=== PATIENT | male | born 1940 | race Caucasian/White ===

== ENCOUNTER → 2017-05-06 12:46 | Outpatient (CLI) | payer MEDICARE, SELFPAY ==
--- NOTE | 2017-05-06 12:48 | CT_ITS ---
CT sinus wo con CLINICAL INDICATION: Sinus pressure and extends into the neck, chronic maxillary sinusitis ORDERING PHYSICIAN: Gustavo Vazquez MD PATIENT AGE: 76 years COMPARISON: None TECHNIQUE:Axial, sagittal, and coronal images are generated and reviewed without contrast FINDINGS: There is mild mucosal thickening of the lower aspect of the frontal sinuses and moderate mucosal thickening of the anterior ethmoid air cells and mild mucosal thickening of the mid ethmoid air cells. There is mild to moderate bilateral maxillary sinus mucosal thickening measuring up to 5 mm bilaterally. There is an air-fluid level in the right maxillary sinus. Only minimal mucosal thickening of the sphenoid sinus along the medial wall on the left. There is occlusion of the left ostiomeatal complex and narrowing of the right ostiomeatal complex. There is a small left jarod bullosa. No significant nasal septal deviation. The mastoid sinuses are unremarkable. Unremarkable appearing globes and TMJs. IMPRESSION: Paranasal sinus inflammatory changes as described above. There is an air-fluid level in the right maxillary sinus.
== END ==
PROVIDERS: Family Provider Physician Assistant; PCP Family Medicine; Visit Provider Otolaryngology
DX: J32.0 Chronic maxillary sinusitis (principal); R51 Headache
CPT/HCPCS: 70486

== ENCOUNTER → 2017-07-26 15:23 | Outpatient (CLI) | payer MEDICARE, SELFPAY ==
[2017-07-26 17:55] LABS: Prostate Specific Ag Screen 5.9 ng/mL (0.0-4.0)
== END ==
PROVIDERS: Visit Provider Urology
DX: Z12.5 Encounter for screening for malignant neoplasm of prostate (principal); R97.20 Elevated prostate specific antigen [PSA]
CPT/HCPCS: 36415; G0103

== ENCOUNTER → 2017-10-03 07:35 | Outpatient (CLI) | payer MEDICARE, SELFPAY ==
[2017-10-03 09:11] LABS: Alanine Aminotransferase 23 U/L (12-78); Albumin Level 3.5 gm/dL (3.4-5.0); Alkaline Phosphatase 112 U/L (46-116); Anion Gap 8.8 mEq/L (5-15); Aspartate Amino Transferase 19 U/L (15-37); Bilirubin,Total 0.4 mg/dL (0.2-1.0); Blood Urea Nitrogen 16 mg/dL (7-18); Calcium 9.3 mg/dL (8.5-10.1); Carbon Dioxide 31 mmol/L (21.0-32.0); Chloride 109 mmol/L (98-107); Cholesterol 235 mg/dL (140-200); Creatinine,Serum 1.26 mg/dL (0.70-1.30); Estimated Glomerular Filt Rate 55 ml/min (>60); Free T4 (Free Thyroxine) 1.55 ng/dl (0.76-1.46); GFR (African American) 67 ML/MIN (>60); Globulin 3.5 gm/dl (1.3-3.2); HDL Cholesterol 39 mg/dL (27-67); LDL Cholesterol 174 mg/dL (0-130); Potassium 4.8 mmoL/L (3.5-5.1); Sodium 144 mmol/L (136-145); Thyroid Stimulating Hormone 0.76 uIU/ml (0.358-3.740); Triglycerides 109 mg/dL (30-200); VLDL Cholesterol 22 mg/dL (0-40)
[2017-10-03 09:19] LABS: Glucose 88 mg/dL (74-106)
== END ==
PROVIDERS: Visit Provider Family Medicine
DX: E03.9 Hypothyroidism, unspecified (principal); E78.5 Hyperlipidemia, unspecified
CPT/HCPCS: 36415; 80053; 80061; 84439; 84443

== ENCOUNTER → 2018-02-02 10:12 | Outpatient (CLI) | payer MEDICARE, SELFPAY ==
[2018-02-02 12:53] LABS: Chol/HDL Ratio 5.2 (1-3.5); Cholesterol 208 mg/dL (140-200); HDL Cholesterol 40 mg/dL (27-67); LDL Cholesterol 142 mg/dL (0-130); Thyroid Stimulating Hormone 2.18 uIU/ml (0.358-3.740); Triglycerides 128 mg/dL (30-200); VLDL Cholesterol 26 mg/dL (0-40)
== END ==
PROVIDERS: PCP Family Medicine; Visit Provider Nurse Practitioner Family
DX: E03.9 Hypothyroidism, unspecified (principal); E78.5 Hyperlipidemia, unspecified
CPT/HCPCS: 36415; 80061; 84443

== ENCOUNTER → 2018-04-18 08:43 | Outpatient (CLI) | payer MEDICARE, SELFPAY ==
--- NOTE | 2018-04-18 | CI_ITS ---
Cerebrovascular Exam Indications: 780.4 Dizziness and giddiness. IMPRESSIONS 1. The bilateral vertebral arteries are patent with normal antegrade flow. 2. Study suggests less than 20% stenosis involving the right internal carotid artery. No change from the study of 14-Oct-2009. 3. Study suggests less than 20% stenosis involving the left internal carotid artery. No change from the study of 14-Oct-2009. Carotid duplex study. Complete study and Doppler flow study including spectral analysis, color and rubin scale imaging. Location: Vascular laboratory. Patient status: Outpatient. Tables: Arterial flow: + +--------+--------+ Location V sys V ed + +--------+--------+ Right CCA - proximal 64.4cm/s 17.3cm/s + +--------+--------+ Right CCA - distal 63.6cm/s 19.6cm/s + +--------+--------+ Right ECA 85.6cm/s 18.1cm/s + +--------+--------+ Right ICA - proximal 73.1cm/s 22.8cm/s + +--------+--------+ Right ICA - mid 62.1cm/s 25.9cm/s + +--------+--------+ Right ICA - distal 123cm/s 33.8cm/s + +--------+--------+ Right vertebral 57.4cm/s 16.5cm/s + +--------+--------+ Left CCA - proximal 68.4cm/s 15.7cm/s + +--------+--------+ Left CCA - distal 62.9cm/s 13.4cm/s + +--------+--------+ Left ECA 101cm/s 12.6cm/s + +--------+--------+ Left ICA - proximal 69.9cm/s 23.6cm/s + +--------+--------+ Left ICA - mid 78.6cm/s 23.6cm/s + +--------+--------+ Left ICA - distal 64.4cm/s 19.6cm/s + +--------+--------+ Left vertebral 73.9cm/s 16.5cm/s + +--------+--------+ Velocity ratios: + + + + + + Right, V sys Right, V ed Left, V sys Left, V ed + + + + + + Max ICA/dist CCA 1.93 1.72 1.25 1.76 + + + + + + (Report amended ) Electronically signed by: Jhon Houston [id number]
== END ==
PROVIDERS: PCP Family Medicine; Visit Provider Family Medicine
DX: R42 Dizziness and giddiness (principal); G44.89 Other headache syndrome
CPT/HCPCS: 93880

== ENCOUNTER 2018-06-09 11:00 | Outpatient (RCR) | payer MEDICARE, SELFPAY ==
--- NOTE | 2018-04-28 14:15 | HMH.PTOPEV ---
PT Outpatient Evaluation Rehab PT Outpatient Evaluation Start: 04/28/18 13:28 Freq: Status: Active Protocol: Document 04/28/18 14:03 REJI (Rec: 04/28/18 14:15 REJI [id number]) Electronically Signed By Luis Carlos Ashraf, PT 04/28/18 14:03 Outpatient Therapy Subjective History Subjective History Patient is a 77 year old male presenting to outpatient PT with reports of chronic cervical spine and L upper trapezius pain starting approximately 2 years ago after a fall off of a ladder at home. No recent diagnostics to report. Pt also reports intermittent cevicogenic headaches. Comorbidities include hx of previous tumor removal and OA. Chief Complaint Pain Stiff Clicks Symptom Type Ache Symptoms Relieved By Rest/Positioning Heat Symptoms Aggravated By Physical Activity Lifting Prior Functional Limitations None Current Functional Limitations Reaching Lifting Housework Sleeping Recreation Activity Symptom Description Constant but Variable Level of pain today (0-10) 2 Pain scale - at its best (0-10) 0 Pain scale - at its worst (0-10) 4 Cervical Eval Palpation Cervical Muscles L Upper Trapezius Cervical/Thoracic Palpation Findings Tenderness Posture Head/C-Spine Posture Sitting Position C-Spine Flattened Head/C-Spine Posture Standing Position C-Spine Flattened Flexibility Deficits Upper Trapezius Muscle Length (L) Moderate Tightness Levaetor Scapulae Muscle Length (L) Moderate Tightness Pectoralis Minor Muscle Length (R) Moderate Tightness (L) Moderate Tightness Passive Joint Mobility Cervical PIVM Dec: R OA L OA R AA L AA R C2/3 L C2/3 R C3/4 L C3/4 R C4/5 L C4/5 R C5/6 L C5/6 R C6/7
== END 2018-06-09 11:05 | disposition home or self-care (01) ==
LOC: PT 11:00
PROVIDERS: Visit Provider Family Medicine
DX: M54.2 Cervicalgia (principal)
CPT/HCPCS: 97010; 97014; 97033; 97035; 97110; 97140; 97163; G0283

== ENCOUNTER → 2018-08-24 09:19 | Outpatient (CLI) | payer MEDICARE, SELFPAY | PROVIDERS: PCP Family Medicine; Visit Provider Family Medicine | DX: R07.2 Precordial pain (principal) | CPT/HCPCS: 93017 ==

== ENCOUNTER 2018-11-17 10:54 | Observation (INO) ==
[2018-11-17 11:31] LABS: Basophils % 0.5 % (0.1-2.0); Eosinophils # 0.5 K/mm3 (0.0-0.4); Eosinophils % 6.3 % (0.1-12.0); Hematocrit 26.3 % (42.0-52.0); Hemoglobin 8.1 g/dL (14.1-18.0); Lymphocytes # 3.2 K/mm3 (0.7-4.5); Lymphocytes % 38.2 % (10-50); Mean Corpuscular HGB Conc 30.8 g/dL (31.8-35.4); Mean Corpuscular Volume 96.5 fl (80-94); Mean Platelet Volume 7.9 fl (7.4-10.4); Monocytes # 0.4 K/mm3 (0.1-1.0); Monocytes % 4.9 % (1.7-9.3); Neutrophils # 4.2 K/mm3 (1.8-7.8); Neutrophils % 50.1 % (37.0-80.0); Platelet Count 341 K/mm3 (142-424); Red Blood Count 2.72 M/mm3 (4.60-6.20); Red Cell Distribution Width 13.8 % (11.5-17.5); White Blood Count 8.4 K/mm3 (4.8-10.8)
[2018-11-17 11:35] LABS: Alanine Aminotransferase 19 U/L (12-78); Albumin Level 2.8 gm/dL (3.4-5.0); Alkaline Phosphatase 76 U/L (46-116); Anion Gap 12.7 mEq/L (5-15); Aspartate Amino Transferase 20 U/L (15-37); Bilirubin,Direct 0.1 mg/dL (0.0-0.2); Bilirubin,Indirect 0.2 mg/dL (0.0-0.9); Bilirubin,Total 0.3 mg/dL (0.2-1.0); Blood Urea Nitrogen 21 mg/dL (7-18); Calcium 8.5 mg/dL (8.5-10.1); Carbon Dioxide 26 mmol/L (21.0-32.0); Chloride 106 mmol/L (98-107); INR 1.01 (0.9-1.1); Prothrombin Time 10.5 seconds (9.4-11.8); Sodium 141 mmol/L (136-145); Total Protein,Serum 5.9 gm/dL (6.4-8.2)
[2018-11-17 11:47] LABS: Glucose 126 mg/dL (74-106)
--- NOTE | 2018-11-17 12:00 | Emergency Department Note ---
ED Disposition Clinical Impression: Vasovagal syncope, Dehydration Disposition: Admitted As Inpatient Condition on Discharge: Fair Instructions: DI for Syncope in Adults (Fainting), DI for Syncope in Children (Fainting) Referrals: Yohannes Saravia MD [Primary Care Provider] - - Critical Care Critical Care Time: Yes Attestation: On 11/17/18, the high probability of a clinically significant, sudden or life threatening deterioration of the following system(s) required my full and direct attention, intervention and personal management. The time I documented below is in addition to time spent performing reported procedures but includes the following listed in this critical care notation. Vital system(s) involved:: Circulatory Failure My critical care processes included: Assessment & monitoring of V/S Medical Decision Making - Medical Records MR Comment: Patient has dehydration and GI bleed. He was started on IV fluids. His hemoglobin is 8.1. We are not sure if this is upper GI lower GI. He will be started on Protonix IV. He needs blood transfusion. Called his primary care physician and he agreed on admission. - Zaki Inquiry Pt receiving controlled substance: No Zaki was queried for this patient: No Vital Signs: 11/17/18 10:59 11/17/18 11:53 Temperature 97.6 F Temperature Source Oral Pulse Rate [Left Radial] 68 70 Respiratory Rate 16 Blood Pressure [Right Arm] 122/72 139/77 Blood Pressure Mean [Right Arm] 88 97 Blood Pressure Source [Right Arm] Automatic Cuff Automatic Cuff Blood Pressure Position [Right Arm] Sitting Sitting 02 Sat by Pulse Oximetry 97 98 Oxygen Delivery Method Room Air Room Air - Lab Data Lab Results 11/17/18 11:00: WBC 8.4, RBC 2.72 L, Hgb 8.1 L, Hct 26.3 L, MCV 96.5 H, MCH 29.7, MCHC 30.8 L, RDW 13.8, Plt Count 341, MPV 7.9, Neut % (Auto) 50.1, Lymph % (Auto) 38.2, [place] % (Auto) 4.9, Eos % (Auto) 6.3, Baso % (Auto) 0.5, Neut # (Auto) 4.2, Lymph # (Auto) 3.2, [place] # (Auto) 0.4, Eos # (Auto) 0.5 H, Baso # (Auto) 0.0 11/17/18 11:00: Sodium 141, Potassium 3.7, Chloride 106, Carbon Dioxide 26, Anion Gap 12.7, BUN 21 H, Creatinine 1.45 H, Estimated Creat Clear 40, Estimated GFR 47 L, Est GFR ( Amer) 57 L, Glucose 126 H, Calcium 8.5, Total Bilirubin 0.3, Direct Bilirubin 0.1, Indirect Bilirubin 0.2, AST 20, ALT 19, Alkaline Phosphatase 76, Troponin I < 0.02, Total Protein 5.9 L, Albumin 2.8 L 11/17/18 11:00: PT 10.5, INR 1.01 11/17/18 11:35: Stool Occult Blood Positive A Result diagrams: 11/17/18 11:00 11/17/18 11:00 General Adult HPI - General Chief complaint: Syncope Stated complaint: Syncope Time Seen by Provider: 11/17/18 11:00 Mode of Arrival: EMS Limitations: No Limitations Description of Symptoms (Recalled from ER Triage Doc. by RN): to ed per squad with syncopal episode today pt states he got out of the shower started feeling weak "slid down side of shower and passed out. pt denies any c/o at present. states yesterday had an episode of lt shoulder pain radiating down and around abd lasting approx 3-4 hours. - History of Present Illness HPI narrative: 28-year-old male. He was taking a shower when he passed out according to his . She was on the commode and he urinated on himself. And his eyes were rolled according to his . This syncope lasted about 1 minute. He said he has chronic neck pain and he had some acupuncture due to spurs but he denies any chest pain. Also has a chronic back pain. Said he had a stress test about 2 months ago and it was negative he denies any chest pain today. He had diarrhea last night and he passed blood with the stool. About 6 times. He only takes thyroid medicine and is still flex and he takes Advil as needed. He does not take any aspirin. - Related Data Home Medications Medication Instructions Recorded Confirmed glucosamine-chondroitin 250 mg-200 2 tab PO TID 05/12/17 11/17/18 mg tablet levothyroxine 88 mcg capsule 88 mcg PO ONCE 03/08/18 09/13/19 omega 9-phx-fqk-fish oil 1,000 mg 1 cap PO DAILY 05/12/17 11/17/18 (120 mg-180 mg) capsule Montelukast Sodium [Singulair] 10 mg PO QHS 11/17/18 11/17/18 Allergies Allergy/AdvReac Type Severity Reaction Status Date / Time Sulfa (Sulfonamide Allergy Unknown NAUSEA/VOMI Verified 07/26/17 10:44 Antibiotics) [facility] History - Hepatitis A Screen Drug use history?: No High risk sexual behaviors?: No History of sexually transmitted infection?: No Currently employed?: No Childcare worker?: No Do you have indoor plumbing?: Yes Do you have electricity?: Yes Attestation statement:: This patient has been screened for Hepatitis A risk factors. Medical History: Reports:: Chronic Obstructive Pulmonary Disease (COPD), Hyperlipidemia, Lung Disease Other Medical History: Reports: Arthritis, Thyroid Disease Comment: Bleeding Disorder Laterality Cases: Left: Tonsillectomy Other Surgeries: Yes: Sinus Surgery Amputation: No Fractures: No Comment: tonsil - Social History Smoking Status: Never smoker Alcohol Intake: never Substance Use Type: denies use Occupational Status: other Family Hx:: Anemia, Asthma, Cancer, Hyperlipidemia, Diabetes, Hypertension Comment: Arthritis, IA, Bleeding trouble, COPD, Glaucoma, Lung Disease ROS Obtained: Yes All systems reviewed & no additional complaints - Gastrointestinal Comments: Blood in the stool. Diarrhea. Physical Exam - General General appearance: alert, in no apparent distress - Head Head exam: atraumatic, normocephalic, normal inspection - Eye Eye exam: Present: normal appearance, PERRL, EOMI - ENT ENT exam: Present: normal exam, normal oropharynx, mucous membranes moist, TM's normal bilaterally, normal external ear exam - Neck Neck exam: Present: normal inspection, full ROM, trachea midline. Absent: meningismus, lymphadenopathy - Chest Chest inspection: Present: normal inspection, symmetric chest wall rise. Absent: tenderness - Respiratory Respiratory exam: Present: normal lung sounds bilaterally. Absent: respiratory distress - Cardiovascular Cardiovascular exam: Present: regular rate, normal rhythm. Absent: JVD - Abdominal Exam Abdominal exam: Present: soft, normal bowel sounds. Absent: distention, tenderness, guarding - Extremities Exam Extremities exam: Present: normal inspection, full ROM, normal capillary refill. Absent: calf tenderness - Back Exam Back exam: Present: normal inspection. Absent: tenderness - Neurological Exam Neurological exam: Present: alert, oriented X3 - Psychiatric Psychiatric exam: Present: normal affect, normal mood - Skin Skin exam: Present: warm, dry, intact, normal color - Lymphatic Lymphatic Findings: no adenopathy
--- NOTE | 2018-11-17 14:29 | History & Physical Report ---
*Admission Date: 11/17/18 <Kaycee Sarah 11/17/18 14:44> *Chief complaint: weakness, syncope, dark stools, diarrhea <Kaycee Sarah 11/17/18 14:44> *History of present illness: Mr. Robert is a 78-year-old male with a history of hypothyroidism, hyperlipidemia, GERD, diverticulosis, BPH, and COPD. He states for the past 2 days he has had diarrhea that has been dark in color. At 9:30 AM his states he was in the shower and she heard a noise and went to check on him and he had passed out and was sliding down the wall. She was able to get him on the toilet and he had another syncopal episode for 1 to 2 minutes. She was able to get him into his chair in the living room and he was complaining of some left-sided back and neck pain as long as left lower quadrant abdominal pain. He stated his arms and face were tingling. She called 911 and he was transported to the emergency room. His head CT showed sinusitis but nothing acute. He had a chest x-ray showing COPD but nothing acute. His hemoglobin was decreased at 8.1 and his hematocrit was decreased at 26.3. His renal function was slightly elevated and his stool was positive for blood. He will be admitted and a blood transfusion and surgical consult will be ordered. <Kayece Sarah 11/17/18 14:44> [facility] History I have reviewed the patient's past medical history: Yes <Kaycee Sarah 11/17/18 14:44> Medical History: Reports:: BPH, Chronic Obstructive Pulmonary Disease (COPD), Gastroesophageal Reflux Disease(GERD), Hiatal Hernia, Hyperlipidemia, Lung Disease Denies:: Cancer, Diabetes Mellitus Type 1, Diabetes Mellitus Type 2, MRSA <Kaycee Sarah 11/17/18 14:44> *Have you ever received a pneumonia vaccine?: Yes <Kaycee Sarah 11/17/18 14:44> *Have you received a flu vaccine this season?: No <Kaycee Sarah 11/17/18 14:44> Other Medical History: Reports: Arthritis, Cataracts, Hypothyroidism, Sinus Problems, Thyroid Disease <Kaycee Sarah 11/17/18 14:44> Laterality Cases: Left: Tonsillectomy <MikeumuKaycee 11/17/18 14:44> Other Surgeries: Yes: Sinus Surgery <MikeSylvester sanza 11/17/18 14:44> Amputation: No <Kaycee Sarah 11/17/18 14:44> Fractures: No <MikeumuKaycee 11/17/18 14:44> - *Social History Educational Level: Attended High School <Kaycee Sarah 11/17/18 14:44> Smoking Status: Former smoker <Sylvester Saraha 11/17/18 14:44> Tobacco Type: cigarettes <MikeumuKaycee 11/17/18 14:44> # Packs/Day (cigarettes): 1 <Kaycee Sarah 11/17/18 14:44> #Yrs smoked (if former smoker): 55 <MikeumuKaycee 11/17/18 14:44> Smoking End Date: 03/07/2014 <Kaycee Sarah 11/17/18 14:44> Alcohol Intake: never <MikeumuKaycee 11/17/18 14:44> Substance Use Type: denies use <MikeumuKaycee 11/17/18 14:44> *Occupational Status:: retired, other <MikeumuKaycee 11/17/18 14:44> Housing: house <MikeumuKaycee 11/17/18 14:44> Household Members: spouse <MikeumuKaycee 11/17/18 14:44> *Travel in the last 8 weeks: None <Sylvester Saraha 11/17/18 14:44> Family Hx:: Anemia, Asthma, Cancer, Hyperlipidemia, Diabetes, Hypertension <Sylvester Saraha 11/17/18 14:44> Review of Systems - Constitutional Reports chills, Reports fatigue, Reports malaise, Reports weakness, Denies fever(s) <Kaycee Sarah 11/17/18 14:44> - Eyes Denies blurry vision, Denies double vision <Kaycee Sarah 11/17/18 14:44> - ENT Denies nasal congestion, Denies sore throat <Kaycee Sarah 11/17/18 14:44> - *Cardiovascular Denies chest pain, Denies shortness of breath, Denies rapid, pounding, or irregular heartbeat <[facility] 11/17/18 14:44> - *Respiratory Denies cough, Denies shortness of breath [facility]44> - *Gastrointestinal Reports abdominal pain (LLQ), Reports loose stools (dark in color), Denies nausea, Denies vomiting <Kaycee Sarah 11/17/18 14:44> - *Genitourinary Denies difficulty urinating, Denies painful urination [facility] 11/17/18 14:44> - *Musculoskeletal Reports muscle weakness, Reports body aches [facility] 11/17/18 14:44> - *Neurologic Reports headache(s), Reports fainting, Reports tingling (face and arms), Reports dizziness, Reports weakness <Kaycee Sarah 11/17/18 14:44> Meds Home Medications Medication Instructions Recorded Confirmed Type glucosamine-chondroitin 250 mg-200 2 tab PO TID 05/12/17 11/17/18 History mg tablet levothyroxine 88 mcg capsule 88 mcg PO DAILY 05/12/17 11/17/18 History omega 3-jmz-evc-fish oil 1,000 mg 1 cap PO DAILY 05/12/17 11/17/18 History (120 mg-180 mg) capsule Montelukast Sodium [Singulair] 10 mg PO HS 11/17/18 11/17/18 History <Yohannes Saravia - 11/17/18 17:45> Allergies Allergy/AdvReac Type Severity Reaction Status Date / Time Sulfa (Sulfonamide Allergy Unknown NAUSEA/VOMI Verified 07/26/17 10:44 Antibiotics) TING <Yohannes Saravia - 11/17/18 17:45> Exam Vital signs and Labs for Last 24 Hours: Temp Pulse Resp BP Pulse Ox 98.6 F 77 17 155/59 H 97 11/17/18 16:00 11/17/18 16:00 11/17/18 16:00 11/17/18 16:00 11/17/18 16:00 Laboratory Results - last 24 hr 11/17/18 11:00: WBC 8.4, RBC 2.72 L, Hgb 8.1 L, Hct 26.3 L, MCV 96.5 H, MCH 29.7, MCHC 30.8 L, RDW 13.8, Plt Count 341, MPV 7.9, Neut % (Auto) 50.1, Lymph % (Auto) 38.2, [place] % (Auto) 4.9, Eos % (Auto) 6.3, Baso % (Auto) 0.5, Neut # (Auto) 4.2, Lymph # (Auto) 3.2, [place] # (Auto) 0.4, Eos # (Auto) 0.5 H, Baso # (Auto) 0.0 11/17/18 11:00: Sodium 141, Potassium 3.7, Chloride 106, Carbon Dioxide 26, Anion Gap 12.7, BUN 21 H, Creatinine 1.45 H, Estimated Creat Clear 40, Estimated GFR 47 L, Est GFR ( Amer) 57 L, Glucose 126 H, Calcium 8.5, Total Bilirubin 0.3, Direct Bilirubin 0.1, Indirect Bilirubin 0.2, AST 20, ALT 19, Alkaline Phosphatase 76, Troponin I < 0.02, Total Protein 5.9 L, Albumin 2.8 L 11/17/18 11:00: PT 10.5, INR 1.01 11/17/18 11:35: Stool Occult Blood Positive A 11/17/18 13:15: Blood Type A Positive, Antibody Screen Positive, Crossmatch (AHG) See Detail 11/17/18 13:53: Blood Type Confirm A Positive 11/17/18 16:01: WBC 12.4 H D, RBC 2.66 L, Hgb 8.1 L, Hct 24.9 L, MCV 93.7, MCH 30.3, MCHC 32.3, RDW 13.8, Plt Count 345, MPV 7.5, Neut % (Auto) 70.2, Lymph % (Auto) 23.9, [place] % (Auto) 3.9, Eos % (Auto) 1.7, Baso % (Auto) 0.2, Neut # (Auto) 8.7 H, Lymph # (Auto) 3.0, [place] # (Auto) 0.5, Eos # (Auto) 0.2, Baso # (Auto) 0.0 11/17/18 16:01: Sodium 142, Potassium 4.0, Chloride 107, Carbon Dioxide 26, Anion Gap 13.0, BUN 21 H, Creatinine 1.34 H, Estimated Creat Clear 46, Estimated GFR 51 L, Est GFR ( Amer) 62, Glucose 99 D, Calcium 8.6 <Yohannes Saravia - 11/17/18 17:45> Temp Pulse Resp BP Pulse Ox 98 F 70 16 144/70 H 96 11/17/18 13:48 11/17/18 13:48 11/17/18 13:48 11/17/18 13:48 11/17/18 14:23 Laboratory Results - last 24 hr 11/17/18 11:00: WBC 8.4, RBC 2.72 L, Hgb 8.1 L, Hct 26.3 L, MCV 96.5 H, MCH 29.7, MCHC 30.8 L, RDW 13.8, Plt Count 341, MPV 7.9, Neut % (Auto) 50.1, Lymph % (Auto) 38.2, [place] % (Auto) 4.9, Eos % (Auto) 6.3, Baso % (Auto) 0.5, Neut # (Auto) 4.2, Lymph # (Auto) 3.2, [place] # (Auto) 0.4, Eos # (Auto) 0.5 H, Baso # (Auto) 0.0 11/17/18 11:00: Sodium 141, Potassium 3.7, Chloride 106, Carbon Dioxide 26, Anion Gap 12.7, BUN 21 H, Creatinine 1.45 H, Estimated Creat Clear 40, Estimated GFR 47 L, Est GFR ( Amer) 57 L, Glucose 126 H, Calcium 8.5, Total Bilirubin 0.3, Direct Bilirubin 0.1, Indirect Bilirubin 0.2, AST 20, ALT 19, Alkaline Phosphatase 76, Troponin I < 0.02, Total Protein 5.9 L, Albumin 2.8 L 11/17/18 11:00: PT 10.5, INR 1.01 11/17/18 11:35: Stool Occult Blood Positive A 11/17/18 13:15: Crossmatch (AHG) See Detail <TyrelKaycee - 11/17/18 14:44> I & O for Last 24 hours: Intake & Output 11/15/18 11/16/18 11/17/18 11/18/18 11:59 11:59 11:59 11:59 Weight 150 lb 159 lb <Yohannes Saravia 11/17/18 17:45> Intake & Output 11/15/18 11/16/18 11/17/18 11/18/18 11:59 11:59 11:59 11:59 Weight 150 lb <Kaycee Sarah 11/17/18 14:44> - Constitutional Comments: Does not appear to feel well <Kaycee Sarah 11/17/18 14:44> - *Routine HEENT Exam Head: Present: normocephalic <Kaycee Sarah 11/17/18 14:44> Eye: Present: EOMI, PERRL <Kaycee Sarah 11/17/18 14:44> ENT: Present: mucous membranes dry <Kaycee Sarah 11/17/18 14:44> - *Routine Neck Exam Present: supple. Absent: lymphadenopathy <Kaycee Sarah 11/17/18 14:44> - *Routine Respiratory Exam Present: CTA bilaterally <Kaycee Sarah 11/17/18 14:44> - *Routine Cardiovascular Exam Present: RRR <Kaycee Sarah 11/17/18 14:44> - *Routine Abdominal Exam Present: soft, normoactive bowel sounds, tenderness (LLQ) <Kaycee Sarah 11/17/18 14:44> - *Routine Extremities Exam Absent: cyanosis, clubbing, edema <Kaycee Sarah 11/17/18 14:44> - *Routine Skin Exam Present: pallor <Kaycee Sarah 11/17/18 14:44> - *Routine Neurological Exam Present: alert, oriented X3, CN II-XII intact. Absent: sensory deficit, motor deficit <Kaycee Sarah 11/17/18 14:44> H&P: Result - Impressions Head CT 1. No acute intracranial findings. 2. Chronic changes as described above. 3. Sinusitis CXR - COPD, no change with no acute finding <Kaycee Sarah 11/17/18 14:44> Assessment and Plan (1) Vasovagal syncope Current visit: Yes Status: Acute Category: Medical Code(s): R55 - Syncope and collapse (2) Diarrhea Current visit: Yes Status: Acute Category: Medical Code(s): R19.7 - Diarrhea, unspecified (3) Dehydration Current visit: Yes Status: Acute Category: Medical Code(s): E86.0 - Dehydration (4) GI bleed Current visit: Yes Status: Acute Category: Medical Code(s): K92.2 - Gastrointestinal hemorrhage, unspecified (5) Hypothyroid Current visit: Yes Status: Chronic Category: Medical Code(s): E03.9 - Hypothyroidism, unspecified (6) Hyperlipidemia Current visit: Yes Status: Chronic Category: Medical Code(s): E78.5 - Hyperlipidemia, unspecified (7) GERD (gastroesophageal reflux disease) Current visit: Yes Status: Chronic Category: Medical Code(s): K21.9 - Gastro-esophageal reflux disease without esophagitis (8) Diverticulosis Current visit: Yes Status: Chronic Category: Medical Code(s): K57.90 - Diverticulosis of intestine, part unspecified, without perforation or abscess without bleeding (9) COPD (chronic obstructive pulmonary disease) Current visit: Yes Status: Chronic Category: Medical Code(s): J44.9 - Chronic obstructive pulmonary disease, unspecified <MikeumuKaycee - 11/17/18 14:25> (1) GI bleed Current visit: Yes Status: Acute Qualifiers: GI bleed type/associated pathology: melena Qualified Code(s): K92.1 - Melena Category: Medical Code(s): K92.2 - Gastrointestinal hemorrhage, unspecified (2) Vasovagal syncope Current visit: Yes Status: Acute Category: Medical Code(s): R55 - Syncope and collapse (3) Diarrhea Current visit: Yes Status: Acute Category: Medical Code(s): R19.7 - Diarrhea, unspecified (4) Dehydration Current visit: Yes Status: Acute Category: Medical Code(s): E86.0 - Dehy dration (5) Hypothyroid Current visit: Yes Status: Chronic Category: Medical Code(s): E03.9 - Hypothyroidism, unspecified (6) Hyperlipidemia Current visit: Yes Status: Chronic Category: Medical Code(s): E78.5 - Hyperlipidemia, unspecified (7) GERD (gastroesophageal reflux disease) Current visit: Yes Status: Chronic Category: Medical Code(s): K21.9 - Gastro-esophageal reflux disease without esophagitis (8) Diverticulosis Current visit: Yes Status: Chronic Category: Medical Code(s): K57.90 - Diverticulosis of intestine, part unspecified, without perforation or abscess without bleeding (9) COPD (chronic obstructive pulmonary disease) Current visit: Yes Status: Chronic Category: Medical Code(s): J44.9 - Chronic obstructive pulmonary disease, unspecified <Yohannes Saravia - 11/17/18 17:45> - Assessment and plan all Dx Assessment and Plan for all problems:: Patient seen and examined. Concur with above. He does report taking OTC NSAIDs almost daily for headache and neck pain. Seems comfortable and stable at this time. <Yohannes Saravia - 11/17/18 17:45> Will admit for a blood transfusion, monitoring of his H&H, and a surgical consult. <Kaycee Sarah - 11/17/18 14:44>
--- NOTE | 2018-11-17 15:57 | Electrocardiograph Report ---
APPROVED REPORT Exam: Resting ECG HR:63 bpm ECG Measurements Heart Rate [address] 178 P 52 QRSd 96 QRS -21 QT 452 T73 QTc 462 <Conclusion> Normal sinus rhythm Prolonged QT,LAD Abnormal ECG Electronically signed by : Marco Jordan, 11/17/2018 15:56:40
[2018-11-17 16:15] LABS: Basophils % 0.2 % (0.1-2.0); Eosinophils # 0.2 K/mm3 (0.0-0.4); Eosinophils % 1.7 % (0.1-12.0); Hematocrit 24.9 % (42.0-52.0); Hemoglobin 8.1 g/dL (14.1-18.0); Lymphocytes % 23.9 % (10-50); Mean Corpuscular HGB Conc 32.3 g/dL (31.8-35.4); Mean Corpuscular Volume 93.7 fl (80-94); Mean Platelet Volume 7.5 fl (7.4-10.4); Monocytes # 0.5 K/mm3 (0.1-1.0); Monocytes % 3.9 % (1.7-9.3); Neutrophils # 8.7 K/mm3 (1.8-7.8); Neutrophils % 70.2 % (37.0-80.0); Platelet Count 345 K/mm3 (142-424); Red Blood Count 2.66 M/mm3 (4.60-6.20); Red Cell Distribution Width 13.8 % (11.5-17.5); White Blood Count 12.4 K/mm3 (4.8-10.8)
[2018-11-17 16:18] LABS: Calcium 8.6 mg/dL (8.5-10.1)
--- NOTE | 2018-11-17 17:40 | Consult Report ---
*Admission Date: 11/17/18 *Reason for consult:: Gastrointestinal hemorrhage *History of present illness: This is a 78-year-old gentleman seen in consultation from Kaycee Sarah PA-C for evaluation regarding gastrointestinal hemorrhage. Please see HPI from admission H&P forwarded below. Mr. Robert is a 78-year-old male with a history of hypothyroidism, hyperlipidemia, GERD, diverticulosis, BPH, and COPD. He states for the past 2 days he has had diarrhea that has been dark in color. At 9:30 AM his states he was in the shower and she heard a noise and went to check on him and he had passed out and was sliding down the wall. She was able to get him on the toilet and he had another syncopal episode for 1 to 2 minutes. She was able to get him into his chair in the living room and he was complaining of some left-sided back and neck pain as long as left lower quadrant abdominal pain. He stated his arms and face were tingling. She called 911 and he was transported to the emergency room. Hi s head CT showed sinusitis but nothing acute. He had a chest x-ray showing COPD but nothing acute. His hemoglobin was decreased at 8.1 and his hematocrit was decreased at 26.3. His renal function was slightly elevated and his stool was positive for blood. He will be admitted and a blood transfusion and surgical consult will be ordered. Review of Systems - Constitutional Denies chills - Eyes Denies change in vision - ENT Denies change in voice - *Cardiovascular Denies chest pain - *Respiratory Denies cough - *Gastrointestinal Reports black, tarry stools - *Neurologic Reports headache(s), Reports fainting, Reports tingling (face and arms), Reports dizziness, Reports weakness [facility] History Medical History: Reports:: BPH, Chronic Obstructive Pulmonary Disease (COPD), Gastroesophageal Reflux Disease(GERD), Hiatal Hernia, Hyperlipidemia, Lung Disease Denies:: Cancer, Diabetes Mellitus Type 1, Diabetes Mellitus Type 2, MRSA *Have you ever received a pneumonia vaccine?: Yes *Have you received a flu vaccine this season?: No Other Medical History: Reports: Arthritis, Cataracts, Hypothyroidism, Sinus Problems, Thyroid Disease Laterality Cases: Left: Tonsillectomy Other Surgeries: Yes: Sinus Surgery Amputation: No Fractures: No - *Social History Educational Level: Attended High School Smoking Status: Former smoker Tobacco Type: cigarettes # Packs/Day (cigarettes): 1 #Yrs smoked (if former smoker): 55 Smoking End Date: 03/07/2014 Alcohol Intake: never Substance Use Type: denies use *Occupational Status:: retired, other Housing: house Household Members: spouse *Travel in the last 8 weeks: None Family Hx:: Anemia, Asthma, Cancer, Hyperlipidemia, Diabetes, Hypertension Meds Home Medications Medication Instructions Recorded Confirmed Type glucosamine-chondroitin 250 mg-200 2 tab PO TID 05/12/17 11/17/18 History mg tablet levothyroxine 88 mcg capsule 88 mcg PO DAILY 05/12/17 11/17/18 History omega 8-xae-teg-fish oil 1,000 mg 1 cap PO DAILY 05/12/17 11/17/18 History (120 mg-180 mg) capsule Montelukast Sodium [Singulair] 10 mg PO HS 11/17/18 11/17/18 History Allergies Allergy/AdvReac Type Severity Reaction Status Date / Time Sulfa (Sulfonamide Allergy Unknown NAUSEA/VOMI Verified 07/26/17 10:44 Antibiotics) TING Exam Vital signs and Labs for Last 24 Hours: Temp Pulse Resp BP Pulse Ox 98.6 F 77 17 155/59 H 97 11/17/18 16:00 11/17/18 16:00 11/17/18 16:00 11/17/18 16:00 11/17/18 16:00 Laboratory Results - last 24 hr 11/17/18 11:00: WBC 8.4, RBC 2.72 L, Hgb 8.1 L, Hct 26.3 L, MCV 96.5 H, MCH 29.7, MCHC 30.8 L, RDW 13.8, Plt Count 341, MPV 7.9, Neut % (Auto) 50.1, Lymph % (Auto) 38.2, [place] % (Auto) 4.9, Eos % (Auto) 6.3, Baso % (Auto) 0.5, Neut # (Auto) 4.2, Lymph # (Auto) 3.2, [place] # (Auto) 0.4, Eos # (Auto) 0.5 H, Baso # (Auto) 0.0 11/17/18 11:00: Sodium 141, Potassium 3.7, Chloride 106, Carbon Dioxide 26, Anion Gap 12.7, BUN 21 H, Creatinine 1.45 H, Estimated Creat Clear 40, Estimated GFR 47 L, Est GFR ( Amer) 57 L, Glucose 126 H, Calcium 8.5, Total Bilirubin 0.3, Direct Bilirubin 0.1, Indirect Bilirubin 0.2, AST 20, ALT 19, Alkaline Phosphatase 76, Troponin I < 0.02, Total Protein 5.9 L, Albumin 2.8 L 11/17/18 11:00: PT 10.5, INR 1.01 11/17/18 11:35: Stool Occult Blood Positive A 11/17/18 13:15: Blood Type A Positive, Antibody Screen Positive, Crossmatch (AHG) See Detail 11/17/18 13:53: Blood Type Confirm A Positive 11/17/18 16:01: WBC 12.4 H D, RBC 2.66 L, Hgb 8.1 L, Hct 24.9 L, MCV 93.7, MCH 30.3, MCHC 32.3, RDW 13.8, Plt Count 345, MPV 7.5, Neut % (Auto) 70.2, Lymph % (Auto) 23.9, [place] % (Auto) 3.9, Eos % (Auto) 1.7, Baso % (Auto) 0.2, Neut # (Auto) 8.7 H, Lymph # (Auto) 3.0, [place] # (Auto) 0.5, Eos # (Auto) 0.2, Baso # (Auto) 0.0 11/17/18 16:01: Sodium 142, Potassium 4.0, Chloride 107, Carbon Dioxide 26, Anion Gap 13.0, BUN 21 H, Creatinine 1.34 H, Estimated Creat Clear 46, Estimated GFR 51 L, Est GFR ( Amer) 62, Glucose 99 D, Calcium 8.6 I & O for Last 24 hours: Intake & Output 11/15/18 11/16/18 11/17/18 11/18/18 11:59 11:59 11:59 11:59 Weight 150 lb 159 lb - Constitutional no acute distress - *Routine Respiratory Exam Absent: respiratory distress - *Routine Cardiovascular Exam Present: RRR - *Routine Abdominal Exam Present: soft Results - Labs 11/17/18 16:01 11/17/18 16:01 Laboratory Results - last 24 hr 11/17/18 11:00: WBC 8.4, RBC 2.72 L, Hgb 8.1 L, Hct 26.3 L, MCV 96.5 H, MCH 29.7, MCHC 30.8 L, RDW 13.8, Plt Count 341, MPV 7.9, Neut % (Auto) 50.1, Lymph % (Auto) 38.2, [place] % (Auto) 4.9, Eos % (Auto) 6.3, Baso % (Auto) 0.5, Neut # (Auto) 4.2, Lymph # (Auto) 3.2, [place] # (Auto) 0.4, Eos # (Auto) 0.5 H, Baso # (Auto) 0.0 11/17/18 11:00: Sodium 141, Potassium 3.7, Chloride 106, Carbon Dioxide 26, Anion Gap 12.7, BUN 21 H, Creatinine 1.45 H, Estimated Creat Clear 40, Estimated GFR 47 L, Est GFR ( Amer) 57 L, Glucose 126 H, Calcium 8.5, Total Bilirubin 0.3, Direct Bilirubin 0.1, Indirect Bilirubin 0.2, AST 20, ALT 19, Alkaline Phosphatase 76, Troponin I < 0.02, Total Protein 5.9 L, Albumin 2.8 L 11/17/18 11:00: PT 10.5, INR 1.01 11/17/18 11:35: Stool Occult Blood Positive A 11/17/18 13:15: Blood Type A Positive, Antibody Screen Positive, Crossmatch (AHG) See Detail 11/17/18 13:53: Blood Type Confirm A Positive 11/17/18 16:01: WBC 12.4 H D, RBC 2.66 L, Hgb 8.1 L, Hct 24.9 L, MCV 93.7, MCH 30.3, MCHC 32.3, RDW 13.8, Plt Count 345, MPV 7.5, Neut % (Auto) 70.2, Lymph % (Auto) 23.9, [place] % (Auto) 3.9, Eos % (Auto) 1.7, Baso % (Auto) 0.2, Neut # (Auto) 8.7 H, Lymph # (Auto) 3.0, [place] # (Auto) 0.5, Eos # (Auto) 0.2, Baso # (Auto) 0.0 11/17/18 16:01: Sodium 142, Potassium 4.0, Chloride 107, Carbon Dioxide 26, Anion Gap 13.0, BUN 21 H, Creatinine 1.34 H, Estimated Creat Clear 46, Estimated GFR 51 L, Est GFR ( Amer) 62, Glucose 99 D, Calcium 8.6 Assessment and Plan (1) Vasovagal syncope Current visit: Yes Status: Acute Category: Medical Code(s): R55 - Syncope and collapse (2) Diarrhea Current visit: Yes Status: Acute Category: Medical Code(s): R19.7 - Diarrhea, unspecified (3) Dehydration Current visit: Yes Status: Acute Category: Medical Code(s): E86.0 - Dehydration (4) GI bleed Current visit: Yes Status: Acute Qualifiers: GI bleed type/associated pathology: melena Qualified Code(s): K92.1 - Melena Category: Medical Code(s): K92.2 - Gastrointestinal hemorrhage, unspecified Transfuse packed red blood cells as ordered by primary service Continue proton pump inhibitor Esophagogastroduodenoscopy in a.m. (5) Hypothyroid Current visit: Yes Status: Chronic Category: Medical Code(s): E03.9 - Hypo thyroidism, unspecified (6) Hyperlipidemia Current visit: Yes Status: Chronic Category: Medical Code(s): E78.5 - Hyperlipidemia, unspecified (7) GERD (gastroesophageal reflux disease) Current visit: Yes Status: Chronic Category: Medical Code(s): K21.9 - Gastro-esophageal reflux disease without esophagitis (8) Diverticulosis Current visit: Yes Status: Chronic Category: Medical Code(s): K57.90 - Diverticulosis of intestine, part unspecified, without perforation or abscess without bleeding (9) COPD (chronic obstructive pulmonary disease) Current visit: Yes Status: Chronic Category: Medical Code(s): J44.9 - Chronic obstructive pulmonary disease, unspecified
--- NOTE | 2018-11-18 07:15 | Progress Note ---
Subjective Patient reports: no new complaints Exam Vital signs and Labs for Last 24 Hours: Temp Pulse Resp BP Pulse Ox 98.4 F 67 12 131/56 L 97 11/18/18 06:35 11/18/18 06:35 11/18/18 06:35 11/18/18 06:35 11/18/18 06:35 Laboratory Results - last 24 hr 11/17/18 11:00: WBC 8.4, RBC 2.72 L, Hgb 8.1 L, Hct 26.3 L, MCV 96.5 H, MCH 29.7, MCHC 30.8 L, RDW 13.8, Plt Count 341, MPV 7.9, Neut % (Auto) 50.1, Lymph % (Auto) 38.2, [place] % (Auto) 4.9, Eos % (Auto) 6.3, Baso % (Auto) 0.5, Neut # (Auto) 4.2, Lymph # (Auto) 3.2, [place] # (Auto) 0.4, Eos # (Auto) 0.5 H, Baso # (Auto) 0.0 11/17/18 11:00: Sodium 141, Potassium 3.7, Chloride 106, Carbon Dioxide 26, Anion Gap 12.7, BUN 21 H, Creatinine 1.45 H, Estimated Creat Clear 40, Estimated GFR 47 L, Est GFR ( Amer) 57 L, Glucose 126 H, Calcium 8.5, Total Bilirubin 0.3, Direct Bilirubin 0.1, Indirect Bilirubin 0.2, AST 20, ALT 19, Alkaline Phosphatase 76, Troponin I < 0.02, Total Protein 5.9 L, Albumin 2.8 L 11/17/18 11:00: PT 10.5, INR 1.01 11/17/18 11:35: Stool Occult Blood Positive A 11/17/18 13:15: Blood Type A Positive, Antibody Screen Positive, Crossmatch (AHG) See Detail 11/17/18 13:15: Crossmatch (AHG) See Detail 11/17/18 13:15: Antibody Identification Cold Antibody 11/17/18 13:53: Blood Type Confirm A Positive 11/17/18 16:00: Stl Aeromonas (PCR) Not detected, Stl C. cayetanensis PCR Not detected, Stool Rotavirus (PCR) Not detected, Stl Adenov F 40/41 PCR Not detected, Stool Astrovirus (PCR) Not detected, Stool Campylobacter PCR Not detected, Stl C.difficile Tox PCR Detected A, Stool Cryptosporidium PCR Not detected, Stl E.coli Shiga Tox PCR Not detected, Stool E coli O157 PCR Not detected, Stl Enterotoxigenic E PCR Not detected, Stool EPEC (PCR) Not detected, Stool EAEC (PCR) Not detected, Stl E. histolytica PCR Not detected, Stool Giardia Lamblia PCR Not detected, Stool Salmonella PCR Not detected, Stool Sapovirus (PCR) Not detected, Stl P. shigelloides PCR Not detected, Stl Shigella/EIEC PCR Not detected, St Y.enterocolitica PCR Not detected, Stool Vibrio (PCR) Not detected, Stl Vibrio cholerae PCR Not detected, Stl Norovirus GI/GII PCR Not detected 11/17/18 16:01: WBC 12.4 H D, RBC 2.66 L, Hgb 8.1 L, Hct 24.9 L, MCV 93.7, MCH 30.3, MCHC 32.3, RDW 13.8, Plt Count 345, MPV 7.5, Neut % (Auto) 70.2, Lymph % (Auto) 23.9, [place] % (Auto) 3.9, Eos % (Auto) 1.7, Baso % (Auto) 0.2, Neut # (Auto) 8.7 H, Lymph # (Auto) 3.0, [place] # (Auto) 0.5, Eos # (Auto) 0.2, Baso # (Auto) 0.0 11/17/18 16:01: Sodium 142, Potassium 4.0, Chloride 107, Carbon Dioxide 26, Anion Gap 13.0, BUN 21 H, Creatinine 1.34 H, Estimated Creat Clear 46, Estimated GFR 51 L, Est GFR ( Amer) 62, Glucose 99 D, Calcium 8.6 I & O for Last 24 hours: Intake & Output 11/15/18 11/16/18 11/17/18 11/18/18 11:59 11:59 11:59 11:59 Intake Total 370 / 370 Balance 370 / 370 Weight 150 lb 150 lb - Constitutional no acute distress - *Routine Respiratory Exam Absent: respiratory distress - *Routine Cardiovascular Exam Present: RRR Progress Note: A&P (1) GI bleed Status: Acute Assessment and plan: Esophagogastroduodenoscopy this AM Follow-up posttransfusion hemoglobin Continue PPI Current Visit: Yes (2) Vasovagal syncope Status: Acute Current Visit: Yes (3) Diarrhea Status: Acute Current Visit: Yes (4) Dehydration Status: Acute Current Visit: Yes (5) Hypothyroid Status: Chronic Current Visit: Yes (6) Hyperlipidemia Status: Chronic Current Visit: Yes (7) GERD (gastroesophageal reflux disease) Status: Chronic Current Visit: Yes (8) Diverticulosis Status: Chronic Current Visit: Yes (9) COPD (chronic obstructive pulmonary disease) Status: Chronic Current Visit: Yes
--- NOTE | 2018-11-18 07:23 | Progress Note ---
[facility] Anesthesia Checklist - Patient Identification Patient Identification: Arm Band, Verbal (Name & ) - Structural Data Admitted From: Inpatient Planned Operative Procedure/s: EGD Consent for Planned Operative Procedure(s) Verified: Yes Verified Documents: Surgical Consent, History and Physical - NPO Status Verified Time NPO: 00:00 - Chart Verification Results Verified: CBC, BMP, ECG - Additional verifications Anesthesia Reactions: No Hx Blood Transfusions: Yes Blood Transfusion Reaction: No - Airway Assessment C-Spine Mobility Assessed: Yes TMJ Mobility Assessed: Yes Dentition: Edentulous - Neurological Assessment Level of Consciousness: Awake, Alert, Appropriate, Follows Commands Hx Seizures: No Numbness or tingling in extremities: No - Anesthesia Plan Anesthesia Risk discussed: Yes Anesthesia Plan: Verified ASA Class: III Anesthesia Type: MAC [facility] History I have reviewed the patient's past medical history: Yes Medical History: Reports:: BPH, Chronic Obstructive Pulmonary Disease (COPD), Gastroesophageal Reflux Disease(GERD), Hiatal Hernia, Hyperlipidemia, Lung Di sease Denies:: Cancer, Diabetes Mellitus Type 1, Diabetes Mellitus Type 2, MRSA *Have you ever received a pneumonia vaccine?: Yes *Have you received a flu vaccine this season?: No Other Medical History: Reports: Arthritis, Cataracts, Hypothyroidism, Sinus Problems, Thyroid Disease Anesthesia experience/problems:: no complications Laterality Cases: Left: Tonsillectomy Other Surgeries: Yes: Sinus Surgery Amputation: No Fractures: No - *Social History Educational Level: Attended High School Smoking Status: Former smoker Tobacco Type: cigarettes # Packs/Day (cigarettes): 1 #Yrs smoked (if former smoker): 55 Smoking End Date: 03/07/2014 Alcohol Intake: never Substance Use Type: denies use *Occupational Status:: retired, other Housing: house Household Members: spouse *Travel in the last 8 weeks: None Family Hx:: Anemia, Asthma, Cancer, Hyperlipidemia, Diabetes, Hypertension
--- NOTE | 2018-11-18 08:13 | Procedure Note ---
- Procedure: Date: 11/18/18 Procedure Performed:: Esophagogastroduodenoscopy with biopsy Indications:: Gastrointestinal hemorrhage Performing Provider:: Bong Villaseñor MD Referring Provider:: Dr. Saravia; Kaycee Sarah PA-C Sedation:: Monitored anesthesia care Procedure:: After informed consent was obtained the patient was taken to the endoscopy suite. Sedation ensued after the patient was transferred to the left lateral decubitus position. Pulse, blood pressure, and oxygen saturation were monitored throughout the procedure. The endoscope was advanced beyond the duodenal bulb. Retroflexion within the gastric lumen was accomplished. The gastroscope was carefully removed and the patient was transferred to recovery in stable condition. Please see "findings" and "specimens" below for detail. Findings:: Gastroesophageal junction 39 cm No active bleeding or sign of recent hemorrhage No obvious ulcerations Small sliding hiatal hernia Mild to moderate increased inflammatory response at gastroesophageal junction Focal moderate to severe inflammatory response (patchy) in antrum Specimens:: Antral biopsy Recommendations:: Follow-up pending pathology Continue proton pump inhibition for now Small bowel follow-through and likely capsule endoscopy in near future May require repeat colonoscopy Complications:: No immediate Estimated blood obtained (mL): 1
[2018-11-18 09:48] LABS: Basophils % 0.2 % (0.1-2.0); Eosinophils # 0.4 K/mm3 (0.0-0.4); Eosinophils % 4.7 % (0.1-12.0); Hematocrit 31.1 % (42.0-52.0); Lymphocytes # 2.3 K/mm3 (0.7-4.5); Lymphocytes % 24.9 % (10-50); Mean Corpuscular HGB Conc 32.3 g/dL (31.8-35.4); Mean Corpuscular Volume 92.1 fl (80-94); Monocytes # 0.6 K/mm3 (0.1-1.0); Neutrophils % 64.1 % (37.0-80.0); Platelet Count 288 K/mm3 (142-424); Red Blood Count 3.38 M/mm3 (4.60-6.20); Red Cell Distribution Width 14.3 % (11.5-17.5); White Blood Count 9.3 K/mm3 (4.8-10.8)
[2018-11-18 10:00] LABS: Albumin Level 2.8 gm/dL (3.4-5.0); Albumin/Globulin Ratio 0.9 (1.1-1.8); Anion Gap 12.6 mEq/L (5-15); Bilirubin,Total 0.3 mg/dL (0.2-1.0); Calcium 8.6 mg/dL (8.5-10.1); Globulin 3.1 gm/dl (1.3-3.2); Total Protein,Serum 5.9 gm/dL (6.4-8.2)
--- NOTE | 2018-11-18 10:35 | Pharmacy Consult Notes ---
[facility] Pharmacy VTE Monitoring - Patient Demographics Admission date: 11/17/18 Report Date: 11/18/18 Time: 10:35 Allergies/Adverse Reactions: Patient Allergies Sulfa (Sulfonamide Antibiotics) Allergy (Unknown, Verified 07/26/17 10:44) NAUSEA/VOMITING Height: 1.68 m Weight: 68.039 kg Patient Problems: Current Active Problems Vasovagal syncope (Acute) Dehydration (Acute) GI bleed (Acute) Hypothyroid (Chronic) Hyperlipidemia (Chronic) GERD (gastroesophageal reflux disease) (Chronic) Diverticulosis (Chronic) COPD (chronic obstructive pulmonary disease) (Chronic) Diarrhea (Acute) - VTE Risk Labs: VTE Related Lab Results Hgb 10.0 g/dL (14.1-18.0) L D 11/18/18 09:40 Hct 31.1 % (42.0-52.0) L 11/18/18 09:40 Plt Count 288 K/mm3 (142-424) 11/18/18 09:40 PT 10.5 seconds (9.4-11.8) 11/17/18 11:00 INR 1.01 (0.9-1.1) 11/17/18 11:00 BUN 18 mg/dL (7-18) 11/18/18 09:40 Creatinine 1.39 mg/dL (0.70-1.30) H 11/18/18 09:40 Estimated Creat Clear 41 mL/min (50-200) 11/18/18 09:40 Was VTE Risk Assessment Performed: Yes VTE Score: 3 VTE Risk Level: Low Risk - Prophylaxis VTE Prophylaxis Ordered?: Yes Types of VTE Prophylaxis: TEDS Knee High Location of Applied Device: Bilateral Lower Extremeties
--- NOTE | 2018-11-18 12:57 | Progress Note ---
Internal Medicine - PN: Subj *Date: 11/18/18 *Time: 12:58 Interval history: He rested fairly well through the night. He is still had some diarrhea. His PCR diarrhea panel was positive for C. difficile and he has been started on oral Flagyl. He underwent EGD this morning with no findings of active bleeding but he had a couple of areas of inflammation at the GE junction and antrum. These were biopsied and results are pending. He has had clear liquids since his EGD and tolerated these well. He actually feels hungry. He received 2 units of packed red cells overnight and his hemoglobin is up to 10. Exam Vital signs and Labs for Last 24 Hours: Temp Pulse Resp BP Pulse Ox 97.9 F 74 18 141/78 H 98 11/18/18 11:55 11/18/18 11:55 11/18/18 11:55 11/18/18 11:55 11/18/18 11:55 Laboratory Results - last 24 hr 11/17/18 13:15: Blood Type A Positive, Antibody Screen Positive, Crossmatch (AHG) See Detail 11/17/18 13:15: Crossmatch (AHG) See Detail 11/17/18 13:15: Antibody Identification Cold Antibody 11/17/18 13:53: Blood Type Confirm A Positive 11/17/18 16:00: Stl Aeromonas (PCR) Not detected, Stl C. cayetanensis PCR Not detected, Stool Rotavirus (PCR) Not detected, Stl Adenov F 40/41 PCR Not detected, Stool Astrovirus (PCR) Not detected, Stool Campylobacter PCR Not detected, Stl C.difficile Tox PCR Detected A, Stool Cryptosporidium PCR Not detected, Stl E.coli Shiga Tox PCR Not detected, Stool E coli O157 PCR Not detected, Stl Enterotoxigenic E PCR Not detected, Stool EPEC (PCR) Not detected, Stool EAEC (PCR) Not detected, Stl E. histolytica PCR Not detected, Stool Giardia Lamblia PCR Not detected, Stool Salmonella PCR Not detected, Stool Sapovirus (PCR) Not detected, Stl P. shigelloides PCR Not detected, Stl Shigella/EIEC PCR Not detected, St Y.enterocolitica PCR Not detected, Stool Vibrio (PCR) Not detected, Stl Vibrio cholerae PCR Not detected, Stl Norovirus GI/GII PCR Not detected 11/17/18 16:01: WBC 12.4 H D, RBC 2.66 L, Hgb 8.1 L, Hct 24.9 L, MCV 93.7, MCH 30.3, MCHC 32.3, RDW 13.8, Plt Count 345, MPV 7.5, Neut % (Auto) 70.2, Lymph % (Auto) 23.9, [place] % (Auto) 3.9, Eos % (Auto) 1.7, Baso % (Auto) 0.2, Neut # (Auto) 8.7 H, Lymph # (Auto) 3.0, [place] # (Auto) 0.5, Eos # (Auto) 0.2, Baso # (Auto) 0.0 11/17/18 16:01: Sodium 142, Potassium 4.0, Chloride 107, Carbon Dioxide 26, Anion Gap 13.0, BUN 21 H, Creatinine 1.34 H, Estimated Creat Clear 46, Estimated GFR 51 L, Est GFR ( Amer) 62, Glucose 99 D, Calcium 8.6 11/18/18 09:40: WBC 9.3, RBC 3.38 L D, Hgb 10.0 L D, Hct 31.1 L, MCV 92.1, MCH 29.8, MCHC 32.3, RDW 14.3, Plt Count 288, MPV 7.0 L, Neut % (Auto) 64.1, Lymph % (Auto) 24.9, [place] % (Auto) 6.0, Eos % (Auto) 4.7, Baso % (Auto) 0.2, Neut # (Auto) 6.0, Lymph # (Auto) 2.3, [place] # (Auto) 0.6, Eos # (Auto) 0.4, Baso # (Auto) 0.0 11/18/18 09:40: Sodium 143, Potassium 3.6, Chloride 109 H, Carbon Dioxide 25, Anion Gap 12.6, BUN 18, Creatinine 1.39 H, Estimated Creat Clear 41, Estimated GFR 49 L, Est GFR ( Amer) 60, Glucose 132 H D, Calcium 8.6, Total Bilirubin 0.3, AST 22, ALT 21, Alkaline Phosphatase 78, Total Protein 5.9 L, Albumin 2.8 L, Globulin 3.1, Albumin/Globulin Ratio 0.9 L I & O for Last 24 hours: Intake & Output 11/16/18 11/17/18 11/18/18 11/19/18 11:59 11:59 11:59 11:59 Intake Total 370 / 370 360 / 360 Balance 370 / 370 360 / 360 Weight 150 lb 150 lb Narrative: He is lying comfortably in bed. Color is slightly pale. He appears in no distress. Lungs are clear. Abdomen is soft and nondistended with no unusual masses or tenderness. Bowel sounds are present. Assessment and Plan (1) Acute blood loss anemia Current visit: Yes Status: Acute Category: Medical Code(s): D62 - Acute posthemorrhagic anemia (2) GI bleed Current visit: Yes Status: Acute Qualifiers: GI bleed type/associated pathology: melena Qualified Code(s): K92.1 - Melena Category: Medical Code(s): K92.2 - Gastrointestinal hemorrhage, unspecified (3) C. difficile colitis Current visit: Yes Status: Acute Category: Medical Code(s): A04.72 - Enterocolitis due to Clostridium difficile, not specified as recurrent (4) Vasovagal syncope Current visit: Yes Status: Acute Category: Medical Code(s): R55 - Syncope and collapse (5) Dehydration Current visit: Yes Status: Acute Category: Medical Code(s): E86.0 - Dehydration (6) Hypothyroid Current visit: Yes Status: Chronic Category: Medical Code(s): E03.9 - Hypothyroidism, unspecified (7) Hyperlipidemia Current visit: Yes Status: Chronic Category: Medical Code(s): E78.5 - Hyp erlipidemia, unspecified (8) GERD (gastroesophageal reflux disease) Current visit: Yes Status: Chronic Category: Medical Code(s): K21.9 - Gastro-esophageal reflux disease without esophagitis (9) Diverticulosis Current visit: Yes Status: Chronic Category: Medical Code(s): K57.90 - Diverticulosis of intestine, part unspecified, without perforation or abscess without bleeding (10) COPD (chronic obstructive pulmonary disease) Current visit: Yes Status: Chronic Category: Medical Code(s): J44.9 - Chronic obstructive pulmonary disease, unspecified - Assessment and plan all Dx Assessment and Plan for all problems:: There appears to be no active bleeding at present. His diet will be advanced. Continue oral Flagyl for C. difficile colitis. Plan to repeat H&H tomorrow and if stable discharge home with plans for outpatient small bowel follow-through.
[2018-11-19 06:46] LABS: Basophils % 0.3 % (0.1-2.0); Eosinophils # 0.7 K/mm3 (0.0-0.4); Eosinophils % 7.2 % (0.1-12.0); Hematocrit 30.3 % (42.0-52.0); Hemoglobin 9.9 g/dL (14.1-18.0); Lymphocytes # 2.4 K/mm3 (0.7-4.5); Lymphocytes % 25.9 % (10-50); Mean Corpuscular HGB Conc 32.6 g/dL (31.8-35.4); Mean Corpuscular Volume 92.1 fl (80-94); Mean Platelet Volume 7.9 fl (7.4-10.4); Monocytes # 0.8 K/mm3 (0.1-1.0); Neutrophils # 5.5 K/mm3 (1.8-7.8); Neutrophils % 58.6 % (37.0-80.0); Platelet Count 283 K/mm3 (142-424); Red Blood Count 3.29 M/mm3 (4.60-6.20); Red Cell Distribution Width 14.5 % (11.5-17.5); White Blood Count 9.4 K/mm3 (4.8-10.8)
--- NOTE | 2018-11-19 08:37 | Progress Note ---
Internal Medicine - PN: Subj *Date: 11/19/18 *Time: 09:11 Interval history: He rested well through the night. No complaints of abdominal pain. He has been up and about the room with no dizziness. He has been tolerating his diet. His stool frequency has decreased and he notes his stool had some form this morning. Exam Vital signs and Labs for Last 24 Hours: Temp Pulse Resp BP Pulse Ox 98.0 F 75 17 149/70 H 92 L 11/19/18 07:26 11/19/18 07:26 11/19/18 07:26 11/19/18 07:11/19/18 07:26 Laboratory Results - last 24 hr 11/17/18 13:15: Crossmatch (AHG) See Detail 11/18/18 09:40: WBC 9.3, RBC 3.38 L D, Hgb 10.0 L D, Hct 31.1 L, MCV 92.1, MCH 29.8, MCHC 32.3, RDW 14.3, Plt Count 288, MPV 7.0 L, Neut % (Auto) 64.1, Lymph % (Auto) 24.9, Andrews % (Auto) 6.0, Eos % (Auto) 4.7, Baso % (Auto) 0.2, Neut # (Auto) 6.0, Lymph # (Auto) 2.3, Andrews # (Auto) 0.6, Eos # (Auto) 0.4, Baso # (Auto) 0.0 11/18/18 09:40: Sodium 143, Potassium 3.6, Chloride 109 H, Carbon Dioxide 25, Anion Gap 12.6, BUN 18, Creatinine 1.39 H, Estimated Creat Clear 41, Estimated GFR 49 L, Est GFR ( Amer) 60, Glucose 132 H D, Calcium 8.6, Total Bilirubin 0.3, AST 22, ALT 21, Alkaline Phosphatase 78, Total Protein 5.9 L, Albumin 2.8 L, Globulin 3.1, Albumin/Globulin Ratio 0.9 L 11/19/18 06:20: WBC 9.4, RBC 3.29 L, Hgb 9.9 L, Hct 30.3 L, MCV 92.1, MCH 30.0, MCHC 32.6, RDW 14.5, Plt Count 283, MPV 7.9, Neut % (Auto) 58.6, Lymph % (Auto) 25.9, Andrews % (Auto) 8.0, Eos % (Auto) 7.2, Baso % (Auto) 0.3, Neut # (Auto) 5.5, Lymph # (Auto) 2.4, Andrews # (Auto) 0.8, Eos # (Auto) 0.7 H, Baso # (Auto) 0.0 I & O for Last 24 hours: Intake & Output 11/16/18 11/17/18 11/18/18 11/19/18 11:59 11:59 11:59 11:59 Intake Total 370 / 370 1586 / 1586 Balance 370 / 370 1586 / 1586 Weight 150 lb 150 lb 149 lb 6 oz Narrative: He is alert and oriented. He appears in no distress. Lungs are clear. Abdomen is soft and nondistended with no masses or tenderness. Extremities no edema. Assessment and Plan (1) Acute blood loss anemia Current visit: Yes Status: Acute Category: Medical Code(s): D62 - Acute posthemorrhagic anemia (2) GI bleed Current visit: Yes Status: Acute Qualifiers: GI bleed type/associated pathology: melena Qualified Code(s): K92.1 - Melena Category: Medical Code(s): K92.2 - Gastrointestinal hemorrhage, unspecified (3) C. difficile colitis Current visit: Yes Status: Acute Category: Medical Code(s): A04.72 - Enterocolitis due to Clostridium difficile, not specified as recurrent (4) Vasovagal syncope Current visit: Yes Status: Acute Category: Medical Code(s): R55 - Syncope and collapse (5) Dehydration Current visit: Yes Status: Acute Category: Medical Code(s): E86.0 - Dehydration (6) Hypothyroid Current visit: Yes Status: Chronic Category: Medical Code(s): E03.9 - Hypothyroidism, unspecified (7) Hyperlipidemia Current visit: Yes Status: Chronic Category: Medical Code(s): E78.5 - Hyperlipidemia, unspecified (8) GERD (gastroesophageal reflux disease) Current visit: Yes Status: Chronic Category: Medical Code(s): K21.9 - Gastro-esophageal reflux disease without esophagitis (9) Diverticulosis Current visit: Yes Status: Chronic Category: Medical Code(s): K57.90 - Diverticulosis of intestine, part unspecified, without perforation or abscess without bleeding (10) COPD (chronic obstructive pulmonary disease) Current visit: Yes Status: Chronic Category: Medical Code(s): 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 He will be discharged home today and will continue on a PPI and will finish a 10-day course of Flagyl for the C. difficile. We will plan to arrange for outpatient small bowel follow-through and will be seen back in the o ffice thereafter.
--- NOTE | 2018-11-20 14:47 | Discharge Summary ---
General - General Admission date:: 11/17/18 <Yohannes Saravia - 11/23/18 10:58> 11/17/18 <MikeKaycee sanz - 11/20/18 14:48> Discharge date: 11/19/18 <Kaycee Sarah - 11/20/18 14:48> HPI HPI: Mr. Robert is a 78-year-old male with a history of hypothyroidism, hyperlipidemia, GERD, diverticulosis, BPH, and COPD. He stated for 2 days prior to admission, he had diarrhea that had been dark in color. At 9:30 on the am of admission, his stated he was in the shower and she heard a noise and went to check on him and he had passed out and was sliding down the wall. She was able to get him on the toilet and he had another syncopal episode for 1 to 2 minutes. She was able to get him into his chair in the living room and he was complaining of some left-sided back and neck pain as long as left lower quadrant abdominal pain. He stated his arms and face were tingling. She called 911 and he was transported to the emergency room. His head CT showed sinusitis but nothing acute. He had a chest x-ray showing COPD but nothing acute. His hemoglobin was decreased at 8.1 and his hematocrit was decreased at 26.3. His renal function was slightly elevated and his stool was positive for blood. He was admitted and a blood transfusion and surgical consult were ordered. <TyrelKaycee - 11/20/18 14:48> Hospital Course Hospital Course: The patient did report taking [id number] NSAIDs almost daily for headaches and some neck pain. He received a blood transfusion with improvement in his H&H. He was also started on Protonix. He was seen in consultation by Dr. Villaseñor who planned an EGD. This was done on 11/17/2018. Dr. Villaseñor found no signs of active bleeding, but there were a few areas of inflammat ion at the GE junction and antrum. He recommended to continue with PPIs. He also recommended the patient have a small bowel follow-through and likely a capsule endoscopy in the near future. He also felt he may require repeat colonoscopy. The patient did have a diarrhea panel and it returned positive for C. difficile. He was started on oral Flagyl. He was also started on clear liquids and tolerated this well. He was able to get up and move around his room with no dizziness. His stool frequency decreased. His H&H remained stable and he was able to be discharged home with continued PPI treatment and on a 10-day course of Flagyl for the C. difficile colitis. We will arrange for outpatient small bowel follow-through and he will then follow-up in the office. <Kaycee Sarah - 11/20/18 14:48> Objective Vital signs: Temp Pulse Resp BP Pulse Ox 98.0 F 75 17 149/70 H 92 L 11/19/18 07:26 11/19/18 07:26 11/19/18 07:26 11/19/18 07:26 11/19/18 07:26 <ManjitYohannes Girish - 11/23/18 10:58> Temp Pulse Resp BP Pulse Ox 98.0 F 75 17 149/70 H 92 L 11/19/18 07:26 11/19/18 07:26 11/19/18 07:26 11/19/18 07:11/19/18 07:26 <Kaycee Sarah - 11/20/18 14:48> Narrative: He is alert and oriented. He appears in no distress. Lungs are clear. Abdomen is soft and nondistended with no masses or tenderness. Extremities no edema. <Kaycee Sarah 11/20/18 14:48> DS: Diagnosis - Discharge Diagnosis (1) Acute blood loss anemia Status: Acute (2) GI bleed Status: Acute (3) C. difficile colitis Status: Acute (4) Vasovagal syncope Status: Acute (5) Dehydration Status: Acute (6) Hypothyroid Status: Chronic (7) Hyperlipidemia Status: Chronic (8) GERD (gastroesophageal reflux disease) Status: Chronic (9) Diverticulosis Status: Chronic (10) COPD (chronic obstructive pulmonary disease) Status: Chronic <Kaycee Sarah 11/20/18 14:42> (1) Acute blood loss anemia Status: Acute (2) GI bleed Status: Acute (3) C. difficile colitis Status: Acute (4) Vasovagal syncope Status: Acute (5) Dehydration Status: Acute (6) Hypothyroid Status: Chronic (7) Hyperlipidemia Status: Chronic (8) GERD (gastroesophageal reflux disease) Status: Chronic (9) Diverticulosis Status: Chronic (10) COPD (chronic obstructive pulmonary disease) Status: Chronic <Yohannes Saravia - 11/23/18 10:58> Discharge Plan - Patient Discharge Instructions ACTIVITY: Continue current activity <Kaycee Sarah - 11/20/18 14:48> DIET: continue same diet <Kaycee Sarah - 11/20/18 14:48> Patient Instructions: DI for Syncope in Adults (Fainting), DI for Antibiotic -- associated Colitis -- C difficile, DI for Gastrointestinal Bleeding, Gastrointestinal Bleeding, DI for Multiple Drug-resistant Organism (MDRO) Infection <Yohannes Saravia - 11/23/18 10:58> Forms: <Yohannes Saravia - 11/23/18 10:58> - Follow up Plan Follow up with: Yohannes Saravia MD [Primary Care Provider] - 11/28/18 Bong Villaseñor MD [Staff Physician] - 11/24/18 <Yohannes Saravia - 11/23/18 10:58> Disposition: Home, Self-Care <Yohannes Saravia - 11/23/18 10:58> Home Medications: Home Medications Medication Instructions Recorded Confirmed Type glucosamine-chondroitin 250 mg-200 2 tab PO TID 05/12/17 11/17/18 History mg tablet levothyroxine 88 mcg capsule 88 mcg PO DAILY 05/12/17 11/17/18 History omega 8-adp-iya-fish oil 1,000 mg 1 cap PO DAILY 05/12/17 11/17/18 History (120 mg-180 mg) capsule Montelukast Sodium [Singulair] 10 mg PO HS 11/17/18 11/17/18 History Omeprazole [Omeprazole 40mg 40 mg PO DAILY #30 cap 11/19/18 Rx Capsule] metroNIDAZOLE [metroNIDAZOLE 500mg 500 mg PO TID #16 tab 11/19/18 Rx Tablet] <Yohannes Saravia - 11/23/18 10:58> Prescriptions/Medication Reconciliation: New Omeprazole [Omeprazole 40mg Capsule] 40 mg PO DAILY #30 cap metroNIDAZOLE [metroNIDAZOLE 500mg Tablet] 500 mg PO TID #16 tab Continued omega 8-gtf-gvj-fish oil 1,000 mg (120 mg-180 mg) capsule 1 cap PO DAILY levothyroxine 88 mcg capsule 88 mcg PO DAILY glucosamine-chondroitin 250 mg-200 mg tablet 2 tab PO TID Montelukast Sodium [Singulair] 10 mg PO HS <Yohannes Saravia - 11/23/18 10:58> - Problem Reconciliation Problems Reviewed?: Yes <Yohannes Saravia - 11/23/18 10:58> Yes <Kaycee Sarah - 11/20/18 14:48> - Additional Information Additional Information: Concur with plan for discharge as outlined above. <Yohannes Saravia - 11/23/18 10:58>
== END 2018-11-19 10:30 | disposition home or self-care (01) ==
LOC: ER 10:54 → 2ND 12:50 → INTOOBSV 13:50
PROVIDERS: ADMIT Family Medicine; ATTEND Family Medicine
CPT/HCPCS: 36415; 70450; 71010; 71045; 80048; 80053; 80076; 82272; 84484; 85025; 85610; 86850; 86870; 87507; 93005; 96365; 96367; 99284; G0328; G0378; P9016

== ENCOUNTER → 2018-11-21 08:26 | Outpatient (CLI) | payer MEDICARE, SELFPAY ==
--- NOTE | 2018-11-21 08:40 | FL_ITS ---
PROCEDURE: FL SMALL BOWEL FOLLOW THROUGH CLINICAL INDICATION: GI BLEEDING WITH ANEMIA COMPARISON: No exams were available for comparison FINDINGS: Fluoroscopy time: 1 minutes and 17 seconds There are few small diverticula along the transverse portion of the duodenum. The jejunum and ileum have an unremarkable appearance. No mass, dilatation, or mucosal abnormalities are evident. Spot views of the terminal ileum are unremarkable. The appendix did feel. There is diverticulosis of the cecum IMPRESSION: 1. Duodenal and cecal diverticulosis 2. Otherwise negative small bowel follow-through Dictated by: Syed Jhon MD 11/21/2018 10:15 Electronically signed by Syed John MD in [place] 11/21/2018 10:15
[2018-11-21 10:05] LABS: Alanine Aminotransferase 26 U/L (12-78); Albumin Level 3.2 gm/dL (3.4-5.0); Albumin/Globulin Ratio 1.1 (1.1-1.8); Alkaline Phosphatase 81 U/L (46-116); Aspartate Amino Transferase 33 U/L (15-37); Bilirubin,Total 0.3 mg/dL (0.2-1.0); Blood Urea Nitrogen 12 mg/dL (7-18); Calcium 9.1 mg/dL (8.5-10.1); Carbon Dioxide 28 mmol/L (21.0-32.0); Chloride 107 mmol/L (98-107); Chol/HDL Ratio 4.3 (1-3.5); Cholesterol 172 mg/dL (140-200); Estimated Glomerular Filt Rate 49 ml/min (>60); GFR (African American) 59 ML/MIN (>60); Globulin 2.9 gm/dl (1.3-3.2); Glucose 94 mg/dL (74-106); HDL Cholesterol 40 mg/dL (27-67); LDL Cholesterol 113 mg/dL (0-130); Prostate Specific Ag Screen 4.2 ng/mL (0.0-4.0); Sodium 143 mmol/L (136-145); T4 (Thyroxine) 13.2 ug/dl (4.7-13.3); Thyroid Stimulating Hormone 7.41 uIU/ml (0.358-3.740); Total Protein,Serum 6.1 gm/dL (6.4-8.2); Triglycerides 95 mg/dL (30-200); VLDL Cholesterol 19 mg/dL (0-40)
== END ==
PROVIDERS: Visit Provider Family Medicine
DX: Z12.5 Encounter for screening for malignant neoplasm of prostate (principal); E78.49 Other hyperlipidemia; E03.9 Hypothyroidism, unspecified; N40.0 Benign prostatic hyperplasia without lower urinary tract symptoms
CPT/HCPCS: 36415; 74250; 80053; 80061; 84436; 84443; G0103

== ENCOUNTER → 2019-01-22 10:31 | Outpatient (CLI) | payer MEDICARE, SELFPAY ==
--- NOTE | 2019-01-22 10:40 | XR_ITS ---
PROCEDURE: XR LUMBAR SPINE MIN 4V CLINICAL INDICATION: LT LOW BACK PAIN Low back pain worse on the left COMPARISON: ABDPELW/WO CT ABD PELVIS W/WO CONTRAST from 12/08/2012 FINDINGS: Normal alignment. No obvious fracture or dislocation. Small anterior osteophytes are present L3 and L4. There is some artifact multiple contrast filled diverticula. There are mild facet arthritic changes at L4 and L5. The SI joints have an unremarkable appearance. IMPRESSION: Mild degenerative changes, no acute Colonic diverticulosis Dictated by: Syed John MD 01/22/2019 12:38 Electronically signed by Syed John MD in [place] 01/22/2019 12:38
== END ==
PROVIDERS: PCP Family Medicine; Visit Provider Family Medicine
DX: M54.5 Low back pain (principal)
CPT/HCPCS: 72110

== ENCOUNTER 2019-02-12 14:00 | Outpatient (RCR) | payer MEDICARE, SELFPAY | END 2019-02-12 14:05 | disposition home or self-care (01) | LOC: PT 14:00 | PROVIDERS: PCP Family Medicine; Visit Provider Family Medicine | DX: S39.012A Strain of muscle, fascia and tendon of lower back, initial encounter (principal) | CPT/HCPCS: 97110; 97163 ==

== ENCOUNTER → 2019-03-23 08:57 | Outpatient (CLI) | payer MEDICARE, SELFPAY ==
--- NOTE | 2019-03-23 09:01 | FL_ITS ---
PROCEDURE: FL BARIUM SWALLOW CLINICAL INDICATION: DYSPHAGIA COMPARISON: No exams were available for comparison TECHNIQUE: In the upright position the patient was observed to swallow barium in both the AP and lateral view. The cervical esophagus was examined under fluoroscopy with images obtained. The patient was then placed prone in the right anterior oblique position and was observed to swallow barium with Valsalva technique . FLUOROSCOPY TIME: 1 minutes 29 seconds FINDINGS: There was some delay in initiation of the swallowing reflex with moderate amount of stasis within the piriform sinuses. There is a moderate amount of spasm of the mid and lower esophagus which was present on nearly every swallow but did somewhat improved. There were no annular constricting lesions or polypoid filling defects. There is a small hiatal hernia. IMPRESSION: 1. There is a moderate to severe degree of esophageal spasm. 2. Small hiatal hernia. 3. Delayed swallowing with stasis. Modified barium swallow with speech therapy may better evaluate this. Dictated by: Syed John MD 03/23/2019 10:50 Electronically signed by Syed John MD in [place] 03/23/2019 10:50
== END ==
PROVIDERS: PCP Family Medicine; Visit Provider Family Medicine
DX: R13.12 Dysphagia, oropharyngeal phase (principal)
CPT/HCPCS: 74220

== ENCOUNTER → 2019-04-09 10:54 | Outpatient (CLI) | payer MEDICARE, SELFPAY ==
--- NOTE | 2019-04-09 10:59 | FL_ITS ---
PROCEDURE: FL BARIUM SWALLOW MODIFIED CLINICAL INDICATION: DYSPHAGIA COMPARISON: No exams were available for comparison TECHNIQUE: Patient administered varying consistencies of barium contrast, while viewed in lateral position under real-time fluoroscopy with cine recording. FLUOROSCOPY TIME:5 minutes and 30 seconds The study was performed in conjunction with speech pathologist. Please see that report & recommendations. FINDINGS: Patient was given varying consistencies of barium. No vestibular penetration or tracheal aspiration. There was some early spillage into the piriform sinuses. There are small anterior cervical osteophytes at C5-C6. IMPRESSION: Early spillage into the piriform sinuses. No aspiration or penetration Please see speech pathologist report and recommendations. Dictated by: Syed John MD 04/18/2019 14:10 Electronically signed by Syed John MD in [place] 04/18/2019 14:10
--- NOTE | 2019-04-09 14:10 | HMH.SLMBS2 ---
Speech & Language Evaluation Speech/Language Mod Barium Swallow Start: 04/09/19 13:42 Freq: once Status: Complete Protocol: Document 04/09/19 13:42 JESSICA (Rec: 04/09/19 14:10 JESSICA [id number]) [facility] [place] Diet Dietary Recommendations Regular,Thin Liquids Referrals/Other Recommended Referrals GI Consult,ENT Consult Mod Barium Swallow Impressions Summary and Impressions Oral Phase Impression No Impairment (WFL) Oral Phase Summary Mr. Robert was given the following consistencies: thins via straw and open cup, pudding, mechanical soft, regular, mixed, and pill with thin wash. No oral phase impairments noted. Pharyngeal Phase Impression Minimal Impairment Pharyngeal Phase Summary It was noted that a trickle of fluid descended into or near the pyriform sinuses possibly caused by diverted fluid from cervical osteophites. It was difficult to determine exact location of route of fluid on fluoroscopy. Speech/Language MBS Assessment/Goals/Plan Assessment Date of Evaluation: 04/09/19 Evaluation Type Initial Certification Assessment/Problems Dysphagia Does Patient Qualify for Service No Qualify/Failure Comment He is not a candidate for speech therapy at this time. His oral and pharyngeal phase are within functional limits. Plan Pt/Guardian verbally ack understanding Yes of dx/prognosis/goals G -code Required No Mod Barium Swallow Setup Exam Setup Radiologist Syed John Level of Consciousness Awake,Alert,Appropriate, Follows Commands Position (degrees) 90 Mod Barium Swallow-Lat View Textures Lateral View Food Presentation Thin Liquid via Cup,Thin Liquid via Straw,Barium Tablet ,Regular Food,Pudding,Mixed Oral Phase Labial Closure No Impairment (WFL) Bolus Formation Pooling L/R No Impairment (WFL) Bolus Formation under Tongue No Impairment (WFL) Bolus Formation Scattered Loss No Impairment (WFL) Mastication Rotary Chew No Impairment (WFL) Mastication Munching No Impairment (WFL) Mastication Lateralization No Impairment (WFL) A/P Lingual Propulsion Spills No Impairment (WFL) Lingual Movement No Impairment (WFL) Residue Clearing No Impairment (W
== END ==
PROVIDERS: PCP Family Medicine; Visit Provider Family Medicine
DX: R13.12 Dysphagia, oropharyngeal phase (principal)
CPT/HCPCS: 70371; 92611

== ENCOUNTER → 2019-09-19 09:06 | Outpatient (CLI) | payer MEDICARE, SELFPAY ==
--- NOTE | 2019-09-19 09:28 | XR_ITS ---
PROCEDURE: XR CHEST 2V CLINICAL INDICATION: COPD UNSPECIFIED TYPE Former smoker, feels like something stuck in throat COMPARISON: No exams were available for comparison FINDINGS: Unremarkable cardiovascular structures. There is COPD. Calcified granulomas present in the right lower lobe. No lobar consolidation or collapse. There are old left-sided rib fractures. IMPRESSION: COPD. No change with no acute finding Dictated by: Syed John MD 09/19/2019 09:50 Electronically signed by Syed John MD in [place] 09/19/2019 09:50
[2019-09-19 10:28] LABS: Chloride 104 mmol/L (98-107); Potassium 4.9 mmoL/L (3.5-5.1); Sodium 140 mmol/L (136-145)
[2019-09-19 10:31] LABS: Anion Gap 13.9 mEq/L (5-15); Blood Urea Nitrogen 22 mg/dl (9-20); Calcium 9.3 mg/dl (8.4-10.2); Carbon Dioxide 27 mmol/L (22.0-30.0); Estimated Glomerular Filt Rate 49 ml/min (>60); GFR (African American) 59 ML/MIN (>60); Glucose 88 mg/dl (74-100)
[2019-09-19 10:48] LABS: Free T4 (Free Thyroxine) 1.57 ng/dl (0.78-2.19)
[2019-09-19 11:01] LABS: Thyroid Stimulating Hormone 1.54 uIU/mL (0.465-4.68)
== END ==
PROVIDERS: PCP Family Medicine; Visit Provider Family Medicine
DX: E03.9 Hypothyroidism, unspecified (principal); J44.9 Chronic obstructive pulmonary disease, unspecified
CPT/HCPCS: 36415; 71046; 80048; 84439; 84443

== ENCOUNTER 2019-10-03 14:31 | Emergency (ER) | payer MEDICARE, SELFPAY ==
--- NOTE | 2019-10-03 14:24 | ECG_ITS ---
APPROVED REPORT Exam: Resting ECG HR:67 bpm ECG Measurements Heart Rate 67 AXES CO 178 P 48 QRSd 92 QRS -21 QT 394 T 64 QTc 416 <Conclusion> Normal sinus rhythm Normal ECG Electronically signed by : Marco Jordan, 10/05/2019 12:31:09
[2019-10-03 14:31] VITALS: BP 165/68; PULSE 66; RESP 17; TEMP 36.7; O2SAT 100; BMI 23.3
--- NOTE | 2019-10-03 14:37 | XR_ITS ---
PROCEDURE: XR CHEST PORTABLE CLINICAL HISTORY: chest pain Brief episode of epigastric pain. Hypertension controlled by medication. [facility] XR CHEST PORTABLE from 11/17/2018 XR CHEST PORTABLE from 11/28/2018 XR CHEST 2V from 09/19/2019 FINDINGS: No acute bony abnormalities. The cardiomediastinal silhouette and pulmonary vascularity are within normal limits. There is atherosclerotic calcification of the aortic knob. Small calcified mediastinal/hilar lymph nodes are seen. The lungs are hyperinflated, consistent with COPD. Small calcified nodule is seen peripherally in the right mid/lower lung zone. Generalized bony demineralization. IMPRESSION: 1. No acute findings. 2. Possible COPD. Dictated by: Camron Alicea 10/03/2019 15:39 Electronically signed by Camron Alicea in [place] 10/03/2019 15:39
--- NOTE | 2019-10-03 14:42 | HMH.EDCP ---
ED Disposition Clinical Impression: Dyspepsia Chest pain Qualifiers: Chest pain type: unspecified Qualified Code(s): R07.9 - Chest pain, unspecified Disposition: Home, Self-Care Condition on Discharge: Good Instructions: DI for Atypical Chest Pain, DI for Dyspepsia Additional Instructions: Follow-up with primary care provider and cardiology within 2 to 3 days for reevaluation. Referrals: Ike Kennedy MD [Staff Physician] - 3 days - Critical Care Critical Care Time: No Attestation: On , the high probability of a clinically significant, sudden or life threatening deterioration of the following system(s) required my full and direct attention, intervention and personal management. The time I documented below is in addition to time spent performing reported procedures but includes the following listed in this critical care notation. Medical Decision Making - Medical Records Medical records reviewed: Yes: I reviewed the patient's medical records. - Zaki Inquiry Pt receiving controlled substance: No Vital Signs: 10/03/19 14:31 10/03/19 15:17 Temperature 98.1 F Temperature Source Oral Pulse Rate [Right] 66 61 Respiratory Rate 17 Blood Pressure [Right Arm] 165/68 H 120/63 Blood Pressure Mean [Right Arm] 100 82 Blood Pressure Source [Right Arm] Automatic Cuff Blood Pressure Position [Right Arm] Sitting 02 Sat by Pulse Oximetry 100 98 Oxygen Delivery Method Room Air - Lab Data Lab results reviewed: Yes: I reviewed the patient's lab results. Lab Results 10/03/19 14:48: WBC 11.2 H, RBC 3.64 L, Hgb 11.1 L, Hct 34.4 L, MCV 94.6 H, MCH 30.5, MCHC 32.2, RDW 13.6, Plt Count 417, MPV 7.2 L, Neut % (Auto) 52.2, Lymph % (Auto) 29.6, Hernando % (Auto) 7.8, Eos % (Auto) 10.1, Baso % (Auto) 0.3, Neut # (Auto) 5.9, Lymph # (Auto) 3.3, Hernando # (Auto) 0.9, Eos # (Auto) 1.1 H, Baso # (Auto) 0.0 10/03/19 14:48: PT 10.1, INR 0.98, APTT 21.4 L 10/03/19 14:48: Sodium 136, Potassium 4.6, Chloride 100, Carbon Dioxide 28, Anion Gap 12.6, BUN 30 H, Creatinine 1.50 H, Estimated Creat Clear 37, Estimated GFR 45 L, Est GFR ( Amer) 54 L, Glucose 91, Calcium 9.3, Total Bilirubin 0.2, AST 25, ALT 17, Alkaline Phosphatase 84, Troponin I < 0.01, Total Protein 6.8, Albumin 3.7, Globulin 3.1, Albumin/Globulin Ratio 1.2 10/03/19 14:48: Lipase 114 Result diagrams: 10/03/19 14:48 10/03/19 14:48 Orders (Tests/Meds): ED MEDICATIONS Generic Name Dose Route Start Last Admin Trade Name Freq PRN Reason Stop Dose Admin Nitroglycerin 0.4 mg 10/03/19 14:37 Nitrostat 0.4mg Sl Tablet SL 10/04/19 14:37 [id number] PRN Chest Pain Discontinued Medications Generic Name Dose Route Start Last Admin Trade Name Freq PRN Reason Stop Dose Admin Aspirin 324 mg 10/03/19 14:37 10/03/19 15:13 Aspirin 81mg Chewable Tablet PO 10/03/19 14:38 324 mg ONCE ONE Administration ORDERS Category Date Time Status XR chest portable Stat Exams 10/03/19 14:37 Taken Troponin I Q3H Lab 10/03/19 17:45 Ordered Troponin I Q3H Lab 10/03/19 20:45 Ordered - Radiology Data #1 Image(s): Chest Image Reviewed: Yes I reviewed the patient's radiology image Preliminary Findings: Normal/NAD - ECG Data Tracing #1 EKG at 1424 shows normal sinus rhythm with a rate of 67. No acute ST segment elevation or depression. No hyperacute T waves. Normal intervals. EKG interpreted by me. Medical Decision Narrative: Chest x-ray shows no signs of an acute cardiopulmonary process such as pneumonia, pneumothorax or widened mediastinum that would suggest dissection. There is no florid pulmonary edema. He remains comfortable, in no distress and pain-free while in the emergency department. Suspect his symptoms are most likely related to gastric upset from taking a Z-Alvin and steroids for COPD exacerbation. He has not describe any associated symptoms such as vomiting, diaphoresis, shortness of breath and this would make ACS ext
[2019-10-03 15:01] LABS: Basophils % 0.3 % (0.1-2.0); Eosinophils # 1.1 K/mm3 (0.0-0.4); Eosinophils % 10.1 % (0.1-12.0); Hematocrit 34.4 % (42.0-52.0); Hemoglobin 11.1 g/dL (14.1-18.0); Lymphocytes # 3.3 K/mm3 (0.7-4.5); Lymphocytes % 29.6 % (10-50); Mean Corpuscular HGB Conc 32.2 g/dL (31.8-35.4); Mean Corpuscular Hemoglobin 30.5 pg (27.0-31.2); Mean Corpuscular Volume 94.6 fl (80-94); Mean Platelet Volume 7.2 fl (7.4-10.4); Monocytes # 0.9 K/mm3 (0.1-1.0); Monocytes % 7.8 % (1.7-9.3); Neutrophils # 5.9 K/mm3 (1.8-7.8); Neutrophils % 52.2 % (37.0-80.0); Platelet Count 417 K/mm3 (142-424); Red Blood Count 3.64 M/mm3 (4.60-6.20); Red Cell Distribution Width 13.6 % (11.5-17.5); White Blood Count 11.2 K/mm3 (4.8-10.8)
[2019-10-03 15:03] LABS: Chloride 100 mmol/L (98-107); Potassium 4.6 mmoL/L (3.5-5.1); Sodium 136 mmol/L (136-145)
[2019-10-03 15:05] LABS: Lipase 114 U/L (23-300)
[2019-10-03 15:06] LABS: Alanine Aminotransferase 17 U/L (12-78); Albumin Level 3.7 g/dl (3.5-5.0); Albumin/Globulin Ratio 1.2 (1.1-1.8); Alkaline Phosphatase 84 U/L (38-126); Anion Gap 12.6 mEq/L (5-15); Aspartate Amino Transferase 25 U/L (17-59); Bilirubin,Total 0.2 mg/dl (0.2-1.3); Blood Urea Nitrogen 30 mg/dl (9-20); Carbon Dioxide 28 mmol/L (22.0-30.0); Creatinine Clearance Estimated 37 mL/min (50-200); Estimated Glomerular Filt Rate 45 ml/min (>60); GFR (African American) 54 ML/MIN (>60); Globulin 3.1 g/dL (1.3-3.2); Total Protein,Serum 6.8 g/dl (6.3-8.2)
[2019-10-03 15:07] LABS: Calcium 9.3 mg/dl (8.4-10.2); Glucose 91 mg/dl (74-100)
--- NOTE | 2019-10-03 15:15 | PC.NURSE ---
Rad at bedside
[2019-10-03 15:16] LABS: Activated Partial Thrombo Time 21.4 seconds (23.6-34.0); INR 0.98 (0.9-1.1); Prothrombin Time 10.1 seconds (9.4-11.8)
[2019-10-03 15:17] VITALS: BP 120/63; PULSE 61; O2SAT 98
[2019-10-03 15:18] LABS: Troponin I < 0.01 ng/ml (0.00-0.034)
[2019-10-03 15:32] VITALS: BP 126/52; PULSE 62; RESP 13; TEMP 36.9; O2SAT 97
== END 2019-10-03 15:35 | disposition home or self-care (01) ==
PROVIDERS: Emergency Provider Emergency Medicine; PCP Family Medicine
DX: R07.9 Chest pain, unspecified (principal); R10.13 Epigastric pain; I10 Essential (primary) hypertension; E78.5 Hyperlipidemia, unspecified; K21.9 Gastro-esophageal reflux disease without esophagitis; Z86.73 Personal history of transient ischemic attack (TIA), and cerebral infarction without residual deficits; J44.1 Chronic obstructive pulmonary disease with (acute) exacerbation; Z90.09 Acquired absence of other part of head and neck; Z87.891 Personal history of nicotine dependence
CPT/HCPCS: 71045; 80053; 83690; 84484; 85025; 85610; 85730; 93005; 99283; 99284

== ENCOUNTER → 2020-03-17 09:41 | Outpatient (CLI) | payer MEDICARE, SELFPAY ==
[2020-03-17 10:43] LABS: Alanine Aminotransferase 14 U/L (12-78); Albumin Level 4.1 g/dl (3.5-5.0); Albumin/Globulin Ratio 1.4 (1.1-1.8); Alkaline Phosphatase 95 U/L (38-126); Aspartate Amino Transferase 23 U/L (17-59); Bilirubin,Total 0.4 mg/dl (0.2-1.3); Blood Urea Nitrogen 21 mg/dl (9-20); Calcium 10.1 mg/dl (8.4-10.2); Carbon Dioxide 30 mmol/L (22.0-30.0); Chloride 104 mmol/L (98-107); Chol/HDL Ratio 4.1 (1-3.5); Cholesterol 160 mg/dl (140-200); Estimated Glomerular Filt Rate 49 ml/min (>60); GFR (African American) 59 ML/MIN (>60); Globulin 2.9 g/dL (1.3-3.2); Glucose 100 mg/dl (74-100); HDL Cholesterol 39 mg/dl (40-60); Iron 67 ug/dL (49-181); Sodium 140 mmol/L (136-145); Triglycerides 122 mg/dl (30-150); VLDL Cholesterol 24 mg/dL (0-40)
[2020-03-17 10:55] LABS: Direct LDL Cholesterol 86.28 mg/dL (100-129)
[2020-03-17 11:14] LABS: Thyroid Stimulating Hormone 2.34 uIU/mL (0.465-4.68)
[2020-03-17 11:32] LABS: Vitamin B12 971 pg/mL (239-931)
== END ==
PROVIDERS: Visit Provider Family Medicine
DX: D64.9 Anemia, unspecified (principal); E03.9 Hypothyroidism, unspecified; E78.5 Hyperlipidemia, unspecified; I10 Essential (primary) hypertension
CPT/HCPCS: 36415; 80053; 80061; 82607; 83540; 84443

== ENCOUNTER → 2020-06-19 13:02 | Outpatient (CLI) | payer MEDICARE, SELFPAY ==
--- NOTE | 2020-06-19 | US_ITS ---
PROCEDURE: US BREAST LT COMPLETE Right breast ultrasound. CLINICAL INDICATION: Thick thickness behind the nipples COMPARISON: US US BREAST RT COMPLETE from 06/19/2020 MG MM DIG MAMM BI DX W/CAD from 06/19/2020 FINDINGS: Right breast: Mild gynecomastia. No cystic or solid lesions. Left breast: Mild gynecomastia. No cystic or solid lesions. IMPRESSION: Negative bilateral breast ultrasound. BI-RADS category 2, benign Dictated by: Syed John MD 06/28/2020 16:17 Syed John MD in [place] 06/28/2020 16:17
--- NOTE | 2020-06-19 13:04 | MM_ITS ---
PROCEDURE: MM DIG MAMM BI DX W/CAD Digital Breast Tomosynthesis Included CLINICAL INDICATION: lt BREAST LUMP COMPARISON: No exams were available for comparison TECHNIQUE: Standard CC and MLO images and 3D Tomosynthesis was obtained. R2 CAD reviewed. FINDINGS: No malignant appearing mass or malignant-appearing microcalcification. There is bilateral gynecomastia left more so than right. IMPRESSION: BI-RAD Category: 2 Benign Finding(s) FOLLOW-UP: As needed (A letter has been sent to the patient regarding results of the study.) Dictated by: Syed John MD 07/03/2020 15:25 Syed John MD in [place] 07/03/2020 15:25
== END ==
PROVIDERS: PCP Family Medicine; Visit Provider Family Medicine
DX: N63.20 Unspecified lump in the left breast, unspecified quadrant (principal); N64.4 Mastodynia
CPT/HCPCS: 76641; 77062; 77066; G0279

== ENCOUNTER → 2020-09-04 13:44 | Outpatient (CLI) | payer MEDICARE, SELFPAY ==
--- NOTE | 2020-09-04 13:50 | XR_ITS ---
PROCEDURE: XR CHEST 2V CLINICAL HISTORY: Other chest pain Left-sided chest pain COMPARISON: [facility] CT CHEST W/O CONTRAST from 11/04/2016 CR XR CHEST PORTABLE from 11/28/2018 CR XR CHEST 2V from 09/19/2019 CR XR CHEST PORTABLE from 10/03/2019 FINDINGS: The cardiomediastinal silhouette and pulmonary vascularity are within normal limits. The lungs are clear without infiltrates, suspicious nodules, or pleural effusions. There is mild kyphosis of the upper thoracic spine IMPRESSION: No acute findings. Dictated by: Syed John MD 09/04/2020 14:18 Syed John MD in [place] 09/04/2020 14:18
== END ==
PROVIDERS: PCP Family Medicine; Visit Provider Family Medicine
DX: R07.89 Other chest pain (principal)
CPT/HCPCS: 71046

== ENCOUNTER → 2021-03-04 16:36 | Outpatient (CLI) | payer MEDICARE, SELFPAY ==
--- NOTE | 2021-03-04 16:54 | XR_ITS ---
PROCEDURE INFORMATION: Exam: XR Chest Exam date and time: 03/04/2021 4:54 PM Age: 80 years old Clinical indication: Cough; Additional info: Covid outpatient TECHNIQUE: Imaging protocol: XR of the chest. Views: 1 view. COMPARISON: CR XR CHEST 2V 09/04/2020 1:53 PM FINDINGS: Lungs: Unremarkable. No consolidation. Pleural spaces: Unremarkable. No pleural effusion. No pneumothorax. Heart/Mediastinum: Unremarkable. No cardiomegaly. Bones/joints: Unremarkable. IMPRESSION: No acute findings.
[2021-03-04 17:12] LABS: Adenovirus,PCR Not Detected (NotDetected); Bordetella Pertussis Not Detected (NotDetected); Chlamydophila Pneumoniae, PCR Not Detected (NotDetected); Coronavirus 19, PCR Not Detected (NotDetected); Coronavirus 229E Not Detected (NotDetected); Coronavirus NL63 Not Detected (NotDetected); Coronavirus OC43 Not Detected (NotDetected); Coronovirus HKU1,PCR Not Detected (NotDetected); Influenza A, PCR Not Detected (NotDetected); Influenza AH1, 2009 Not Detected (NotDetected); Influenza AH1, PCR Not Detected (NotDetected); Influenza AH3,PCR Not Detected (NotDetected); Influenza B, PCR Not Detected (NotDetected); Mycoplasma Pneumoniae, PCR Not Detected (NotDetected); Parainfluenza 1, PCR Not Detected (NotDetected); Parainfluenza 2, PCR Not Detected (NotDetected); Parainfluenza 3, PCR Not Detected (NotDetected); Parainfluenza 4, PCR Not Detected (NotDetected); Respiratory Syncytial Virus Not Detected (NotDetected); Rhinovirus/Enterovirus Not Detected (NotDetected)
[2021-03-04 17:19] LABS: Basophils # 0.1 K/mm3 (0-0.2); Basophils % 0.6 % (0.1-2.0); Eosinophils # 0.7 K/mm3 (0.0-0.4); Eosinophils % 6.7 % (0.1-12.0); Hematocrit 33.5 % (42.0-52.0); Hemoglobin 10.7 g/dL (14.1-18.0); Lymphocytes # 2.9 K/mm3 (0.7-4.5); Lymphocytes % 28.9 % (10-50); Mean Corpuscular Hemoglobin 29.6 pg (27.0-31.2); Mean Corpuscular Volume 92.3 fl (80-94); Mean Platelet Volume 7.1 fl (7.4-10.4); Monocytes # 0.9 K/mm3 (0.1-1.0); Monocytes % 8.6 % (1.7-9.3); Neutrophils # 5.5 K/mm3 (1.8-7.8); Neutrophils % 55.1 % (37.0-80.0); Platelet Count 430 K/mm3 (142-424); Red Blood Count 3.63 M/mm3 (4.60-6.20); Red Cell Distribution Width 13.7 % (11.5-17.5)
[2021-03-04 22:54] LABS: Human Metapneumovirus Detected (NotDetected)
== END ==
PROVIDERS: PCP Family Medicine; Visit Provider Physician Assistant
DX: Z20.822 Contact with and (suspected) exposure to COVID-19 (principal); J06.9 Acute upper respiratory infection, unspecified; B97.81 Human metapneumovirus as the cause of diseases classified elsewhere
CPT/HCPCS: 36415; 71045; 85025; 87581; 87632; 87798; C9803; U0003; U0005

== ENCOUNTER → 2021-05-25 09:57 | Outpatient (CLI) | payer MEDICARE, SELFPAY ==
[2021-05-25 10:57] LABS: Basophils # 0.1 K/mm3 (0-0.2); Basophils % 0.6 % (0.1-2.0); Eosinophils # 0.9 K/mm3 (0.0-0.4); Hematocrit 34.3 % (42.0-52.0); Hemoglobin 10.9 g/dL (14.1-18.0); Lymphocytes # 2.9 K/mm3 (0.7-4.5); Mean Corpuscular HGB Conc 31.9 g/dL (31.8-35.4); Mean Corpuscular Hemoglobin 30.4 pg (27.0-31.2); Mean Corpuscular Volume 95.4 fl (80-94); Mean Platelet Volume 7.6 fl (7.4-10.4); Monocytes # 0.6 K/mm3 (0.1-1.0); Monocytes % 6.9 % (1.7-9.3); Neutrophils # 4.8 K/mm3 (1.8-7.8); Neutrophils % 51.4 % (37.0-80.0); Platelet Count 408 K/mm3 (142-424); Red Cell Distribution Width 14.1 % (11.5-17.5); White Blood Count 9.3 K/mm3 (4.8-10.8)
[2021-05-25 11:51] LABS: Alanine Aminotransferase 17 U/L (12-78); Albumin Level 3.9 g/dl (3.5-5.0); Albumin/Globulin Ratio 1.5 (1.1-1.8); Alkaline Phosphatase 72 U/L (38-126); Aspartate Amino Transferase 30 U/L (17-59); Bilirubin,Total 0.3 mg/dl (0.2-1.3); Blood Urea Nitrogen 25 mg/dl (9-20); Calcium 9.6 mg/dl (8.4-10.2); Carbon Dioxide 26 mmol/L (22.0-30.0); Chloride 108 mmol/L (98-107); Chol/HDL Ratio 3.7 (1-3.5); Cholesterol 140 mg/dl (140-200); Estimated Glomerular Filt Rate 53 ml/min (>60); GFR (African American) 64 ML/MIN (>60); Globulin 2.6 g/dL (1.3-3.2); Glucose 91 mg/dl (74-100); HDL Cholesterol 38 mg/dl (40-60); Sodium 141 mmol/L (136-145); Total Protein,Serum 6.5 g/dl (6.3-8.2); Triglycerides 88 mg/dl (30-150); VLDL Cholesterol 18 mg/dL (0-40)
[2021-05-25 12:03] LABS: Direct LDL Cholesterol 66.89 mg/dL (100-129)
[2021-05-25 12:22] LABS: Thyroid Stimulating Hormone 0.27 uIU/mL (0.465-4.68)
[2021-05-25 15:39] LABS: T4 (Thyroxine) 14.1 ug/dl (5.53-11.0)
== END ==
PROVIDERS: Visit Provider Family Medicine
DX: I10 Essential (primary) hypertension (principal); E78.5 Hyperlipidemia, unspecified
CPT/HCPCS: 36415; 80053; 80061; 84436; 84443; 85025

== ENCOUNTER 2021-05-31 09:51 | Emergency (ER) | payer MEDICARE, SELFPAY ==
[2021-05-31] VITALS (7 sets, daily range): BP systolic 100–111; BP diastolic 42–58; PULSE 68–78; RESP 16–18; TEMP 36.6–37.2; O2SAT 98–99; BMI 22.2
--- NOTE | 2021-05-31 10:14 | XR_ITS ---
PROCEDURE INFORMATION: Exam: XR Chest Exam date and time: 05/31/2021 10:23 AM Age: 80 years old Clinical indication: Other: Weakness and pain TECHNIQUE: Imaging protocol: XR of the chest. Views: 1 view. COMPARISON: CR XR CHEST PORTABLE 03/04/2021 4:56 PM FINDINGS: Lungs: No focal airspace disease. Pleural spaces: Unremarkable. No pleural effusion. No pneumothorax. Heart/Mediastinum: Cardiomediastinal silhouette is within normal limits. Bones/joints: Unremarkable. IMPRESSION: No acute cardiopulmonary abnormality.
--- NOTE | 2021-05-31 10:25 | ECG_ITS ---
APPROVED REPORT Exam: Resting ECG HR:69 bpm ECG Measurements Heart Rate 69 AXES SD 192 P 38 QRSd 101 QRS -35 QT 407 T 56 QTc 426 Conclusion SINUS RHYTHM LEFT AXIS DEVIATION [QRS AXIS < -30] MINIMAL VOLTAGE CRITERIA FOR LVH, CONSIDER NORMAL VARIANT [MEETS CRITERIA IN ONE OF: R(aVL), S(V1), R(V5), R(V5/V6)+S(V1)] ABNORMAL ECG UNCONFIRMED REPORT Electronically signed by : Nehemiah Kc MD 06/01/2021 19:46:53
[2021-05-31 10:28] LABS: Basophils # 0.1 K/mm3 (0-0.2); Basophils % 0.3 % (0.1-2.0); Eosinophils % 0.2 % (0.1-12.0); Hematocrit 32.7 % (42.0-52.0); Hemoglobin 10.4 g/dL (14.1-18.0); Lymphocytes # 1.5 K/mm3 (0.7-4.5); Lymphocytes % 8.7 % (10-50); Mean Corpuscular HGB Conc 31.9 g/dL (31.8-35.4); Mean Corpuscular Hemoglobin 30.7 pg (27.0-31.2); Mean Corpuscular Volume 96.5 fl (80-94); Mean Platelet Volume 7.6 fl (7.4-10.4); Monocytes # 0.3 K/mm3 (0.1-1.0); Neutrophils % 88.9 % (37.0-80.0); Platelet Count 385 K/mm3 (142-424); Red Blood Count 3.39 M/mm3 (4.60-6.20); Red Cell Distribution Width 14.4 % (11.5-17.5); White Blood Count 16.8 K/mm3 (4.8-10.8)
[2021-05-31 10:31] LABS: MANUAL DIFFERENTIAL MANUAL DIFFERENTIAL (MANUAL DIFF)
[2021-05-31 10:43] LABS: Sodium 135 mmol/L (136-145)
[2021-05-31 10:45] LABS: Blood Urea Nitrogen 24 mg/dl (9-20); Creatinine Clearance Estimated 28 mL/min (50-200); Estimated Glomerular Filt Rate 34 ml/min (>60); GFR (African American) 41 ML/MIN (>60)
[2021-05-31 10:46] LABS: Albumin Level 3.8 g/dl (3.5-5.0); Albumin/Globulin Ratio 1.4 (1.1-1.8); Calcium 8.3 mg/dl (8.4-10.2); Globulin 2.7 g/dL (1.3-3.2); Glucose 102 mg/dl (74-100); Total Protein,Serum 6.5 g/dl (6.3-8.2)
--- NOTE | 2021-05-31 10:52 | HMH.EDGENADL ---
ED Disposition Clinical Impression: Febrile illness Disposition: Home, Self-Care Condition on Discharge: Good Instructions: DI for Fever (Symptom) -- Adult Additional Instructions: Continue Tylenol every 4-6 hours as needed for fever. See Dr. Saravia in his office tomorrow. Call tomorrow morning to make that appointment. Levaquin as prescribed. Return to the emergency department if symptoms worsening, or if new symptoms such as repetitive vomiting, severe pain, difficulty breathing. Prescriptions: levoFLOXacin [Levaquin 500mg tab] 500 mg PO DAILY #9 tab Transmission Status: Pending to [facility] Referrals: Yohannes Saravia MD [Primary Care Provider] - - Critical Care Critical Care Time: No Attestation: On 05/31/21, the high probability of a clinically significant, sudden or life threatening deterioration of the following system(s) required my full and direct attention, intervention and personal management. The time I documented below is in addition to time spent performing reported procedures but includes the following listed in this critical care notation. Medical Decision Making - Zaki Inquiry Pt receiving controlled substance: No Vital Signs: 05/31/21 09:53 05/31/21 10:27 05/31/21 10:30 Temperature 98.7 F Temperature Source Oral Pulse Rate 74 70 Pulse Rate [Radial] 77 Respiratory Rate 16 18 18 Blood Pressure 103/54 L 103/49 L Blood Pressure [Right Arm] 100/42 L Blood Pressure Mean 66 64 Blood Pressure Mean [Right Arm] 61 Blood Pressure Position [Right Arm] Sitting 02 Sat by Pulse Oximetry 98 98 98 Oxygen Delivery Method Room Air 05/31/21 11:01 05/31/21 11:30 05/31/21 13:02 Temperature 98.9 F Temperature Source Oral Pulse Rate 71 68 Pulse Rate [Radial] Respiratory Rate 18 18 Blood Pressure 111/51 L 102/47 L Blood Pressure [Right Arm] Blood Pressure Mean 65 75 Blood Pressure Mean [Right Arm] Blood Pressure Position [Right Arm] 02 Sat by Pulse Oximetry 99 98 Oxygen Delivery Method - Lab Data Lab Results 05/31/21 10:16: WBC 16.8 H, RBC 3.39 L, Hgb 10.4 L, Hct 32.7 L, MCV 96.5 H, MCH 30.7, MCHC 31.9, RDW 14.4, Plt Count 385, MPV 7.6, Neut % (Auto) 88.9 H, Lymph % (Auto) 8.7 L, [place] % (Auto) 2.0, Eos % (Auto) 0.2, Baso % (Auto) 0.3, Neut # (Auto) 15.0 H, Lymph # (Auto) 1.5, [place] # (Auto) 0.3, Eos # (Auto) 0.0, Baso # (Auto) 0.1, Total Counted 100, Neutrophils % (Manual) 95 H, Lymphocytes % (Manual) 3 L, Monocytes % (Manual) 2, Platelet Estimate Normal 05/31/21 10:16: Sodium 135 L, Potassium 4.0, Chloride 103, Carbon Dioxide 26, Anion Gap 10.0, BUN 24 H, Creatinine 1.90 H, Estimated Creat Clear 28, Estimated GFR 34 L, Est GFR ( Amer) 41 L, Glucose 102 H, Calcium 8.3 L, Total Bilirubin 0.4, AST 42, ALT 22, Alkaline Phosphatase 70, Troponin I 0.01, Total Protein 6.5, Albumin 3.8, Globulin 2.7, Albumin/Globulin Ratio 1.4 05/31/21 10:16: Lipase 87 05/31/21 10:19: SARS-CoV-2 (PCR) Not detected, Influenza A Untype (PCR) Not detected, Influenza Type B (PCR) Not detected 05/31/21 10:40: Lactate 0.9 05/31/21 12:00: Urine Color Yellow, Urine Appearance Clear, Urine pH 5.5, Ur Specific [place] 1.025, Urine Protein Negative, Urine Glucose (UA) Negative, Urine Ketones Negative, Urine Blood Negative, Urine Nitrate Negative, Urine Bilirubin Negative, Urine Urobilinogen 0.2, Ur Leukocyte Esterase Negative, Urine RBC None, Urine WBC None, Ur Squamous Epith Cells Occasional, Urine Bacteria Trace Result diagrams: 05/31/21 10:16 05/31/21 10:16 Orders (Tests/Meds): ED MEDICATIONS Discontinued Medications Generic Name Dose Route Start Last Admin Trade Name Freq PRN Reason Stop Dose Admin Acetaminophen 650 mg 05/31/21 13:02 05/31/21 13:03 Acetaminophen 325mg Tab PO 05/31/21 13:03 650 mg ONCE ONE Administration Sodium Chloride 1,000 mls @ 999 mls/hr 05/31/21 11:00 05/31/21 10:58 Sod Chlor 0.9% 1000ml Bag IV 05/31/21 12:0
--- NOTE | 2021-05-31 11:03 | CT_ITS ---
PROCEDURE INFORMATION: Exam: CT Abdomen And Pelvis Without Contrast Exam date and time: 05/31/2021 11:46 AM Age: 80 years old Clinical indication: Abdominal pain; Flank; Left; Additional info: Left flank and abdo pain, fever TECHNIQUE: Imaging protocol: Computed tomography of the abdomen and pelvis without contrast. Radiation optimization: All CT scans at this facility use at least one of these dose optimization techniques: automated exposure control; mA and/or kV adjustment per patient size (includes targeted exams where dose is matched to clinical indication); or iterative reconstruction. COMPARISON: RF FL SMALL BOWEL FOLLOW THROUGH 11/21/2018 8:52 AM FINDINGS: Lungs: Calcified right middle lobe granuloma. Emphysematous changes in the lungs. Liver: Normal. No mass. Gallbladder and bile ducts: Normal. No calcified stones. No ductal dilation. Pancreas: Normal. No ductal dilation. Spleen: Calcified splenic granulomas. Adrenal glands: Normal. No mass. Kidneys and ureters: Left renal sinus cysts. No hydronephrosis. Stomach and bowel: Colonic diverticulosis without evidence of diverticulitis. No bowel obstruction. Appendix: No evidence of appendicitis. Intraperitoneal space: Unremarkable. No free air. No significant fluid collection. Vasculature: Moderate burden of atherosclerotic plaque within the abdominal aorta and branch vessels. Mild ectasia of the infrarenal abdominal aorta and bilateral common iliac arteries. Lymph nodes: Unremarkable. No enlarged lymph nodes. Urinary bladder: Unremarkable as visualized. Reproductive: Prostatomegaly. Bones/joints: Unremarkable. No acute fracture. Soft tissues: Unremarkable. IMPRESSION: No acute findings in the abdomen or pelvis. COMMENTS: Consistent with the [employer]'s Incidental Findings Committee white paper (J Am Malorie Radiol 2018): Any incidental renal lesion less than 1 cm or classified as too small to characterize, or any incidental cystic renal lesion characterized as simple-appearing, is likely benign. No follow-up imaging is recommended for these lesions per consensus recommendations based on imaging criteria.
[2021-05-31 11:07] LABS: Chloride 103 mmol/L (98-107)
[2021-05-31 11:10] LABS: Alanine Aminotransferase 22 U/L (12-78); Alkaline Phosphatase 70 U/L (38-126); Aspartate Amino Transferase 42 U/L (17-59); Bilirubin,Total 0.4 mg/dl (0.2-1.3); Carbon Dioxide 26 mmol/L (22.0-30.0); Troponin I 0.01 ng/ml (0.00-0.034)
[2021-05-31 11:11] LABS: Lactic Acid 0.9 mmol/L (0.7-2.1)
[2021-05-31 11:23] LABS: Lipase 87 U/L (23-300)
[2021-05-31 11:29] LABS: Coronavirus 19, PCR Not Detected (NotDetected); Influenza A, PCR Not Detected (NotDetected); Influenza B, PCR Not Detected (NotDetected)
--- NOTE | 2021-05-31 11:50 | PC.NURSE ---
PT GONE TO CT
[2021-05-31 11:59] LABS: Lymphocytes % 3 % (10-50); Monocytes % 2 % (2-9); Neutrophils % 95 % (42-76); Platelet Estimate Normal; Total Cells Counted 100
[2021-05-31 12:04] LABS: Microscopic, Urine URINE MICROSCOPIC (MICROSCOPIC)
[2021-05-31 12:07] LABS: Appearance,Urine CLEAR (Clear); Bilirubin,Urine Negative (Negative); Blood, Urine Negative (Negative); Color,Urine YELLOW (Yellow); Glucose,Urine (UA) Negative (Negative); Ketones,Urine Negative (Negative); Leukocyte Esterase,Urine Negative (Negative); Nitrate,Urine Negative (Negative); PH,Urine 5.5 (5.0-8.5); Protein,Urine Negative (Negative); Specific Gravity, Urine 1.025 (1.005-1.030); Urobilinogen,Urine 0.2 EU/dl (0.2)
[2021-05-31 12:37] LABS: Bacteria,Urine Trace /lpf; Squamous Epithelial Cell,Urine Occasional #/hpf (0-5)
--- NOTE | 2021-05-31 13:00 | PC.NURSE ---
Paged Dr Saravia. [phone]
--- NOTE | 2021-05-31 13:10 | PC.NURSE ---
AT BEDSIDE. PT AND FAMILY UPDATED ON PLAN OF CARE
--- NOTE | 2021-05-31 13:16 | PC.NURSE ---
DR BUBBA PEREZ
--- NOTE | 2021-05-31 13:18 | PC.NURSE ---
DR ORTEGA SPEAKING TO DR MAC
[2021-05-31 13:52] LABS: Troponin I < 0.01 ng/ml (0.00-0.034)
== END 2021-05-31 15:37 | disposition home or self-care (01) ==
PROVIDERS: Emergency Provider Emergency Medicine; PCP Family Medicine
DX: R10.32 Left lower quadrant pain (principal); R53.83 Other fatigue; R50.9 Fever, unspecified; I10 Essential (primary) hypertension; E78.5 Hyperlipidemia, unspecified; K21.9 Gastro-esophageal reflux disease without esophagitis; Z79.899 Other long term (current) drug therapy; Z87.891 Personal history of nicotine dependence
CPT/HCPCS: 71045; 74176; 80053; 81001; 83605; 83690; 84484; 85007; 85025; 87040; 93005; 96360; 96365; 99284; C9803; J2405; U0003; U0005

== ENCOUNTER → 2021-06-09 16:03 | Outpatient (CLI) | payer MEDICARE, SELFPAY | PROVIDERS: PCP Family Medicine; Visit Provider Urology | DX: R97.20 Elevated prostate specific antigen [PSA]; R10.30 Lower abdominal pain, unspecified ==

== ENCOUNTER → 2021-06-25 12:55 | Outpatient (CLI) | payer MEDICARE, SELFPAY ==
[2021-06-12 08:28] LABS: PSA, Free 1.16 ng/mL; Prostate Specific Ag 3.7 ng/mL (0.0-4.0)
== END ==
PROVIDERS: Visit Provider Urology
DX: N40.1 Benign prostatic hyperplasia with lower urinary tract symptoms (principal); R97.20 Elevated prostate specific antigen [PSA]
CPT/HCPCS: 36415; 84153; 84154

== ENCOUNTER → 2021-07-08 13:56 | Outpatient (CLI) | payer MEDICARE, SELFPAY | PROVIDERS: PCP Anesthesiology Pain Medicine; Visit Provider Surgery | DX: Z01.812 Encounter for preprocedural laboratory examination (principal); Z11.52 Encounter for screening for COVID-19; Z13.810 Encounter for screening for upper gastrointestinal disorder | CPT/HCPCS: C9803; U0003; U0005 ==

== ENCOUNTER 2021-07-09 16:59 | Emergency (ER) | payer MEDICARE, SELFPAY ==
[2021-07-09 17:20] VITALS: BP 133/55; PULSE 86; RESP 18; TEMP 36.8; O2SAT 99; BMI 22.1
--- NOTE | 2021-07-09 17:44 | HMH.EDUTC ---
[facility] [place] Disposition Clinical Impression: Finger injury Qualifiers: Encounter type: initial encounter Laterality: left Qualified Code(s): S69.92XA - Unspecified injury of left wrist, hand and finger(s), initial encounter Disposition: Home, Self-Care Condition on Discharge: Good Instructions: DI for Laceration Repair Prescriptions: cefaDROXiL [Cefadroxil] 500 mg PO BID #5 cap Transmission Status: Received by [facility] Referrals: Yohannes Saravia MD [Primary Care Provider] - Medical Decision Making - Zaki Inquiry Pt receiving controlled substance: No Zaki was queried for this patient: No Vital Signs: 07/09/21 17:20 07/09/21 18:19 07/09/21 19:10 Temperature 98.2 F 98 F 97.8 F Temperature Source Oral Oral Oral Pulse Rate 74 Pulse Rate [Right Brachial] 86 68 Respiratory Rate 18 16 19 Blood Pressure 109/93 L Blood Pressure [Right Arm] 133/55 L 120/74 Blood Pressure Mean [Right Arm] 81 89 Blood Pressure Source [Right Arm] Automatic Cuff Blood Pressure Position Sitting Blood Pressure Position [Right Arm] Sitting Sitting 02 Sat by Pulse Oximetry 99 98 Oxygen Delivery Method Room Air Room Air Room Air Orders (Tests/Meds): ED MEDICATIONS Discontinued Medications Generic Name Dose Route Start Last Admin Trade Name Freq PRN Reason Stop Dose Admin Tetanus/Reduced Diphtheria/Acell Pertussis 0.5 ml 07/09/21 17:44 07/09/21 18:00 Tet/Diphth/Pert-Adult 0.5ml Syringe IM 07/09/21 17:45 0.5 ml .ONCE ONE Administration Medical Decision Narrative: Due to patient injury discussed with patient and recommended transfer to the ED for further evaluation and treatment Called ED spoke with ED staff and patient assigned room 8 [facility] [place] HPI - General Stated complaint: AO 07/09@1600 cut right index finger Time Seen by Provider: 07/09/21 17:44 Mode of Arrival: Ambulatory Source of Information: Patient, Parent(s) Limitations: No Limitations Description of Symptoms (Recalled from Triage Doc. by RN): PATIENT C/O LACERATION TO FINGER AFTER CUTTING IT WITH A TABLE SAW TODAY HEENT Symptoms (Recalled from RN notes): No Resp Symptoms (Recalled from RN notes): No Skin Symptoms (Recalled from RN notes): Yes MS Symptoms (Recalled from RN notes): No Functional Status (Recalled from RN notes): WNL - History of Present Illness Provider Complaint: Patient states that he was using a table saw earlier when it cut the side of his left index finger tip States that he did not think hit the nail but when he looked down he noticed a piece of the tip of his left index finger was gone States that he immediately applied pressure and his placed a bandaid on it States that he got the bleeding under control and came in to get checked - Related Data Home Medications Medication Instructions Recorded Confirmed omega 7-olt-swn-fish oil 1,000 mg 1 cap PO DAILY 05/12/17 07/08/21 (120 mg-180 mg) capsule Omeprazole [Omeprazole 40mg 40 mg PO DAILY 11/28/18 07/08/21 Capsule] aspirin 81 mg tablet,delayed 81 mg PO DAILY 04/30/19 07/08/21 release cyclobenzaprine 5 mg tablet 5 mg PO QHS 04/30/19 07/08/21 lisinopril 10 mg tablet 10 mg PO DAILY 04/30/19 07/08/21 rosuvastatin 5 mg tablet 5 mg PO DAILY 04/30/19 07/08/21 levothyroxine 88 mcg capsule 75 mcg PO DAILY cap 05/28/21 07/08/21 Fexofenadine HCl [Aller-Ease] 180 mg PO DAILY 07/08/21 07/08/21 Previous Rx's Medication Instructions Recorded cefaDROXiL [Cefadroxil] 500 mg PO BID #5 cap 07/09/21 Allergies Allergy/AdvReac Type Severity Reaction Status Date / Time Sulfa (Sulfonamide Allergy Unknown NAUSEA/VOMI Verified 06/09/21 13:43 Antibiotics) TING - Worker's Comp Is this a Worker's Comp case?: No [facility] History - Hepatitis A Screen Attestation statement:: This patient has been screened for Hepatitis A risk factors. I have reviewed the patient's past medical history: Yes Medical History: Reports:: BPH, Chronic Obstruc
--- NOTE | 2021-07-09 18:06 | PC.NURSE ---
patient brought over from [facility] by AVELINA Talavera to ED room 5. Spouse at BS
--- NOTE | 2021-07-09 18:07 | PC.NURSE ---
ED MD at
--- NOTE | 2021-07-09 18:12 | XR_ITS ---
PROCEDURE INFORMATION: Exam: XR Left Hand Exam date and time: 07/09/2021 6:13 PM Age: 80 years old Clinical indication: Injury or trauma; Other: Table saw vs left index finger. ; Patient HX: Laceration to left index finger caused by table saw. TECHNIQUE: Imaging protocol: XR Left hand. Views: 3 or more views. Total images: 3 COMPARISON: No relevant prior studies available. FINDINGS: Bones/joints: Osteopenia. There is mild fragmentation/contour irregularity involving the medial margin of the distal phalangeal tuft consistent with fracture. No articular extension. No other fractures or dislocation. Mild-moderate interphalangeal osteoarthritic changes. Moderate osteoarthritic changes at the STT joint at the wrist. Soft tissues: Soft tissue laceration at the medial distal tip of the index finger. No retained foreign body. IMPRESSION: 1. Small zone of fracture/fragmentation involving the medial margin of the index finger distal phalangeal tuft with adjacent soft tissue laceration. 2. No foreign body. 3. Osteopenia and osteoarthritic changes.
[2021-07-09 18:19] VITALS: BP 120/74; PULSE 68; RESP 16; TEMP 36.6; O2SAT 98; BMI 21.7
[2021-07-09 19:10] VITALS: BP 109/93; PULSE 74; RESP 19; TEMP 36.6; O2SAT 98
--- NOTE | 2021-07-09 20:12 | HMH.EDGENADL ---
ED Disposition Clinical Impression: Finger injury Qualifiers: Encounter type: initial encounter Laterality: left Qualified Code(s): S69.92XA - Unspecified injury of left wrist, hand and finger(s), initial encounter Disposition: Home, Self-Care Condition on Discharge: Good Instructions: DI for Laceration Repair Prescriptions: cefaDROXiL [Cefadroxil] 500 mg PO BID #5 cap Transmission Status: Received by [facility] Referrals: Yohannes Saravia MD [Primary Care Provider] - - Critical Care Critical Care Time: No Attestation: On 07/09/21, the high probability of a clinically significant, sudden or life threatening deterioration of the following system(s) required my full and direct attention, intervention and personal management. The time I documented below is in addition to time spent performing reported procedures but includes the following listed in this critical care notation. Medical Decision Making - Medical Records Medical records reviewed: Yes: I reviewed the patient's medical records. - Zaki Inquiry Pt receiving controlled substance: No Zaki was queried for this patient: No Vital Signs: 07/09/21 17:20 07/09/21 18:19 07/09/21 19:10 Temperature 98.2 F 98 F 97.8 F Temperature Source Oral Oral Oral Pulse Rate 74 Pulse Rate [Right Brachial] 86 68 Respiratory Rate 18 16 19 Blood Pressure 109/93 L Blood Pressure [Right Arm] 133/55 L 120/74 Blood Pressure Mean [Right Arm] 81 89 Blood Pressure Source [Right Arm] Automatic Cuff Blood Pressure Position Sitting Blood Pressure Position [Right Arm] Sitting Sitting 02 Sat by Pulse Oximetry 99 98 Oxygen Delivery Method Room Air Room Air Room Air - Lab Data Lab results reviewed: Yes: I reviewed the patient's lab results. Orders (Tests/Meds): ED MEDICATIONS Discontinued Medications Generic Name Dose Route Start Last Admin Trade Name Freq PRN Reason Stop Dose Admin Tetanus/Reduced Diphtheria/Acell Pertussis 0.5 ml 07/09/21 17:44 07/09/21 18:00 Tet/Diphth/Pert-Adult 0.5ml Syringe IM 07/09/21 17:45 0.5 ml .ONCE ONE Administration Medical Decision Narrative: Patient is an 80-year-old male with no past medical history presenting to the ED for a finger laceration. Patient is awake, alert, not in acute distress. Patient is a medically stable, afebrile. Patient's physical exam is remarkable for laceration of the tip of the index finger of the left hand involving the nail. X-rays are performed. Xrays are unremarkable for any fractures. The nail is repaired by me and the finger is sutured. The finger is dressed in saline gauze. Patient is to follow-up with his primary care physician. Patient would like to have his primary care physician arrange follow-up with hand surgery. Patient is given strict return precautions and follow-up instructions. General Adult HPI - General Chief complaint: Wound/Laceration Stated complaint: AO 07/09@1600 cut right index finger Time Seen by Provider: 07/09/21 17:44 Mode of Arrival: Ambulatory Limitations: No Limitations Description of Symptoms (Recalled from ER Triage Doc. by RN): PT SENT FROM [facility] FOR EVAL DUE TO LAC TO LT INDEX FINGER WITH CIRCULAR SAW - History of Present Illness HPI narrative: Patient is an 80-year-old male with no past medical history presenting to the ED with a left hand laceration. Patient states that he was using a table saw when he cut his index finger. Denies any other injuries, denies any head trauma, denies any loss of consciousness. - Related Data Home Medications Medication Instructions Recorded Confirmed omega 5-kgo-jms-fish oil 1,000 mg 1 cap PO DAILY 05/12/17 07/08/21 (120 mg-180 mg) capsule Omeprazole [Omeprazole 40mg 40 mg PO DAILY 11/28/18 07/08/21 Capsule] aspirin 81 mg tablet,delayed 81 mg PO DAILY 04/30/19 07/08/21 release cyclobenzaprine 5 mg tablet 5 mg PO QHS 04/30/19 07/08/21 lisinopril 10 mg tablet 10 mg PO
== END 2021-07-09 19:13 | disposition home or self-care (01) ==
LOC: UTC 17:07 → ER 17:51
PROVIDERS: Emergency Provider Emergency Medicine; PCP Family Medicine
DX: S61.311A Laceration without foreign body of left index finger with damage to nail, initial encounter (principal); S62.661A Nondisplaced fracture of distal phalanx of left index finger, initial encounter for closed fracture; Z23 Encounter for immunization; W31.2XXA Contact with powered woodworking and forming machines, initial encounter; Y92.019 Unspecified place in single-family (private) house as the place of occurrence of the external cause; K21.9 Gastro-esophageal reflux disease without esophagitis; I10 Essential (primary) hypertension; E78.5 Hyperlipidemia, unspecified; J44.9 Chronic obstructive pulmonary disease, unspecified; E03.9 Hypothyroidism, unspecified; Z79.899 Other long term (current) drug therapy
CPT/HCPCS: 11760; 73130; 90715; 99283

== ENCOUNTER 2021-07-10 06:27 | Day surgery (SDC) | payer MEDICARE, SELFPAY ==
[2021-07-08 12:20] VITALS: BMI 22.2
[2021-07-10 06:55] VITALS: BP 173/69; PULSE 73; RESP 18; TEMP 36.4; O2SAT 99
--- NOTE | 2021-07-10 07:01 | P.PN_ITS ---
[facility] Anesthesia Checklist - Patient Identification Patient Identification: Arm Band - Structural Data Admitted From: Home Planned Operative Procedure/s: EGD Consent for Planned Operative Procedure(s) Verified: Yes - NPO Status Verified Time NPO: 00:00 - Additional verifications Anesthesia Reactions: No Hx Blood Transfusions: Yes Blood Transfusion Reaction: No - Airway Assessment C-Spine Mobility Assessed: Yes TMJ Mobility Assessed: Yes Dentition: Edentulous - Neurological Assessment Level of Consciousness: Awake Hx Seizures: No Numbness or tingling in extremities: No - Anesthesia Plan Anesthesia Risk discussed: Yes Anesthesia Plan: Verified ASA Class: III Anesthesia Type: MAC [facility] History I have reviewed the patient's past medical history: Yes Medical History: Reports:: BPH, Chronic Obstructive Pulmonary Disease (COPD), Gastroesophageal Reflux Disease(GERD), Hiatal Hernia, Hyperlipidemia, Hypertension, Lung Disease, Transient Ischemic Attacks (TIA) Denies:: Cancer, Diabetes Mellitus Type 1, Diabetes Mellitus Type 2, Internal Pacemaker, MRSA, Seizures *Have you ever received a pneumonia vaccine?: Yes *Have you received a flu vaccine this season?: Yes Other Medical History: Reports: Arthritis, Cataracts, Hypothyroidism, Sinus Problems, Thyroid Disease. Denies: Blood Transfusion Reaction Anesthesia experience/problems:: None Laterality Cases: Left: Tonsillectomy Other Surgeries: Yes: Colonoscopy, Sinus Surgery. No: Pacemaker Amputation: No Fractures: No - *Social History Last grade of school completed: 7th or 8th Smoking Status: Former smoker Tobacco Type: cigarettes # Packs/Day (cigarettes): 1 #Yrs smoked (if former smoker): 55 Alcohol Intake: never Substance Use Type: denies use *Occupational Status:: retired, other Housing: house Household Members: spouse *Travel in the last 8 weeks: None Family Hx:: Anemia, Asthma, Cancer, Hyperlipidemia, Diabetes, Hypertension
--- NOTE | 2021-07-10 07:04 | HMH.GSHP ---
HPI HPI: Patient is an 80-year-old male recently referred by Dr. Saravia for EGD and possible colonoscopy. Initially there was a question of possible family history of colon cancer in his paternal uncle but this was apparently merely rectal bleeding. He had undergone undergone colonoscopy by Dr. Darryl Galo on 06/01/2000 which revealed diverticulosis. I had performed colonoscopy 09/06/2006 and there was a tiny diminutive polyp which was unable to be retrieved. I had performed colonoscopy 07/22/2011 which revealed only diverticulosis. Dr. Galo performed EGD and colonoscopy on 09/20/2016. EGD at that time revealed nonerosive GERD with esophageal dysmotility/presbyesophagus, isolated duodenal lymphangiectasia x 2, duodenal diverticula x2 in the second and third portion of the duodenum. Colonoscopy revealed diverticulosis and hyperplastic polyp. He had upper endoscopy as an inpatient by Dr. Villaseñor on 11/18/2018 at which time he had presented with possible GI bleeding which revealed gastroesophageal junction at 39 cm, no active bleeding, small hiatal hernia, mild to moderate increased inflammatory response of the gastroesophageal junction, focal moderate to severe inflammatory response in the antrum. 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 He has been on chewable 81 mg aspirin. However, he is recently had symptoms of increased irritation in the esophagus. He developed symptoms of dysphagia particularly when eating foods such as bread or pasta. He describes substernal cramping and burning sensation. Of note, the patient did have a modified barium swallow on 04/09/2019 which revealed Early spillage into the piriform sinuses. No aspiration or penetration. Given his dysphagia symptoms and prior findings on upper endoscopy I felt that EGD would be reasonable. This could however be esophageal dysmotility problem. I do not feel strongly that he definitely needs colonoscopy as he apparently does not have a true family history of colon cancer and has had colonoscopies in 2000, 2006, 2011, 2016 without any definite adenomatous polyps. Therefore, plan for EGD with biopsies and possible dilatation. [facility] History I have reviewed the patient's past medical history: Yes Medical History: Reports:: BPH, Chronic Obstructive Pulmonary Disease (COPD), Gastroesophageal Reflux Disease(GERD), Hiatal Hernia, Hyperlipidemia, Hypertension, Lung Disease, Transient Ischemic Attacks (TIA) Denies:: Cancer, Diabetes Mellitus Type 1, Diabetes Mellitus Type 2, Internal Pacemaker, MRSA, Seizures *Have you ever received a pneumonia vaccine?: Yes *Have you received a flu vaccine this season?: Yes Other Medical History: Reports: Arthritis, Cataracts, Hypothyroidism, Sinus Problems, Thyroid Disease. Denies: Blood Transfusion Reaction Laterality Cases: Left: Tonsillectomy Other Surgeries: Yes: Colonoscopy, Sinus Surgery. No: Pacemaker Amputation: No Fractures: No - *Social History Last grade of school completed: 7th or 8th Smoking Status: Former smoker Tobacco Type: cigarettes # Packs/Day (cigarettes): 1 #Yrs smoked (if former smoker): 55 Alcohol Intake: never Substance Use Type: denies use *Occupational Status:: retired, other Housing: house Household Members: spouse *Travel in the last 8 weeks: None Family Hx:: Anemia, Asthma, Cancer, Hyperlipidemia, Diabetes, Hypertension Review of Systems - Review of Systems Review of systems:: pertinent systems reviewed and negative unless documented below Meds Home Medications Medication Instructions Recorded Confirmed Type omega 3-fhs-yoj-fish oil 1,000 mg 1 cap PO DAILY 05/12/17 07/10/21 History (120 mg-180 mg) capsule Omeprazole [Omeprazole 40mg 40 mg PO DAILY 11/28/18 07/10/21 History Capsule] aspirin 81 mg tablet,delayed 81 mg PO DAILY 04/30/19 07/10/21 History release cyclobenzaprine 5 mg tablet 5 mg PO QHS 04/30/19 07/10/21 History lisinopril 10 mg tablet 10 mg PO DAILY 04/30/19 07/10/21 History
[2021-07-10 07:17] VITALS: O2SAT 99
--- NOTE | 2021-07-10 07:31 | HMH.SCOPE ---
- Procedure: Date: 07/10/21 Patient Date of :: 1940 Procedure Performed:: Esophagogastroduodenoscopy with biopsies and dilatation Indications:: Patient is an 80-year-old male recently referred by Dr. Saravia for EGD and possible colonoscopy. Initially there was a question of possible family history of colon cancer in his paternal uncle but this was apparently merely rectal bleeding. He had undergone undergone colonoscopy by Dr. Darryl Galo on 06/01/2000 which revealed diverticulosis. I had performed colonoscopy 09/06/2006 and there was a tiny diminutive polyp which was unable to be retrieved. I had performed colonoscopy 07/22/2011 which revealed only diverticulosis. Dr. Galo performed EGD and colonoscopy on 09/20/2016. EGD at that time revealed nonerosive GERD with esophageal dysmotility/presbyesophagus, isolated duodenal lymphangiectasia x 2, duodenal diverticula x2 in the second and third portion of the duodenum. Colonoscopy revealed diverticulosis and hyperplastic polyp. He had upper endoscopy as an inpatient by Dr. Villaseñor on 11/18/2018 at which time he had presented with possible GI bleeding which revealed gastroesophageal junction at 39 cm, no active bleeding, small hiatal hernia, mild to moderate increased inflammatory response of the gastroesophageal junction, focal moderate to severe inflammatory response in the antrum. 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 He has been on chewable 81 mg aspirin. However, he is recently had symptoms of increased irritation in the esophagus. He developed symptoms of dysphagia particularly when eating foods such as bread or pasta. He describes substernal cramping and burning sensation. Of note, the patient did have a modified barium swallow on 04/09/2019 which revealed Early spillage into the piriform sinuses. No aspiration or penetration. Given his dysphagia symptoms and prior findings on upper endoscopy I felt that EGD would be reasonable. This could however be esophageal dysmotility problem. I do not feel strongly that he definitely needs colonoscopy as he apparently does not have a true family history of colon cancer and has had colonoscopies in 2000, 2006, 2011, 2016 without any definite adenomatous polyps. Therefore, plan for EGD with biopsies and possible dilatation. Performing Provider:: Karan Escobedo MD Referring Provider:: Girish Saravia MD Sedation:: MAC sedation Procedure:: Patient was taken to endoscopy procedure room. He was positioned in lateral decubitus position. Adequate intravenous sedation was achieved with anesthesia titration of propofol. Olympus endoscope was inserted via the oropharynx. Esophagus was cannulated. Endoscope was advanced. There was findings of some esophageal spasm and tortuosity consistent with esophageal dysmotility. Gastroesophageal junction was encountered at approximately 39 cm. There was possibly some mild narrowing at the gastroesophageal junction but this was relatively minor. Stomach was cannulated and insufflated. There was findings of bile reflux gastritis. Retroflexion was performed which revealed no evidence of any appreciable hiatal hernia. Gastric biopsy was obtained for CLOtest for H. pylori. Pylorus was widely patent. Duodenum appeared unremarkable. Gastric biopsy was obtained for histopathologic analysis. Biopsy was obtained at the gastroesophageal junction. Distal esophageal biopsy was obtained. Dilatation was performed sequentially using the elation balloon dilator at the gastroesophageal junction sequentially 18 mm to 19 mm to 20 mm. Stomach was desufflated and the endoscope was withdrawn. Findings:: Findings consistent with esophageal dysmotility Gastroesophageal junction at 39 cm, minimal if any luminal narrowing Bile reflux gastritis Recommendations:: Much of his symptomatology may be secondary to functional esophageal dysmotility. Complications:: None immediately apparent Estimated
[2021-07-10 07:33] VITALS: BP 117/57; PULSE 56; RESP 16; TEMP 36.1; O2SAT 97
[2021-07-10 07:43] VITALS: BP 99/52; PULSE 60; RESP 16; TEMP 36.1; O2SAT 97
[2021-07-10 07:53] VITALS: BP 104/56; PULSE 57; RESP 18; TEMP 36.1; O2SAT 96
[2021-07-10 08:23] VITALS: BP 114/60; PULSE 54; RESP 18; TEMP 36.1; O2SAT 96
== END 2021-07-10 08:24 | disposition home or self-care (01) ==
LOC: OUTP 06:32
PROVIDERS: PCP Family Medicine; Visit Provider Surgery
PROC: 0DJ08ZZ Inspection of Upper Intestinal Tract, Via Natural or Artificial Opening Endoscopic (ICD-10-PCS; CPT 43235; principal; 2021-07-10 07:30)
DX: K22.2 Esophageal obstruction (principal); K29.70 Gastritis, unspecified, without bleeding; Z87.19 Personal history of other diseases of the digestive system; J44.9 Chronic obstructive pulmonary disease, unspecified; K21.9 Gastro-esophageal reflux disease without esophagitis; E78.5 Hyperlipidemia, unspecified; I10 Essential (primary) hypertension; Z86.73 Personal history of transient ischemic attack (TIA), and cerebral infarction without residual deficits; Z80.9 Family history of malignant neoplasm, unspecified; Z83.3 Family history of diabetes mellitus; Z82.49 Family history of ischemic heart disease and other diseases of the circulatory system; E03.9 Hypothyroidism, unspecified; Z88.2 Allergy status to sulfonamides; Z79.899 Other long term (current) drug therapy; Z79.82 Long term (current) use of aspirin
CPT/HCPCS: 43239; 43249; 87339; 88305; C1726

== ENCOUNTER → 2021-12-29 12:14 | Outpatient (CLI) | payer MEDICARE, SELFPAY | PROVIDERS: PCP Family Medicine; Visit Provider Family Medicine | DX: Z20.822 Contact with and (suspected) exposure to COVID-19 (principal) | CPT/HCPCS: C9803; U0003; U0005 ==

== ENCOUNTER 2022-01-22 22:02 | Emergency (ER) | payer MEDICARE, SELFPAY ==
[2022-01-22 22:03] VITALS: BP 194/79; PULSE 57; RESP 16; TEMP 36.6; O2SAT 99; BMI 22.1
--- NOTE | 2022-01-22 22:11 | ECG_ITS ---
APPROVED REPORT Exam: Resting ECG HR:57 bpm ECG Measurements Heart Rate 57 AXES WV 203 P 51 QRSd 102 QRS -32 QT 410 T 73 QTc 404 Conclusion SINUS BRADYCARDIA LEFT AXIS DEVIATION [QRS AXIS < -30] MINIMAL ST DEPRESSION [0.025+ mV ST DEPRESSION] ABNORMAL ECG UNCONFIRMED REPORT Electronically signed by : Neheimah Kc MD 01/23/2022 21:12:59
--- NOTE | 2022-01-22 22:15 | XR_ITS ---
PROCEDURE INFORMATION: Exam: XR Chest Exam date and time: 01/22/2022 10:19 PM Age: 81 years old Clinical indication: Right-sided; Patient HX: Old injury to left ribs from a fall but tonight patient having RT rib pain TECHNIQUE: Imaging protocol: Radiologic exam of the chest. Views: 2 views. COMPARISON: CR XR CHEST PORTABLE 05/31/2021 10:23 AM FINDINGS: Lungs: Unremarkable. No consolidation. Pleural spaces: Unremarkable. No pleural effusion. No pneumothorax. Heart/Mediastinum: Unremarkable. No cardiomegaly. Bones/joints: Unremarkable. IMPRESSION: No acute findings.
[2022-01-22 22:16] VITALS: BP 182/90; PULSE 58
--- NOTE | 2022-01-22 22:16 | PC.NURSE ---
informed of elevated BP.
--- NOTE | 2022-01-22 22:16 | PC.NURSE ---
prior to arrivval pt took ASA
[2022-01-22 22:24] LABS: Basophils # 0.1 K/mm3 (0-0.2); Basophils % 0.6 % (0.1-2.0); Eosinophils # 0.7 K/mm3 (0.0-0.4); Eosinophils % 6.8 % (0.1-12.0); Hematocrit 31.7 % (42.0-52.0); Hemoglobin 10.4 g/dL (14.1-18.0); Lymphocytes % 37.5 % (10-50); Mean Corpuscular HGB Conc 32.8 g/dL (31.8-35.4); Mean Corpuscular Hemoglobin 30.5 pg (27.0-31.2); Mean Corpuscular Volume 93.2 fl (80-94); Mean Platelet Volume 7.3 fl (7.4-10.4); Monocytes # 0.6 K/mm3 (0.1-1.0); Monocytes % 5.7 % (1.7-9.3); Neutrophils # 5.3 K/mm3 (1.8-7.8); Neutrophils % 49.3 % (37.0-80.0); Platelet Count 443 K/mm3 (142-424); Red Cell Distribution Width 13.5 % (11.5-17.5); White Blood Count 10.7 K/mm3 (4.8-10.8)
[2022-01-22 22:35] LABS: Chloride 100 mmol/L (98-107); Sodium 138 mmol/L (136-145)
[2022-01-22 22:36] LABS: Potassium 4.4 mmoL/L (3.5-5.1)
[2022-01-22 22:38] LABS: Alanine Aminotransferase 17 U/L (12-78); Albumin/Globulin Ratio 1.4 (1.1-1.8); Alkaline Phosphatase 89 U/L (38-126); Anion Gap 12.4 mEq/L (5-15); Aspartate Amino Transferase 32 U/L (17-59); Blood Urea Nitrogen 23 mg/dl (9-20); Calcium 9.8 mg/dl (8.4-10.2); Carbon Dioxide 30 mmol/L (22.0-30.0); Creatinine Clearance Estimated 36 mL/min (50-200); Estimated Glomerular Filt Rate 49 ml/min (>60); GFR (African American) 59 ML/MIN (>60); Globulin 2.9 g/dL (1.3-3.2); Glucose 93 mg/dl (74-100); Total Protein,Serum 6.9 g/dl (6.3-8.2)
[2022-01-22 22:46] VITALS: BP 208/89; PULSE 56; O2SAT 98
[2022-01-22 22:56] LABS: Bilirubin,Total < 0.1 mg/dl (0.2-1.3); Troponin I < 0.01 ng/ml (0.00-0.034)
[2022-01-22 23:00] VITALS: BP 187/83; PULSE 56; O2SAT 95
[2022-01-22 23:19] LABS: Appearance,Urine CLEAR (Clear); Bilirubin,Urine Negative (Negative); Blood, Urine TRACE-I (Negative); Color,Urine YELLOW (Yellow); Glucose,Urine (UA) Negative (Negative); Ketones,Urine Negative (Negative); Leukocyte Esterase,Urine Negative (Negative); Microscopic, Urine URINE MICROSCOPIC (MICROSCOPIC); Nitrate,Urine Negative (Negative); Protein,Urine Negative (Negative); Urobilinogen,Urine 0.2 EU/dl (0.2)
[2022-01-22 23:30] VITALS: BP 222/86; PULSE 52; O2SAT 97
[2022-01-22 23:51] LABS: RBC,Urine Occasional #/hpf (0-3); Squamous Epithelial Cell,Urine Occasional #/hpf (0-5)
--- NOTE | 2022-01-22 23:56 | HMH.EDGENADL ---
Discharge Plan Disposition Patient Disposition: Home, Self-Care Chief Complaint: PAIN Prescriptions Prescriptions: No Action omega 5-big-oyu-fish oil [Fish Oil] 1,000 mg (120 mg-180 mg) capsule 1 cap PO DAILY famotidine [Pepcid] 40 mg tablet 40 mg PO DAILY Qty: 30 6RF rosuvastatin 5 mg tablet 5 mg PO DAILY lisinopril 10 mg tablet 10 mg PO DAILY cyclobenzaprine 5 mg tablet 5 mg PO QHS aspirin [Adult Aspirin Regimen] 81 mg tablet,delayed release (DR/EC) 81 mg PO DAILY levothyroxine 75 mcg tablet 75 mcg PO DAILY omeprazole 40 MG capsule,delayed release(DR/EC) 40 mg PO DAILY fexofenadine 180 MG tablet 180 mg PO DAILY Referrals Follow up/Referrals: Yohannes Saravia MD [Primary Care Provider] - See instructions Clinical Impressions Clinical Impression: Chest pain Instructions Patient Instructions: DI for Acute Pain -- Adult Discharge ED Provider: Michael Sanchez General Adult HPI General Chief complaint: PAIN Stated complaint: elevated bp Time Seen by Provider: 01/22/22 23:56 Mode of Arrival: Ambulatory Source of Information: Patient, Spouse and Medical Record Limitations: No Limitations Description of Symptoms (Recalled from ER Triage Doc. by RN): pt c/o rt side rib pain x 2 days and elevated blood pressure History of Present Illness HPI narrative: rt sided chest pain after raking leaves - no fever or rash Onset (ago): day(s) Location: chest Severity: moderate Consistency: intermittent Associated symptoms: denies other symptoms Related Data Home Medications Medication Instructions Recorded Confirmed omega 4-hgc-aqz-fish oil 1,000 mg 1 cap PO DAILY Supplement 05/12/17 09/18/21 (120 mg-180 mg) capsule (Fish Oil) omeprazole 40 mg capsule,delayed 40 mg PO DAILY GERD 11/28/18 09/18/21 release aspirin 81 mg tablet,delayed 81 mg PO DAILY heart health 04/30/19 09/18/21 release (Adult Aspirin Regimen) cyclobenzaprine 5 mg tablet 5 mg PO QHS muscle 04/30/19 09/18/21 lisinopril 10 mg tablet 10 mg PO DAILY High blood pressure 04/30/19 09/18/21 rosuvastatin 5 mg tablet 5 mg PO DAILY Cholesterol 04/30/19 09/18/21 fexofenadine 180 mg tablet 180 mg PO DAILY Allergy symptoms 07/08/21 09/18/21 levothyroxine 75 mcg tablet 75 mcg PO DAILY 09/18/21 09/18/21 Previous Rx's Medication Instructions Recorded famotidine 40 mg tablet (Pepcid) 40 mg PO DAILY #30 tabs 08/06/21 Allergies Allergy/AdvReac Type Severity Reaction Status Date / Time Sulfa (Sulfonamide Allergy Unknown NAUSEA/VOMI Verified 09/18/21 12:50 Antibiotics) TING PFSH PFSH Social History Smoking Status: Former smoker pack-years: 55 alcohol intake: never substance use type: denies use current occupational status: retired and other Travel in the last 8 weeks: None household members: spouse housing: house current occupational exposures/hazards: No caffeine: Yes ROS Obtained: Yes All systems reviewed & no additional complaints except as documented Physical Exam General General appearance: alert Head Head exam: normocephalic Eye Eye exam: Present PERRL and EOMI; Absent scleral icterus ENT ENT exam: Present normal oropharynx Neck Neck exam: Present trachea midline Respiratory Respiratory exam: Absent respiratory distress Cardiovascular Cardiovascular exam: Present regular rate and systolic murmur Abdominal Exam Abdominal exam: Present soft Extremities Exam Extremities exam: Present full ROM Back Exam Back exam: Absent CVA tenderness (R) Neurological Exam Neurological exam: Present alert, oriented X3, CN II-XII intact and motor sensory deficit Psychiatric Psychiatric exam: Present normal affect Skin Skin exam: Absent rash Medical Decision Making Medical Records Medical records reviewed: Yes I reviewed the patient's medical records. Zaki Inquiry Pt receiving controlled substance: No Vital Signs: 01/22/22 22:03 01/22/22
--- NOTE | 2022-01-23 | CT_ITS ---
PROCEDURE INFORMATION: Exam: CTA Chest With Contrast Exam date and time: 01/23/2022 12:47 AM Age: 81 years old Clinical indication: Pain; Right-sided; Additional info: RT rib pain TECHNIQUE: Imaging protocol: Computed tomographic angiography of the chest with contrast. 3D rendering (Not supervised by radiologist): MIP and/or 3D reconstructed images were created by the technologist. Radiation optimization: All CT scans at this facility use at least one of these dose optimization techniques: automated exposure control; mA and/or kV adjustment per patient size (includes targeted exams where dose is matched to clinical indication); or iterative reconstruction. Contrast material: ISOVUE 370; Contrast volume: 70 ml; Contrast route: INTRAVENOUS (IV); COMPARISON: [facility] CT CHEST W/O CONTRAST 11/04/2016 10:18 AM FINDINGS: Pulmonary arteries: Normal. No pulmonary emboli. Aorta: Unremarkable. No aortic aneurysm. No aortic dissection. Lungs: Biapical scarring. Emphysema. No pneumonia. Pleural spaces: Unremarkable. No pneumothorax. No pleural effusion. Heart: Unremarkable. No cardiomegaly. No pericardial effusion. Lymph nodes: Unremarkable. No enlarged lymph nodes. Bones/joints: Unremarkable. No acute fracture. Soft tissues: Unremarkable. IMPRESSION: No acute findings.
[2022-01-23 00:02] VITALS: BP 171/70; PULSE 53; O2SAT 98
[2022-01-23 00:30] VITALS: BP 153/70; PULSE 55; O2SAT 98
[2022-01-23 01:00] VITALS: BP 175/68; PULSE 50; O2SAT 98
--- NOTE | 2022-01-23 01:24 | PC.NURSE ---
pt & notified about pt status and aprox time to release
[2022-01-23 01:30] VITALS: BP 175/58; PULSE 56; O2SAT 98
[2022-01-23 01:55] LABS: Troponin I < 0.01 ng/ml (0.00-0.034)
[2022-01-23 02:01] VITALS: BP 153/64; PULSE 56; O2SAT 97
[2022-01-23 02:30] VITALS: BP 174/70; PULSE 55; O2SAT 95
== END 2022-01-23 02:49 | disposition home or self-care (01) ==
PROVIDERS: Emergency Provider Emergency Medicine; PCP Family Medicine
DX: R07.9 Chest pain, unspecified (principal)
CPT/HCPCS: 71046; 71275; 80053; 81001; 84484; 85025; 93005; 96374; 96375; 99285; Q9967

== ENCOUNTER 2022-04-14 10:32 | Day surgery (SDC) | payer MEDICARE, SELFPAY ==
[2022-04-14] VITALS (7 sets, daily range): BP systolic 97–152; BP diastolic 51–81; PULSE 67–87; RESP 15–18; TEMP 36.4–36.6; O2SAT 96–97; BMI 21.2
--- NOTE | 2022-04-14 11:06 | P.PN_ITS ---
[facility] Disclaimer: The information contained in this section may have been updated after the patient was seen, as this information can be updated by other users. Medical History History of diverticulitis History of gastroesophageal reflux (GERD) History of stroke Surgical History History of circumcision History of colonoscopy History of ear surgery History of tonsillectomy Hx of prostate biopsy Family History Other Family history of acute congestive heart failure Family history of acute heart failure Family history of cancer Family history of emphysema Social History Smoking Status: Former smoker pack-years: 55 alcohol intake: never substance use type: denies use current occupational status: retired and other Travel in the last 8 weeks: None household members: spouse housing: house marital status: current occupational exposures/hazards: No caffeine: Yes special adalid needs: No agree to transfusion: No do you feel safe at home: Yes victim of physical abuse: No victim of emotional abuse: No victim of sexual abuse: No would you like helpful sources: No [facility] Anesthesia Checklist Patient Identification Patient Identification: Arm Band and Verbal (Name & ) Structural Data Admitted From: Home Planned Operative Procedure/s: Colonoscopy Consent for Planned Operative Procedure(s) Verified: Yes NPO Status Verified Time NPO: 00:00 Additional verifications Anesthesia Reactions: No Hx Blood Transfusions: Yes Blood Transfusion Reaction: No Airway Assessment C-Spine Mobility Assessed: Yes TMJ Mobility Assessed: Yes Dentition: Edentulous Neurological Assessment Level of Consciousness: Awake Hx Seizures: No Numbness or tingling in extremities: No Anesthesia Plan Anesthesia Risk discussed: Yes Anesthesia Plan: Verified ASA Class: III Anesthesia Type: MAC
--- NOTE | 2022-04-14 11:24 | HMH.SCOPE ---
Procedure: Date: 04/14/22 Patient Date of :: 1940 Procedure Performed:: Colonoscopy Indications:: Chronic intermittent blood per rectum Performing Provider:: Fredo Smith MD Referring Provider:: Girish Saravia MD Sedation:: See RN records Procedure:: After placing the patient in the left lateral decubitus position, the colonoscopy was gently inserted into the rectum and under direct visualization advanced to the cecum which was identified by transillumination in the right lower quadrant, identification of the ileocecal valve, appendiceal orifice, and cecal strap. Color, texture, mucosa, and anatomy of the colon were carefully examined with the scope. Findings:: Anal canal: normal Rectum: Internal hemorrhoids Sigmoid colon: Diverticulosis. Fair preparation Descending colon: Diverticulosis. Fair preparation Splenic flexure: normal Transverse colon: Diverticulosis Hepatic flexure:Diverticulosis Ascending colon: Diverticulosis Cecum: normal Terminal ileum: not visualized Impression: Hemorrhoids Extensive diverticulosis Recommendations:: Higher fiber diet Can use topical treatments with creams and suppository as needed for hemorrhoids Complications:: None Estimated blood obtained (mL): 0
--- NOTE | 2022-04-14 12:33 | SUR.PHASEII ---
1200- pt expresses concern for pt usually not being able to use the bathroom after procedures, she states the previous two colonoscopys this has happened and the md would give him one dose of a diuretic. notified dr. winslow who came to bedside. orders put in and carried out. pt urinated at 1220 without issue.
== END 2022-04-14 12:30 | disposition home or self-care (01) ==
PROVIDERS: PCP Family Medicine; Visit Provider Internal Medicine
PROC: 0DJD8ZZ Inspection of Lower Intestinal Tract, Via Natural or Artificial Opening Endoscopic (ICD-10-PCS; CPT 45378; principal; 2022-04-14 11:30)
DX: K62.5 Hemorrhage of anus and rectum (principal); K57.30 Diverticulosis of large intestine without perforation or abscess without bleeding; K64.8 Other hemorrhoids; Z79.899 Other long term (current) drug therapy
CPT/HCPCS: 45378

== ENCOUNTER 2022-04-24 10:41 | Emergency (ER) | payer MEDICARE, SELFPAY ==
[2022-04-24] VITALS (10 sets, daily range): BP systolic 103–139; BP diastolic 51–59; PULSE 50–62; RESP 12–15; TEMP 36.4; O2SAT 94–100; BMI 20.3
--- NOTE | 2022-04-24 10:46 | ECG_ITS ---
APPROVED REPORT Exam: Resting ECG HR:53 bpm ECG Measurements Heart Rate 53 AXES DC 224 P 61 QRSd 115 QRS -39 QT 455 T 66 QTc 438 Conclusion SINUS BRADYCARDIA WITH FIRST DEGREE AV BLOCK LEFT AXIS DEVIATION [QRS AXIS < -30] MODERATE INTRAVENTRICULAR CONDUCTION DELAY [110+ ms QRS DURATION] ABNORMAL ECG UNCONFIRMED REPORT Electronically signed by : Nehemiah Kc MD 04/26/2022 18:57:04
--- NOTE | 2022-04-24 10:58 | HMH.EDGENADL ---
Discharge Plan Disposition Patient Disposition: Home, Self-Care Condition: Good Prescriptions Prescriptions: No Action omega 8-shy-tlb-fish oil [Fish Oil] 1,000 mg (120 mg-180 mg) capsule 1 cap PO DAILY rosuvastatin 5 mg tablet 5 mg PO DAILY lisinopril 10 mg tablet 10 mg PO DAILY aspirin [Adult Aspirin Regimen] 81 mg tablet,delayed release (DR/EC) 81 mg PO DAILY levothyroxine 75 mcg tablet 75 mcg PO DAILY dicyclomine 10 mg Capsule 10 mg PO BID ascorbate calcium-bioflavonoid 1,000-200 mg Tablet Extended Release 1 tab PO DAILY [id number] serr [Osteo Bi-Flex (5-Loxin)] 1,500-400-100 mg-unit-mg Tablet 1 tab PO DAILY Rx Instructions: give after food/meal ujfgkatn-zsa-uqcem acid-vit K 400-40 mcg Capsule 1 cap PO DAILY famotidine [Pepcid] 40 mg tablet 40 mg PO DAILY Referrals Follow up/Referrals: Yohannes Saravia MD [Primary Care Provider] - See instructions Activity Restrictions/Add. Instructions Additional Instructions/Restrictions: Do not take blood pressure medication, lisinopril, until seen by your primary care provider in the office. See Dr. Saravia for Dr. Garcia in the office on Tuesday or Tuesday. Begin taking iron supplementation again. Return to the emergency department if symptoms return. Clinical Impressions Clinical Impression: Near syncope, Anemia Instructions Patient Instructions: DI for Syncope in Adults (Fainting), DI for Iron Deficiency Anemia-Adult Discharge ED Provider: Isael Lemus General Adult HPI General Chief complaint: Nausea/Vomiting/Diarrhea Stated complaint: Syncopy vomiting Time Seen by Provider: 04/24/22 10:58 Mode of Arrival: Ambulatory Source of Information: Patient and Spouse Limitations: No Limitations Description of Symptoms (Recalled from ER Triage Doc. by RN): Pt's reports he vomited twice this morning after taking BP meds and measured sbp 113, and then had a marky-syncopal episode without injury, NAD History of Present Illness HPI narrative: Patient had a near syncopal episode or possibly very brief syncope this morning. He awoke this morning around 9, went to the bathroom, and then took his blood pressure medication. He takes one half of a blood pressure pill at night and one half in the morning. He says that his vision went blue and he felt very weak. His states that he went down on his knees. He did not injure himself. His heard him hit the floor with his knees and found him on his knees by the bed. She says he vomited a couple of small times. She says that he had gotten up later than his usual and took his blood pressure medication before he ate or drank and she thinks that this may be what caused his symptoms. She says that his blood pressure medication used to be taken at night. He would have events in the middle of the night where he would almost lose consciousness. His blood pressure medication was changed to taking half of a tablet at night and one half in the morning. He has done well with this unless he takes it without eating. He has not recently been ill. He has a prior history of a stroke. Prior history of GI bleed. Chronic anemia, chronic kidney disease. Related Data Home Medications Medication Instructions Recorded Confirmed omega 1-xrq-rwk-fish oil 1,000 mg 1 cap PO DAILY Supplement 05/12/17 04/14/22 (120 mg-180 mg) capsule (Fish Oil) aspirin 81 mg tablet,delayed 81 mg PO DAILY heart health 04/30/19 04/14/22 release (Adult Aspirin Regimen) lisinopril 10 mg tablet 10 mg PO DAILY High blood pressure 04/30/19 04/14/22 rosuvastatin 5 mg tablet 5 mg PO DAILY Cholesterol 04/30/19 04/14/22 levothyroxine 75 mcg tablet 75 mcg PO DAILY thyroid 09/18/21 04/14/22 ascorbate calcium-bioflavonoid ER 1 tab PO DAILY Supplement 04/05/22 04/14/22 1,000 mg-200 mg tab,extended release dicyclomine 10 mg capsule 10 mg PO BID joints 04/05/22 0
--- NOTE | 2022-04-24 11:00 | PC.NURSE ---
er at bedside
--- NOTE | 2022-04-24 11:15 | PC.NURSE ---
GAVE PT A PILLOW AND CASE TO REST ARM
--- NOTE | 2022-04-24 11:22 | PC.NURSE ---
ricky rounded on pt states no complaints at this time
--- NOTE | 2022-04-24 11:23 | XR_ITS ---
PROCEDURE INFORMATION: Exam: XR Chest Exam date and time: 04/24/2022 11:27 AM Age: 81 years old Clinical indication: Shortness of breath; Additional info: Syncope TECHNIQUE: Imaging protocol: Radiologic exam of the chest. Views: 2 views. COMPARISON: CR XR CHEST 2V 01/22/2022 10:19 PM FINDINGS: Lungs: Incidental benign calcified granuloma in right lower lung zone. Otherwise, lungs clear. Pleural spaces: Unremarkable. No pleural effusion. No pneumothorax. Heart/Mediastinum: Unremarkable. No cardiomegaly. Bones/joints: Unremarkable. IMPRESSION: No acute radiographic findings identified.
[2022-04-24 11:32] LABS: Basophils # 0.1 K/mm3 (0-0.2); Basophils % 0.5 % (0.1-2.0); Eosinophils # 0.6 K/mm3 (0.0-0.4); Eosinophils % 6.1 % (0.1-12.0); Hematocrit 30.5 % (42.0-52.0); Hemoglobin 9.9 g/dL (14.1-18.0); Lymphocytes # 2.6 K/mm3 (0.7-4.5); Lymphocytes % 26.7 % (10-50); Mean Corpuscular HGB Conc 32.4 g/dL (31.8-35.4); Mean Corpuscular Hemoglobin 30.7 pg (27.0-31.2); Mean Corpuscular Volume 94.6 fl (80-94); Mean Platelet Volume 7.5 fl (7.4-10.4); Monocytes # 0.6 K/mm3 (0.1-1.0); Monocytes % 5.6 % (1.7-9.3); Neutrophils # 6.1 K/mm3 (1.8-7.8); Neutrophils % 61.1 % (37.0-80.0); Platelet Count 454 K/mm3 (142-424); Red Blood Count 3.22 M/mm3 (4.60-6.20); Red Cell Distribution Width 13.7 % (11.5-17.5); White Blood Count 9.9 K/mm3 (4.8-10.8)
[2022-04-24 11:38] LABS: Alanine Aminotransferase 20 U/L (12-78); Albumin Level 4.1 g/dl (3.5-5.0); Albumin/Globulin Ratio 1.4 (1.1-1.8); Alkaline Phosphatase 93 U/L (38-126); Amylase 99 U/L (30-110); Anion Gap 6.6 mEq/L (5-15); Aspartate Amino Transferase 30 U/L (17-59); Bilirubin,Total 0.3 mg/dl (0.2-1.3); Blood Urea Nitrogen 28 mg/dl (9-20); Calcium 9.5 mg/dl (8.4-10.2); Carbon Dioxide 28 mmol/L (22.0-30.0); Chloride 111 mmol/L (98-107); Creatinine Clearance Estimated 28 mL/min (50-200); Estimated Glomerular Filt Rate 39 ml/min (>60); GFR (African American) 47 ML/MIN (>60); Globulin 2.9 g/dL (1.3-3.2); Glucose 97 mg/dl (74-100); Potassium 4.6 mmoL/L (3.5-5.1); Sodium 141 mmol/L (136-145)
--- NOTE | 2022-04-24 11:49 | PC.NURSE ---
ROUNDED ON PT STATES NO COMPLAINTS AT THIS TIME
[2022-04-24 11:50] LABS: Troponin I < 0.01 ng/ml (0.00-0.034)
[2022-04-24 11:59] LABS: Lipase 161 U/L (23-300)
[2022-04-24 12:07] LABS: Coronavirus 19, PCR Not Detected (NotDetected); Influenza A, PCR Not Detected (NotDetected); Influenza B, PCR Not Detected (NotDetected)
--- NOTE | 2022-04-24 12:12 | PC.NURSE ---
ER AT BEDSIDE
--- NOTE | 2022-04-24 12:43 | PC.NURSE ---
ELOISA ROUNDED ON PT NO COMPLAINTS AT THIS TIME
--- NOTE | 2022-04-24 13:10 | PC.NURSE ---
PT DISCHARGING NO COMPLAINTS AT THIS TIME
== END 2022-04-24 13:26 | disposition home or self-care (01) ==
PROVIDERS: Emergency Provider Emergency Medicine; PCP Family Medicine
DX: R55 Syncope and collapse (principal); D64.9 Anemia, unspecified; R11.10 Vomiting, unspecified; K21.9 Gastro-esophageal reflux disease without esophagitis; K57.92 Diverticulitis of intestine, part unspecified, without perforation or abscess without bleeding; Z86.73 Personal history of transient ischemic attack (TIA), and cerebral infarction without residual deficits; Z90.49 Acquired absence of other specified parts of digestive tract; Z82.49 Family history of ischemic heart disease and other diseases of the circulatory system; Z80.9 Family history of malignant neoplasm, unspecified; Z83.6 Family history of other diseases of the respiratory system; Z20.822 Contact with and (suspected) exposure to COVID-19
CPT/HCPCS: 71046; 80053; 82150; 83690; 84484; 85025; 93005; 96361; 96374; 99285; C9803; J2405; U0003; U0005

== ENCOUNTER → 2022-08-05 12:51 | Outpatient (CLI) | payer MEDICARE, SELFPAY ==
--- NOTE | 2022-08-05 13:00 | XR_ITS ---
FINAL REPORT TECHNIQUE: 5 views CLINICAL HISTORY: LOW BACK PAIN FINDINGS: There is no fracture present. There is no malalignment. There is mild disc space narrowing at L5-S1. Bones are osteopenic. IMPRESSION: No acute process. Reviewed, Interpreted and Dictated by Victoriano Ramsay MD Transcribed by Susan Craven Authenticated and . [facility]
== END ==
PROVIDERS: PCP Family Medicine; Visit Provider Family Medicine
DX: M54.50 Low back pain, unspecified (principal)
CPT/HCPCS: 72110

== ENCOUNTER → 2022-08-31 10:06 | Outpatient (POV) | payer MEDICARE, SELFPAY | PROVIDERS: Visit Provider Dermatology | DX: Z00.00 Encounter for general adult medical examination without abnormal findings (principal) ==

== ENCOUNTER → 2023-01-26 15:00 | Outpatient (CLI) | payer MEDICARE, SELFPAY ==
--- NOTE | 2023-01-26 17:10 | CT_ITS ---
PROCEDURE INFORMATION: Exam: CT Abdomen And Pelvis Without Contrast Exam date and time: 01/26/2023 5:11 PM Age: 82 years old Clinical indication: Abdominal pain; Other: Llq pain; Additional info: Abd pain, lt lower quad pain TECHNIQUE: Imaging protocol: Computed tomography of the abdomen and pelvis without contrast. Radiation optimization: All CT scans at this facility use at least one of these dose optimization techniques: automated exposure control; mA and/or kV adjustment per patient size (includes targeted exams where dose is matched to clinical indication); or iterative reconstruction. Other contrast: Oral, gastrogafin, 30; REPORTING DATA: Count of CT and Cardiac NM exams in prior 12 months: This patient has received 0 known CTs and 0 known cardiac nuclear medicine studies in the 12 months prior to the current study. COMPARISON: CT ABDOMEN PELVIS WO CON 05/31/2021 11:46 AM FINDINGS: Lungs: Lung bases are clear. Liver: Normal. No mass. Gallbladder and bile ducts: Normal. No calcified stones. No ductal dilation. Pancreas: Normal. No ductal dilation. Spleen: Normal. No splenomegaly. Adrenal glands: Normal. No mass. Kidneys and ureters: Normal. No hydronephrosis. Stomach and bowel: Extensive diverticula throughout the colon most pronounced in the descending and sigmoid colon. Colon otherwise unremarkable with no evidence of diverticulitis. GI tract structures otherwise unremarkable with no evident wall thickening allowing for incomplete distention. Appendix: Appendix is normal. No evidence of appendicitis. Intraperitoneal space: Unremarkable. No free air. No significant fluid collection. Vasculature: Unremarkable. No abdominal aortic aneurysm. Lymph nodes: Unremarkable. No enlarged lymph nodes. Urinary bladder: Unremarkable as visualized. Reproductive: Unremarkable as visualized. Bones/joints: Unremarkable. No acute fracture. Soft tissues: Unremarkable. IMPRESSION: No acute abnormalities of the abdomen and pelvis. Nonemergent findings as above.
== END ==
PROVIDERS: PCP Family Medicine; Visit Provider Physician Assistant
DX: R10.31 Right lower quadrant pain (principal)
CPT/HCPCS: 74176

== ENCOUNTER → 2023-02-16 11:56 | Outpatient (CLI) | payer MEDICARE, SELFPAY ==
--- NOTE | 2023-02-16 12:02 | XR_ITS ---
FINAL REPORT CLINICAL HISTORY: LEFT KNEE PAIN COMPARISON: None FINDINGS: LEFT KNEE 3 views of the left knee were obtained. There is no acute fracture or dislocation. There is mild narrowing of the medial compartment joint space. There are minimal hypertrophic changes of the medial joint margin. Soft tissues are unremarkable. 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 Reviewed, Interpreted and Dictated by Victoriano Ramsay MD Transcribed by Jasmine Jaramillo Authenticated and [facility]
== END ==
LOC: LAB 11:57 → RAD 11:58
PROVIDERS: PCP Family Medicine; Visit Provider Physician Assistant
DX: M25.562 Pain in left knee (principal)
CPT/HCPCS: 73562

== ENCOUNTER → 2023-03-02 16:00 | Outpatient (POV) | payer MEDICARE, SELFPAY | PROVIDERS: PCP Family Medicine; Visit Provider Specialist/Technologist | DX: Z00.00 Encounter for general adult medical examination without abnormal findings (principal) ==

== ENCOUNTER 2023-05-10 13:37 | Outpatient (CLI) | payer MEDICARE, SELFPAY ==
[2023-05-10 14:04] LABS: Basophils # 0.1 K/mm3 (0-0.2); Basophils % 0.6 % (0.1-2.0); Eosinophils # 0.5 K/mm3 (0.0-0.4); Eosinophils % 5.8 % (0.1-12.0); Hematocrit 35.1 % (42.0-52.0); Hemoglobin 11.1 g/dL (14.1-18.0); Lymphocytes % 32.9 % (10-50); Mean Corpuscular HGB Conc 31.6 g/dL (31.8-35.4); Mean Corpuscular Hemoglobin 30.8 pg (27.0-31.2); Mean Corpuscular Volume 97.4 fl (80-94); Mean Platelet Volume 7.7 fl (7.4-10.4); Monocytes # 0.6 K/mm3 (0.1-1.0); Monocytes % 6.9 % (1.7-9.3); Neutrophils # 4.8 K/mm3 (1.8-7.8); Neutrophils % 53.9 % (37.0-80.0); Platelet Count 414 K/mm3 (142-424); Red Cell Distribution Width 13.8 % (11.5-17.5)
[2023-05-10 14:49] LABS: Iron 63 ug/dL (49-181)
[2023-05-10 15:04] LABS: Total Iron Binding Capacity 292 ug/dL (261-462)
[2023-05-10 16:07] LABS: Ferritin 28.1 ng/ml (17.9-464)
== END 2023-05-10 23:59 ==
LOC: LAB 13:38
PROVIDERS: PCP Family Medicine; Visit Provider Internal Medicine Medical Oncology
DX: D50.0 Iron deficiency anemia secondary to blood loss (chronic) (principal)
CPT/HCPCS: 36415; 82728; 83540; 83550; 85025

== ENCOUNTER 2023-06-22 08:04 | Outpatient (CLI) | payer MEDICARE, SELFPAY ==
[2023-06-22 08:11] VITALS: BMI 22.2
[2023-06-22 08:33] LABS: Basophils # 0.1 K/mm3 (0-0.2); Basophils % 0.7 % (0.1-2.0); Eosinophils # 0.7 K/mm3 (0.0-0.4); Eosinophils % 6.2 % (0.1-12.0); Hematocrit 33.2 % (42.0-52.0); Hemoglobin 10.4 g/dL (14.1-18.0); Lymphocytes # 3.2 K/mm3 (0.7-4.5); Mean Corpuscular HGB Conc 31.4 g/dL (31.8-35.4); Mean Corpuscular Hemoglobin 30.5 pg (27.0-31.2); Mean Corpuscular Volume 97.3 fl (80-94); Mean Platelet Volume 7.7 fl (7.4-10.4); Monocytes # 0.8 K/mm3 (0.1-1.0); Neutrophils # 6.2 K/mm3 (1.8-7.8); Neutrophils % 57.1 % (37.0-80.0); Platelet Count 394 K/mm3 (142-424); Red Blood Count 3.41 M/mm3 (4.60-6.20); Red Cell Distribution Width 13.6 % (11.5-17.5); White Blood Count 10.9 K/mm3 (4.8-10.8)
[2023-06-22 08:51] LABS: Iron 53 ug/dL (49-181)
[2023-06-22 09:01] LABS: Total Iron Binding Capacity 279 ug/dL (261-462)
[2023-06-22 09:29] LABS: Ferritin 29.5 ng/ml (17.9-464)
== END 2023-06-22 08:15 | disposition home or self-care (01) ==
LOC: INF 08:05
PROVIDERS: PCP Family Medicine; Visit Provider Internal Medicine Medical Oncology
DX: D64.9 Anemia, unspecified (principal)
CPT/HCPCS: 36415; 82728; 83540; 83550; 85025

== ENCOUNTER 2023-07-27 09:05 | Outpatient (POV) | payer MEDICARE, SELFPAY | END 2023-07-27 23:59 | disposition home or self-care (01) | LOC: SC 09:05 | PROVIDERS: Visit Provider Specialist/Technologist | DX: Z00.00 Encounter for general adult medical examination without abnormal findings (principal) ==

== ENCOUNTER 2023-07-29 05:01 | Emergency (ER) | payer MEDICARE, SELFPAY ==
[2023-07-29] VITALS (9 sets, daily range): BP systolic 95–126; BP diastolic 40–57; PULSE 64–93; RESP 16–18; TEMP 36.7–37.9; O2SAT 93–96; BMI 22.8
--- NOTE | 2023-07-29 05:23 | CT_ITS ---
FINAL REPORT TECHNIQUE: Routine axial images were obtained from the lung apices to below the diaphragm following IV contrast administration. Individualized dose reduction techniques using automated exposure control or adjustment of the mA and/or kV according to the patient size were employed. CLINICAL HISTORY: cough, fever, recent egd COMPARISON: 01/23/2022 FINDINGS: There is a multitude of small mediastinal lymph nodes, similar in appearance to prior study. No pleural or pericardial effusion is seen. There are moderate changes of centrilobular edema. Scarring is noted in the upper lobes and at the lung bases. IMPRESSION: No acute cardiopulmonary process. Reviewed, Interpreted and Dictated by Victoriano Ramsay MD Transcribed by Jasmine Jaramillo Authenticated and [facility]
--- NOTE | 2023-07-29 05:23 | CT_ITS ---
FINAL REPORT TECHNIQUE: After the administration of intravenous contrast, axial images were obtained through the abdomen and pelvis by computed tomography. The study was performed with techniques to keep radiation dose as low as reasonably achievable, (ALARA). Individual dose reduction techniques using automated exposure control or adjustment of mA and/or kV according to the patient's size were employed. CLINICAL HISTORY: abd pain, fever, recent egd COMPARISON: 01/26/2023 FINDINGS: Abdomen: There is mild fatty infiltration of the liver. There are several small stones in the dependent portion of the gallbladder. There are calcified granulomas in the spleen. The pancreas and adrenal glands are unremarkable. There are benign-appearing cysts in the left kidney. The aorta is normal in caliber. There is no free fluid or adenopathy. Pelvis: The appendix is not identified. There is a large amount of stool throughout the colon. The urinary bladder is incompletely distended. The prostate is moderately enlarged measuring up to 5.8 cm. There is no free fluid or adenopathy. There are diffuse disc bulges at L4-5 and L5-S1 with high-grade right neuroforaminal narrowing at L5-S1. IMPRESSION: Large amount of stool throughout the colon. High-grade right neuroforaminal narrowing at L5-S1. Enlarged prostate. Reviewed, Interpreted and Dictated by Victoriano Ramsay MD Transcribed by Jasmine Jaramillo Authenticated and [facility]
[2023-07-29 05:32] LABS: Basophils # 0.1 K/mm3 (0-0.2); Basophils % 0.5 % (0.1-2.0); Eosinophils # 0.5 K/mm3 (0.0-0.4); Eosinophils % 4.6 % (0.1-12.0); Hematocrit 33.5 % (42.0-52.0); Hemoglobin 11.1 g/dL (14.1-18.0); Lymphocytes # 0.8 K/mm3 (0.7-4.5); Lymphocytes % 6.9 % (10-50); Mean Corpuscular HGB Conc 33.1 g/dL (31.8-35.4); Mean Corpuscular Hemoglobin 31.4 pg (27.0-31.2); Mean Corpuscular Volume 95.1 fl (80-94); Mean Platelet Volume 7.9 fl (7.4-10.4); Monocytes # 0.4 K/mm3 (0.1-1.0); Monocytes % 3.8 % (1.7-9.3); Neutrophils # 9.7 K/mm3 (1.8-7.8); Platelet Count 376 K/mm3 (142-424); Red Blood Count 3.52 M/mm3 (4.60-6.20); Red Cell Distribution Width 14.1 % (11.5-17.5); White Blood Count 11.6 K/mm3 (4.8-10.8)
[2023-07-29 05:37] LABS: Alanine Aminotransferase 57 U/L (12-78); Albumin Level 3.7 g/dl (3.5-5.0); Albumin/Globulin Ratio 1.3 (1.1-1.8); Alkaline Phosphatase 104 U/L (38-126); Anion Gap 14.3 mEq/L (5-15); Aspartate Amino Transferase 116 U/L (17-59); Bilirubin,Total 0.3 mg/dl (0.2-1.3); Blood Urea Nitrogen 28 mg/dl (9-20); Calcium 9.7 mg/dl (8.4-10.2); Carbon Dioxide 25 mmol/L (22.0-30.0); Chloride 102 mmol/L (98-107); Creatinine Clearance Estimated 34 mL/min (50-200); Estimated Glomerular Filt Rate 45 ml/min (>60); GFR (African American) 54 ML/MIN (>60); Globulin 2.9 g/dL (1.3-3.2); Glucose 109 mg/dl (74-100); Potassium 4.3 mmoL/L (3.5-5.1); Sodium 137 mmol/L (136-145); Total Protein,Serum 6.6 g/dl (6.3-8.2)
[2023-07-29 05:40] LABS: Lactic Acid 0.8 mmol/L (0.7-2.1)
[2023-07-29 05:44] LABS: Coronavirus 19, PCR Not Detected (NotDetected); Influenza A, PCR Not Detected (NotDetected); Influenza B, PCR Not Detected (NotDetected)
[2023-07-29] MEDS: IOPAMIDOL-370 (76%);100ML BOTTLE 75 ML IV (05:57)
[2023-07-29] MEDS: SODIUM CHLORIDE 0.9% 10ML SYR (RAD ONLY) 10 ML IV (05:57)
[2023-07-29] MEDS: ACETAMINOPHEN 500MG TAB 1000 MG PO (06:04)
[2023-07-29] MEDS: ONDANSETRON 4MG/2ML VIAL 4 MG IV (06:06)
--- NOTE | 2023-07-29 06:25 | [facility].EDGENADL ---
Discharge Plan Disposition Patient Disposition: Home, Self-Care Prescriptions Prescriptions: No Action omega 1-qrj-cht-fish oil [Fish Oil] 1,000 mg (120 mg-180 mg) capsule 1 cap PO DAILY fluorometholone 0.1 % drops,suspension Eye-Both TID doxycycline monohydrate 100 mg capsule PO BID rosuvastatin 5 mg tablet 5 mg PO DAILY lisinopril 10 mg tablet 10 mg PO DAILY aspirin [Adult Aspirin Regimen] 81 mg tablet,delayed release (DR/EC) 81 mg PO DAILY levothyroxine 75 mcg tablet 75 mcg PO DAILY ascorbate calcium-bioflavonoid 1,000-200 mg Tablet Extended Release 1 tab PO DAILY [id number]-Rcdmhygcw serr [Osteo Bi-Flex (5-Loxin)] 1,500-400-100 mg-unit-mg Tablet 1 tab PO DAILY Rx Instructions: give after food/meal wtifakou-ztq-hhofk acid-vit K 400-40 mcg Capsule 1 cap PO DAILY famotidine [Pepcid] 40 mg tablet 40 mg PO DAILY Referrals Follow up/Referrals: Yohannes Saravia MD [Primary Care Provider] - See instructions Activity Restrictions/Add. Instructions Additional Instructions/Restrictions: 2 capfuls of MiraLAX each day for 3 days, decrease to 1 capful daily from thereon out. Continue MiraLAX indefinitely until following up with family doctor. You can take less than 1 capful daily, titrate MiraLAX until you are having 1-2 soft bowel movements per day the consistency of toothpaste. Call your family doctor to establish care for this visit to the emergency department and schedule follow-up within 48 hours to ensure improvement. If you have any worsening of your condition or any other concerning signs or symptoms, return to the emergency department or your primary care doctor for further evaluation. Clinical Impressions Clinical Impression: Myalgia, Acute constipation Discharge ED Provider: Sean Abbott General Adult HPI <Sukhi Arroyo MD - Last Filed: 07/29/23 06:57> General Chief complaint: Fever Stated complaint: body aches,bloated Time Seen by Provider: 07/29/23 05:05 Mode of Arrival: Ambulatory Source of Information: Patient and Significant Other Limitations: No Limitations Description of Symptoms (Recalled from ER Triage Doc. by RN): Pt presents to ED for cough, bodyaches, and fever. Pt had a scope last week and he hasn't felt well since. Pt and spouse state he's feeling very lethargic. Pt has been on Doxycycline for 2 Tick bites for 4 weeks. Pt is A&O*4 at this time. History of Present Illness HPI narrative: 82-year-old male with history of COPD, stroke, hyperlipidemia, presents with fever and multiple complaints. Patient had a EGD with esophageal dilation about 1 week ago. For the last 3 days or so he has been chilling . He has had a slightly worse cough than normal for the last few days as well. Has had some intermittent headaches but no neurologic symptoms. He also has some lower abdominal pain and increased urination. He reports that he got 2 tick bites about 4 weeks ago and has been on doxycycline for the last week. Related Data Home Medications Medication Instructions Recorded Confirmed omega 8-zgx-vjx-fish oil 1,000 mg 1 cap PO DAILY Supplement 05/12/17 07/27/23 (120 mg-180 mg) capsule (Fish Oil) aspirin 81 mg tablet,delayed 81 mg PO DAILY heart health 04/30/19 07/27/23 release (Adult Aspirin Regimen) lisinopril 10 mg tablet 10 mg PO DAILY High blood pressure 04/30/19 07/27/23 rosuvastatin 5 mg tablet 5 mg PO DAILY Cholesterol 04/30/19 07/27/23 levothyroxine 75 mcg tablet 75 mcg PO DAILY thyroid 09/18/21 07/27/23 ascorbate calcium-bioflavonoid ER 1 tab PO DAILY Supplement 04/05/22 07/27/23 1,000 mg-200 mg tab,extended release famotidine 40 mg tablet (Pepcid) 40 mg PO DAILY stomach 04/05/22 07/27/23 glucosamine IBj-W9-Wxvwdnwcp 1 tab PO DAILY Supplement 04/05/22 07/27/23 maryellen 1,500 mg-400 unit-100 mg tablet (Osteo Bi-Flex (5-Loxin)) eeqmzsymnicm-vofxhwof-hpeqf acid 1 cap PO DAILY Supplement 04/05/22 07/27/23 400 mcg-vitamin K 40 mcg capsule fluorometholone 0.1 % eye drp Eye-Both TID 06/14/23 07/27/23 drops,suspension doxycycline monohydrate 100 mg mg PO BID 07/27/23 07/27/23 capsule Allergies Allergy/AdvReac Type Severity Reaction Status Date / Time Sulfa (Sulfonamide Allergy Unknown NAUSEA/VOMI Verified 07/27/23 09:29 Antibiotics) [facility] <Sukhi Arroyo MD - Last Filed: 07/29/23 06:57> [facility] Disclaimer: The information contained in this section may have been updated after the patient was seen, as this information can be updated by other users. Medical History (Updated 07/29/23 @ 08:39 by Sean Abbott MD) SNHL (sensorineural hearing loss) Right ear pain Bleeding from right ear Onychoincurvatum History of gastroesophageal reflux (GERD) History of diverticulitis History of stroke Surgical History Hx of prostate biopsy History of circumcision History of tonsillectomy History of ear surgery History of colonoscopy Family History Other Family history of acute congestive heart failure Family history of acute heart failure Family history of cancer Family history of emphysema Social History Smoking Status: Former smoker tobacco type: cigarettes packs per day: 1 alcohol intake: never substance use type: denies use current occupational status: retired and other Travel in the last 8 weeks: None household members: spouse housing: house marital status: current occupational exposures/hazards: No caffeine: Yes special adalid needs: No agree to transfusion: No do you feel safe at home: Yes victim of physical abuse: No victim of emotional abuse: No victim of sexual abuse: No would you like helpful sources: No <Sukhi Arroyo MD - Last Filed: 07/29/23 06:57> ROS Obtained: Yes All systems reviewed & no additional complaints except as documented Physical Exam <Sukhi Arroyo MD - Last Filed: 07/29/23 06:57> General General appearance: alert and in no apparent distress Head Head exam: atraumatic and normocephalic Eye Eye exam: Present normal appearance, PERRL and EOMI ENT ENT exam: Present normal oropharynx, mucous membranes moist and normal external ear exam Neck Neck exam: Present normal inspection and full ROM Chest Chest inspection: Present normal inspection and symmetric chest wall rise; Absent tenderness Respiratory Respiratory exam: Present normal lung sounds bilaterally; Absent respiratory distress Cardiovascular Cardiovascular exam: Present regular rate and normal rhythm Abdominal Exam Abdominal exam: Present soft and tenderness (Mild, generalized); Absent distention or guarding Extremities Exam Extremities exam: Present normal inspection; Absent edema or joint swelling Back Exam Back exam: Present normal inspection; Absent tenderness Neurological Exam Neurological exam: Present alert and oriented X3; Absent motor sensory deficit Psychiatric Psychiatric exam: Present normal affect and normal mood Skin Skin exam: Present warm, dry and normal color Lymphatic Lymphatic Findings: no adenopathy Medical Decision Making <Sukhi Arroyo MD - Last Filed: 07/29/23 06:57> Medical Records Medical records reviewed: Yes I reviewed the patient's medical records. Zaki Inquiry Pt receiving controlled substance: No Zaki was queried for this patient: No Vital Signs: 07/29/23 05:01 07/29/23 05:06 07/29/23 05:24 Temperature 100.2 F H Temperature Source Oral Oral Pulse Rate 88 Pulse Rate [Left] 93 H Respiratory Rate 18 18 Blood Pressure 126/54 L Blood Pressure [Right Arm] 126/54 L Blood Pressure Mean Blood Pressure Mean [Right Arm] 78 02 Sat by Pulse Oximetry 94 L 94 L Oxygen Delivery Method Room Air Room Air 07/29/23 05:30 07/29/23 06:00 07/29/23 06:30 Temperature Temperature Source Pulse Rate 79 78 78 Pulse Rate [Left] Respiratory Rate 16 18 16 Blood Pressure 123/57 L 120/55 L 111/46 L Blood Pressure [Right Arm] Blood Pressure Mean Blood Pressure Mean [Right Arm] 02 Sat by Pulse Oximetry 93 L 95 94 L Oxygen Delivery Method Room Air Room Air Room Air 07/29/23 07:00 07/29/23 07:30 07/29/23 08:00 Temperature Temperature Source Pulse Rate 73 68 64 Pulse Rate [Left] Respiratory Rate 16 18 Blood Pressure 100/42 L 96/41 L 95/40 L Blood Pressure [Right Arm] Blood Pressure Mean 54 54 Blood Pressure Mean [Right Arm] 02 Sat by Pulse Oximetry 95 96 95 Oxygen Delivery Method Room Air Lab Data Lab results reviewed: Yes I reviewed the patient's lab results. Lab Results 07/29/23 05:05: WBC 11.6 H, RBC 3.52 L, Hgb 11.1 L, Hct 33.5 L, MCV 95.1 H, MCH 31.4 H, MCHC 33.1, RDW 14.1, Plt Count 376, MPV 7.9, Neut % (Auto) 84.0 H, Lymph % (Auto) 6.9 L, Nye % (Auto) 3.8, Eos % (Auto) 4.6, Baso % (Auto) 0.5, Neut # (Auto) 9.7 H, Lymph # (Auto) 0.8, Nye # (Auto) 0.4, Eos # (Auto) 0.5 H, Baso # (Auto) 0.1, Sodium 137, Potassium 4.3, Chloride 102, Carbon Dioxide 25, Anion Gap 14.3, BUN 28 H, Creatinine 1.50 H, Estimated Creat Clear 34, Estimated GFR 45 L, Est GFR ( Amer) 54 L, Glucose 109 H, Lactate 0.8, Calcium 9.7, Total Bilirubin 0.3, AST 116 H, ALT 57, Alkaline Phosphatase 104, Total Protein 6.6, Albumin 3.7, Globulin 2.9, Albumin/Globulin Ratio 1.3 07/29/23 05:41: SARS-CoV-2 (PCR) Not detected, Influenza A Untype (PCR) Not detected, Influenza Type B (PCR) Not detected 07/29/23 06:49: Urine Color Yellow, Urine Appearance Clear, Urine pH 5.5, Ur Specific [place] 1.015, Urine Protein Negative, Urine Glucose (UA) Negative, Urine Ketones Negative, Urine Blood Trace-i, Urine Nitrate Negative, Urine Bilirubin Negative, Urine Urobilinogen 0.2, Ur Leukocyte Esterase Negative, Urine RBC None, Urine WBC Occasional, Ur Squamous Epith Cells Occasional, Urine Bacteria Trace 07/29/23 05:05 07/29/23 05:05 Orders (Tests/Meds): ED MEDICATIONS Generic Name Dose Route Start Last Admin Trade Name Freq PRN Reason Stop Dose Admin Sodium Chloride 10 ml 07/29/23 05:56 07/29/23 05:57 Sodium Chloride 0.9% 10ml Syr (Rad Only) IV 08/28/23 05:55 10 ml NEEDED PRN Administration Maintain IV Site Discontinued Medications Generic Name Dose Route Start Last Admin Trade Name Freq PRN Reason Stop Dose Admin Acetaminophen 1,000 mg 07/29/23 05:23 07/29/23 06:04 Acetaminophen 500mg Tab PO 07/29/23 05:24 1,000 mg ONCE ONE Administration Iopamidol 75 ml 07/29/23 05:56 07/29/23 05:57 Iopamidol-370 (76%);100ml Bottle IV 07/29/23 05:57 75 ml ONCE ONE Administration Ondansetron HCl 4 mg 07/29/23 05:23 07/29/23 06:06 Ondansetron 4mg/2ml Vial IV 07/29/23 05:24 4 mg ONCE ONE Administration ORDERS Category Date Time Status CT abdomen pelvis w con Stat Cat Scan 07/29/23 05:[address] chest w con Stat Cat Scan 07/29/23 05:23 Taken CBC w/Auto Diff [Complete Blood Count Auto Diff] Stat Lab 07/29/23 05:05 Completed CMP [Comprehensive Metabolic Panel] Stat Lab 07/29/23 05:05 Completed Lactic Acid Stat Lab 07/29/23 05:05 Completed Lyme Ab, Modified 2-Tier Stat Lab 07/29/23 05:05 Received Rapid PCR Covid and Flu A/B Stat Lab 07/29/23 05:41 Completed UA [Urinalysis and Microscopic] Stat Lab 07/29/23 06:49 Completed Blood Culture Stat Micro 07/29/23 06:13 Received Tissue Perfus/Sepsis Re-Eval Sepsis Re-Evaluation Performed: Yes Date Performed: 07/29/23 Time Performed: 06:33 Medical Decision Narrative: 82-year-old male with history of COPD, stroke, GERD, recent EGD with dilation, recent tick bites presents with fever/chills and multiple complaints including recent tick bite on doxycycline, abdominal pain generalized, increased cough. History was obtained interactive discussion with patient, , chart review. On arrival, patient is afebrile but with temperature 100.2, normotensive, regular rate and rhythm. Full physical exam performed and significant for mild generalized abdominal tenderness, otherwise benign physical exam. Differential includes but is not limited to viral syndrome, pneumonia, tickborne illness, UTI, intra-abdominal infection, postoperative complication. Patient was given Tylenol, Zofran for symptomatic management and correction of underlying abnormalities. Workup initiated including CBC CMP blood cultures UA lactate CT Abdo pelvis with IV contrast CT chest with IV contrast Lyme titers. On re-evaluation, patient [remains afebrile, HD stable.] Laboratory workup independently interpreted by me and significant for minimal leukocytosis, no significant electrolyte derangement, baseline renal function, negative COVID flu swab.. At this time care handed off to oncoming physician pending urinalysis, CT imaging and reassessment. <Sean Abbott MD - Last Filed: 07/29/23 08:49> Vital Signs: 07/29/23 05:01 07/29/23 05:06 07/29/23 05:24 Temperature 100.2 F H Temperature Source Oral Oral Pulse Rate 88 Pulse Rate [Left] 93 H Respiratory Rate 18 18 Blood Pressure 126/54 L Blood Pressure [Right Arm] 126/54 L Blood Pressure Mean Blood Pressure Mean [Right Arm] 78 02 Sat by Pulse Oximetry 94 L 94 L Oxygen Delivery Method Room Air Room Air 07/29/23 05:30 07/29/23 06:00 07/29/23 06:30 Temperature Temperature Source Pulse Rate 79 78 78 Pulse Rate [Left] Respiratory Rate 16 18 16 Blood Pressure 123/57 L 120/55 L 111/46 L Blood Pressure [Right Arm] Blood Pressure Mean Blood Pressure Mean [Right Arm] 02 Sat by Pulse Oximetry 93 L 95 94 L Oxygen Delivery Method Room Air Room Air Room Air 07/29/23 07:00 07/29/23 07:30 07/29/23 08:00 Temperature Temperature Source Pulse Rate 73 68 64 Pulse Rate [Left] Respiratory Rate 16 18 Blood Pressure 100/42 L 96/41 L 95/40 L Blood Pressure [Right Arm] Blood Pressure Mean 54 54 Blood Pressure Mean [Right Arm] 02 Sat by Pulse Oximetry 95 96 95 Oxygen Delivery Method Room Air Lab Data Lab Results 07/29/23 05:05: WBC 11.6 H, RBC 3.52 L, Hgb 11.1 L, Hct 33.5 L, MCV 95.1 H, MCH 31.4 H, MCHC 33.1, RDW 14.1, Plt Count 376, MPV 7.9, Neut % (Auto) 84.0 H, Lymph % (Auto) 6.9 L, Nye % (Auto) 3.8, Eos % (Auto) 4.6, Baso % (Auto) 0.5, Neut # (Auto) 9.7 H, Lymph # (Auto) 0.8, Nye # (Auto) 0.4, Eos # (Auto) 0.5 H, Baso # (Auto) 0.1, Sodium 137, Potassium 4.3, Chloride 102, Carbon Dioxide 25, Anion Gap 14.3, BUN 28 H, Creatinine 1.50 H, Estimated Creat Clear 34, Estimated GFR 45 L, Est GFR ( Amer) 54 L, Glucose 109 H, Lactate 0.8, Calcium 9.7, Total Bilirubin 0.3, AST 116 H, ALT 57, Alkaline Phosphatase 104, Total Protein 6.6, Albumin 3.7, Globulin 2.9, Albumin/Globulin Ratio 1.3 07/29/23 05:41: SARS-CoV-2 (PCR) Not detected, Influenza A Untype (PCR) Not detected, Influenza Type B (PCR) Not detected 07/29/23 06:49: Urine Color Yellow, Urine Appearance Clear, Urine pH 5.5, Ur Specific [place] 1.015, Urine Protein Negative, Urine Glucose (UA) Negative, Urine Ketones Negative, Urine Blood Trace-i, Urine Nitrate Negative, Urine Bilirubin Negative, Urine Urobilinogen 0.2, Ur Leukocyte Esterase Negative, Urine RBC None, Urine WBC Occasional, Ur Squamous Epith Cells Occasional, Urine Bacteria Trace Orders (Tests/Meds): ED MEDICATIONS Generic Name Dose Route Start Last Admin Trade Name Freq PRN Reason Stop Dose Admin Sodium Chloride 10 ml 07/29/23 05:56 07/29/23 05:57 Sodium Chloride 0.9% 10ml Syr (Rad Only) IV 08/28/23 05:55 10 ml NEEDED PRN Administration Maintain IV Site Discontinued Medications Generic Name Dose Route Start Last Admin Trade Name Freq PRN Reason Stop Dose Admin Acetaminophen 1,000 mg 07/29/23 05:23 07/29/23 06:04 Acetaminophen 500mg Tab PO 07/29/23 05:24 1,000 mg ONCE ONE Administration Iopamidol 75 ml 07/29/23 05:56 07/29/23 05:57 Iopamidol-370 (76%);100ml Bottle IV 07/29/23 05:57 75 ml ONCE ONE Administration Ondansetron HCl 4 mg 07/29/23 05:23 07/29/23 06:06 Ondansetron 4mg/2ml Vial IV 07/29/23 05:24 4 mg ONCE ONE Administration ORDERS Category Date Time Status CT abdomen pelvis w con Stat Cat Scan 07/29/23 05:[address] chest w con Stat Cat Scan 07/29/23 05:23 Taken CBC w/Auto Diff [Complete Blood Count Auto Diff] Stat Lab 07/29/23 05:05 Completed CMP [Comprehensive Metabolic Panel] Stat Lab 07/29/23 05:05 Completed Lactic Acid Stat Lab 07/29/23 05:05 Completed Lyme Ab, Modified 2-Tier Stat Lab 07/29/23 05:05 Received Rapid PCR Covid and Flu A/B Stat Lab 07/29/23 05:41 Completed UA [Urinalysis and Microscopic] Stat Lab 07/29/23 06:49 Completed Blood Culture Stat Micro 07/29/23 06:13 Received Medical Decision Narrative: 82-year-old male with history of COPD, stroke, GERD, recent EGD with dilation, recent tick bites presents with fever/chills and multiple complaints including recent tick bite on doxycycline, abdominal pain generalized, increased cough. History was obtained interactive discussion with patient, , chart review. On arrival, patient is afebrile but with temperature 100.2, normotensive, regular rate and rhythm. Full physical exam performed and significant for mild generalized abdominal tenderness, otherwise benign physical exam. Differential includes but is not limited to viral syndrome, pneumonia, tickborne illness, UTI, intra-abdominal infection, postoperative complication. Patient was given Tylenol, Zofran for symptomatic management and correction of underlying abnormalities. Workup initiated including CBC CMP blood cultures UA lactate CT Abdo pelvis with IV contrast CT chest with IV contrast Lyme titers. On re-evaluation, patient remains afebrile, HD stable. Laboratory workup independently interpreted by me and significant for minimal leukocytosis, no significant electrolyte derangement, baseline renal function, negative COVID flu swab.. At this time care handed off to oncoming physician pending urinalysis, CT imaging and reassessment. Scar: I assumed primary responsibility for this patient after signout from previous physician. Independent interpretation of workup largely nonactionable. CBC and chemistry nonactionable. CT of the chest abdomen pelvis without any acute findings, patient does have large stool burden, BPH. Incidental finding of degenerative disc disease, disc herniations L4-L5 L5-S1 with right-sided neuroforaminal narrowing at L5-S1, but unrelated to patient's complaints. Because patient well-appearing on my exam, tolerating p.o. intake, requesting home-going, negative workup, I feel this is appropriate. Because patient at baseline without signs or symptoms of clinical decompensation, deemed appropriate for discharge. Results were relayed to patient who voiced understanding and were agreeable to outpatient management and follow up. I discussed my clinical impression with patient and answered all questions. At this time, the evidence for any other entities in the differential is insufficient to warrant any further testing or ED observation. This was explained as well. Advisory was given that persistent or worsening symptoms require further evaluation. I confirmed the understanding of this discussion. Procedures <Sukhi Arroyo MD - Last Filed: 07/29/23 06:57> Risk/Benefits of Procedure(s) Were Explained: Yes Critical Care <Sukhi Arroyo MD - Last Filed: 07/29/23 06:57> Critical Care Time Critical Care Time: No
[2023-07-29 06:54] LABS: Microscopic, Urine URINE MICROSCOPIC (MICROSCOPIC)
[2023-07-29 06:55] LABS: Appearance,Urine CLEAR (Clear); Bilirubin,Urine Negative (Negative); Blood, Urine TRACE-I (Negative); Color,Urine YELLOW (Yellow); Glucose,Urine (UA) Negative (Negative); Ketones,Urine Negative (Negative); Leukocyte Esterase,Urine Negative (Negative); Nitrate,Urine Negative (Negative); PH,Urine 5.5 (5.0-8.5); Protein,Urine Negative (Negative); Specific Gravity, Urine 1.015 (1.005-1.030); Urobilinogen,Urine 0.2 EU/dl (0.2)
[2023-07-29 07:43] LABS: Bacteria,Urine Trace /lpf; Squamous Epithelial Cell,Urine Occasional #/hpf (0-5); WBC,Urine Occasional #/hpf (0-3)
--- NOTE | 2023-07-29 08:00 | PC.NURSE ---
updated on plan of care. called radiology to check on scans and they stated they would push the images to [facility] to be read.
[2023-07-30 12:50] LABS: Lyme Ab CIA Negative (Negative)
== END 2023-07-29 08:40 | disposition home or self-care (01) ==
PROVIDERS: Emergency Medicine; Emergency Provider Emergency Medicine; PCP Family Medicine
DX: R10.30 Lower abdominal pain, unspecified (principal); K59.00 Constipation, unspecified; R05.9 Cough, unspecified; R35.0 Frequency of micturition; J44.9 Chronic obstructive pulmonary disease, unspecified; E78.5 Hyperlipidemia, unspecified; Z87.891 Personal history of nicotine dependence
CPT/HCPCS: 71260; 74177; 80053; 81001; 83605; 85025; 86618; 87040; 87636; 96374; 99285; J2405; Q9967

== ENCOUNTER 2023-08-25 09:13 | Outpatient (CLI) | payer MEDICARE, SELFPAY ==
[2023-08-25 09:30] LABS: Basophils # 0.1 K/mm3 (0-0.2); Basophils % 0.8 % (0.1-2.0); Eosinophils # 0.7 K/mm3 (0.0-0.4); Eosinophils % 8.9 % (0.1-12.0); Hematocrit 33.4 % (42.0-52.0); Hemoglobin 10.5 g/dL (14.1-18.0); Lymphocytes # 2.3 K/mm3 (0.7-4.5); Mean Corpuscular HGB Conc 31.6 g/dL (31.8-35.4); Mean Corpuscular Hemoglobin 30.9 pg (27.0-31.2); Mean Platelet Volume 7.9 fl (7.4-10.4); Monocytes # 0.6 K/mm3 (0.1-1.0); Monocytes % 8.2 % (1.7-9.3); Neutrophils # 4.1 K/mm3 (1.8-7.8); Platelet Count 397 K/mm3 (142-424); Red Blood Count 3.41 M/mm3 (4.60-6.20); Red Cell Distribution Width 14.1 % (11.5-17.5); White Blood Count 7.8 K/mm3 (4.8-10.8)
[2023-08-25 10:31] LABS: Iron 66 ug/dL (49-181)
[2023-08-25 10:41] LABS: Total Iron Binding Capacity 278 ug/dL (261-462)
[2023-08-25 11:08] LABS: Ferritin 29.7 ng/ml (17.9-464)
== END 2023-08-25 23:59 | disposition home or self-care (01) ==
LOC: LAB 09:15
PROVIDERS: PCP Family Medicine; Visit Provider Internal Medicine Medical Oncology
DX: D50.0 Iron deficiency anemia secondary to blood loss (chronic) (principal)
CPT/HCPCS: 36415; 82728; 83540; 83550; 85025

== ENCOUNTER 2023-09-12 13:05 | Outpatient (CLI) | payer MEDICARE, SELFPAY ==
[2023-09-12 14:05] LABS: Blood Urea Nitrogen 22 mg/dl (9-20); Estimated Glomerular Filt Rate 64 ml/min (>60); GFR (African American) 77 ML/MIN (>60)
[2023-09-13 16:23] LABS: PSA, Free 2.91 ng/mL; Prostate Specific Ag 5.6 ng/mL (0.0-4.0)
== END 2023-09-12 23:59 | disposition home or self-care (01) ==
LOC: LAB 13:06
PROVIDERS: PCP Family Medicine; Visit Provider Urology
DX: R97.20 Elevated prostate specific antigen [PSA] (principal); R33.9 Retention of urine, unspecified
CPT/HCPCS: 36415; 82565; 84153; 84154; 84520

== ENCOUNTER 2023-09-14 13:28 | Outpatient (CLI) | payer MEDICARE, SELFPAY ==
--- NOTE | 2023-09-14 13:34 | CT_ITS ---
FINAL REPORT TECHNIQUE: Axial CT images were performed from the lung apices through the upper abdomen. Coronal reformats were submitted. This study was performed with techniques to keep radiation doses as low as reasonably achievable (ALARA). Individualized dose reduction techniques using automated exposure control or adjustment of mA and/or kV according to the patient's size were employed. CLINICAL HISTORY: PULMONARY NODULES COMPARISON: 07/29/2023 FINDINGS: There is no axillary adenopathy. There are small mediastinal nodes. Heart size is normal. There is no pericardial or pleural effusion. Limited images of the upper abdomen are unremarkable. There is mild emphysema with mild pulmonary scarring. There is a pleural-based nodule in the lateral left upper lobe measuring 4 mm which is stable. Finding is best seen on image 26. There are calcified granulomas in the right lung. IMPRESSION: Stable left upper lobe nodule. Reviewed, Interpreted and Dictated by Karan Roe III, MD Transcribed by Raisa Cao Authenticated and [facility][1]
== END 2023-09-14 23:59 | disposition home or self-care (01) ==
LOC: RAD 13:29
PROVIDERS: PCP Physician Assistant; Visit Provider Physician Assistant
DX: R91.8 Other nonspecific abnormal finding of lung field (principal)
CPT/HCPCS: 71250

== ENCOUNTER 2023-12-27 10:24 | Outpatient (CLI) | payer MEDICARE, SELFPAY ==
[2023-12-27 10:47] LABS: Basophils # 0.1 K/mm3 (0-0.2); Basophils % 0.8 % (0.1-2.0); Eosinophils # 0.5 K/mm3 (0.0-0.4); Eosinophils % 5.7 % (0.1-12.0); Hematocrit 33.9 % (42.0-52.0); Hemoglobin 11.1 g/dL (14.1-18.0); Lymphocytes # 2.4 K/mm3 (0.7-4.5); Lymphocytes % 29.6 % (10-50); Mean Corpuscular HGB Conc 32.8 g/dL (31.8-35.4); Mean Corpuscular Hemoglobin 30.6 pg (27.0-31.2); Mean Platelet Volume 7.3 fl (7.4-10.4); Monocytes # 0.6 K/mm3 (0.1-1.0); Monocytes % 7.8 % (1.7-9.3); Neutrophils # 4.5 K/mm3 (1.8-7.8); Neutrophils % 56.2 % (37.0-80.0); Platelet Count 394 K/mm3 (142-424); Red Blood Count 3.64 M/mm3 (4.60-6.20); Red Cell Distribution Width 13.8 % (11.5-17.5)
[2023-12-27 11:19] LABS: Iron 78 ug/dL (49-181)
[2023-12-27 11:35] LABS: Total Iron Binding Capacity 305 ug/dL (261-462)
== END 2023-12-27 23:59 | disposition home or self-care (01) ==
LOC: LAB 10:25
PROVIDERS: PCP Family Medicine; Visit Provider Internal Medicine Medical Oncology
DX: D64.9 Anemia, unspecified (principal)
CPT/HCPCS: 36415; 83540; 83550; 85025

== ENCOUNTER 2024-02-18 14:13 | Emergency (ER) | payer MEDICARE, SELFPAY ==
[2024-02-18] VITALS (11 sets, daily range): BP systolic 128–168; BP diastolic 66–94; PULSE 61–73; RESP 14–18; TEMP 36.7; O2SAT 95–99; BMI 22.4
--- NOTE | 2024-02-18 14:10 | ECG_ITS ---
APPROVED REPORT Exam: Resting ECG HR:69 bpm ECG Measurements Heart Rate 69 AXES AR 189 P 49 QRSd 104 QRS -43 QT 391 T 75 QTc 410 Conclusion SINUS RHYTHM LEFT AXIS DEVIATION [QRS AXIS < -30] LEFT VENTRICULAR HYPERTROPHY AND ST-T CHANGE [VOLTAGE CRITERIA PLUS ST/T ABNORMALITY] POSSIBLE SEPTAL MYOCARDIAL INFARCTION , OF INDETERMINATE AGE [30 ms Q WAVE IN V1/V2] ABNORMAL ECG Electronically signed by : LUIS ALBERTO TOUSSAINT, 02/18/2024 16:07:25
--- NOTE | 2024-02-18 14:18 | XR_ITS ---
PROCEDURE INFORMATION: Exam: XR Chest Exam date and time: 02/18/2024 2:42 PM Age: 83 years old Clinical indication: Other: Chest pain TECHNIQUE: Imaging protocol: Radiologic exam of the chest. Views: 1 view. COMPARISON: CT CHEST WO CON 09/14/2023 1:34 PM FINDINGS: Lungs: Hyperexpanded lung reinoso consistent with COPD. No focal consolidation.. Pleural spaces: Unremarkable. No pleural effusion. No pneumothorax. Heart/Mediastinum: Unremarkable. No cardiomegaly. Bones/joints: Unremarkable. IMPRESSION: Hyperexpanded lung reinoso consistent with COPD. No focal consolidation.. No significant change
--- NOTE | 2024-02-18 14:22 | ED_ITS ---
<Statement entered by Abril Paris DO - 02/18/24 15:44> I was consulted by the RAY, and we discussed the complexity of the problems being addressed. I approved the treatment and management plan for this patient's care in the emergency department, thus performing a substantive portion of the medical decision making. I signed out care of patient to Dr. Bedolla and Claudia Peraza at 1500 Abril Paris DO Discharge Plan Disposition Patient Disposition: Home, Self-Care Condition: Good Prescriptions Prescriptions: No Action omega 4-ixs-xgk-fish oil [Fish Oil] 1,000 mg (120 mg-180 mg) capsule 1 cap PO DAILY fluorometholone 0.1 % drops,suspension Eye-Both TID doxycycline monohydrate 100 mg capsule PO BID tamsulosin [Flomax] 0.4 mg capsule 0.4 mg PO DAILY Qty: 30 3RF finasteride [Proscar] 5 mg tablet 5 mg PO DAILY Qty: 90 3RF mirabegron 50 mg tablet extended release 24 hr 50 mg PO DAILY Qty: 30 3RF rosuvastatin 5 mg tablet 5 mg PO DAILY lisinopril 10 mg tablet 10 mg PO DAILY aspirin [Adult Aspirin Regimen] 81 mg tablet,delayed release (DR/EC) 81 mg PO DAILY levothyroxine 75 mcg tablet 75 mcg PO DAILY ascorbate calcium-bioflavonoid 1,000-200 mg Tablet Extended Release 1 tab PO DAILY kezfrvyhqis-I4-Lvtxlrjar serr [Osteo Bi-Flex (5-Loxin)] 1,500-400-100 mg-unit-mg Tablet 1 tab PO DAILY Rx Instructions: give after food/meal ytnsiitn-soz-rjftf acid-vit K 400-40 mcg Capsule 1 cap PO DAILY famotidine [Pepcid] 40 mg tablet 40 mg PO DAILY Referrals Follow up/Referrals: Yohannes Saravia MD [Primary Care Provider] - See instructions Activity Restrictions/Add. Instructions Additional Instructions/Restrictions: Please follow-up with Dr. Saravia for referral to cardiology if he sees fit. Cardiac workup was negative here in the ED. Return to the ER with any increased chest pain or shortness of breath. Clinical Impressions Clinical Impression: Chest pain, GERD (gastroesophageal reflux disease) Instructions Patient Instructions: DI for Gastroesophageal Reflux Disease (GERD), DI for Atypical Chest Pain Print Language Print Language: Indonesian Discharge ED Provider: Chung Bedolla HPI <Claudia Peraza (ED), SENIOR BRANCH MANAGER - Last Filed: 02/18/24 17:24> General Chief Complaint: Chest Pain Stated Complaint: Chest Pain Time Seen by Provider: 02/18/24 14:17 Mode of Arrival: Ambulatory Source of Information: Patient and Spouse Limitations: No Limitations Description of Symptoms (Recalled from ER Triage Doc. by RN): chest pain radiating to his back. now mostly resolved. History of Present Illness HPI narrative: This is an 83-year-old male who presents to the ED today for complaint of chest pain that started 20 minutes ago while in the checkout line at [facility]. He states that it feels like pain going through to the middle of his back. He did have shortness of breath but that has resolved at this time. No palpitations, no abdominal pain, no nausea, vomiting or diarrhea. He has had dizziness for about 5 minutes during the chest pain or shortness of breath. That has also resolved. Patient has history of hypothyroid, hypertension, hyperlipidemia and 2 strokes in 2019. No heart history other than hypertension. He has not eaten since breakfast. Patient has no other complaints at this time. Related Data Home Medications ?Medication ?Instructions ?Recorded ?Confirmed omega 8-xsn-tjq-fish oil 1,000 mg 1 cap PO DAILY Supplement 05/12/17 12/27/23 (120 mg-180 mg) capsule (Fish Oil) aspirin 81 mg tablet,delayed 81 mg PO DAILY heart health 04/30/19 12/27/23 release (Adult Aspirin Regimen) lisinopril 10 mg tablet 10 mg PO DAILY High blood pressure 04/30/19 12/27/23 rosuvastatin 5 mg tablet 5 mg PO DAILY Cholesterol 04/30/19 12/27/23 levothyroxine 75 mcg tablet 75 mcg PO DAILY thyroid 09/18/21 12/27/23 ascorbate calcium-bioflavonoid ER 1 tab PO DAILY Supplement 04/05/22 12/27/23 1,000 mg-200 mg tab,extended release famotidine 40 mg tablet (Pepcid) 40 mg PO DAILY stomach 04/05/22 12/27/23 glucosamine JFs-I9-[id number] 1 tab PO DAILY Supplement 04/05/22 12/27/23 maryellen 1,500 mg-400 unit-100 mg tablet (Osteo Bi-Flex (5-Loxin)) dsdfmctpmicy-ofzpaxyt-vsxik acid 1 cap PO DAILY Supplement 04/05/22 12/27/23 400 mcg-vitamin K 40 mcg capsule fluorometholone 0.1 % eye drp Eye-Both TID 06/14/23 12/27/23 drops,suspension doxycycline monohydrate 100 mg mg PO BID 07/27/23 12/27/23 capsule Previous Rx's ?Medication ?Instructions ?Recorded finasteride 5 mg tablet (Proscar) 5 mg PO DAILY #90 tabs 09/12/23 mirabegron 50 mg tablet,extended 50 mg PO DAILY #30 tabs 09/12/23 release 24 hr tamsulosin 0.4 mg capsule (Flomax) 0.4 mg PO DAILY #30 caps 09/12/23 Allergies Allergy/AdvReac Type Severity Reaction Status Date / Time Sulfa (Sulfonamide Allergy Unknown NAUSEA/VOMI Verified 12/27/23 09:44 Antibiotics) [facility] <Claudia Peraza (ED), SENIOR BRANCH MANAGER - Last Filed: 02/18/24 17:24> [facility] Disclaimer: The information contained in this section may have been updated after the patient was seen, as this information can be updated by other users. Medical History SNHL (sensorineural hearing loss) Moderate to severe SNHL bilaterally per Audiometric Right ear pain Bleeding from right ear Onychoincurvatum History of gastroesophageal reflux (GERD) History of diverticulitis History of stroke Surgical History Hx of prostate biopsy History of circumcision History of tonsillectomy left tonsil MASS History of ear surgery bilateral History of colonoscopy Family History Other Family history of acute congestive heart failure Family history of acute heart failure Family history of cancer Family history of emphysema Social History Smoking Status: Never smoker alcohol intake: never substance use type: denies use current occupational status: retired and other Travel in the last 8 weeks: None household members: spouse housing: house marital status: current occupational exposures/hazards: No caffeine: Yes special adalid needs: No agree to transfusion: No do you feel safe at home: Yes victim of physical abuse: No victim of emotional abuse: No victim of sexual abuse: No would you like helpful sources: No Have you lived/traveled outside US in past 30 days?: No Contact w/someone who lives/traveled outside US past 30 days?: No Exposure to someone with infectious disease in past 14 days?: No Do you have a fever (greater than 100.4 F or 38 C)?: No Have you tested positive for COVID-19: No Exposed to someone with COVID-19 in past 14 days?: No Do you have a sore throat?: No Do you have a cough?: No Do you have any weakness?: No Do you have any diarrhea?: No Are you experiencing any unusual bleeding?: No Do you have any muscle aches/pain?: No Do you have any abdominal pain?: No Are you experiencing loss of taste or smell?: No Other Medical History Have you received the Flu Vaccine for this season: Yes Have you received the Pneumonia Vaccine: Yes <Claudia Peraza (ED), SENIOR BRANCH MANAGER - Last Filed: 02/18/24 17:24> ROS Obtained: Yes Systems reviewed as appropriate & no additional complaints except as documented Constitutional Constitutional: Reports as per HPI Physical Exam <Claudia Peraza (ED), SENIOR BRANCH MANAGER - Last Filed: 02/18/24 17:24> General General appearance: alert and in no apparent distress Head Head exam: normocephalic Eye Eye exam: Present normal appearance and PERRL ENT ENT exam: Present normal exam and mucous membranes moist Neck Neck exam: Present normal inspection and trachea midline Chest Chest inspection: Present normal inspection and symmetric chest wall rise Respiratory Respiratory exam: Present normal lung sounds bilaterally Cardiovascular Cardiovascular exam: Present regular rate, normal rhythm, normal heart sounds, +S1 and +S2 Abdominal Exam Abdominal exam: Present soft and normal bowel sounds Extremities Exam Extremities exam: Present normal inspection, full ROM and normal capillary refill Neurological Exam Neurological exam: Present alert, oriented X3 and normal gait Psychiatric Psychiatric exam: Present normal affect and normal mood Skin Skin exam: Present warm and dry HEART Score <Claudia Peraza (ED), SENIOR BRANCH MANAGER - Last Filed: 02/18/24 17:24> HEART Score HEART Score assessment performed?: Yes History (anamnesis): Slightly suspicious ECG: Non-specific disturbance Age: >65 years Risk factors: Atherosclerosis history Troponin: </= normal limit HEART Score: 5 <Abril Paris DO - Last Filed: 02/18/24 16:05> HEART Score HEART Score: 5 <Chung Bedolla MD - Last Filed: 02/18/24 18:58> HEART Score HEART Score: 5 Critical Care <Abril Paris DO - Last Filed: 02/18/24 16:05> Critical Care Time Critical Care Time: No Medical Decision Making <Claudia Peraza (ED), SENIOR BRANCH MANAGER - Last Filed: 02/18/24 17:24> Zaki Haines was queried for this patient: No Vital Signs Vital Signs: 02/18/24 14:13 02/18/24 14:22 02/18/24 14:31 Temperature 98.1 F Temperature Source Oral Pulse Rate 68 65 Pulse Rate [Right] 70 Respiratory Rate 18 14 18 Blood Pressure 168/82 H 139/68 Blood Pressure [Right Arm] 168/82 H Blood Pressure Mean 91 Blood Pressure Mean [Right Arm] 110 Blood Pressure Source 02 Sat by Pulse Oximetry 99 98 97 Oxygen Delivery Method Room Air 02/18/24 15:00 02/18/24 15:31 02/18/24 15:46 Temperature Temperature Source Pulse Rate 67 61 68 Pulse Rate [Right] Respiratory Rate 18 18 16 Blood Pressure 151/68 H 162/66 H 133/85 Blood Pressure [Right Arm] Blood Pressure Mean 101 Blood Pressure Mean [Right Arm] Blood Pressure Source 02 Sat by Pulse Oximetry 98 96 97 Oxygen Delivery Method 02/18/24 16:00 02/18/24 16:15 02/18/24 16:20 Temperature Temperature Source Pulse Rate 66 66 62 Pulse Rate [Right] Respiratory Rate 18 14 15 Blood Pressure 142/71 H 164/94 H 134/74 Blood Pressure [Right Arm] Blood Pressure Mean Blood Pressure Mean [Right Arm] Blood Pressure Source 02 Sat by Pulse Oximetry 97 98 95 Oxygen Delivery Method Room Air Room Air 02/18/24 16:30 02/18/24 17:34 Temperature 98.0 F Temperature Source Oral Pulse Rate 62 73 Pulse Rate [Right] Respiratory Rate 18 16 Blood Pressure 143/71 H 128/70 Blood Pressure [Right Arm] Blood Pressure Mean Blood Pressure Mean [Right Arm] Blood Pressure Source Automatic Cuff 02 Sat by Pulse Oximetry 98 Oxygen Delivery Method Room Air Room Air Lab Data Labs: Lab Results 02/18/24 14:15: WBC 7.8, RBC 3.60 L, Hgb 11.0 L, Hct 33.9 L, MCV 94.2 H, MCH 30.7, MCHC 32.5, RDW 13.9, Plt Count 378, MPV 7.4, Neut % (Auto) 53.2, Lymph % (Auto) 32.4, [place] % (Auto) 7.6, Eos % (Auto) 6.0, Baso % (Auto) 0.7, Neut # (Auto) 4.2, Lymph # (Auto) 2.5, [place] # (Auto) 0.6, Eos # (Auto) 0.5 H, Baso # (Auto) 0.1, Sodium 140, Potassium 4.5, Chloride 106, Carbon Dioxide 28, Anion Gap 10.5, BUN 20, Creatinine 1.30 H, Estimated Creat Clear 38, Estimated GFR 53 L, Est GFR ( Amer) 64, Glucose 87, Calcium 9.7, Total Bilirubin 0.2, AST 34, ALT 19, Alkaline Phosphatase 98, Troponin I < 0.01, Total Protein 6.7, Albumin 4.0, Globulin 2.7, Albumin/Globulin Ratio 1.5 02/18/24 16:50: Troponin I < 0.01 02/18/24 14:15 02/18/24 14:15 Response Orders (Tests/Meds): ED MEDICATIONS Discontinued Medications Generic Name Dose Route Start Last Admin Trade Name Freq PRN Reason Stop Dose Admin Al Hydrox/Mg Hydrox/Simethicone 30 ml 02/18/24 14:18 02/18/24 14:27 Aluminum/Magnesium/Simethicone 30ml Udc PO 02/18/24 14:19 30 ml ONCE ONE Administration Aspirin 324 mg 02/18/24 14:18 02/18/24 14:27 Aspirin 81mg Chewable Tablet PO 02/18/24 14:19 324 mg ONCE ONE Administration Nitroglycerin 0.4 mg 02/18/24 14:18 Nitroglycerin 0.4mg Sl Tablet SL 02/19/24 14:18 [id number] PRN Chest Pain ORDERS Category Date Time Status XR chest portable Stat Exams 02/18/24 14:18 Completed Complete Blood Count Auto Diff Stat Lab 02/18/24 14:15 Completed Comprehensive Metabolic Panel Stat Lab 02/18/24 14:15 Completed HIV (1&2) Antibody Rapid Stat Lab 02/18/24 14:15 Received Hep C Ab with Reflex to RNA Stat Lab 02/18/24 14:15 Received Troponin I Q3H Lab 02/18/24 16:50 Completed Troponin I Stat Lab 02/18/24 14:15 Ordered MDM Narrative Medical Decision Narrative: Insert review patient is a 83-year-old male presenting to the emergency department for evaluation of chest pain that started 20 minutes prior to arrival while he was in the [employer]. He describes it as pain that moves to his back. He had some shortness of breath and dizzy nests that stopped after about 5 minutes denies any palpitations or nausea vomiting or abdominal pain. By the time he got to the ER most of his symptoms have resolved.. Patient is hemodynamically stable and nontoxic-appearing upon arrival, afebrile. Differential diagnosis includes STEMI, NSTEMI, reflux among others. Workup will be conducted with hematologic labs, specific imaging, provocative tests. Initial inventions include analgesics. Initial workup reviewed by me reveals negative chest x-ray, negative troponin with unctionable labs. Imaging informally interpreted by me and remarkable for nothing acute. Formal imaging read remarkable for nothing acute. Upon repeat evaluation patient's pain is improved. <Abril Paris, DO - Last Filed: 02/18/24 16:05> Zaki Inquiry Pt receiving controlled substance: No Vital Signs Vital Signs: 02/18/24 14:13 02/18/24 14:22 02/18/24 14:31 Temperature 98.1 F Temperature Source Oral Pulse Rate 68 65 Pulse Rate [Right] 70 Respiratory Rate 18 14 18 Blood Pressure 168/82 H 139/68 Blood Pressure [Right Arm] 168/82 H Blood Pressure Mean 91 Blood Pressure Mean [Right Arm] 110 Blood Pressure Source 02 Sat by Pulse Oximetry 99 98 97 Oxygen Delivery Method Room Air 02/18/24 15:00 02/18/24 15:31 02/18/24 15:46 Temperature Temperature Source Pulse Rate 67 61 68 Pulse Rate [Right] Respiratory Rate 18 18 16 Blood Pressure 151/68 H 162/66 H 133/85 Blood Pressure [Right Arm] Blood Pressure Mean 101 Blood Pressure Mean [Right Arm] Blood Pressure Source 02 Sat by Pulse Oximetry 98 96 97 Oxygen Delivery Method 02/18/24 16:00 02/18/24 16:15 02/18/24 16:20 Temperature Temperature Source Pulse Rate 66 66 62 Pulse Rate [Right] Respiratory Rate 18 14 15 Blood Pressure 142/71 H 164/94 H 134/74 Blood Pressure [Right Arm] Blood Pressure Mean Blood Pressure Mean [Right Arm] Blood Pressure Source 02 Sat by Pulse Oximetry 97 98 95 Oxygen Delivery Method Room Air Room Air 02/18/24 16:30 02/18/24 17:34 Temperature 98.0 F Temperature Source Oral Pulse Rate 62 73 Pulse Rate [Right] Respiratory Rate 18 16 Blood Pressure 143/71 H 128/70 Blood Pressure [Right Arm] Blood Pressure Mean Blood Pressure Mean [Right Arm] Blood Pressure Source Automatic Cuff 02 Sat by Pulse Oximetry 98 Oxygen Delivery Method Room Air Room Air Lab Data Labs: Lab Results 02/18/24 14:15: WBC 7.8, RBC 3.60 L, Hgb 11.0 L, Hct 33.9 L, MCV 94.2 H, MCH 30.7, MCHC 32.5, RDW 13.9, Plt Count 378, MPV 7.4, Neut % (Auto) 53.2, Lymph % (Auto) 32.4, [place] % (Auto) 7.6, Eos % (Auto) 6.0, Baso % (Auto) 0.7, Neut # (Auto) 4.2, Lymph # (Auto) 2.5, [place] # (Auto) 0.6, Eos # (Auto) 0.5 H, Baso # (Auto) 0.1, Sodium 140, Potassium 4.5, Chloride 106, Carbon Dioxide 28, Anion Gap 10.5, BUN 20, Creatinine 1.30 H, Estimated Creat Clear 38, Estimated GFR 53 L, Est GFR ( Amer) 64, Glucose 87, Calcium 9.7, Total Bilirubin 0.2, AST 34, ALT 19, Alkaline Phosphatase 98, Troponin I < 0.01, Total Protein 6.7, Albumin 4.0, Globulin 2.7, Albumin/Globulin Ratio 1.5 02/18/24 16:50: Troponin I < 0.01 Response Orders (Tests/Meds): ED MEDICATIONS Discontinued Medications Generic Name Dose Route Start Last Admin Trade Name Freq PRN Reason Stop Dose Admin Al Hydrox/Mg Hydrox/Simethicone 30 ml 02/18/24 14:18 02/18/24 14:27 Aluminum/Magnesium/Simethicone 30ml Udc PO 02/18/24 14:19 30 ml ONCE ONE Administration Aspirin 324 mg 02/18/24 14:18 02/18/24 14:27 Aspirin 81mg Chewable Tablet PO 02/18/24 14:19 324 mg ONCE ONE Administration Nitroglycerin 0.4 mg 02/18/24 14:18 Nitroglycerin 0.4mg Sl Tablet SL 02/19/24 14:18 Q5MINP PRN Chest Pain ORDERS Category Date Time Status XR chest portable Stat Exams 02/18/24 14:18 Completed Complete Blood Count Auto Diff Stat Lab 02/18/24 14:15 Completed Comprehensive Metabolic Panel Stat Lab 02/18/24 14:15 Completed HIV (1&2) Antibody Rapid Stat Lab 02/18/24 14:15 Received Hep C Ab with Reflex to RNA Stat Lab 02/18/24 14:15 Received Troponin I Q3H Lab 02/18/24 16:50 Completed Troponin I Stat Lab 02/18/24 14:15 Ordered ECG Data Tracing #1: Attestation: I reviewed this ECG and interpreted as documented below: ECG Narrative: Sinus rhythm with a ventricular of 69 bpm. Left axis deviation. Left ventricular hypertrophy without STEMI. ECG initial impression date: 02/18/24 ECG initial impression time: 14:12 <Chung Bedolla MD - Last Filed: 02/18/24 18:58> Vital Signs Vital Signs: 02/18/24 14:13 02/18/24 14:22 02/18/24 14:31 Temperature 98.1 F Temperature Source Oral Pulse Rate 68 65 Pulse Rate [Right] 70 Respiratory Rate 18 14 18 Blood Pressure 168/82 H 139/68 Blood Pressure [Right Arm] 168/82 H Blood Pressure Mean 91 Blood Pressure Mean [Right Arm] 110 Blood Pressure Source 02 Sat by Pulse Oximetry 99 98 97 Oxygen Delivery Method Room Air 02/18/24 15:00 02/18/24 15:31 02/18/24 15:46 Temperature Temperature Source Pulse Rate 67 61 68 Pulse Rate [Right] Respiratory Rate 18 18 16 Blood Pressure 151/68 H 162/66 H 133/85 Blood Pressure [Right Arm] Blood Pressure Mean 101 Blood Pressure Mean [Right Arm] Blood Pressure Source 02 Sat by Pulse Oximetry 98 96 97 Oxygen Delivery Method 02/18/24 16:00 02/18/24 16:15 02/18/24 16:20 Temperature Temperature Source Pulse Rate 66 66 62 Pulse Rate [Right] Respiratory Rate 18 14 15 Blood Pressure 142/71 H 164/94 H 134/74 Blood Pressure [Right Arm] Blood Pressure Mean Blood Pressure Mean [Right Arm] Blood Pressure Source 02 Sat by Pulse Oximetry 97 98 95 Oxygen Delivery Method Room Air Room Air 02/18/24 16:30 02/18/24 17:34 Temperature 98.0 F Temperature Source Oral Pulse Rate 62 73 Pulse Rate [Right] Respiratory Rate 18 16 Blood Pressure 143/71 H 128/70 Blood Pressure [Right Arm] Blood Pressure Mean Blood Pressure Mean [Right Arm] Blood Pressure Source Automatic Cuff 02 Sat by Pulse Oximetry 98 Oxygen Delivery Method Room Air Room Air Lab Data Labs: Lab Results 02/18/24 14:15: WBC 7.8, RBC 3.60 L, Hgb 11.0 L, Hct 33.9 L, MCV 94.2 H, MCH 30.7, MCHC 32.5, RDW 13.9, Plt Count 378, MPV 7.4, Neut % (Auto) 53.2, Lymph % (Auto) 32.4, [place] % (Auto) 7.6, Eos % (Auto) 6.0, Baso % (Auto) 0.7, Neut # (Auto) 4.2, Lymph # (Auto) 2.5, [place] # (Auto) 0.6, Eos # (Auto) 0.5 H, Baso # (Auto) 0.1, Sodium 140, Potassium 4.5, Chloride 106, Carbon Dioxide 28, Anion Gap 10.5, BUN 20, Creatinine 1.30 H, Estimated Creat Clear 38, Estimated GFR 53 L, Est GFR ( Amer) 64, Glucose 87, Calcium 9.7, Total Bilirubin 0.2, AST 34, ALT 19, Alkaline Phosphatase 98, Troponin I < 0.01, Total Protein 6.7, Albumin 4.0, Globulin 2.7, Albumin/Globulin Ratio 1.5 02/18/24 16:50: Troponin I < 0.01 Response Orders (Tests/Meds): ED MEDICATIONS Discontinued Medications Generic Name Dose Route Start Last Admin Trade Name Freq PRN Reason Stop Dose Admin Al Hydrox/Mg Hydrox/Simethicone 30 ml 02/18/24 14:18 02/18/24 14:27 Aluminum/Magnesium/Simethicone 30ml Udc PO 02/18/24 14:19 30 ml ONCE ONE Administration Aspirin 324 mg 02/18/24 14:18 02/18/24 14:27 Aspirin 81mg Chewable Tablet PO 02/18/24 14:19 324 mg ONCE ONE Administration Nitroglycerin 0.4 mg 02/18/24 14:18 Nitroglycerin 0.4mg Sl Tablet SL 02/19/24 14:18 Q5MINP PRN Chest Pain ORDERS Category Date Time Status XR chest portable Stat Exams 02/18/24 14:18 Completed Complete Blood Count Auto Diff Stat Lab 02/18/24 14:15 Completed Comprehensive Metabolic Panel Stat Lab 02/18/24 14:15 Completed HIV (1&2) Antibody Rapid Stat Lab 02/18/24 14:15 Received Hep C Ab with Reflex to RNA Stat Lab 02/18/24 14:15 Received Troponin I Q3H Lab 02/18/24 16:50 Completed Troponin I Stat Lab 02/18/24 14:15 Ordered MDM Narrative Medical Decision Narrative: Insert review patient is a 83-year-old male presenting to the emergency department for evaluation of chest pain that started 20 minutes prior to arrival while 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 He describes it as pain that moves to his back. He had some shortness of breath and dizzy nests that stopped after about 5 minutes denies any palpitations or nausea vomiting or abdominal pain. By the time he got to the ER most of his symptoms have resolved.. Patient is hemodynamically stable and nontoxic-appearing upon arrival, afebrile. Differential diagnosis includes STEMI, NSTEMI, reflux among others. Workup will be conducted with hematologic labs, specific imaging, provocative tests. Initial inventions include analgesics. Initial workup reviewed by me reveals negative chest x-ray, negative troponin with unctionable labs. Imaging informally interpreted by me and remarkable for nothing acute. Formal imaging read remarkable for nothing acute. Upon repeat evaluation patient's pain is improved. I was consulted by the RAY, and we discussed the complexity of the problems being addressed. I approve the treatment and management plan for this patient's care in the emergency department, thus performing a substantive portion of the medical decision making. Chung Bedolla MD
[2024-02-18 14:23] LABS: Basophils # 0.1 K/mm3 (0-0.2); Basophils % 0.7 % (0.1-2.0); Eosinophils # 0.5 K/mm3 (0.0-0.4); Hematocrit 33.9 % (42.0-52.0); Lymphocytes # 2.5 K/mm3 (0.7-4.5); Lymphocytes % 32.4 % (10-50); Mean Corpuscular HGB Conc 32.5 g/dL (31.8-35.4); Mean Corpuscular Hemoglobin 30.7 pg (27.0-31.2); Mean Corpuscular Volume 94.2 fl (80-94); Mean Platelet Volume 7.4 fl (7.4-10.4); Monocytes # 0.6 K/mm3 (0.1-1.0); Monocytes % 7.6 % (1.7-9.3); Neutrophils # 4.2 K/mm3 (1.8-7.8); Neutrophils % 53.2 % (37.0-80.0); Platelet Count 378 K/mm3 (142-424); Red Cell Distribution Width 13.9 % (11.5-17.5); White Blood Count 7.8 K/mm3 (4.8-10.8)
[2024-02-18] MEDS: ALUMINUM/MAGNESIUM/SIMETHICONE 30ML UDC 30 ML PO (14:27)
[2024-02-18] MEDS: ASPIRIN 81MG CHEWABLE TABLET 324 MG PO (14:27)
[2024-02-18 14:31] LABS: Chloride 106 mmol/L (98-107); Sodium 140 mmol/L (136-145)
--- NOTE | 2024-02-18 14:31 | PC.NURSE ---
PT TO XR
[2024-02-18 14:32] LABS: Potassium 4.5 mmoL/L (3.5-5.1)
[2024-02-18 14:34] LABS: Alanine Aminotransferase 19 U/L (12-78); Albumin/Globulin Ratio 1.5 (1.1-1.8); Alkaline Phosphatase 98 U/L (38-126); Anion Gap 10.5 mEq/L (5-15); Aspartate Amino Transferase 34 U/L (17-59); Bilirubin,Total 0.2 mg/dl (0.2-1.3); Blood Urea Nitrogen 20 mg/dl (9-20); Calcium 9.7 mg/dl (8.4-10.2); Carbon Dioxide 28 mmol/L (22.0-30.0); Creatinine Clearance Estimated 38 mL/min (50-200); Estimated Glomerular Filt Rate 53 ml/min (>60); GFR (African American) 64 ML/MIN (>60); Globulin 2.7 g/dL (1.3-3.2); Glucose 87 mg/dl (74-100); Total Protein,Serum 6.7 g/dl (6.3-8.2)
[2024-02-18 14:49] LABS: Troponin I < 0.01 ng/ml (0.00-0.034)
[2024-02-19 13:44] LABS: HIV Combo NEGATIVE (Negative)
[2024-02-20 10:08] LABS: HCV Ab Non Reactive (Non Reactive)
== END 2024-02-18 17:58 | disposition home or self-care (01) ==
PROVIDERS: Emergency Medicine; Nurse Practitioner; Emergency Provider Student in an Organized Health Care Education/Training Program; PCP Family Medicine
DX: K21.9 Gastro-esophageal reflux disease without esophagitis (principal); R07.9 Chest pain, unspecified; R06.02 Shortness of breath; R42 Dizziness and giddiness
CPT/HCPCS: 71045; 80053; 84484; 85025; 86803; 87389; 93005; 99284

== ENCOUNTER 2024-02-25 09:59 | Observation (INO) | payer MEDICARE, SELFPAY ==
[2024-02-25] VITALS (21 sets, daily range): BP systolic 104–149; BP diastolic 43–68; PULSE 41–72; RESP 13–25; TEMP 36.8–37.4; O2SAT 75–97; BMI 22.6; BMI 23.1
--- NOTE | 2024-02-25 10:16 | ECG_ITS ---
APPROVED REPORT Exam: Resting ECG HR:61 bpm ECG Measurements Heart Rate 61 AXES NM 187 P 42 QRSd 105 QRS -32 QT 409 T 66 QTc 413 Conclusion SINUS RHYTHM LEFT AXIS DEVIATION [QRS AXIS < -30] PATTERN CONSISTENT WITH PULMONARY DISEASE LEFT VENTRICULAR HYPERTROPHY AND ST-T CHANGE [VOLTAGE CRITERIA PLUS ST/T ABNORMALITY] ABNORMAL ECG Electronically signed by : DAVID COVARRUBIAS, 02/25/2024 15:24:57
--- NOTE | 2024-02-25 10:16 | CT_ITS ---
PROCEDURE INFORMATION: Exam: CT Abdomen And Pelvis With Contrast Exam date and time: 02/25/2024 10:50 AM Age: 83 years old Clinical indication: Abdominal pain; Localized; Left lower quadrant (llq); Additional info: Llq pain diarrhea TECHNIQUE: Imaging protocol: Computed tomography of the abdomen and pelvis with contrast. Radiation optimization: All CT scans at this facility use at least one of these dose optimization techniques: automated exposure control; mA and/or kV adjustment per patient size (includes targeted exams where dose is matched to clinical indication); or iterative reconstruction. Contrast material: ISOVUE; Contrast volume: 75 ml; Contrast route: IV; COMPARISON: CT ABDOMEN PELVIS W CON 07/29/2023 5:48 AM FINDINGS: Heart: There is calcification of the aortic valve annulus. There is calcification of the mitral valve annulus. Coronary arteries: Coronary artery calcifications may indicate coronary artery disease. Liver: Normal. No mass. Gallbladder and biliary ducts: The gallbladder is unremarkable Pancreas: Normal. No ductal dilation. Spleen: The spleen demonstrates punctate calcifications, consistent with remote granulomatous organism exposure. Adrenal glands: Normal. No mass. Kidneys and ureters: 2.1 cm simple cyst left kidney . No follow-up imaging recommended . Stomach and bowel: Diverticulosis of the rectosigmoid. No diverticulitis Appendix: No evidence of appendicitis. Intraperitoneal space: Unremarkable. No free air. No significant fluid collection. Vasculature: Unremarkable. No abdominal aortic aneurysm. Lymph nodes: Unremarkable. No enlarged lymph nodes. Urinary bladder: Unremarkable as visualized. Reproductive: The prostate is enlarged, greater than 5 cm. Recommend urology consult. Bones/joints: Unremarkable. No acute fracture. Soft tissues: Unremarkable. IMPRESSION: The prostate is enlarged, greater than 5 cm. Recommend urology consult. COMMENTS: Consistent with the [employer]'s Incidental Findings Committee white paper (J Am Malorie Radiol 2018): Any incidental renal lesion less than 1 cm or classified as too small to characterize, or any incidental cystic renal lesion characterized as simple-appearing, is likely benign. No follow-up imaging is recommended for these lesions per consensus recommendations based on imaging criteria.
--- NOTE | 2024-02-25 10:18 | HMH.EDGENADL ---
Discharge Plan Disposition Patient Disposition: Admitted Chief Complaint: Dizziness Prescriptions Prescriptions: No Action omega 1-bqp-hcv-fish oil [Fish Oil] 1,000 mg (120 mg-180 mg) capsule 1 cap PO DAILY fluorometholone 0.1 % drops,suspension Eye-Both TID doxycycline monohydrate 100 mg capsule PO BID tamsulosin [Flomax] 0.4 mg capsule 0.4 mg PO DAILY Qty: 30 3RF finasteride [Proscar] 5 mg tablet 5 mg PO DAILY Qty: 90 3RF mirabegron 50 mg tablet extended release 24 hr 50 mg PO DAILY Qty: 30 3RF rosuvastatin 5 mg tablet 5 mg PO DAILY lisinopril 10 mg tablet 10 mg PO DAILY aspirin [Adult Aspirin Regimen] 81 mg tablet,delayed release (DR/EC) 81 mg PO DAILY levothyroxine 75 mcg tablet 75 mcg PO DAILY ascorbate calcium-bioflavonoid 1,000-200 mg Tablet Extended Release 1 tab PO DAILY [id number] serr [Osteo Bi-Flex (5-Loxin)] 1,500-400-100 mg-unit-mg Tablet 1 tab PO DAILY Rx Instructions: give after food/meal uguanrii-lrf-fvqfc acid-vit K 400-40 mcg Capsule 1 cap PO DAILY famotidine [Pepcid] 40 mg tablet 40 mg PO DAILY Referrals Follow up/Referrals: Yohannes Saravia MD [Primary Care Provider] - See instructions Clinical Impressions Clinical Impression: Acute hyponatremia, Diarrhea, Vomiting Print Language Print Language: [place] Discharge ED Provider: Elio Garza General Adult HPI General Chief complaint: Dizziness Stated complaint: weakness, dehydrated, vomit, unsteady Time Seen by Provider: 02/25/24 10:08 History of Present Illness HPI narrative: Patient is a 83-year-old male with past medical history of acid reflux, diverticulosis, COPD well-controlled not on oxygen who presents emergency department for evaluation of multiple complaints. Over the last few days patient has had general weakness, skin burning , nonbloody diarrhea, left lower quadrant abdominal pain. His cough is not worse than his baseline cough and he has no shortness of breath or chest pain. Vomiting and diarrhea is only 1-2 episodes nonbloody no dysuria reported. There is been accompanying fever Tmax greater than 101 ?F. No other acute complaints at this time. Related Data Home Medications ?Medication ?Instructions ?Recorded ?Confirmed omega 0-xff-ibj-fish oil 1,000 mg 1 cap PO DAILY Supplement 05/12/17 12/27/23 (120 mg-180 mg) capsule (Fish Oil) aspirin 81 mg tablet,delayed 81 mg PO DAILY heart health 04/30/19 12/27/23 release (Adult Aspirin Regimen) lisinopril 10 mg tablet 10 mg PO DAILY High blood pressure 04/30/19 12/27/23 rosuvastatin 5 mg tablet 5 mg PO DAILY Cholesterol 04/30/19 12/27/23 levothyroxine 75 mcg tablet 75 mcg PO DAILY thyroid 09/18/21 12/27/23 ascorbate calcium-bioflavonoid ER 1 tab PO DAILY Supplement 04/05/22 12/27/23 1,000 mg-200 mg tab,extended release famotidine 40 mg tablet (Pepcid) 40 mg PO DAILY stomach 04/05/22 12/27/23 glucosamine WXr-Q7-Mlskyveoj 1 tab PO DAILY Supplement 04/05/22 12/27/23 maryellen 1,500 mg-400 unit-100 mg tablet (Osteo Bi-Flex (5-Loxin)) tlhamudodkhc-ltmeargu-lkgsl acid 1 cap PO DAILY Supplement 04/05/22 12/27/23 400 mcg-vitamin K 40 mcg capsule fluorometholone 0.1 % eye drp Eye-Both TID 06/14/23 12/27/23 drops,suspension doxycycline monohydrate 100 mg mg PO BID 07/27/23 12/27/23 capsule Previous Rx's ?Medication ?Instructions ?Recorded finasteride 5 mg tablet (Proscar) 5 mg PO DAILY #90 tabs 09/12/23 mirabegron 50 mg tablet,extended 50 mg PO DAILY #30 tabs 09/12/23 release 24 hr tamsulosin 0.4 mg capsule (Flomax) 0.4 mg PO DAILY #30 caps 09/12/23 Allergies Allergy/AdvReac Type Severity Reaction Status Date / Time Sulfa (Sulfonamide Allergy Unknown NAUSEA/VOMI Verified 12/27/23 09:44 Antibiotics) [facility] Disclaimer: The information contained in this section may have been updated after the patient was seen, as this information can be updated by other users. Medical History SNHL (sensorineural hearing loss) Moderate to severe SNHL bilaterally per Audiometric Right ear pain Bleeding from right ear Onychoincurvatum History of gastroesophageal reflux (GERD) History of diverticulitis History of stroke Surgical History Hx of prostate biopsy History of circumcision History of tonsillectomy left tonsil MASS History of ear surgery bilateral History of colonoscopy Family History Other Family history of acute congestive heart failure Family history of acute heart failure Family history of cancer Family history of emphysema Social History Smoking Status: Former smoker tobacco type: cigarettes packs per day: 1 alcohol intake: never substance use type: denies use current occupational status: retired and other Travel in the last 8 weeks: None household members: spouse housing: house marital status: current occupational exposures/hazards: No caffeine: Yes special adalid needs: No agree to transfusion: No do you feel safe at home: Yes victim of physical abuse: No victim of emotional abuse: No victim of sexual abuse: No would you like helpful sources: No Have you lived/traveled outside US in past 30 days?: No Contact w/someone who lives/traveled outside US past 30 days?: No Exposure to someone with infectious disease in past 14 days?: No Do you have a fever (greater than 100.4 F or 38 C)?: No Have you tested positive for COVID-19: No Exposed to someone with COVID-19 in past 14 days?: No Do you have a sore throat?: No Do you have a cough?: No Do you have any weakness?: No Do you have any diarrhea?: No Are you experiencing any unusual bleeding?: No Do you have any muscle aches/pain?: No Do you have any abdominal pain?: No Are you experiencing loss of taste or smell?: No Other Medical History Have you received the Flu Vaccine for this season: Yes Have you received the Pneumonia Vaccine: Yes ROS Obtained: Yes Systems reviewed as appropriate & no additional complaints except as documented Physical Exam General General appearance: alert and in no apparent distress Head Head exam: atraumatic and normocephalic Eye Eye exam: Present PERRL ENT ENT exam: Present mucous membranes moist Neck Neck exam: Present normal inspection Chest Chest inspection: Present normal inspection and symmetric chest wall rise Respiratory Respiratory exam: Present normal lung sounds bilaterally; Absent respiratory distress Cardiovascular Cardiovascular exam: Present regular rate and normal rhythm Abdominal Exam Abdominal exam: Present soft and tenderness (Mild, left lower quadrant); Absent guarding or rebound Extremities Exam Extremities exam: Present normal inspection Neurological Exam Neurological exam: Present alert Psychiatric Psychiatric exam: Present normal affect Skin Skin exam: Present warm and dry Medical Decision Making Medical Records Screening: Per USPSTF and CDC recommendations, given the prevalence of disease in our region, it is our hospital?s policy to screen for HIV and viral Hepatitis for all patients aged 18 and over and those with ongoing risk factors. Zaki Inquiry Pt receiving controlled substance: No Vital Signs: 02/25/24 10:15 02/25/24 10:24 02/25/24 10:30 Temperature 98.8 F Temperature Source Oral Pulse Rate 62 67 Pulse Rate [Right Radial] 67 Respiratory Rate 18 13 25 H Blood Pressure 149/63 H Blood Pressure [Right Arm] 130/54 L Blood Pressure Mean [Right Arm] 79 02 Sat by Pulse Oximetry 96 95 93 L Oxygen Delivery Method Room Air 02/25/24 10:57 02/25/24 11:00 02/25/24 11:01 Temperature Temperature Source Pulse Rate 71 72 65 Pulse Rate [Right Radial] Respiratory Rate 13 15 Blood Pressure 133/68 Blood Pressure [Right Arm] Blood Pressure Mean [Right Arm] 02 Sat by Pulse Oximetry 97 75 L 95 Oxygen Delivery Method 02/25/24 11:15 02/25/24 11:30 Temperature Temperature Source Pulse Rate 55 L Pulse Rate [Right Radial] Respiratory Rate 13 21 Blood Pressure 121/54 L Blood Pressure [Right Arm] Blood Pressure Mean [Right Arm] 02 Sat by Pulse Oximetry 92 L Oxygen Delivery Method Lab Data Lab Results 02/25/24 10:16: WBC 8.5, RBC 3.30 L, Hgb 10.1 L, Hct 30.5 L, MCV 92.4, MCH 30.6, MCHC 33.1, RDW 14.4, Plt Count 279, MPV 9.0, Neut % (Auto) 63.9, Lymph % (Auto) 20.4, [place] % (Auto) 14.8 H, Eos % (Auto) 0.5, Baso % (Auto) 0.2, Neut # (Auto) 5.5, Lymph # (Auto) 1.7, [place] # (Auto) 1.3 H, Eos # (Auto) 1.3 H, Baso # (Auto) 0.0, Sodium 130 L, Potassium 4.2, Chloride 103, Carbon Dioxide 25, Anion Gap 6.2, BUN 26 H, Creatinine 1.50 H, Estimated Creat Clear 33, Estimated GFR 45 L, Est GFR ( Amer) 54 L, Glucose 92, Calcium 9.3, Magnesium 1.8, Total Bilirubin 0.2, AST 50, ALT 29, Alkaline Phosphatase 88, Total Protein 6.5, Albumin 3.8, Globulin 2.7, Albumin/Globulin Ratio 1.4, Lipase 153 02/25/24 11:43: Urine Color Yellow, Urine Appearance Clear, Urine pH 5.5, Ur Specific [place] 1.015, Urine Protein Negative, Urine Glucose (UA) Negative, Urine Ketones Negative, Urine Blood Negative, Urine Nitrate Negative, Urine Bilirubin Negative, Urine Urobilinogen 0.2, Ur Leukocyte Esterase Negative, Urine RBC None, Urine WBC Occasional 02/25/24 10:16 02/25/24 10:16 Orders (Tests/Meds): ED MEDICATIONS Discontinued Medications Generic Name Dose Route Start Last Admin Trade Name Bobq PRN Reason Stop Dose Admin Acetaminophen 1,000 mg 02/25/24 10:17 02/25/24 10:45 Acetaminophen 1,000mg/100ml Vial IV 02/25/24 10:18 1,000 mg ONCE ONE Administration Lactated Ringer's 1,000 mls @ 999 mls/hr 02/25/24 10:16 02/25/24 10:45 Lactated Ringer's 1000 Ml Bag IV 02/25/24 11:16 999 mls/hr .Q1H1M ONE Administration Iopamidol 75 ml 02/25/24 10:51 02/25/24 10:52 Iopamidol-370 (76%);100ml Bottle IV 02/25/24 10:52 75 ml ONCE ONE Administration Ondansetron HCl 4 mg 02/25/24 10:17 02/25/24 10:46 Ondansetron 4mg/2ml Vial IV 02/25/24 10:18 4 mg ONCE ONE Administration Sodium Chloride 10 ml 02/25/24 10:51 02/25/24 10:52 Sodium Chloride 0.9% 10ml Syr (Rad Only) IV 02/25/24 10:52 10 ml ONCE ONE Administration ORDERS Category Date Time Status CT abdomen pelvis w con Stat Cat Scan 02/25/24 10:[address] head/brain wo con Stat Cat Scan 02/25/24 12:46 Completed CBC w/Auto Diff [Complete Blood Count Auto Diff] Stat Lab 02/25/24 10:16 Completed CMP [Comprehensive Metabolic Panel] Stat Lab 02/25/24 10:16 Completed Lipase Stat Lab 02/25/24 10:16 Completed MG [Magnesium] Stat Lab 02/25/24 10:16 Completed Rapid PCR Covid and Flu A/B Stat Lab 02/25/24 10:30 Received UA [Urinalysis and Microscopic] Stat Lab 02/25/24 11:43 Completed ECG Data Tracing #1: Independently interpreted by me rate is 61, rhythm is regular, axis is rightward deviated, no ST elevation in anatomical contiguous leads, QTc 413 Medical Decision Narrative: In summary patient is 83-year-old male with past medical history described above who presents emergency department for evaluation of vomiting, diarrhea, left lower quadrant abdominal pain. Patient is hemodynamically stable nontoxic-appearing upon arrival, afebrile. Differential includes diverticulitis, nonspecific viral syndrome, among others. Workup we conducted with hematologic labs, viral swab, urinalysis, CT abdomen pelvis IV contrast. Initial interventions include Tylenol, Zofran, crystalloid bolus. Initial workup reviewed by me hematologic labs remarkable for acute hyponatremia in the setting of vomiting and diarrhea, mildly elevated creatinine which is largely consistent with his baseline no other critical electrolyte abnormality. Urinalysis not consistent with infection. Abdomen pelvis CT shows prostate is enlarged greater than 5 cm which can be evaluated on an outpatient basis. On repeat evaluation patient had holocranial headache which has been going on throughout this course which he elaborated on, given his age will get a noncontrasted CT scan of the head. Noncontrasted CT scan of the head informally visualized by me, no acute large intraparenchymal hemorrhage. Opacities in the left frontal sinuses consistent with sinusitis however given duration of symptoms and lack of fever antibiotics will be deferred at this time. Patient will benefit from observation and the case was discussed with Dr. Garcia regarding management patient will be started on normal saline maintenance fluids will be admitted to his service for continued evaluation at this time. Decision making discussion as to CODE STATUS was had and patient and spouse were having discussion at bedside at time of admission as to his wishes. Critical Care Critical Care Time Critical Care Time: No
[2024-02-25 10:32] LABS: Albumin Level 3.8 g/dl (3.5-5.0); Chloride 103 mmol/L (98-107); Potassium 4.2 mmoL/L (3.5-5.1); Sodium 130 mmol/L (136-145)
[2024-02-25 10:34] LABS: Blood Urea Nitrogen 26 mg/dl (9-20); Creatinine Clearance Estimated 33 mL/min (50-200); Estimated Glomerular Filt Rate 45 ml/min (>60); GFR (African American) 54 ML/MIN (>60)
[2024-02-25 10:35] LABS: Alanine Aminotransferase 29 U/L (12-78); Albumin/Globulin Ratio 1.4 (1.1-1.8); Alkaline Phosphatase 88 U/L (38-126); Anion Gap 6.2 mEq/L (5-15); Aspartate Amino Transferase 50 U/L (17-59); Bilirubin,Total 0.2 mg/dl (0.2-1.3); Calcium 9.3 mg/dl (8.4-10.2); Carbon Dioxide 25 mmol/L (22.0-30.0); Globulin 2.7 g/dL (1.3-3.2); Glucose 92 mg/dl (74-100); Lipase 153 U/L (23-300); Total Protein,Serum 6.5 g/dl (6.3-8.2)
[2024-02-25 10:38] LABS: Hematocrit 30.5 % (42.0-52.0); Hemoglobin 10.1 g/dL (14.1-18.0); Mean Corpuscular HGB Conc 33.1 g/dL (31.8-35.4); Mean Corpuscular Hemoglobin 30.6 pg (27.0-31.2); Mean Corpuscular Volume 92.4 fl (80-94); Neutrophils % 63.9 % (37.0-80.0); Platelet Count 279 K/mm3 (142-424); Red Cell Distribution Width 14.4 % (11.5-17.5); White Blood Count 8.5 K/mm3 (4.8-10.8)
[2024-02-25 10:39] LABS: Basophils % 0.2 % (0.1-2.0); Eosinophils # 1.3 K/mm3 (0.0-0.4); Eosinophils % 0.5 % (0.1-12.0); Lymphocytes # 1.7 K/mm3 (0.7-4.5); Lymphocytes % 20.4 % (10-50); Monocytes # 1.3 K/mm3 (0.1-1.0); Monocytes % 14.8 % (1.7-9.3); Neutrophils # 5.5 K/mm3 (1.8-7.8)
[2024-02-25 10:39] LABS: Influenza A, PCR Not Detected (NotDetected); Influenza B, PCR Not Detected (NotDetected)
[2024-02-25] MEDS: ACETAMINOPHEN 1,000MG/100ML VIAL 1000 MG IV (10:45)
[2024-02-25] MEDS: LACTATED RINGERS 1000ML 1,000 ML 999 ML IV (10:45)
[2024-02-25] MEDS: ONDANSETRON 4MG/2ML VIAL 4 MG IV (10:46)
[2024-02-25] MEDS: SODIUM CHLORIDE 0.9% 10ML SYR (RAD ONLY) 10 ML IV (10:52)
[2024-02-25] MEDS: IOPAMIDOL-370 (76%);100ML BOTTLE 75 ML IV (10:52)
[2024-02-25 11:49] LABS: Magnesium 1.8 mg/dl (1.6-2.3)
[2024-02-25 11:57] LABS: Microscopic, Urine URINE MICROSCOPIC (MICROSCOPIC)
--- NOTE | 2024-02-25 12:46 | CT_ITS ---
PROCEDURE INFORMATION: Exam: CT Head Without Contrast Exam date and time: 02/25/2024 1:09 PM Age: 83 years old Clinical indication: Pain; Headache TECHNIQUE: Imaging protocol: Computed tomography of the head without contrast. Radiation optimization: All CT scans at this facility use at least one of these dose optimization techniques: automated exposure control; mA and/or kV adjustment per patient size (includes targeted exams where dose is matched to clinical indication); or iterative reconstruction. COMPARISON: CT HEAD/BRAIN WO CON 02/25/2024 1:09 PM FINDINGS: Brain: No acute intracranial hemorrhage.. There is moderate diffuse heterogeneity of the white matter attenuation, consistent with chronic white matter ischemic changes. Moderate cerebral atrophy. 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 Paranasal sinuses: Opacities in the frontal sinuses and ethmoid sinuses and maxillary sinuses consistent with sinusitis. Mastoid air cells: Visualized mastoid air cells are well aerated. Bones: Unremarkable. No acute fracture. Soft tissues: Unremarkable. IMPRESSION: 1. No acute intracranial hemorrhage.. 2. Opacities in the frontal sinuses and ethmoid sinuses and maxillary sinuses consistent with sinusitis.
[2024-02-25 12:48] LABS: Appearance,Urine CLEAR (Clear); Bilirubin,Urine Negative (Negative); Blood, Urine Negative (Negative); Color,Urine YELLOW (Yellow); Glucose,Urine (UA) Negative (Negative); Ketones,Urine Negative (Negative); Leukocyte Esterase,Urine Negative (Negative); Nitrate,Urine Negative (Negative); PH,Urine 5.5 (5.0-8.5); Protein,Urine Negative (Negative); Specific Gravity, Urine 1.015 (1.005-1.030); Urobilinogen,Urine 0.2 EU/dl (0.2)
--- NOTE | 2024-02-25 12:59 | PC.NURSE ---
waiting on covid results, a few more test to run before pt gets put on the machine
[2024-02-25 13:39] LABS: WBC,Urine Occasional #/hpf (0-3)
--- NOTE | 2024-02-25 13:44 | PC.NURSE ---
speaking with about admission
[2024-02-25 14:45] LABS: Coronavirus 19, PCR Detected (NotDetected)
--- NOTE | 2024-02-25 14:48 | HMH.PHAINT1 ---
Pharmacy Intervention Comments: MEDICATION RECONCILIATION COMPLETED ON PATIENT USING EXTERNAL FILL HISTORY FROM PHARMACY. -JUNE CONLEY, ALFONSOD
--- NOTE | 2024-02-25 15:28 | PC.NURSE ---
report called to dAali
--- NOTE | 2024-02-25 16:14 | PC.NURSE ---
arrived by w/c from ED
--- NOTE | 2024-02-25 17:16 | EXP.HP ---
History of Present Illness *Admission Date: 02/25/24 *Reason for visit:: Vomiting and diarrhea *History of present illness: Mr. Robert is an 83 year old patient of [facility] who usually sees Dr. Saravia for his primary care. He presented to [facility] ER this morning with a one day history of nausea, vomiting and diarrhea. He had concerns for dehydration. He had unknown sick contacts and no recent travel. Emesis consisted of ingested food. [facility] Disclaimer: The information contained in this section may have been updated after the patient was seen, as this information can be updated by other users. Medical History (Updated 02/25/24 @ 17:23 by Aman Garcia MD) Hiatal hernia Elevated PSA BPH (benign prostatic hyperplasia) C. difficile colitis COPD (chronic obstructive pulmonary disease) Diverticulosis GERD (gastroesophageal reflux disease) Hyperlipidemia Hypothyroid GI bleed Vasovagal syncope Iron deficiency anemia due to chronic blood loss SNHL (sensorineural hearing loss) Right ear pain Bleeding from right ear Onychoincurvatum History of diverticulitis History of stroke Surgical History (Updated 02/25/24 @ 17:22 by Aman Garcia MD) History of esophagogastroduodenoscopy (EGD) Hx of prostate biopsy History of circumcision History of tonsillectomy History of ear surgery History of colonoscopy Family History Family history of acute congestive heart failure Family history of acute heart failure Family history of cancer Family history of emphysema Social History Smoking Status: Former smoker tobacco type: cigarettes packs per day: 1 alcohol intake: never substance use type: denies use current occupational status: retired and other Travel in the last 8 weeks: None household members: spouse housing: house marital status: current occupational exposures/hazards: No caffeine: Yes special adalid needs: No agree to transfusion: No do you feel safe at home: Yes victim of physical abuse: No victim of emotional abuse: No victim of sexual abuse: No would you like helpful sources: No Have you lived/traveled outside US in past 30 days?: No Contact w/someone who lives/traveled outside US past 30 days?: No Exposure to someone with infectious disease in past 14 days?: No Do you have a fever (greater than 100.4 F or 38 C)?: No Have you tested positive for COVID-19: No Exposed to someone with COVID-19 in past 14 days?: No Do you have a sore throat?: No Do you have a cough?: No Do you have any weakness?: No Do you have any diarrhea?: No Are you experiencing any unusual bleeding?: No Do you have any muscle aches/pain?: No Do you have any abdominal pain?: No Are you experiencing loss of taste or smell?: No Other Medical History Have you received the Flu Vaccine for this season: Yes Have you received the Pneumonia Vaccine: Yes Review of Systems Constitutional Constitutional: Denies chills and Denies fever(s) ENT Ears, Nose, Mouth, and Throat: Denies dizziness *Cardiovascular Cardiovascular: Denies chest pain and Denies dyspnea *Respiratory Respiratory: Reports cough and Denies dyspnea *Gastrointestinal Gastrointestinal: Reports as per HPI *Genitourinary Genitourinary: Denies difficulty urinating *Musculoskeletal Musculoskeletal: Denies arthralgias *Neurologic Neurologic: Denies dizziness Meds Home Medications and Allergies Home Medications ?Medication ?Instructions ?Recorded ?Confirmed ?Type aspirin 81 mg tablet,delayed 81 mg PO DAILY 04/30/19 02/25/24 History release (Adult Aspirin Regimen) levothyroxine 75 mcg tablet 75 mcg PO DAILY 02/25/24 02/25/24 History lisinopril 10 mg tablet 10 mg PO DAILY 02/25/24 02/25/24 History rosuvastatin 5 mg tablet 5 mg PO HS 02/25/24 02/25/24 History New Prescriptions to Start Prescriptions: Allergies Allergy/AdvReac Type Severity Reaction Status Date / Time Sulfa (Sulfonamide Allergy Unknown NAUSEA/VOMI Verified 12/27/23 09:44 Antibiotics) TING Exam Data for Last 24 hours Vital signs and Labs for Last 24 Hours: Temp Pulse Resp BP Pulse Ox O2 Del Method 98.2 F 55 L 18 121/51 L 93 L Room Air 02/25/24 16:27 02/25/24 16:27 02/25/24 16:27 02/25/24 16:27 02/25/24 16:00 02/25/24 16:27 Laboratory Results - last 24 hr 02/25/24 10:16: WBC 8.5, RBC 3.30 L, Hgb 10.1 L, Hct 30.5 L, MCV 92.4, MCH 30.6, MCHC 33.1, RDW 14.4, Plt Count 279, MPV 9.0, Neut % (Auto) 63.9, Lymph % (Auto) 20.4, [place] % (Auto) 14.8 H, Eos % (Auto) 0.5, Baso % (Auto) 0.2, Neut # (Auto) 5.5, Lymph # (Auto) 1.7, [place] # (Auto) 1.3 H, Eos # (Auto) 1.3 H, Baso # (Auto) 0.0, Sodium 130 L, Potassium 4.2, Chloride 103, Carbon Dioxide 25, Anion Gap 6.2, BUN 26 H, Creatinine 1.50 H, Estimated Creat Clear 33, Estimated GFR 45 L, Est GFR ( Amer) 54 L, Glucose 92, Calcium 9.3, Magnesium 1.8, Total Bilirubin 0.2, AST 50, ALT 29, Alkaline Phosphatase 88, Total Protein 6.5, Albumin 3.8, Globulin 2.7, Albumin/Globulin Ratio 1.4, Lipase 153 02/25/24 10:30: SARS-CoV-2 (PCR) Detected A, Influenza A Untype (PCR) Not detected, Influenza Type B (PCR) Not detected 02/25/24 11:43: Urine Color Yellow, Urine Appearance Clear, Urine pH 5.5, Ur Specific [place] 1.015, Urine Protein Negative, Urine Glucose (UA) Negative, Urine Ketones Negative, Urine Blood Negative, Urine Nitrate Negative, Urine Bilirubin Negative, Urine Urobilinogen 0.2, Ur Leukocyte Esterase Negative, Urine RBC None, Urine WBC Occasional I & O for Last 24 hours: Intake & Output 02/22/24 02/23/24 02/24/24 02/25/24 23:59 23:59 23:59 23:59 Weight 144 lb 5 oz Constitutional Constitutional: no acute distress *Routine HEENT Exam Head: Present normocephalic Eye: Present EOMI and PERRL ENT: Present mucous membranes moist *Routine Neck Exam Neck: Present supple; Absent lymphadenopathy *Routine Respiratory Exam Respiratory: Present CTA bilaterally *Routine Cardiovascular Exam Cardiovascular: Present RRR *Routine Abdominal Exam Abdominal: Present soft and normoactive bowel sounds; Absent tenderness *Routine Rectal Exam Rectal:: deferred *Routine Genitalia Exam Genitalia:: deferred *Routine Extremities Exam Extremities: Absent cyanosis, clubbing or edema *Routine Skin Exam Skin: Present warm; Absent rash *Routine Neurological Exam Neurological: Present alert and oriented X3 Assessment and Plan *Assessment and plan (1) Vomiting: Status: Acute Category: Medical Code(s): R11.10 - Vomiting, unspecified (2) Diarrhea: Status: Acute Category: Medical Code(s): R19.7 - Diarrhea, unspecified (3) Acute hyponatremia: Status: Acute Category: Medical Code(s): E87.1 - Hypo-osmolality and hyponatremia (4) MONICA (acute kidney injury): Status: Acute Category: Medical Code(s): N17.9 - Acute kidney failure, unspecified (5) COVID-19: Status: Acute Category: Medical Code(s): U07.1 - COVID-19 Plan Patient admitted for further evaluation and management. He feels better, wants to try something to eat. Will advance diet. Check labs in the morning.
[2024-02-25] MEDS: 0.9 % SODIUM CHLORIDE 1000ML 1,000 ML 125 ML IV (17:28)
[2024-02-25] MEDS: ACETAMINOPHEN 325MG TAB 650 MG PO (21:33)
[2024-02-26] VITALS: BP 109/47; PULSE 53; RESP 16; TEMP 37.2; O2SAT 91
[2024-02-26] MEDS: 0.9 % SODIUM CHLORIDE 1000ML 1,000 ML 125 ML IV (01:13)
[2024-02-26 04:00] VITALS: BP 119/52; PULSE 56; RESP 16; TEMP 37.2; O2SAT 90; BMI 23.1
--- NOTE | 2024-02-26 05:15 | PC.NURSE ---
Patient had a decent night. stayed at bedside through the shift. Patient slept on and off. is very concerned over patient Temperature . She stated that the she believes the patient is feverish and she was unsure how they could go home today because of his temperature. Patient temperature was checked multiple times thorough the shift and the patient never had a temperature. See vital signs. was also concerned that the patient was voiding every 5 min. RN educated her that the patient is getting fluids and that would increase his need to void. A brief was placed on the patient at the request due to her being worried the patient would not be able to use the urinal in time. The patient has had no complaints through the night and has rested comfortable.
[2024-02-26] MEDS: ACETAMINOPHEN 325MG TAB 650 MG PO (06:33)
[2024-02-26 07:42] VITALS: BP 128/48; PULSE 62; RESP 18; TEMP 37.1; O2SAT 95
--- NOTE | 2024-02-26 08:14 | EXP.ACUTE.PN ---
Subjective *Date: 02/26/24 *Time: 08:14 Interval history: Patient feels better this morning, was able to tolerate a regular diet for breakfast, anxious to go home. Medical Exam Vital signs and Labs for Last 24 Hours: Vital Signs Temp Pulse Pulse Resp BP BP Pulse Ox 02/26/24 07:42 98.7 F 62 18 128/48 L 95 02/26/24 06:56 02/26/24 05:00 02/26/24 04:00 98.9 F 56 L 16 119/52 L 90 L 02/26/24 03:00 02/26/24 01:00 02/26/24 00:00 98.9 F 53 L 16 109/47 L 91 L 02/25/24 23:00 02/25/24 21:00 02/25/24 20:00 02/25/24 20:00 99.4 F 54 L 17 121/57 L 92 L 02/25/24 18:33 02/25/24 17:00 02/25/24 16:27 98.2 F 55 L 18 121/51 L 02/25/24 16:00 98.9 F 50 L 18 121/51 L 93 L 02/25/24 15:00 49 L 121/51 L 94 L 02/25/24 14:45 51 L 95 02/25/24 14:30 51 L 128/58 L 93 L 02/25/24 14:15 56 L 18 93 L 02/25/24 14:03 51 L 19 114/47 L 94 L 02/25/24 14:00 41 L 20 94 L 02/25/24 13:30 56 L 13 112/50 L 93 L 02/25/24 13:00 53 L 14 112/49 L 93 L 02/25/24 12:30 53 L 21 104/43 L 93 L 02/25/24 12:00 60 22 104/43 L 94 L 02/25/24 11:30 55 L 21 121/54 L 92 L 02/25/24 11:15 13 02/25/24 11:01 65 15 133/68 95 02/25/24 11:00 72 13 75 L 02/25/24 10:57 71 97 02/25/24 10:30 67 25 H 149/63 H 93 L 02/25/24 10:24 62 13 95 02/25/24 10:15 98.8 F 67 18 130/54 L 96 O2 Del Method 02/26/24 07:42 Room Air 02/26/24 06:56 Room Air 02/26/24 05:00 Room Air 02/26/24 04:00 Room Air 02/26/24 03:00 Room Air 02/26/24 01:00 Room Air 02/26/24 00:00 Room Air 02/25/24 23:00 Room Air 02/25/24 21:00 Room Air 02/25/24 20:00 Room Air 02/25/24 20:00 Room Air 02/25/24 18:33 Room Air 02/25/24 17:00 Room Air 02/25/24 16:27 Room Air 02/25/24 16:00 Room Air 02/25/24 15:00 02/25/24 14:45 02/25/24 14:30 02/25/24 14:15 02/25/24 14:03 02/25/24 14:00 02/25/24 13:30 02/25/24 13:00 02/25/24 12:30 02/25/24 12:00 02/25/24 11:30 02/25/24 11:15 02/25/24 11:01 02/25/24 11:00 02/25/24 10:57 02/25/24 10:30 02/25/24 10:24 02/25/24 10:15 Room Air Intake and Output 02/25/24 02/26/24 02/26/24 23:59 07:59 15:59 Intake Total 380 / 730 350 / 350 Output Total 0 / 0 0 / 0 Balance 380 / 730 350 / 350 Intake: Intake, Oral Amount 380 / 730 350 / 350 Output: Output, Urine Amount 0 / 0 0 / 0 Other: Number of Unmeasured Voids 1 2 Weight 144 lb 5 oz 144 lb Patient Weight 02/26/24 23:59 Weight 144 lb Laboratory Results - last 24 hr 02/25/24 10:16: WBC 8.5, RBC 3.30 L, Hgb 10.1 L, Hct 30.5 L, MCV 92.4, MCH 30.6, MCHC 33.1, RDW 14.4, Plt Count 279, MPV 9.0, Neut % (Auto) 63.9, Lymph % (Auto) 20.4, Mccormick % (Auto) 14.8 H, Eos % (Auto) 0.5, Baso % (Auto) 0.2, Neut # (Auto) 5.5, Lymph # (Auto) 1.7, Mccormick # (Auto) 1.3 H, Eos # (Auto) 1.3 H, Baso # (Auto) 0.0, Sodium 130 L, Potassium 4.2, Chloride 103, Carbon Dioxide 25, Anion Gap 6.2, BUN 26 H, Creatinine 1.50 H, Estimated Creat Clear 33, Estimated GFR 45 L, Est GFR ( Amer) 54 L, Glucose 92, Calcium 9.3, Magnesium 1.8, Total Bilirubin 0.2, AST 50, ALT 29, Alkaline Phosphatase 88, Total Protein 6.5, Albumin 3.8, Globulin 2.7, Albumin/Globulin Ratio 1.4, Lipase 153 02/25/24 10:30: SARS-CoV-2 (PCR) Detected A, Influenza A Untype (PCR) Not detected, Influenza Type B (PCR) Not detected 02/25/24 11:43: Urine Color Yellow, Urine Appearance Clear, Urine pH 5.5, Ur Specific [place] 1.015, Urine Protein Negative, Urine Glucose (UA) Negative, Urine Ketones Negative, Urine Blood Negative, Urine Nitrate Negative, Urine Bilirubin Negative, Urine Urobilinogen 0.2, Ur Leukocyte Esterase Negative, Urine RBC None, Urine WBC Occasional I & O for Labs for Last 24 Hours: Intake & Output 02/23/24 02/24/24 02/25/24 02/26/24 23:59 23:59 23:59 23:59 Intake Total 380 / 730 350 / 350 Output Total 0 / 0 0 / 0 Balance 380 / 730 350 / 350 Weight 144 lb 5 oz 144 lb Constitutional: Present no acute distress Respiratory: Present normal respiratory effort Cardiac: Present Reg Rate and Rhythm GI: Present normal bowel sounds; Absent tenderness Extremities: Present normal inspection and full ROM Skin: Present intact; Absent erythema Neuro: Present Grossly Intact and moves all extremities Assessment and Plan *Assessment and plan (1) Vomiting: Status: Acute Category: Medical Code(s): R11.10 - Vomiting, unspecified (2) Diarrhea: Status: Acute Category: Medical Code(s): R19.7 - Diarrhea, unspecified (3) Acute hyponatremia: Status: Acute Category: Medical Code(s): E87.1 - Hypo-osmolality and hyponatremia (4) MONICA (acute kidney injury): Status: Acute Category: Medical Code(s): N17.9 - Acute kidney failure, unspecified (5) COVID-19: Status: Acute Category: Medical Code(s): U07.1 - COVID-19 Plan OK for discharge, see orders.
[2024-02-26 08:32] LABS: Chloride 105 mmol/L (98-107); Potassium 3.9 mmoL/L (3.5-5.1); Sodium 128 mmol/L (136-145)
[2024-02-26 08:35] LABS: Blood Urea Nitrogen 23 mg/dl (9-20); Calcium 8.2 mg/dl (8.4-10.2); Carbon Dioxide 20 mmol/L (22.0-30.0); Creatinine Clearance Estimated 36 mL/min (50-200); Estimated Glomerular Filt Rate 48 ml/min (>60); GFR (African American) 58 ML/MIN (>60); Glucose 104 mg/dl (74-100)
[2024-02-26 08:37] LABS: Anion Gap 6.9 mEq/L (5-15)
[2024-02-26 08:50] LABS: Basophils % 0.3 % (0.1-2.0); Eosinophils % 0.4 % (0.1-12.0); Hematocrit 26.6 % (42.0-52.0); Hemoglobin 9.2 g/dL (14.1-18.0); Lymphocytes # 1.7 K/mm3 (0.7-4.5); Lymphocytes % 24.1 % (10-50); Mean Corpuscular HGB Conc 34.6 g/dL (31.8-35.4); Mean Corpuscular Hemoglobin 32.3 pg (27.0-31.2); Mean Corpuscular Volume 93.3 fl (80-94); Mean Platelet Volume 9.2 fl (7.4-10.4); Monocytes # 0.9 K/mm3 (0.1-1.0); Neutrophils # 4.5 K/mm3 (1.8-7.8); Neutrophils % 62.9 % (37.0-80.0); Platelet Count 241 K/mm3 (142-424); Red Blood Count 2.85 M/mm3 (4.60-6.20); Red Cell Distribution Width 14.2 % (11.5-17.5); White Blood Count 7.1 K/mm3 (4.8-10.8)
--- NOTE | 2024-02-27 10:05 | SW/DCPLANNER ---
Spoke with patient on the phone. Patient stated that he is still feeling rough and that he thinks his has what he has. Patient stated that he is aware of his upcoming appointment and that he has no concern or questions at this time. Esteban CHAVEZ Electrician [employer]ifier Maintenance
--- NOTE | 2024-03-05 12:30 | P.DS_ITS ---
General Admission date:: 02/25/24 Discharge date: 02/26/24 HPI HPI HPI: Mr. Robert is an 83 year old patient of [facility] who usually sees Dr. Saravia for his primary care. He presented to [facility] ER this morning with a one day history of nausea, vomiting and diarrhea. He had concerns for dehydration. He had unknown sick contacts and no recent travel. Emesis consisted of ingested food. Hospital Course Hospital Course Hospital Course: The patient was admitted for further evaluation and treatment. His COVID test was positive. By 02/26/2024, he was feeling much better and was able to tolerate a regular diet. He was anxious to go home. He was stable to be discharged home and will follow-up with Dr. Saravia. Exam Data for Last 24 hours Vital signs and Labs for Last 24 Hours: Temp Pulse Resp BP Pulse Ox O2 Del Method 98.7 F 62 18 128/48 L 95 Room Air 02/26/24 07:42 02/26/24 07:42 02/26/24 07:42 02/26/24 07:42 02/26/24 07:42 02/26/24 09:00 Narrative: Constitutional Constitutional: no acute distress *Routine HEENT Exam Head: Present normocephalic Eye: Present EOMI and PERRL ENT: Present mucous membranes moist *Routine Neck Exam Neck: Present supple; Absent lymphadenopathy *Routine Respiratory Exam Respiratory: Present CTA bilaterally *Routine Cardiovascular Exam Cardiovascular: Present RRR *Routine Abdominal Exam Abdominal: Present soft and normoactive bowel sounds; Absent tenderness *Routine Rectal Exam Rectal:: deferred *Routine Genitalia Exam Genitalia:: deferred *Routine Extremities Exam Extremities: Absent cyanosis, clubbing or edema *Routine Skin Exam Skin: Present warm; Absent rash *Routine Neurological Exam Neurological: Present alert and oriented X3 DS: Diagnosis Discharge Diagnosis (1) Vomiting: Status: Acute Code(s): R11.10 - Vomiting, unspecified (2) Diarrhea: Status: Acute Code(s): R19.7 - Diarrhea, unspecified (3) Acute hyponatremia: Status: Acute Code(s): E87.1 - Hypo-osmolality and hyponatremia (4) MONICA (acute kidney injury): Status: Acute Code(s): N17.9 - Acute kidney failure, unspecified (5) COVID-19: Status: Acute Code(s): U07.1 - COVID-19 Meds Home Medications and Allergies Home Medications ?Medication ?Instructions ?Recorded ?Confirmed ?Type aspirin 81 mg tablet,delayed 81 mg PO DAILY 04/30/19 02/25/24 History release (Adult Aspirin Regimen) levothyroxine 75 mcg tablet 75 mcg PO DAILY 02/25/24 02/25/24 History lisinopril 10 mg tablet 10 mg PO DAILY 02/25/24 02/25/24 History rosuvastatin 5 mg tablet 5 mg PO HS 02/25/24 02/25/24 History New Prescriptions to Start Prescriptions: Allergies Allergy/AdvReac Type Severity Reaction Status Date / Time Sulfa (Sulfonamide Allergy Unknown NAUSEA/VOMI Verified 12/27/23 09:44 Antibiotics) TING Discharge Plan Disposition Patient Disposition: Home, Self-Care Condition: Fair Follow up Plan Follow up with: Yohannes Saravia MD [Primary Care Provider] - 03/06/24 (please call for time of appointment ) Prescriptions/Medication Reconciliation: Continued aspirin [Adult Aspirin Regimen] 81 mg tablet,delayed release (DR/EC) 81 mg PO DAILY levothyroxine 75 mcg tablet 75 mcg PO DAILY lisinopril 10 mg tablet 10 mg PO DAILY rosuvastatin 5 mg tablet 5 mg PO HS Problem Reconciliation Problems Reviewed?: Yes Patient Discharge Instructions ACTIVITY: Continue current activity DIET: continue same diet Patient Instructions: Hyponatremia-Adult, COVID-19 Print Language: Australian Providers Primary Care Provider: Yohannes Saravia Admit Provider: Aman Garcia Attending Provider: Aman Garcia
== END 2024-02-26 10:30 | disposition home or self-care (01) ==
LOC: ER 14:00 → 2ND 15:14
PROVIDERS: Admitting Provider Family Medicine; Emergency Provider Emergency Medicine; PCP Family Medicine; Visit Provider Family Medicine
DX: E87.1 Hypo-osmolality and hyponatremia (principal); R11.10 Vomiting, unspecified; R19.7 Diarrhea, unspecified; N17.9 Acute kidney failure, unspecified; E86.0 Dehydration; U07.1 COVID-19; J44.9 Chronic obstructive pulmonary disease, unspecified; E78.5 Hyperlipidemia, unspecified; Z87.891 Personal history of nicotine dependence
CPT/HCPCS: 36415; 70450; 74177; 80048; 80053; 81001; 83690; 83735; 85025; 87636; 93005; 99285; G0378; J0131; J2405; J7030; J7120; Q9967

== ENCOUNTER 2024-06-06 15:32 | Outpatient (CLI) | payer MEDICARE, SELFPAY ==
--- NOTE | 2024-06-06 15:30 | CT_ITS ---
FINAL REPORT TECHNIQUE: Axial, coronal, and sagittal images of the paranasal sinuses were obtained. This study was performed with techniques to keep radiation doses as low as reasonably achievable (ALARA). Individualized dose reduction techniques using automated exposure control or adjustment of mA and/or kV according to the patient's size were employed. CLINICAL HISTORY: evaluate the nasal passages after fall COMPARISON: None FINDINGS: CT SINUSES: There is advanced ethmoid and bilateral maxillary sinusitis present. There is opacification and presumed obstruction of the ostiomeatal complexes bilaterally. There is partial opacification of the frontal sinus with a small amount of fluid. The sphenoid sinus is clear. There is nasal septal deviation to the right of 4 mm. There is a jarod bullosa of the left middle turbinate. There is soft tissue fullness involving the posterior aspect of the left middle turbinate, and a mass or polyp is not excluded. This causes narrowing of the left nasal passage. Recommend correlation with direct visualization. No evidence of nasal fracture is identified. IMPRESSION: Advanced ethmoid and bilateral maxillary sinusitis with ostiomeatal complex obstruction as described. Soft tissue fullness of the posterior aspect of the left middle turbinate, polyp or mass not excluded. This causes narrowing of the left nasal passage. Reviewed, Interpreted and Dictated by Belinda Bradshwa MD Transcribed by Arlene Stewart Authenticated and [facility]
== END 2024-06-06 23:59 | disposition home or self-care (01) ==
LOC: RAD 15:33
PROVIDERS: PCP Family Medicine; Visit Provider Nurse Practitioner
DX: J34.89 Other specified disorders of nose and nasal sinuses (principal)
CPT/HCPCS: 70486

== ENCOUNTER 2024-08-19 07:00 | Emergency (ER) | payer MEDICARE, SELFPAY ==
--- OUTSIDE RECORDS SUMMARY | 2024-07-24 07:00 | XMS_ITS ---
Author Organization Luis Address [facility] [facility] [address] [place] [id number] Care Team Providers Care Cassandra Consultant Name Role Phone Francesca Saravia Primary Care Provider Aman Garcia [phone] Allergies Allergen (clinical drug ingredient) Drug/Non Drug [...] Encounter Location Date Provider Diagnosis [facility] [address] [place] [id number] 07/24/2024 Aman Gacria Plan Of Treatment No Information Progress Notes * LISANDRO CARREONDOB:1940 (84 yo M)Acc No.[id number]:07/24/2024 Progress Notes Patient: Jaspreet YINLISANDRO WILBER Provider: [...] elevated PSA, 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 * Surgical History: b ilateral ear [...] stic Procedure: H ER-severe stomach pain 10/25/2011, [facility] ER-fell off ladder 07/2016, [facility]-Anemia 11/17-, [facility] ER-transferred to -stroke 11/28-, [facility] ER 04/14/2022. * Family History: F ather: [...] Electronic signature of Selena Garcia MD on 08/19/2024 at 07:10 AM EDT Sign off status: Pending * Provider: Germaine Garcia M.D. Date: 0 07/24/2024 Generated for Kristina cunningham/Shabnam/Karlee on: 0 08/19/2024 07:10 AM EDT
--- OUTSIDE RECORDS SUMMARY | 2024-08-11 06:15 | XMS_ITS ---
Author Organization [facility] Address [address] [facility] [address] [place] [id number] Care Team Providers Care Supervisor General Name Role Phone Francesca Saravia Primary Care Provider Aman Garcia Unavailable [phone] Allergies Allergen (clinical drug ingredient) Drug/Non Drug [...] 1 tab(s) orally once a day Active [place]-3 Fatty Acids 290 MG-200 INTL UNITS 2 CAP(S) ORALLY ONCE A DAY Active Glucosamine & Fish Oil 584-674-18-40 MG 3 cap(s) orally once a day Active Multivitamin Plus Iron Adult - 1 tab(s) orally once a day Active Vital Signs Weight 136 lbs 08/11/2024 Blood pressure systolic 122 mm Hg 08/12/19 25 Blood pressure diastolic 70 mm Hg 025 Heart Rate 80 /min 08/11/2024 Height 66.50 in 08/11/2024 BMI 21.62 kg/m2 08/11/2024 Encounters Encounter Location Date Provider Diagnosis [facility] [address] [place] [id number] 08/11/2024 Aman Garcia Tick bite W57 .XXXA Assessments Encounter Date Diagnosis (ICD Code) Assessment Notes Treatment Notes Treatment Clinical Notes Section Notes 08/11/2024 Tick bite (ICD-10 - W57.XXXA) Call with any new symptoms Plan Of Treatment Treatment Notes Assessment Notes Tick bite Call with any new sy mptoms Next Appt Details Follow Up: prn, Reason: Progress Notes * CARREON LISANDRO MERINODOB:1940 (84 yo M)Acc No.[id number]:08/11/2024 Progress Notes Patient: LISANDRO FLORES Provider: Germaine Garcia M.D. 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 * Surgical History: b [...] stic Procedure: H ER-severe stomach pain 10/25/2011, [facility] ER-fell off ladder 07/2016, [facility]-Anemia 11/17-, [facility] ER-transferred to -stroke 11/28-, [facility] ER 04/14/2022. * Family History: F ather: [...] day , Taking Glucosamine & Fish Oil 132-990-51-40 MG Capsule 3 cap(s) orally once a day , Taking [place]-3 Fatty Acids 290 MG-200 INTL UNITS CAPSULE [...] is present now. Assessment: * Assessment: 1. T ick bite - W57.XXXA (Primary) Plan: * Treatment: * Procedure Codes: G 2211 Complex e/m visit add on * Follow Up: p rn * Billing Information: * Visit Code: 81862 Office Visit, Est Pt., Level 3. * Procedure Codes: G2211 Complex e/m visit add on. * Electronic signature of Selena Garcia MD on 08/19/2024 at 07:10 AM EDT Sign off status: Pending * Provider: Germaine Garcia M.D. Date: 08/11/2024 Generated for Kristina cunningham/Shabnam/Yvetteitting on: 08/19/2024 07:10 AM EDT History and Physical Notes * [...]
--- OUTSIDE RECORDS SUMMARY | 2024-08-15 11:00 | XMS_ITS ---
Author Organization [facility] Address [address] [facility] [address] [place] [id number] Care Team Providers Care Grading Machine Operator Name Role Phone Francesca Saravia Primary Care Provider Kaycee Sarah Unavailable [phone] Allergies Allergen (clinical drug ingredient) Drug/Non Drug [...] a day Active Glucosamine & Fish Oil 587-343-05-40 MG 3 cap(s) orally once a day Active [place]-3 Fatty Acids 290 MG-200 INTL UNITS 2 CAP(S) ORALLY ONCE A DAY Active Vital Signs Weight 138.2 lbs 08/15/2024 Blood pressure systolic 140 mm Hg 08/16/19 25 Blood pressure diastolic 70 mm Hg 025 Heart Rate 63 /min 08/15/2024 Height 66.50 in 08/15/2024 BMI 21.97 kg/m2 08/15/2024 Encounters Encounter Location Date Provider Diagnosis [facility] [address] [facility] [address] [place] [id number] 08/15/2024 Kaycee Sarah Murmur, cardiac R01. 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 * Surgical History: b ilateral [...] stic Procedure: H ER-severe stomach pain 10/25/2011, [facility] ER-fell off ladder 07/2016, [facility]-Anemia 11/17-, [facility] ER-transferred to -stroke 11/28-, [facility] ER 04/14/2022. * Family History: F ather: [...] day , Taking Glucosamine & Fish Oil 132-724-22-40 MG Capsule 3 cap(s) orally once a day , Taking [place]-3 Fatty Acids 290 MG-200 INTL UNITS CAPSULE 2 CAP(S) ORALLY ONCE A DAY , Taking Aspirin 81 MG Tablet Delayed Release 1 tab(s) orally once a day , Taking Dicyclomine HCl 10 MG Capsule 1 cap(s) orally 4 times a day prn bloating , Taking Clotrimazole-Betamethasone 1-0.05 % Cream 1 felicai applied topically 2 times a day , [...] K59.09? 3. I josef deficiency - E61.1 m Plan: * Treatment: 2.?Chronic constipation? Notes: Patient has seen GI. They think the iron is causing the constipation and told him to stop it. They checked labs and his iron was only slightly low. He will stop the iron and recheck in 2 months to see if it has dropped.?? * Follow Up: v ia phone to report test results * Billing Information: * Visit Code: 69780 Office Visit, Est Pt., Level 4. * Procedure Codes: * Electronic signature of BRADLEY Contreras on 08/19/2024 at 07:11 AM EDT Sign off status: Pending * Provider: BRADLEY Hastings Date: 08/15/2024 Generated for Chinoi ng/Fasukumar/eTransmitting on: 08/19/2024 07:11 AM EDT History and Physical Notes * [...]
[2024-08-19 07:09] VITALS: BP 196/86; PULSE 69; RESP 18; TEMP 36.6; O2SAT 98; BMI 22.2
--- OUTSIDE RECORDS SUMMARY | 2024-08-19 07:11 | XMS_ITS | Clinical Summary ---
Author Organization Healthcare Address [address] [place] [address] Care Team Providers Care Taffy Candy Maker Name Role Phone Yohannes Saravia MD Primary Care Provider [phone] Family History Medical History Relation Name Comments Conversions - Other Father deafness or hearing loss Heart attack Father Conversions - Other Mother deafness or hearing loss Heart failure Mother Hypertension Mother Heart failure Other 1 Conversions - Other Other 2 deafness or hearing loss Hypertension Other 3 Heart attack Other 4 Relation Name Status Comments Father Mother Other 1 Other 2 Other 3 Other 4 Social History Tobacco Use Types Packs/Day Years Used Date Smoking Tobacco: Former Sex and Gender Information Value Date Recorded Sex Assigned at Not on file Legal Sex Male 8:36 PM EDT Gender Identity Not on file Sexual Orientation Not on file Last Filed Vital Signs Vital Sign Reading Time Taken Comments Blood Pressure 128/76 12/13/2018 12:48 PM EDT Pulse 60 12/13/2018 12:48 PM EDT Temperature - - Respiratory Rate - - Oxygen Saturation - - Inhaled Oxygen Concentration - - Weight 64.9 kg (143 lb 1.3 oz) 12/13/2018 12:48 PM EDT Height 170.2 cm (5' 7 ) 12/13/2018 12:48 PM EDT Body Mass Index 22.41 12/13/2018 12:48 PM EDT Plan of Treatment Not on file Care Teams Taffy Candy Maker Relationship Specialty Start Date End Date Yohannes Saravia MD [address] [place] [address] PCP - General 07/18/20
--- OUTSIDE RECORDS SUMMARY | 2024-08-19 07:12 | XMS_ITS | Patient Health Record ---
Author Organization [facility] Address [address] [facility] [address] [place] Arevalo [id number] Care Team Providers Care [employer] Director Name Role Phone Francesca Saravia Primary Care Provider Aman Garcia Unavailable [phone] MikeKaycee sanz Unavailable [phone] Allergies Allergen (clinical drug ingredient) Drug/Non Drug [...] (substance) Sulfa Antibiotics Unknown Drug Allergy Active Results Component Value Reference Range Notes Urinalysis - Inhouse Reviewed date:12/01/2023 12:28:08 PM Interpretation: Performing Lab: Notes/Report: Color/Clarity yellow Leuk neg Nitrite neg Urobili 3.2 Protein neg pH 7.0 Blood neg Sp. Gr. 1.020 Ketone neg Bili neg Gluc neg P-Comprehensive Metabolic Pa citlaly (CMP) Reviewed date:12/06/2023 10:37:17 AM Interpretation:Normal Performing Lab: Notes/Report: Test performed by [facility] [address] [place] [address] , [address], [place] [address] Bam Ramirez MD, Demand Inspector CLIA: [id number] Sodium 143 135-145 mmol/L Potassium 4.4 3.5-5.3 mmol/L Chloride 107 97-108 mmol/L CO2 26 22-32 mmol/L Glucose 87 65-99 mg/dL BUN 20 8-23 mg/dL Creatinine 1.15 0.70-1.30 mg/dL Calcium 9.9 8.6-10.4 mg/dL eGFR by Creatinine 63 >59 mL/min/1.73m2 Protein 6.8 6.0-8.3 g/dL Albumin 4.2 3.5-5.3 g/dL Alkaline Phosphatase 105 40-129 IU/L ALT (SGPT) 13 <5-55 IU/L AST (SGOT) 21 <5-46 IU/L Bilirubin, Total 0.2 <0.2-1.2 mg/dL A/G Ratio 1.6 1.1-2.5 P-Ferritin Reviewed date:12/06/2023 10:37:17 AM Interpretation:Normal Performing Lab: Notes/Report: Test performed by [facility] [address] [place] [address] , [place] [address] Bam Ramirez MD, Demand Inspector CLIA: [id number] Ferritin 40.6 30.0-400.0 ng/mL P-T4 Free (thyroxine) Reviewed date:12/06/2023 10:37:17 AM Interpretation:Normal Performing Lab: Notes/Report: Test performed by [facility] [address] , [place] [address] Bam Ramirez MD, Demand Inspector CLIA: [id number] Thyroxine Free (free T4) 1.57 0.86-1.76 ng/dL P-Iron Reviewed date:12/06/2023 10:37:17 AM Interpretation:45 Performing Lab: Notes/Report: Test performed by [facility] [address] [place] [address] , [place] [address] Bam Ramirez MD, Demand Inspector CLIA: [id number] Iron 45 59-158 ug/dL P-Lipid Panel Reviewed date:12/06/2023 10:37:17 AM Interpretation:hdl 36 Performing Lab: Notes/Report: Test performed by [facility] [address] [place] [address] , [place] [address] Bam Ramirez MD, Demand Inspector CLIA: [id number] Cholesterol 148 <200 mg/dL Triglycerides 99 <150 mg/dL HDL Cholesterol 36 >39 mg/dL Cholesterol / HDL Ratio 4.11 0.00-4.99 Ratio Non-HDL Cholesterol 112 <130 mg/dL LDL Cholesterol (Calculation) 92 <130 mg/dL LDL Cholesterol Levels* Less than 100 mg/dL Optimal 100 to 129 mg/dL Near Optimal/ Above Optimal 130 to 159 mg/dL Borderline High 160 to 189 mg/dL High 190 mg/dL and above Very High * Categories as recommended by the 2004 ATPIII guidelines LDL/HDL Ratio 2.6 <3.3 Ratio LDL Cholesterol Patient History Test Date: 03/28/2023 LDL Results: 131 Units: mg/dL % Change: - Test Date: 12/01/2023 LDL Results: 92 Units: mg/dL % Change: -29% P-TSH Reviewed date:12/06/2023 10:37:17 AM Interpretation:Normal Performing Lab: Notes/Report: Test performed by [facility], [address] , [place] [address] Bam Ramirez MD, Demand Inspector CLIA: [id number] TSH 1.80 0.43-5.25 mU/L P-Surgical Pathology Reviewed date:05/22/2024 05:28:10 PM Interpretation:SK Performing Lab: Notes/Report: Surgical Pathology View Report Patient Name: LISANDRO CARREON Age-Sex-: 83y M 1940 Procedure Date: 05/18/2024 Accession Date: 05/19/2024 Pt Acct#: Report Date: 05/22/2024 Location: OFFICE Physician(s): Yohannes Saravia MD P A T H O L O G Y R E P O R T DIAGNOSIS: Skin, top right side of back, shave biopsy; Seborrheic keratosis, pigmented. Jasmine Bueno MD electronically signed 05/22/2024 12:23 PM Gross Description: Received in formalin labeled Citlalli Carreon mole is a quinones shaved portion of tissue measuring 1.0 x 0.8 x less than 0.1 cm. On the surface of the skin eccentrically located is a brown, ill-defined lesion measuring 0.9 x 0.9 cm. The lesion extends to the peripheral margin of the skin. The resection margin is inked blue. The specimen is trisected and submitted entirely in cassette 1A, 05/05. (LLG,RR13,pc9) Grossing services provided by [facility], [facility], d/b/a [facility] [place], [address] Gentry Sterling MD, Demand Inspector. Microscopic Description: There is epidermal hyperplasia with formation of keratin cysts. No significant cytologic atypia is present. The keratinocytes show melanin pigmentation. These are features of a pigmented seborrheic keratosis. Clinical History: Mole Specimen List: Mole top right side of back Unless specified otherwise above, the quality of the H and E and any other stains performed is satisfactory, and any internal or external positive and negative controls react appropriately. End of Report Technical services provided by [facility], [facility], [facility], [address] [place] [address] , [place] [address] Gentry Sterling MD, Demand Inspector. Case reviewed and diagnosis rendered at [facility], [facility], d/b/a [facility] , [place] [address] Gentry Sterling MD, Demand Inspector. CONFIDENTIAL CBC Venipuncture (in house) Reviewed date:12/01/2023 12:28:00 PM Interpretation: Performing Lab: Notes/Report: wbc 8.5 3.5 - 10 lymph 28.8 15 - 50 mid 7.1 2 - 15 gran 64.1 35 - 80 rbc 3.57 3.5 - 5.5 hgb 10.9 11.5 - 16.5 hct 32.7 35 - 55 mcv 91.6 75 - 100 mch 30.6 25 - 35 mchc 33.4 31 - 38 platlet 379 100 - 400 CBC Fingerstick (in house) Reviewed date:09/02/2023 03:51:58 PM Interpretation: Performing Lab: Notes/Report: wbc 14.6 3.5 - 10 lym 15.4 15 - 50 mid 4.5 2 - 15 gran 80.1 35 - 80 rbc 3.26 3.5 - 5.5 hgb 10.2 11.5 - 16.5 hct 31.0 35 - 55 mcv 95.1 75 - 100 mch 31.2 25 - 35 mchc 32.8 31 - 38 plat 267 100 - 400 CT Scan : Chest, without con trast Reviewed date:09/16/2023 10:50:49 AM Interpretation:stable nodule Performing Lab: Notes/Report: stable nodule P-Basic Metabolic Panel (BMP ) Reviewed date:03/02/2024 04:16:39 PM Interpretation:gluc 107, gfr 55 Performing Lab: Notes/Report: Test performed by [facility], [address] , [address], [place] [address] Bam Ramirez MD, Demand Inspector CLIA: [id number] Sodium 140 135-145 mmol/L Potassium 4.2 3.5-5.3 mmol/L Chloride 107 97-108 mmol/L CO2 25 22-32 mmol/L Glucose 107 65-99 mg/dL BUN 14 8-23 mg/dL Creatinine 1.28 0.70-1.30 mg/dL Calcium 9.2 8.6-10.4 mg/dL eGFR by Creatinine 55 >59 mL/min/1.73m2 CBC Fingerstick (in house) Reviewed date:09/12/2023 09:17:15 AM Interpretation: Performing Lab: Notes/Report: wbc 10.6 3.5 - 10 lym 25.7% 15 - 50 mid 7.0& 2 - 15 gran 67.3% 35 - 80 rbc 3.57 3.5 - 5.5 hgb 10.9 11.5 - 16.5 hct 33.3 35 - 55 mcv 93.2 75 - 100 mch 30.6 25 - 35 mchc 32.9 31 - 38 plat 424 100 - 400 CBC Venipuncture (in house) Reviewed date:05/11/2024 02:02:15 PM Interpretation: Performing Lab: Notes/Report: wbc 8.7 3.5 - 10 lymph 28.8 15 - 50 mid 7.7 2 - 15 gran 63.5 35 - 80 rbc 3.77 3.5 - 5.5 hgb 11.5 11.5 - 16.5 hct 34.6 35 - 55 mcv 91.8 75 - 100 mch 30.7 25 - 35 mchc 33.4 31 - 38 platlet 411 100 - 400 P-Comprehensive Metabolic Pa citlaly (CMP) Reviewed date:05/15/2024 08:35:29 AM Interpretation:Normal Performing Lab: Notes/Report: Test performed by [facility], [address] , [address], [place] [address] Bam Ramirez MD, Demand Inspector CLIA: [id number] Sodium 139 135-145 mmol/L Potassium 4.7 3.5-5.3 mmol/L Chloride 103 97-108 mmol/L CO2 25 22-32 mmol/L Glucose 92 65-99 mg/dL BUN 23 8-23 mg/dL Creatinine 1.19 0.70-1.30 mg/dL Calcium 10.1 8.6-10.4 mg/dL eGFR by Creatinine 60 >59 mL/min/1.73m2 Protein 7.1 6.0-8.3 g/dL Albumin 4.2 3.5-5.3 g/dL Alkaline Phosphatase 111 40-129 IU/L ALT (SGPT) 15 <5-55 IU/L AST (SGOT) 19 <5-46 IU/L Bilirubin, Total <0.2 <0.2-1.2 mg/dL A/G Ratio 1.4 1.1-2.5 P-Ferritin Reviewed date:05/15/2024 08:35:29 AM Interpretation:Normal Performing Lab: Notes/Report: Test performed by [facility] , [facility] [place] [address] Bam Ramirez MD, Demand Inspector CLIA: [id number] Ferritin 54.7 30.0-400.0 ng/mL P-T4 Free (thyroxine) Reviewed date:05/15/2024 08:35:29 AM Interpretation:Normal Performing Lab: Notes/Report: [facility] [address] , [facility] [place] [address] Bam Ramirez MD, Demand Inspector CLIA: [id number] Thyroxine Free (free T4) 1.56 0.86-1.76 ng/dL P-Iron Reviewed date:05/15/2024 08:35:29 AM Interpretation:iron 53 Performing Lab: Notes/Report: Test performed by [facility] [address] , [facility] [place] [address] Bam Ramirez MD, Demand Inspector CLIA: [id number] Iron 53 59-158 ug/dL P-Lipid Panel Reviewed date:05/15/2024 08:35:29 AM Interpretation:trigs 160, hdl 39 Performing Lab: Notes/Report: Test performed by [facility] [address] , [place] [address] Bam Ramirez MD, Demand Inspector CLIA: [id number] Cholesterol 139 <200 mg/dL Triglycerides 160 <150 mg/dL HDL Cholesterol 39 >39 mg/dL Cholesterol / HDL Ratio 3.56 0.00-4.99 Ratio Non-HDL Cholesterol 100 <130 mg/dL LDL Cholesterol (Calculation) 68 <130 mg/dL LDL Cholesterol Levels* Less than 100 mg/dL Optimal 100 to 129 mg/dL Near Optimal/ Above Optimal 130 to 159 mg/dL Borderline High 160 to 189 mg/dL High 190 mg/dL and above Very High * Categories as recommended by the 2004 ATPIII guidelines LDL/HDL Ratio 1.7 <3.3 Ratio LDL Cholesterol Patient History Test Date: 03/28/2023 LDL Results: 131 Units: mg/dL % Change: - Test Date: 12/01/2023 LDL Results: 92 Units: mg/dL % Change: -29% Test Date: 05/11/2024 LDL Results: 68 Units: mg/dL % Change: -26% P-TSH Reviewed date:05/15/2024 08:35:29 AM Interpretation:Normal Performing Lab: Notes/Report: Test performed by [facility] [address] [facility] , [place] [address] Bam Ramirez MD, Demand Inspector GONSALOIA: [id number] TSH 3.38 0.43-5.25 mU/L CBC Venipuncture (in house) Reviewed date:04/10/2024 08:32:58 AM Interpretation:hgb 10.7, hct 32.2 Performing Lab: Notes/Report: hgb 10.7, hct 32.2 wbc 8.6 3.5 - 10 lymph 27.7 15 - 50 mid 7.8 2 - 15 gran 64.5 35 - 80 rbc 3.57 3.5 - 5.5 hgb 10.7 11.5 - 16.5 hct 32.2 35 - 55 mcv 90.1 75 - 100 mch 29.9 25 - 35 mchc 33.2 31 - 38 platlet 396 100 - 400 P-Iron Reviewed date:04/10/2024 08:32:58 AM Interpretation:61 (low normal) Performing Lab: Notes/Report: Test performed by [facility] [address] [place] [address] , [address], [place] [address] Bam Ramirez MD, Demand Inspector CLIA: [id number] Iron 61 59-158 ug/dL CBC Fingerstick (in house) Reviewed date:01/10/2024 11:28:59 AM Interpretation: Performing Lab: Notes/Report: wbc 11.4 3.5 - 10 lym 25.3% 15 - 50 mid 5.9% 2 - 15 gran 68.8% 35 - 80 rbc 3.62 3.5 - 5.5 hgb 11.1 11.5 - 16.5 hct 33.8 35 - 55 mcv 93.5 75 - 100 mch 30.6 25 - 35 mchc 32.8 31 - 38 plat 264 100 - 400 Medications Medication SIG (Take, Route, Frequency, Duration) Notes Start Date End Date Status Aspirin 81 MG 1 tab(s) orally once a day Active Dicyclomine HCl 10 MG 1 cap(s) [...] once a day for 90 days Active Rosuvastatin Calcium 5 MG TAKE 1 TABLET BY MOUTH ONCE DAILY for 90 Active Multivitamin Plus Iron Adult - 1 tab(s) orally once a day Active Glucosamine & Fish Oil [phone] MG 3 cap(s) orally once a day Active [place]-3 Fatty Acids 290 MG-200 INTL UNITS 2 CAP(S) ORALLY ONCE A DAY Active Immunizations Vaccine Route Administration Date Status Comme nts sWzjrulj-idbxuarjd-izizxqd e pts. IM Intramuscular 12/09/2009 Administered xFluzone High Dose-private (65yr&older) IM Intramuscular 12/12/2012 Administered xFluzone (6mos and older)-trivalent IM Intramuscular 12/23/2010 Administered Tetanus Tdap-Adacel (over 7yrs) IM Intramuscular 05/10/2009 Administered Tetanus Tdap-Adacel (over 7yrs) Unknown 07/09/2021 Administered Prevnar (PCV20) Unknown 02/08/2023 Administered Prevnar (PCV13) IM Intramuscular 06/25/2014 Administered PNEUMOVAX 23 VACCINE IM Intramuscular 03/06/2012 Administe red PNEUMOVAX 23 VACCINE IM Intramuscular 10/26/2016 Administe red Fluzone Quad (6months&older) Unknown 12/17/2017 Administered Fluzone High Dose (65yr and older) IM Intramuscular 12/13/2013 Administered Fluzone High Dose (65yr and older) IM Intramuscular 12/19/2014 Administered Fluzone High Dose (65yr and older) IM Intramuscular 12/05/2015 Administered Fluzone High Dose (65yr and older) IM Intramuscular 12/20/2016 Administered Fluzone High Dose (65yr and older) IM Intramuscular 12/11/2018 Administered Fluzone High Dose (65yr and older) Unknown 11/27/2019 Administered Fluzone High Dose (65yr and older) IM Intramuscular 12/29/2020 Administered Fluzone High Dose (65yr and older) IM Intramuscular 12/18/2021 Administered Fluzone High Dose (65yr and older) IM Intramuscular 12/27/2022 Administered Fluzone High Dose (65yr and older) IM Intramuscular 12/13/2023 Administered COVID 19 Moderna Unknown 04/02/2020 Administered COVID 19 Moderna Unknown 04/30/2020 Administered Problems Problem Type SNOMED Code ICD Code Onset Dates Problem Status W/U Status Risk Notes Problem 28781396 Essential hypertension (I10) Active confirmed Problem Constipation (82225792) Constipation (K59.00) Active confirmed Problem Seasonal allergy (888442352) Seasonal allergies (J30.2) Active confirmed Problem 450130743338292 Piriformis syndr ome of left side (G57.02) Active confirmed Problem Multiple pulmonary nodules (178980696) Pulmonary nodules (R91.8) Active confirmed Problem Iron deficiency anemia (20599476) Iron deficiency anemia (D50.9) Active confirmed Problem 714154749 Acute constipati on (K59.00) Active confirmed Problem Benign prostatic hyperplasia (499658812) BPH (benign prostatic hyperplasia) (N40.0) Active confirmed Problem Dysphagia (16257872) Dysphagia (R13.10) Active confirmed Problem 518937830 Gastroesophageal reflux disease without esophagitis (K21.9) Active confirmed Problem 402970599 Acquired hypothyroidism (E03.9) Active confirmed Problem 89443202 Chronic obstruct uday pulmonary disease, unspecified COPD type (J44.9) Active confirmed Problem 19071823 Presbycusis of b oth ears (H91.13) Active confirmed Problem Blood loss anemi a (D50.0) Active confirmed Problem Diverticular disease of colon (790916919) Diverticulosis (K57.90) Active confirmed Problem 606844313 Dyslipidemia (E78.5) Active confirmed Problem 40562321 Seasonal allergi c rhinitis due to pollen (J30.1) Active confirmed Problem 946831252596810 Piriformis syndrome, right (G57.01) Active confirmed Problem 210655224 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) Active confirmed Problem 609980049 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) Active confirmed Problem 375452235391317 Benign prostatic hyperplasia with lower urinary tract symptoms (N40.1) Active confirmed Problem 923638156 Elevated PSA (R97.20) Active confirmed Problem 77933248 Urge incontinenc e of urine (N39.41) Active confirmed Problem Prostate nodule (011194572863664) Prostate nodule (N40.2) Active confirmed Problem 41391447 Oropharyngeal dysphagia (R13.12) Active confirmed Problem 781621593 Statin intoleran ce (Z78.9) Active confirmed Problem 09604247 Acute non-season al allergic rhinitis (J30.89) Active confirmed Vital Signs Heart Rate 63 /min 08/15/2024 Blood pressure diastolic 70 mm Hg 08/15/2024 Height 66.50 in 08/15/2024 Blood pressure systolic 140 mm Hg 08/15/2024 Weight 138.2 lbs 08/15/2024 BMI 21.97 kg/m2 08/15/2024 Encounters Encounter Location Date Provider Diagnosis [facility] [address] [facility] [address] [place]valo [id number] 09/02/2023 Kaycee Crowdy Bursitis of right sh oulder M75.51 ; Trapezius muscle spasm M62.838 ; Pulmonary nodules R91.8 and Gastroenteritis K52.9 [facility] [address] [place]o [id number] 09/09/2023 Kaycee Crowdy Bursitis of right sh oulder M75.51 ; Trapezius muscle spasm M62.838 and Gastroenteritis K52.9 [facility] [address] [facility] [address] [place] Arevalo [id number] 09/28/2023 Kaycee Crowdy [facility]iceps [facility] S 46.219A [facility] [address] [place]valo [id number] 12/01/2023 Kaycee Crowdy Costochondritis M94. 0 ; Dyslipidemia E78.5 ; Acquired hypothyroidism E03.9 ; Gastroesophageal reflux disease without esophagitis K21.9 ; Anemia, unspecified type D64.9 ; Essential hypertension I10 and Sternocleidomastoid muscle tenderness M79.12 [facility] [facility] [facility] [address] [place]valo [id number] 12/13/2023 R Girish Manjit [facility] [facility] [address] [place]o [id number] 01/10/2024 R Girish Manjit Iron deficiency anem ia D50.9 [facility] [address] [facility] [address] [place] Arevalo [id number] 02/21/2024 R Girish Manjit Atypical chest pain R07.89 and Essential hypertension I10 [facility] [facility] [address] [place]valo [id number] 03/01/2024 R Girish Manjit Hyponatremia E87.1 a nd Muscle spasm of back M62.830 [facility] [address] [place], [place] [id number] 03/06/2024 R Girish Manjit Hyponatremia E87.1 a nd COVID-19 U07.1 [facility] [address] [place], [place] [id number] 04/05/2024 R Girish Manjit Fall W19.XXXA ; Thor acic back pain M54.6 and Iron deficiency anemia D50.9 [facility] [address] [place], [place] [id number] 05/11/2024 Kaycee Crowdy 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 1 ; Chronic constipation K59.09 and Iron deficiency E61.1 [facility] [address] [place], [place] [id number] 09/16/2023 Kaycee Crowdy [facility] [address] [place], [place] [id number] 11/16/2023 Kaycee Crowdy Dermatitis L30.9 [facility] [address] [place] [id number] 12/06/2023 Kaycee Crowdy [facility] [address] [place], [place] [id number] 02/03/2024 R Girish Saravia Dermatitis L30.9 [facility] [address] [place], [place] [id number] 03/02/2024 R Girish Addisont [facility] [address] [place], [place] [id number] 04/10/2024 R Girish Addisont [facility] [address] [place], [place] [id number] 04/10/2024 R Girish Addisont [facility] [address] [place], [place] [id number] 05/02/2024 R Girish Addisont [facility] [address] [place], [place] [id number] 05/15/2024 Kaycee Sarah Assessments Encounter Date Diagnosis (ICD Code) Assessment Notes Treatment Notes Treatment Clinical Notes Section Notes 08/15/2024 Chronic constipation (ICD-10 - K59.09) Patient has seen GI. They think the iron is causing the constipation and told him to stop it. They checked labs and his iron was only slightly low. He will stop the iron and recheck in 2 months to see if it has dropped. 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 If no improvement over the next couple weeks, he is provided a requisition to obtain an x-ray. 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 Saravia to remove. 04/05/2024 Fall (ICD-10 - W19.XXXA) 03/01/2024 Hyponatremia (ICD-10 - E87.1) 03/01/2024 Muscle spasm of back (ICD-10 - M62.830) Recommend heat and gentle stretching exercises. He has a muscle relaxer at home that he can use as needed at bedtime. 03/06/2024 Hyponatremia (ICD-10 - E87.1) --resolved 03/06/2024 COVID-19 (ICD-10 - U07.1) --residual cough; symptomatic treatment 02/21/2024 Essential hypertensi on (ICD-10 - I10) 02/21/2024 Atypical chest pain (ICD-10 - R07.89) 02/03/2024 Dermatitis (ICD-10 - L30.9) 01/10/2024 Iron deficiency anem ia (ICD-10 - D50.9) Continue OTC iron supplement. He seems to be tolerating this well. -- Improving with treatment 12/01/2023 Costochondritis (ICD-10 - M94.0) This does not appear to be kidney pain but rather costochondritis . He was recently on the roof with the leaf blower and noticed the pain after this. 12/01/2023 Dyslipidemia (ICD-10 - E78.5) 11/16/2023 Dermatitis (ICD-10 - L30.9) 09/28/2023 Biceps tendon tear (ICD-10 - S46.219A) Likely has a partial tear of the biceps tendon. Dr. Garcia examined as well. Strength is still good at this time. Gave exercises to do. If no improvement, will need PT. 09/09/2023 Trapezius muscle spa sm (ICD-10 - M62.838) Much improved, will continue muscle relaxants prn. 09/09/2023 Bursitis of right shoulder (ICD-10 - M75.51) Much improved, will continue to rest the arm. 09/02/2023 Trapezius muscle spa sm (ICD-10 - M62.838) 09/02/2023 Bursitis of right shoulder (ICD-10 - M75.51) Will rest the shoulder and give a steroid shot as oral steroids bother his stomach. 12/01/2023 Acquired hypothyroidism (ICD-10 - E03.9) 09/02/2023 Pulmonary nodules (ICD-10 - R91.8) 09/09/2023 Gastroenteritis (ICD-10 - K52.9) Resolved and CBC is much improved. 04/05/2024 Iron deficiency anem ia (ICD-10 - D50.9) 05/11/2024 Dyslipidemia (ICD-10 - E78.5) 08/15/2024 Iron deficiency (ICD-10 - E61.1) m 05/11/2024 Acquired hypothyroidism (ICD-10 - E03.9) 12/01/2023 Gastroesophageal reflux disease without esophagitis (ICD-10 - K21.9) 09/02/2023 Gastroenteritis (ICD-10 - K52.9) 12/01/2023 Anemia, unspecified type (ICD-10 - D64.9) 05/11/2024 Essential hypertensi on (ICD-10 - I10) 05/11/2024 Iron deficiency anem ia (ICD-10 - D50.9) 12/01/2023 Essential hypertensi on (ICD-10 - I10) 12/01/2023 Sternocleidomastoid muscle tenderness (ICD-10 - M79.12) This pain also began after leaf blowing on the roof. The muscle is still mildly tender but he has not had any further swallowing difficulty. Plan Of Treatment Pending Test Test Name Order Date Echocardiogram 08/15/2024 Insurance Providers Payer Name Payer Address Payer Phone Subscriber Number Group Number Insured Name Patient Relationship to Insured Coverage Start Date Coverage End Date [employer] (MEDICAR E) [address] [address] [place] [phone] [id number] LISANDRO CARREON Self - patient is the insured Medications Administered Medication Instructions Date of Administration Dosage Notes B-12 07/02/2014 1 mL Depo- Medrol 40 mg/ml 01/15/2019 1.5 mL Depo- Medrol 40 mg/ml 07/20/2021 1 mL Depo- Medrol 40 mg/ml 10/07/2021 1 mL Depo- Medrol 40 mg/ml 09/02/2023 1 mL Dexamethasone 05/12/2012 Dexamethasone 02/25/2017 1 mL Medical (General) History Medical History History ICD Code hyperlipidemia Acquired hypothyroidism GERD Diverticulosis BPH, s/p urology evaluation with biopsie s COPD Hiatal hernia elevated PSA right thalamic CVA 11/28/[address] [facility] Surgical History Surgery Date(Month/Year) bilateral ear surgery thyroid radiation for over-active thyroi d circumcision prostate biopsy Colonoscopy 2006, 2011, 2016 cataract(both) 03/2009, 04/2009 left tonsillectomy -Dr Vazquez 04/2015 lip surgery 01/2016 EGD/ [facility] 2016 EGD/ Dr. Villaseñor/ small HH, antral inflamma tion, No stricture 11/2018 EGD/ Dr. Escobedo/ mild chronic gastritis/ no stricture 07/2021 Colonoscopy 04/14/2022 Hospitalization History Reason Date(Month/Year) [facility] ER 04/14/2022 [facility] ER-transferred to -stroke 11/28-2 08/2018 [facility]-Anemia 11/17- [facility] ER-fell off ladder 07/2016 [facility] ER-severe stomach pain 10/25/2011
--- NOTE | 2024-08-19 07:21 | ED_ITS ---
Discharge Plan Disposition Patient Disposition: Home, Self-Care Condition: Good Prescriptions Prescriptions: New doxycycline hyclate 100 mg capsule 100 mg PO BID 10 Days Qty: 20 0RF No Action aspirin [Adult Aspirin Regimen] 81 mg tablet,delayed release (DR/EC) 81 mg PO DAILY mupirocin 2 % ointment 1 applic topical TID Qty: 22 2RF levothyroxine 75 mcg tablet 75 mcg PO DAILY lisinopril 10 mg tablet 10 mg PO DAILY rosuvastatin 5 mg tablet 5 mg PO HS Referrals Follow up/Referrals: Yohannes Saravia MD [Primary Care Provider, Medical] - See instructions Activity Restrictions/Add. Instructions Additional Instructions/Restrictions: You have a small localized infection around the prior site of your tick bite. Continue to apply Neosporin and cover with a Band-Aid. Take the doxycycline twice a day for the next 10 days. Follow-up with your primary care provider in the next 3 days for wound reevaluation. Do not take this medication on an empty stomach. Do not lie down within 30 minutes of taking this medication. Please return to ED if your symptoms worsen, change in location, change in severity, new symptoms develop or if you become concerned for your health. Clinical Impressions Clinical Impression: Tick bite Qualifiers: Encounter type: initial encounter Site of tick bite: thigh Laterality: right Qualified Code(s): S70.361A - Insect bite (nonvenomous), right thigh, initial encounter Instructions Patient Instructions: How to Remove a Tick, DI for Skin Abscess, Protect Yourself from Tickborne Illnesses Print Language Print Language: Lao Discharge ED Provider: Maya Ariza General Adult HPI General Chief complaint: Skin/Abscess/Foreign Body Stated complaint: sent by Dr. Garcia for poss. infected tick bite Time Seen by Provider: 08/19/24 07:04 Mode of Arrival: Ambulatory Source of Information: Patient Description of Symptoms (Recalled from ER Triage Doc. by RN): Patient states he has a tick bite on his right thigh that has been there since 08/17/24 and was told by PCP if it gets red to come to the ER to be checked out. History of Present Illness HPI narrative: Bertin Robert is an 84 y/o male presenting for a wound check. Patient reports being told by his PCP to come to the ER for evaluation of a tick bite. Patient reports having a tick bite on his right inner thigh on [address] 13, 2 days ago. Patient reports the tick was removed at home after being in place less than 24 hours. Patient reports his prior tick bite was managed similarly and did not respond this way. He was concerned that it appeared to have a head on it like a pimple and they were worried that the tick was not fully removed. Patient has not been applying any medications or ointments to the area. Patient denies fevers, headaches, chills, myalgias or arthralgias. No other rashes have been noted. Related Data Home Medications ?Medication ?Instructions ?Recorded ?Confirmed aspirin 81 mg tablet,delayed 81 mg PO DAILY 04/30/19 0 06/13/24 release (Adult Aspirin Regimen) levothyroxine 75 mcg tablet 75 mcg PO DAILY 02/25/24 0 06/13/24 lisinopril 10 mg tablet 10 mg PO DAILY 02/25/2411/29 rosuvastatin 5 mg tablet 5 mg PO HS 02/25/24 06/13/24 Previous Rx's ?Medication ?Instructions ?Recorded mupirocin 2 % topical ointment 1 applic topical TID #2 2 grams 05/17/24 doxycycline hyclate 100 mg capsule 100 mg PO BID 10 da ys #20 caps 08/19/24 Allergies Allergy/AdvReac Type Severity Reaction Status Date / Time Sulfa (Sulfonamide Allergy Unknown NAUSEA/VOMI Verified 08/19/24 07:17 Antibiotics) [facility] Disclaimer: The information contained in this section may have been updated after the patient was seen, as this information can be updated by other users. Medical History (Updated 08/19/24 @ 07:21 by Maya Ariza MD) Nasal polyps Nasal vestibulitis MRSA (methicillin resistant staph aureus) culture positive Mouth breathing Hiatal hernia Elevated PSA BPH (benign prostatic hyperplasia) C. difficile colitis COPD (chronic obstructive pulmonary disease) Diverticulosis GERD (gastroesophageal reflux disease) Hyperlipidemia Hypothyroid GI bleed Vasovagal syncope Iron deficiency anemia due to chronic blood loss SNHL (sensorineural hearing loss) Right ear pain Bleeding from right ear Onychoincurvatum History of diverticulitis History of stroke Surgical History History of esophagogastroduodenoscopy (EGD) Hx of prostate biopsy History of circumcision History of tonsillectomy History of ear surgery History of colonoscopy Family History Other Family history of acute congestive heart failure Family history of acute heart failure Family history of cancer Family history of emphysema Social History Smoking Status: Former smoker tobacco type: cigarettes packs per day: 1 alcohol intake: never substance use type: denies use current occupational status: retired and other Travel in the last 8 weeks?: None household members: spouse housing: house marital status: current occupational exposures/hazards: No caffeine: Yes special adalid needs: No agree to transfusion: No do you feel safe at home: Yes victim of physical abuse: No victim of emotional abuse: No victim of sexual abuse: No would you like helpful sources: No Have you lived/traveled outside [place] in past 30 days?: No Contact w/someone who lives/traveled outside [place] past 30 days?: No Exposure to someone with infectious disease in past 14 days?: No Do you have a fever (greater than 100.4 F or 38 C)?: No Have you tested positive for COVID-19?: No Exposed to someone with COVID-19 in past 14 days?: No Do you have a sore throat?: No Do you have a cough?: No Do you have any weakness?: No Do you have any diarrhea?: No Are you experiencing any unusual bleeding?: No Do you have any muscle aches/pain?: No Do you have any abdominal pain?: No Are you experiencing loss of taste or smell?: No Other Medical History Have you received the Flu Vaccine for this season: No Have you received the Pneumonia Vaccine: Yes ROS Obtained: Yes All systems reviewed & no additional complaints except as documented Physical Exam General General appearance: alert and in no apparent distress Head Head exam: atraumatic, normocephalic and normal inspection Eye Eye exam: Present normal appearance, PERRL and EOMI Neck Neck exam: Present normal inspection, full ROM and trachea midline; Absent meningismus or lymphadenopathy Chest Chest inspection: Present normal inspection and symmetric chest wall rise; Absent tenderness Respiratory Respiratory exam: Present normal lung sounds bilaterally; Absent respiratory distress Cardiovascular Cardiovascular exam: Present regular rate and normal rhythm; Absent JVD Abdominal Exam Abdominal exam: Present soft; Absent distention, tenderness or guarding Extremities Exam Extremities exam: Present full ROM, normal capillary refill and other (0.5 cm area of erythema with central noyola to right inner thigh. No area of fluctuance or streaking erythema. No tenderness.); Absent calf tenderness Neurological Exam Neurological exam: Present alert and oriented X3 Psychiatric Psychiatric exam: Present normal affect and normal mood Skin Skin exam: Present warm, dry, intact and normal color Lymphatic Lymphatic Findings: no adenopathy Medical Decision Making Medical Records Medical records reviewed: Yes I reviewed the patient's medical records. Screening: Per USPSTF and CDC recommendations, given the prevalence of disease in our region, it is our hospital?s policy to screen for HIV and viral Hepatitis for all patients aged 18 and over and those with ongoing risk factors. [place] Inquiry Pt receiving controlled substance: No Vital Signs: 08/19/24 07:09 08/19/24 07:26 Temperature 97.8 F 97.9 F Temperature Source Oral Oral Pulse Rate 69 Pulse Rate [Right Radial] 69 Respiratory Rate 18 18 Blood Pressure 196/86 H Blood Pressure [Right Arm] 196/86 H Blood Pressure Mean [Right Arm] 122 Blood Pressure Source Automatic Cuff Blood Pressure Source [Right Arm] Automatic Cuff Blood Pressure Position Sitting Blood Pressure Position [Right Arm] Sitting 02 Sat by Pulse Oximetry 98 Oxygen Delivery Method Room Air Room Air Medical Decision Narrative: In summary, this is an 84-year-old male presenting for a wound check. Differential diagnosis includes but is not limited to, localized cellulitis, skin abscess, early localized Lyme disease, folliculitis, among others. On initial evaluation, patient afebrile, hemodynamically stable and in no acute distress. Patient has a history significant for hypertension, GERD, COPD presenting with a localized skin infection. At this time, low concern for disseminated or early Lyme disease as the tick was present on the patient for less than 24 hours. Laboratory evaluation was considered and ultimately not performed as low likelihood of benefit to patient's treatment. Given that the initial bite was 2 days ago, patient will be treated with a 10-day course of doxycycline instead of the single dose. Patient is to follow-up with his [facility] care provider in the next 3 days for wound reevaluation. Patient also recommended to place Neosporin on the area and continue to cover with a Band- Aid. Patient unlikely to have gotten Lyme disease or a abscess in this area. Wound likely appears how it does based on the location of it in terms of friction from walking. Patient and his are in agreement with this plan. Patient discharged in stable condition with return precautions and follow-up recommendations. Maya Ariza MD Critical Care Critical Care Time Critical Care Time: No
[2024-08-19 07:26] VITALS: BP 196/86; PULSE 69; RESP 18; TEMP 36.6; O2SAT 98
== END 2024-08-19 07:28 | disposition home or self-care (01) ==
PROVIDERS: Emergency Provider Student in an Organized Health Care Education/Training Program; PCP Family Medicine
DX: S70.361A Insect bite (nonvenomous), right thigh, initial encounter (principal); W57.XXXA Bitten or stung by nonvenomous insect and other nonvenomous arthropods, initial encounter; Z87.891 Personal history of nicotine dependence
CPT/HCPCS: 99282

== ENCOUNTER 2024-08-21 14:21 | Outpatient (CLI) | payer MEDICARE, SELFPAY ==
--- OUTSIDE RECORDS SUMMARY | 2024-07-24 07:00 | XMS_ITS ---
Author Organization Luis Address [facility] [facility] [address] [place] [id number] Care Team Providers Care Hospital Intern Name Role Phone Francesca Saravia Primary Care Provider Aman Garcia [phone] Allergies Allergen (clinical drug ingredient) Drug/Non Drug Allergy documented on EMR Reaction Allergy Type Onset Date Status erythromycin Erythromycin Unknown Drug Allergy A ctive atorvastatin Lipitor muscle pain Drug Allergy Ac tive naproxen Naprosyn Unknown Drug Allergy Active omeprazole Omeprazole gynecomastia/ sore breasts Drug Allergy Active pravastatin Pravastatin muscle pain Drug Allergy A ctive Substance with sulfonamide structure and antibacterial mechanism of action (substance) Sulfa Antibiotics Unknown Drug Allergy Active REASON FOR VISIT stomach hurting from iron pills Encounters Encounter Location Date Provider Diagnosis [facility] [address] [place] [phone] 07/24/2024 Aman Garcia Plan Of Treatment No Information Progress Notes * LISANDRO CARREONDOB:1940 (84 yo M)Acc No.[id number]:07/24/2024 Progress Notes Patient: Jaspreet YINLISANDRO WILBER Provider: Germaine Garcia M.D. :1940 A ge:83 Y S ex:Male Date:07/24/2024 Address:[address], [id number] Pcp:Francesca Saravia Subjective: * Chief Complaints: * 1 . Stomach hurting from iron pills. * ROS: D ERMATOLOGY: no R rachael. n o H lionel. G ASTROENTEROLOGY: no N ausea. n o V omiting. n o D iarrhea.? U ROLOGY: no D ifficulty urinating. n o B lood in urine. 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 * Surgical History: b ilateral ear surgery , thyroid radiation for over-active thyroid , circumcision , prostate biopsy , Colonoscopy 2006, 2011, 2016, cataract(both) 03/2009, 04/2009, left tonsillectomy -Dr Vazquez 04/2015, lip surgery 01/2016, EGD/ [facility] 2016, EGD/ Dr. Villaseñor/ small HH, antral inflammation, No stricture 11/2018, EGD/ Dr. Escobedo/ mild chronic gastritis/ no stricture 07/2021, Colonoscopy 04/14/2022. * Hospitalization/Major Diagno stic Procedure: H ER-severe stomach pain 10/25/2011, [facility] ER-fell off ladder 07/2016, [facility]-Anemia 11/17-, [facility] ER-transferred to -stroke 11/28-, [facility] ER 04/14/2022. * Family History: F ather: , emphysema, coronary artery disease. M other: , cancer, breast, cancer CHF. 2 brother(s) , 1 sister(s) . 1 son(s) , 2 daughter(s) . . * Social History: C URRENT TOBACCO USE S moking Status: P atient does NOT smoke quit 2 years ago. C affeine: yes, frequency:. Exercise: yes. Home smoke detector use: yes. Marital Status: . New since last visit: none. Past smoking status: yes, pipe. Occup. exposure: none. Recreational drug use: no. Alcohol: no. Sexually active: yes. Travel ouside [place]: no. * Allergies: S ulfa Antibiotics, Erythromycin, Naprosyn, Lipitor: muscle pain - Side Effects, Pravastatin: muscle pain - Side Effects, Omeprazole: gynecomastia/ sore breasts - Side Effects. Objective: * Vitals: Assessment: Plan: * Treatment: * Billing Information: * Visit Code: * Procedure Codes: * Electronic signature of Selena Garcia MD on 08/21/2024 at 02:23 PM EDT Sign off status: Pending * Provider: Germaine Garcia M.D. Date: 0 07/24/2024 Generated for Kristina cnuningham/Shabnam/Karlee on: 0 08/21/2024 02:23 PM EDT
--- OUTSIDE RECORDS SUMMARY | 2024-08-11 06:15 | XMS_ITS ---
Author Organization [facility] Address [address] [facility] [address] [place] [id number] Care Team Providers Care Flower Shop Manager Name Role Phone Francesca Saravia Primary Care Provider Aman Garcia Unavailable [phone] Allergies Allergen (clinical drug ingredient) Drug/Non Drug [...] 1 tab(s) orally once a day Active [place]-3 Fatty Acids 290 MG-200 INTL UNITS 2 CAP(S) ORALLY ONCE A DAY Active Glucosamine & Fish Oil 782-119-94-40 MG 3 cap(s) orally once a day Active Multivitamin Plus Iron Adult - 1 tab(s) orally once a day Active Vital Signs Weight 136 lbs 08/11/2024 Blood pressure systolic 122 mm Hg 08/12/19 25 Blood pressure diastolic 70 mm Hg 025 Heart Rate 80 /min 08/11/2024 Height 66.50 in 08/11/2024 BMI 21.62 kg/m2 08/11/2024 Encounters Encounter Location Date Provider Diagnosis [facility] [address] [place] [id number] 08/11/2024 Aman [place] Tick bite W57.XXXA a nd Redness of [...] Notes * LISANDRO CARREONDOB:1940 (84 yo M)Acc No.[id number]:08/11/2024 Progress Notes Patient: Japsreet YIN LISANDRO WILBER Provider: Germaine Garcia M.D. 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 * Surgical History: b ilateral ear [...] stic Procedure: H ER-severe stomach pain 10/25/2011, [facility] ER-fell off ladder 07/2016, [facility]-Anemia 11/17-, [facility] ER-transferred to -stroke 11/28-, [facility] ER 04/14/2022. * Family History: F [...] day , Taking Glucosamine & Fish Oil 695-202-52-40 MG Capsule 3 cap(s) orally once a day , Taking [place]-3 Fatty Acids 290 MG-200 INTL UNITS CAPSULE [...] rn * Billing Information: * Visit Code: 22369 Office Visit, Est Pt., Level 3. * [...] 0 08/11/2024 Generated for Kristina cunningham/Shabnam/Yvetteitting on: 08/21/2024 02:23 PM EDT History and Physical Notes * [...]
--- OUTSIDE RECORDS SUMMARY | 2024-08-15 11:00 | XMS_ITS ---
Author Organization [facility] Address [address] [facility] [address] [place] [phone] Care Team Providers Care Beaming Inspector Name Role Phone Francesca Saravia Primary Care Provider [phone] Kaycee Sarah Unavailable [phone] Allergies Allergen (clinical drug ingredient) Drug/Non Drug [...] a day Active Glucosamine & Fish Oil 417-504-19-40 MG 3 cap(s) orally once a day Active [place]-3 Fatty Acids 290 MG-200 INTL UNITS 2 CAP(S) ORALLY ONCE A DAY Active Vital Signs Weight 138.2 lbs 08/15/2024 Blood pressure systolic 140 mm Hg 08/16/19 25 Blood pressure diastolic 70 mm Hg 025 Heart Rate 63 /min 08/15/2024 Height 66.50 in 08/15/2024 BMI 21.97 kg/m2 08/15/2024 Encounters Encounter Location Date Provider Diagnosis [facility] [address] [facility] [address] [place] [phone] 08/15/2024 Kaycee Sarah Murmur, cardiac R01. 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 * Surgical History: b ilateral [...] stic Procedure: H ER-severe stomach pain 10/25/2011, [facility] ER-fell off ladder 07/2016, [facility]-Anemia 11/17-, [facility] ER-transferred to -stroke 11/28-, [facility] ER 04/14/2022. * Family History: F [...] day , Taking Glucosamine & Fish Oil 639-240-99-40 MG Capsule 3 cap(s) orally once a day , Taking [place]-3 Fatty Acids 290 MG-200 INTL UNITS CAPSULE [...] results * Billing Information: * Visit Code: 46514 Office Visit, Est Pt., Level 4. * Procedure Codes: * Electronic signature of BRADLEY Contreras on 08/21/2024 at 02:24 PM EDT Sign off status: Pending * Provider: BRADLEY Hastings Date: 08/15/2024 Generated for Chinoi marisa/Shabnam/eTransmitting on: 08/21/2024 02:24 PM EDT History and Physical Notes * [...]
--- OUTSIDE RECORDS SUMMARY | 2024-08-21 14:24 | XMS_ITS | Patient Health Record ---
Author Organization [facility] Address [address] [facility] [address] [place] Arevalo [id number] Care Team Providers Care Wildland Firefighter Name Role Phone Francesca Saravia Primary Care Provider [phone] Aman Garcia Unavailable [phone] Tyrel Kaycee Unavailable [phone] Allergies Allergen (clinical drug ingredient) Drug/Non Drug [...] Active Results Component Value Reference Range Notes P-Basic Metabolic Panel (BMP ) Reviewed date:03/02/2024 04:16:39 PM Interpretation:gluc 107, gfr 55 Performing Lab: Notes/Report: Test performed by [email or web address], [employer] [address] [place] [address] , [address], [place] [address] Bam Ramirez MD, Telephone Order Supervisor CLIA: [id number] Sodium 140 135-145 mmol/L Potassium 4.2 3.5-5.3 mmol/L Chloride 107 97-108 mmol/L CO2 25 22-32 mmol/L Glucose 107 65-99 mg/dL BUN 14 8-23 mg/dL Creatinine 1.28 0.70-1.30 mg/dL Calcium 9.2 8.6-10.4 mg/dL eGFR by Creatinine 55 >59 mL/min/1.73m2 P-TSH Reviewed date:12/06/2023 10:37:17 AM Interpretation:Normal Performing Lab: Notes/Report: Test performed by [employer] [address] [place] [address] [address], [place] [address] Bam Ramirez MD, Telephone Order Supervisor CLIA: [id number] TSH 1.80 0.43-5.25 mU/L P-Lipid Panel Reviewed date:12/06/2023 10:37:17 AM Interpretation:hdl 36 Performing Lab: Notes/Report: Test performed by [employer] [address] [place] [address] [address], [place] [address] Bam Ramirez MD, Telephone Order Supervisor CLIA: [id number] Cholesterol 148 <200 mg/dL Triglycerides 99 <150 [...] Results: 92 Units: mg/dL % Change: -29% P-Iron Reviewed date:12/06/2023 10:37:17 AM Interpretation:45 Performing Lab: Notes/Report: Test performed by [facility] [employer] [address] [place] [address] , [address], [place] [address] Bam Ramirez MD, Telephone Order Supervisor CLIA: [id number] Iron 45 59-158 ug/dL P-T4 Free (thyroxine) Reviewed date:12/06/2023 10:37:17 AM Interpretation:Normal Performing Lab: Notes/Report: Test performed by [employer] [address] [place] [address] , [address], [place] [address] Bam Ramirez MD, Telephone Order Supervisor CLIA: [id number] Thyroxine Free (free T4) 1.57 0.86-1.76 ng/dL P-Ferritin Reviewed date:12/06/2023 10:37:17 AM Interpretation:Normal Performing Lab: Notes/Report: Test performed by [employer] [address] [place] [address] , [address], [place] [address] Bam Ramirez MD, Telephone Order Supervisor CLIA: [id number] Ferritin 40.6 30.0-400.0 ng/mL P-Comprehensive Metabolic Pa citlaly (CMP) Reviewed date:12/06/2023 10:37:17 AM Interpretation:Normal Performing Lab: Notes/Report: Test performed by [employer] [address] [place] [address] , [address], [place] [address] Bam Ramirez MD, Telephone Order Supervisor CLIA: [id number] Sodium 143 135-145 mmol/L Potassium 4.4 3.5-5.3 [...] 0.2 <0.2-1.2 mg/dL A/G Ratio 1.6 1.1-2.5 CBC Venipuncture (in house) Reviewed date:12/01/2023 12:28:00 [...] - 38 platlet 379 100 - 400 Urinalysis - Inhouse Reviewed date:12/01/2023 12:28:08 PM Interpretation: Performing Lab: Notes/Report: Color/Clarity yellow Leuk neg Nitrite neg Urobili 3.2 Protein neg pH 7.0 Blood neg Sp. Gr. 1.020 Ketone neg Bili neg Gluc neg CBC Fingerstick (in house) Reviewed date:09/02/2023 03:51:58 [...] Interpretation:stable nodule Performing Lab: Notes/Report: stable nodule CBC Fingerstick (in house) Reviewed date:01/10/2024 11:28:59 [...] - 38 plat 264 100 - 400 CBC Venipuncture (in house) Reviewed date:04/10/2024 08:32:58 [...] normal) Performing Lab: Notes/Report: Test performed by [facility], [address] , [address], [place] [address] Bam Ramirez MD, Telephone Order Supervisor CLIA: [id number] Iron 61 59-158 ug/dL P-Surgical Pathology Reviewed date:05/22/2024 05:28:10 PM Interpretation:SK [...] PM Gross Description: Received in formalin labeled Lisandro Carreon and mole is a quinones shaved portion of [...] 1A, 05/05. (LLG,RR13,pc9) Grossing services provided by [facility], [facility], d/b/a [address] [place], [address] Gentry Sterling MD, Telephone Order Supervisor. Microscopic Description: There is epidermal hyperplasia with [...] End of Report Technical services provided by [facility], [facility], d/b/a [address] , [place] [address] Gentry Sterling MD, Telephone Order Supervisor. Case reviewed and diagnosis rendered at [facility], [facility], d/[facility]/a [address] , [place] [address] Gentry Sterling MD, Telephone Order Supervisor. CONFIDENTIAL CBC Fingerstick (in house) Reviewed date:09/12/2023 09:17:15 [...] Interpretation:Normal Performing Lab: Notes/Report: Test performed by [facility] [address] [place], [place] [address] [place] , [address], [place] [address] Bam Ramirez MD, Telephone Order Supervisor CLIA: [id number] Sodium 139 135-145 mmol/L Potassium 4.7 3.5-5.3 [...] Interpretation:Normal Performing Lab: Notes/Report: Test performed by [facility] [address] [place] [address] , [address], [place] [address] Bam Ramirez MD, Telephone Order Supervisor CLIA: [id number] Ferritin 54.7 30.0-400.0 ng/mL P-T4 Free (thyroxine) Reviewed date:05/15/2024 08:35:29 AM Interpretation:Normal Performing Lab: Notes/Report: Test performed by [facility] [employer] [address] [place] [address] , [place] [address] Bam Ramirez MD, Telephone Order Supervisor CLIA: [id number] Thyroxine Free (free T4) 1.56 0.86-1.76 ng/dL P-Iron Reviewed date:05/15/2024 08:35:29 AM Interpretation:iron 53 Performing Lab: Notes/Report: Test performed by [employer] [address] [place] [address] [place] [address] Bam Ramirez MD, Telephone Order Supervisor CLIA: [id number] Iron 53 59-158 ug/dL P-Lipid Panel Reviewed date:05/15/2024 08:35:29 AM Interpretation:trigs 160, hdl 39 Performing Lab: Notes/Report: Test performed by [facility] [address] , [facility], [place] [address] Bam Ramirez MD, Telephone Order Supervisor CLIA: [id number] Cholesterol 139 <200 mg/dL Triglycerides 160 <150 [...] Interpretation:Normal Performing Lab: Notes/Report: Test performed by [facility] [address] [place] [address] , [address], [place] [address] Bam Ramirez MD, Telephone Order Supervisor CLIA: [id number] TSH 3.38 0.43-5.25 mU/L Medications Medication SIG (Take, Route, Frequency, Duration) [...] a day Active Glucosamine & Fish Oil 291-286-64-40 MG 3 cap(s) orally once a day Active Seymour-3 Fatty Acids 290 MG-200 INTL UNITS 2 CAP(S) ORALLY ONCE A DAY Active Immunizations Vaccine Route Administration Date Status Comme nts bMisqqjh-awpurtsrz-ffvsvuy e pts. IM Intramuscular 12/09/2009 Administered xFluzone [...] Problem Status W/U Status Risk Notes Problem 46562306 Essential hypertension (I10) Active confirmed Problem Constipation (09627953) Constipation (K59.00) Active confirmed Problem Seasonal allergy (867561551) Seasonal allergies (J30.2) Active confirmed Problem 358357093608191 Piriformis syndr ome of left side (G57.02) Active confirmed Problem Multiple pulmonary nodules (759766783) Pulmonary nodules (R91.8) Active confirmed Problem Iron deficiency anemia (92979209) Iron deficiency anemia (D50.9) Active confirmed Problem 165903342 Acute constipati on (K59.00) Active confirmed Problem Benign prostatic hyperplasia (623069924) BPH (benign prostatic hyperplasia) (N40.0) Active confirmed Problem Dysphagia (03771016) Dysphagia (R13.10) Active confirmed Problem 090253022 Gastroesophageal reflux disease without esophagitis (K21.9) Active confirmed Problem 963884390 Acquired hypothyroidism (E03.9) Active confirmed Problem 01738752 Chronic obstruct uday pulmonary disease, unspecified COPD type (J44.9) Active confirmed Problem 88719289 Presbycusis of b oth ears (H91.13) Active confirmed Problem Anemia due to chronic blood loss (786806325) Blood loss anemia (D50.0) Active confirmed Problem Diverticular disease of colon (438356003) Diverticulosis (K57.90) Active confirmed Problem 233297138 Dyslipidemia (E78.5) Active confirmed Problem 57827549 Seasonal allergi c rhinitis due to pollen (J30.1) Active confirmed Problem 511832981601192 Piriformis syndrome, right (G57.01) Active confirmed Problem 948450993 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) Active confirmed Problem 619777073 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) Active confirmed Problem 811113570256115 Benign prostatic hyperplasia with lower urinary tract symptoms (N40.1) Active confirmed Problem 897228179 Elevated PSA (R97.20) Active confirmed Problem 24973382 Urge incontinenc e of urine (N39.41) Active confirmed Problem Prostate nodule (349316201701170) Prostate nodule (N40.2) Active confirmed Problem 46909287 Oropharyngeal dysphagia (R13.12) Active confirmed Problem 529782088 Statin intoleran ce (Z78.9) Active confirmed Problem 67361215 Acute non-season al allergic rhinitis (J30.89) Active confirmed Vital Signs Heart Rate 63 /min 08/15/2024 Blood pressure diastolic 70 mm Hg 08/15/2024 Height 66.50 in 08/15/2024 Blood pressure systolic 140 mm Hg 08/15/2024 Weight 138.2 lbs 08/15/2024 BMI 21.97 kg/m2 08/15/2024 Encounters Encounter Location Date Provider Diagnosis Lucia 1209 [facility] [address] [place] [id number] 09/02/2023 Kaycee Crowdy Bursitis of right sh oulder M75.51 ; Trapezius muscle spasm M62.838 ; Pulmonary nodules R91.8 and Gastroenteritis K52.9 [facility] [address] [place] [id number] 09/09/2023 Kaycee Crowdy Bursitis of right sh oulder M75.51 ; Trapezius muscle spasm M62.838 and Gastroenteritis K52.9 [facility] [address] [place] [id number] 09/28/2023 Kaycee Crowdy Biceps tendon tear S 46.219A [facility] [address] [place] [id number] 12/01/2023 Kaycee Crowdy Costochondritis M94. 0 ; Dyslipidemia E78.5 ; Acquired hypothyroidism E03.9 ; Gastroesophageal reflux disease without esophagitis K21.9 ; Anemia, unspecified type D64.9 ; Essential hypertension I10 and Sternocleidomastoid muscle tenderness M79.12 [facility] [address] [place] [id number] 12/13/2023 R Girish Manjit [facility] [address] [place] [id number] 01/10/2024 R Girish Manjit Iron deficiency anem ia D50.9 [facility] [address] [place] [id number] 02/21/2024 R Girish Manjit Atypical chest pain R07.89 and Essential hypertension I10 [facility] [address] [place] [id number] 03/01/2024 R Girish Manjit Hyponatremia E87.1 a nd Muscle spasm of back M62.830 [facility] [address] [place] [id number] 03/06/2024 R Girish Manjit Hyponatremia E87.1 a nd COVID-19 U07.1 [facility] [address] [place] [id number] 04/05/2024 R Girish Manjit Fall W19.XXXA ; Thor acic back pain M54.6 and Iron deficiency anemia D50.9 [facility] [address] [place] [id number] 05/11/2024 Kaycee Crowdy 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 ; Deviated nasal septum J34.2 ; Dyslipidemia E78.5 ; Acquired hypothyroidism E03.9 ; Essential hypertension I10 and Iron deficiency anemia D50.9 [facility] [address] [place] [id number] 05/17/2024 R Girish Manjit 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 1 ; Chronic constipation K59.09 and Iron deficiency E61.1 [facility] [address] [place], [place] [id number] 09/16/2023 Kaycee Crowdy [facility] [address] [place], [place] [id number] 11/16/2023 Kaycee Crowdy Dermatitis L30.9 [facility] [address] [place] [id number] 12/06/2023 Kaycee Crowdy [facility] [address] [place], [place] [id number] 02/03/2024 R Girish Manjit Dermatitis L30.9 [facility] [address] [place], [place] [id number] 03/02/2024 R Girish Manjit [facility] [address] [place], [place] [id number] 04/10/2024 R Girihs Manjit [facility] [address] [place], [place] [id number] 04/10/2024 R Girish Manjit [facility] [address] [place], [place] [id number] 05/02/2024 R Girish Manjit [facility] [address] [place], [place] [id number] 05/15/2024 Kaycee Sarah Assessments Encounter Date Diagnosis (ICD Code) Assessment Notes Treatment Notes Treatment Clinical Notes Section Notes 09/09/2023 Trapezius muscle spa sm (ICD-10 - M62.838) Much improved, will continue muscle relaxants prn. 09/09/2023 Bursitis of right shoulder (ICD-10 - M75.51) Much improved, will continue to rest the arm. 09/28/2023 Biceps tendon tear (ICD-10 - S46.219A) Likely has a partial tear of the biceps tendon. Dr. Garcia examined as well. Strength is still good at this time. Gave exercises to do. If no improvement, will need PT. 11/16/2023 Dermatitis (ICD-10 - L30.9) 09/02/2023 Trapezius muscle spa sm (ICD-10 - M62.838) 09/02/2023 Bursitis of right shoulder (ICD-10 - M75.51) Will rest the shoulder and give a steroid shot as oral steroids bother his stomach. 12/01/2023 Costochondritis (ICD-10 - M94.0) This does not appear to be kidney pain but rather costochondritis . He was recently on the roof with the leaf blower and noticed the pain after this. 12/01/2023 Dyslipidemia (ICD-10 - E78.5) 01/10/2024 Iron deficiency anem ia (ICD-10 - D50.9) Continue OTC iron supplement. He seems to be tolerating this well. -- Improving with treatment 02/03/2024 Dermatitis (ICD-10 - L30.9) 02/21/2024 Essential hypertensi on (ICD-10 - I10) 02/21/2024 Atypical chest pain (ICD-10 - R07.89) 03/01/2024 Hyponatremia (ICD-10 - E87.1) 03/01/2024 Muscle spasm of back (ICD-10 - M62.830) Recommend heat and gentle stretching exercises. He has a muscle relaxer at home that he can use as needed at bedtime. 03/06/2024 Hyponatremia (ICD-10 - E87.1) --resolved 03/06/2024 COVID-19 (ICD-10 - U07.1) --residual cough; symptomatic treatment 04/05/2024 Fall (ICD-10 - W19.XXXA) 04/05/2024 Thoracic back pain (ICD-10 - M54.6) Recommend trial of Lidoderm patches. If no improvement over the next couple weeks, he is provided a requisition to obtain an x-ray. 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 Saravia to remove. 08/15/2024 Chronic constipation (ICD-10 - K59.09) Patient has seen GI. They think the iron is causing the constipation and told him to stop it. They checked labs and his iron was only slightly low. He will stop the iron and recheck in 2 months to see if it has dropped. m 12/01/2023 Acquired hypothyroidism (ICD-10 - E03.9) 05/11/2024 Dyslipidemia (ICD-10 - E78.5) 08/15/2024 Iron deficiency (ICD-10 - E61.1) m 04/05/2024 Iron deficiency anem ia (ICD-10 - D50.9) 09/09/2023 Gastroenteritis (ICD-10 - K52.9) Resolved and CBC is much improved. 09/02/2023 Pulmonary nodules (ICD-10 - R91.8) 09/02/2023 Gastroenteritis (ICD-10 - K52.9) 12/01/2023 Gastroesophageal reflux disease without esophagitis (ICD-10 - K21.9) 05/11/2024 Acquired hypothyroidism (ICD-10 - E03.9) 05/11/2024 Essential hypertensi on (ICD-10 - I10) 12/01/2023 Anemia, unspecified type (ICD-10 - D64.9) 12/01/2023 Essential hypertensi on (ICD-10 - I10) 05/11/2024 Iron deficiency anem ia (ICD-10 - D50.9) 12/01/2023 Sternocleidomastoid muscle tenderness (ICD-10 - M79.12) [...] Date [employer] ([employer] [address] [address] [place] [address] [id number] LISANDRO CARREON Self - patient is the [...] elevated PSA right thalamic CVA 11/28/18 - [facility] Surgical History Surgery Date(Month/Year) bilateral ear surgery thyroid radiation for over-active thyroi d circumcision prostate biopsy Colonoscopy 2006, 2011, 2016 cataract(both) 03/2009, 04/2009 left tonsillectomy -Dr Vazquez 04/2015 lip surgery 01/2016 EGD/ [facility] 2016 EGD/ Dr. Villaseñor/ small HH, antral inflamma tion, No stricture 11/2018 EGD/ Dr. Escobedo/ mild chronic gastritis/ no stricture 07/2021 Colonoscopy 04/14/2022 Hospitalization History Reason Date(Month/Year) [facility] ER 04/14/2022 [facility] ER-transferred to -stroke 11/28-2 08/2018 [facility]-Anemia 11/17- [facility] ER-fell off ladder 07/2016 [facility] ER-severe stomach pain 10/25/2011
--- OUTSIDE RECORDS SUMMARY | 2024-08-21 14:24 | XMS_ITS | Clinical Summary ---
Author Organization Healthcare Address [address] [place] [address] Care Team Providers Care Jack Tamp Operator Name Role Phone Yohannes Saravia MD Primary Care Provider [phone] Family History Medical History Relation Name Comments [...] of Treatment Not on file Care Teams Jack Tamp Operator Relationship Specialty Start Date End Date Yohannes Saravia MD [address] [place] [address] PCP - General 07/18/20
--- NOTE | 2024-08-21 14:27 | CA_ITS ---
APPROVED REPORT EXAM: Comprehensive 2D, Doppler, and color-flow Echocardiogram Production Broaching Machine Operator: [place] CRT Ht: 5 ft 6 in Wt: 138lbs BSA: 1.71 BP: 196/86 mmHg Indications: Murmur 2D Dimensions LA Volume 53.90 mL LA Volume Index 30.80 mL/m2 (M/F) 16-34 M-Mode Dimensions RVDd 2.43 cm (0.9-2.6) LA Diam 2.70 cm (1.9-4.0) LVDd 3.96 cm (3.5-5.7) LVDs 1.90 cm (3.5-5.7) IVSd 1.50 cm (0.6-1.1) PWd 1.00 cm (0.6-1.1) EF (Teich) 83.60% FS 52.00% EDV (Teich) 68.30 mL ESV (Teich) 11.20 mL LV Diastology E Decel Time 257 (160-240 msec) E/A Ratio 0.50 MED A' 12.40 cm/s LAT A' 22.10 cm/s Aortic Valve ROULA Index 1.35 cm2/m2 AoV Peak Chau. 241.0 (50-130 cm/s) AO Peak GR. 23.40 mmHg AO Mean GR. 13.70 (<5 mmHg) AO VTI 45.3 (18-25 cm) ROULA (VTI) 2.36 (2.5-4.5 cm2) Mitral Valve MV E Max Chau. 54.0 (40-130 cm/s) MV A Velocity 107.0 (40-130 cm/s) E/A Ratio 0.50 MV PHT 75.0 ms Pulmonary Valve PV Peak Velocity 138.0 (50-150 cm/s) Tricuspid Valve TR P. Velocity 311.00 cm/s RAP Estimate 10.00 mmHg RVSP 48.70 mmHg Left Ventricle The left ventricle is normal size. The left ventricular systolic function is normal. The left ventricular ejection fraction is within the normal range. There is increased LV wall thickness. There is normal LV segmental wall motion. Transmitral Doppler flow pattern suggests impaired LV relaxation. LVEF is 60%. Right Ventricle Right ventricle is mildly dilated. The right ventricular systolic function is normal. Atria Left atrium is mildly dilated. Right atrium is mildly dilated. There is no Doppler evidence of interatrial shunt. Aortic Valve The aortic valve is mildly thickened. Aortic sclerosis, but no hemodynamically significant valvular aortic stenosis. ROULA by 2D planimetry is 2.3 cm2. Trace aortic regurgitation. Mitral Valve The mitral valve is normal in structure. No evidence of mitral valve stenosis. Mild mitral regurgitation. Tricuspid Valve Tricuspid valve is grossly normal in structure and function. Mild tricuspid regurgitation. RVSP is 25-30 mmHg. Pulmonic Valve The pulmonary valve is normal in structure. Trace pulmonic regurgitation. Great Vessels The aortic root is normal in size. IVC is normal in size and collapses >50% with inspiration. Pericardium There is no pericardial effusion. Other Information Study Quality: Fair Conclusion Normal biventricular systolic function. Mild RV dilation. Mild biatrial dilation. Mild MR, mild TR. Electronically signed by : Cha Edouard MD 08/26/2024 16:38:29
== END 2024-08-21 23:59 | disposition home or self-care (01) ==
LOC: RT 14:22
PROVIDERS: PCP Family Medicine; Visit Provider Physician Assistant
DX: I08.1 Rheumatic disorders of both mitral and tricuspid valves (principal)
CPT/HCPCS: 93306

== ENCOUNTER 2024-08-22 05:35 | Emergency (ER) | payer MEDICARE, SELFPAY ==
--- OUTSIDE RECORDS SUMMARY | 2024-07-24 07:00 | XMS_ITS ---
Author Organization Luis Address [facility] [facility] [address] [place] [phone] Care Team Providers Care Business Taxes Specialist Name Role Phone Francesca Saravia Primary Care Provider Aman Garcia [phone] Allergies Allergen (clinical drug ingredient) Drug/Non Drug [...] Encounter Location Date Provider Diagnosis [facility] [address] [place] [id number] 07/24/2024 Aman Garcia Plan Of Treatment No Information Progress Notes * LISANDRO CARREONDOB:1940 (84 yo M)Acc No.[id number]:07/24/2024 Progress Notes Patient: Jaspreet YINLISANDRO WILBER Provider: [...] elevated PSA, 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 * Surgical History: b ilateral ear surgery [...] stic Procedure: H ER-severe stomach pain 10/25/2011, [facility] ER-fell off ladder 07/2016, [facility]-Anemia 11/17-, [facility] ER-transferred to -stroke 11/28-, [facility] ER 04/14/2022. * Family History: F ather: [...] Electronic signature of Selena Garcia MD on 08/22/2024 at 06:22 AM EDT Sign off status: Pending * Provider: Germaine Garcia M.D. Date: 0 07/24/2024 Generated for Kristina cunningham/Shabnam/Karlee on: 08/22/2024 06:22 AM EDT
--- OUTSIDE RECORDS SUMMARY | 2024-08-11 06:15 | XMS_ITS ---
Author Organization [facility] Address [address] [facility] [address] [place] [id number] Care Team Providers Care Turbine Room Attendant Name Role Phone Francesca Saravia Primary Care Provider Aman Garcia Unavailable [phone] Allergies Allergen (clinical drug ingredient) Drug/Non Drug [...] 1 tab(s) orally once a day Active [place]-3 Fatty Acids 290 MG-200 INTL UNITS 2 CAP(S) ORALLY ONCE A DAY Active Glucosamine & Fish Oil 465-089-79-40 MG 3 cap(s) orally once a day Active Multivitamin Plus Iron Adult - 1 tab(s) orally once a day Active Vital Signs Weight 136 lbs 08/11/2024 Blood pressure systolic 122 mm Hg 08/12/19 25 Blood pressure diastolic 70 mm Hg 025 Heart Rate 80 /min 08/11/2024 Height 66.50 in 08/11/2024 BMI 21.62 kg/m2 08/11/2024 Encounters Encounter Location Date Provider Diagnosis [facility] [address] [place] [id number] 08/11/2024 Aman [place] Tick bite W57.XXXA a nd Redness of [...] Notes * LISANDRO CARREONDOB:1940 (84 yo M)Acc No.[id number]:08/11/2024 Progress Notes Patient: Jaspreet YIN LISANDRO WILBER Provider: Germaine Garcia M.D. 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 * Surgical History: b ilateral [...] stic Procedure: H ER-severe stomach pain 10/25/2011, [facility] ER-fell off ladder 07/2016, [facility]-Anemia 11/17-, [facility] ER-transferred to -stroke 11/28-, [facility] ER 04/14/2022. * Family History: F ather: [...] day , Taking Glucosamine & Fish Oil 792-535-25-40 MG Capsule 3 cap(s) orally once a day , Taking [place]-3 Fatty Acids 290 MG-200 INTL UNITS CAPSULE [...] rn * Billing Information: * Visit Code: 34273 Office Visit, Est Pt., Level 3. * [...] * Provider: Germaine Garcia M.D. Date: 0 08/11/2024 Generated for Kristina cunningham/Shabnam/Yvetteitting on: 08/22/2024 06:22 AM EDT History and Physical Notes * HPI [...]
--- OUTSIDE RECORDS SUMMARY | 2024-08-15 11:00 | XMS_ITS ---
Author Organization [facility] Address [address] [facility] [address] [place] [id number] Care Team Providers Care Fur Machine Operator Name Role Phone Francesca Saravia Primary Care Provider Kaycee Sarah Unavailable [phone] Allergies Allergen (clinical drug ingredient) Drug/Non Drug [...] a day Active Glucosamine & Fish Oil 510-465-68-40 MG 3 cap(s) orally once a day Active [place]-3 Fatty Acids 290 MG-200 INTL UNITS 2 CAP(S) ORALLY ONCE A DAY Active Vital Signs Weight 138.2 lbs 08/15/2024 Blood pressure systolic 140 mm Hg 08/16/19 25 Blood pressure diastolic 70 mm Hg 025 Heart Rate 63 /min 08/15/2024 Height 66.50 in 08/15/2024 BMI 21.97 kg/m2 08/15/2024 Encounters Encounter Location Date Provider Diagnosis [facility] [address] [facility] [address] [place] [phone] 08/15/2024 Kaycee Sarah Murmur, cardiac R01. 1 [...] Notes * LISANDRO CARREONDOB:1940 (84 yo M)Acc No.[id number]:08/15/2024 Progress Notes Patient: Jaspreet YINLISANDRO Provider: BRADLEY Hastings :1940 A ge:84 Y S ex:Male Date:08/15/2024 Address:[address], [place], [id number] Pcp:Francesca Saravia Subjective: * Chief Complaints: * [...] elevated PSA, right thalamic CVA 11/28/[address] [facility]. * Surgical History: b ilateral ear surgery [...] stic Procedure: H ER-severe stomach pain 10/25/2011, [facility] ER-fell off ladder 07/2016, [facility]-Anemia 11/17-, [facility] ER-transferred to -stroke 11/28-, [facility] ER 04/14/2022. * Family History: F [...] day , Taking Glucosamine & Fish Oil 692-977-14-40 MG Capsule 3 cap(s) orally once a day , Taking [place]-3 Fatty Acids 290 MG-200 INTL UNITS CAPSULE [...] josef deficiency - E61.1 4 . B [place] 21.0-21.9, adult - Z68.21 m Plan: * [...] results * Billing Information: * Visit Code: 52102 Office Visit, Est Pt., Level 4. * Procedure Codes: G2211 Complex e/m [place] add on. 1036F TOBACCO NON-USER. G8420 BMI<30 AND >=22 CALC & DOCU. G8753 MOST RECENT SYSTOLIC BP >= 140MM HG. G8754 MOST RECENT DIASTOLIC BP < 90MM HG. * Electronic signature of BRADLEY Contreras on 08/22/2024 at 06:22 AM EDT Sign off status: Pending * Provider: BRADLEY Hastings Date: 08/15/2024 Generated for Kristina cunningham/Shabnam/eTransmitting on: 08/22/2024 06:22 AM EDT History and [...]
[2024-08-22 05:42] VITALS: BP 160/115; PULSE 86; RESP 16; TEMP 36.6; O2SAT 94; BMI 21.6
--- NOTE | 2024-08-22 06:08 | PC.NURSE ---
14Fr coude catheter inserted at this time. no difficulty noted. clear/light yellow urine draining.
[2024-08-22 06:13] LABS: Microscopic, Urine URINE MICROSCOPIC (MICROSCOPIC)
--- NOTE | 2024-08-22 06:22 | [facility].EDGENADL ---
Discharge Plan Disposition Patient Disposition: Home, Self-Care Prescriptions Prescriptions: New tamsulosin [Flomax] 0.4 mg capsule 0.4 mg PO DAILY 30 Days Qty: 30 0RF No Action aspirin [Adult Aspirin Regimen] 81 mg tablet,delayed release (DR/EC) 81 mg PO DAILY mupirocin 2 % ointment 1 applic topical TID Qty: 22 2RF levothyroxine 75 mcg tablet 75 mcg PO DAILY lisinopril 10 mg tablet 10 mg PO DAILY rosuvastatin 5 mg tablet 5 mg PO HS doxycycline hyclate 100 mg capsule 100 mg PO BID 10 Days Qty: 20 0RF Referrals Follow up/Referrals: Yohannes Saravia MD [Primary Care Provider, Medical] - See instructions Referral Note: Patient seen in ER for urinary retention. Needs reassessment and urology follow-up. Patient and family exhibit extreme lack of understanding of his ongoing prostate problems. They were also adamant that doxycycline which he was prescribed for tickborne illness caused his urinary retention. Toni Le MD [Staff Physician, Urology] - See instructions Activity Restrictions/Add. Instructions Additional Instructions/Restrictions: Given the fact that you have significant prostatic hypertrophy and acute urinary retention is recommend that you keep the Morgan catheter in between 7 and 10 days while you use the medications been prescribed and then have a voiding trial. You may follow-up with Dr. Baptiste and if he has a different time that he would like to try a voiding trial you may follow his guidance. No other emergent medical condition identified today. Clinical Impressions Clinical Impression: Urinary retention, Hypertrophy of prostate Print Language Print Language: Liberian Discharge ED Provider: Tammie Alfaro General Adult HPI <Tammie Alfaro MD - Last Filed: 08/22/24 07:11> General Chief complaint: Fever Stated complaint: fever, body aches, unable to urinate Time Seen by Provider: 08/22/24 05:57 Mode of Arrival: Ambulatory Source of Information: Patient and Spouse Description of Symptoms (Recalled from ER Triage Doc. by RN): Pt presents with c/o uriniary retention with decreased output that began approx 2 days ago. Pt reports fever at home with body aches and lower back pain. Pt reports to taking antibiotic recently for tick bite that was prescribed from this facility. History of Present Illness HPI narrative: 84-year-old male with history of BPH, TIA, GI bleed, recent tick bite who was started on doxycycline 3 days ago presents to the ER with complaints of urinary retention, low back pain, and subjective fever. When they took his temperature at home it was 98.4 but allegedly he had just taken a drink of water. Patient was started on doxycycline a few days ago after a tick had been removed 2 days prior. He reports yesterday he started having increased urinary frequency and urgency with bladder spasm but no dysuria. The last time he was able to successfully urinate was around 12:30 AM. Patient and family report that he has had chills and therefore they believe he has a fever despite temperature being normal. Patient and family are convinced that the doxycycline has caused the fever, back pain, and urinary retention because the insert on the doxycycline suggested fever as a possible side effect. Patient reports 1 episode of emesis yesterday morning after he took the antibiotic. No other emesis, diarrhea, or constipation. No headache or dizziness, no numbness, tingling, or weakness. Related Data Home Medications ?Medication ?Instructions ?Recorded ?Confirmed aspirin 81 mg tablet,delayed 81 mg PO DAILY 04/30/19 06/13/24 release (Adult Aspirin Regimen) levothyroxine 75 mcg tablet 75 mcg PO DAILY 02/25/24 06/13/24 lisinopril 10 mg tablet 10 mg PO DAILY 02/25/24 06/13/24 rosuvastatin 5 mg tablet 5 mg PO HS 02/25/24 06/13/24 Previous Rx's ?Medication ?Instructions ?Recorded mupirocin 2 % topical ointment 1 applic topical TID #22 grams 05/17/24 doxycycline hyclate 100 mg capsule 100 mg PO BID 10 days #20 caps 08/19/24 tamsulosin 0.4 mg capsule (Flomax) 0.4 mg PO DAILY 30 days #30 caps 08/22/24 Allergies Allergy/AdvReac Type Severity Reaction Status Date / Time Sulfa (Sulfonamide Allergy Unknown NAUSEA/VOMI Verified 08/19/24 07:17 Antibiotics) [facility] <Tammie Alfaro MD - Last Filed: 08/22/24 07:11> [facility] Disclaimer: The information contained in this section may have been updated after the patient was seen, as this information can be updated by other users. Medical History (Updated 08/22/24 @ 08:18 by Josefina Luo MD) Nasal polyps Nasal vestibulitis MRSA (methicillin resistant staph aureus) culture positive Mouth breathing Hiatal hernia Elevated PSA BPH (benign prostatic hyperplasia) C. difficile colitis COPD (chronic obstructive pulmonary disease) Diverticulosis GERD (gastroesophageal reflux disease) Hyperlipidemia Hypothyroid GI bleed Vasovagal syncope Iron deficiency anemia due to chronic blood loss SNHL (sensorineural hearing loss) Right ear pain Bleeding from right ear Onychoincurvatum History of diverticulitis History of stroke Surgical History History of esophagogastroduodenoscopy (EGD) Hx of prostate biopsy History of circumcision History of tonsillectomy History of ear surgery History of colonoscopy Family History Other Family history of acute congestive heart failure Family history of acute heart failure Family history of cancer Family history of emphysema Social History Smoking Status: Never smoker alcohol intake: never substance use type: denies use current occupational status: retired and other Travel in the last 8 weeks?: None household members: spouse housing: house marital status: current occupational exposures/hazards: No caffeine: Yes special adalid needs: No agree to transfusion: No do you feel safe at home: Yes victim of physical abuse: No victim of emotional abuse: No victim of sexual abuse: No would you like helpful sources: No Other Medical History Have you received the Flu Vaccine for this season: No Have you received the Pneumonia Vaccine: Yes <Tammie Alfaro MD - Last Filed: 08/22/24 07:11> ROS Obtained: Yes Systems reviewed as appropriate & no additional complaints except as documented per HPI Physical Exam <Tammie lAfaro MD - Last Filed: 08/22/24 07:11> General General appearance: alert and in no apparent distress Head Head exam: atraumatic and normocephalic Eye Eye exam: Present PERRL and EOMI ENT ENT exam: Present mucous membranes moist Neck Neck exam: Present normal inspection and full ROM Chest Chest inspection: Present symmetric chest wall rise Respiratory Respiratory exam: Present normal lung sounds bilaterally; Absent respiratory distress, wheezes or stridor Cardiovascular Cardiovascular exam: Present regular rate, normal rhythm and other (Faint murmur appreciated) Abdominal Exam Abdominal exam: Present soft; Absent distention or tenderness Extremities Exam Extremities exam: Present full ROM; Absent edema Back Exam Back exam: Present CVA tenderness (R) (Very mild bilateral CVA tenderness) and CVA tenderness (L) Neurological Exam Neurological exam: Present alert and oriented X3; Absent motor sensory deficit Psychiatric Psychiatric exam: Present normal affect and normal mood Skin Skin exam: Present warm and dry Medical Decision Making <Tammie Alfaro MD - Last Filed: 08/22/24 07:11> Medical Records Medical records reviewed: Yes I reviewed the patient's medical records. Screening: Per USPSTF and CDC recommendations, given the prevalence of disease in our region, it is our hospital?s policy to screen for HIV and viral Hepatitis for all patients aged 18 and over and those with ongoing risk factors. MR Comment: Review of previous records demonstrates patient has previously had needle biopsy for elevated PSA, has a history of BPH. Review of records from patient had been rechecked by urology after being seen in the ER with abdominal pain and fever where he had enlarged prostate. Patient has failed to tolerate alpha blockers in the past. Review of record from 2023 with urology demonstrates his urgency to void had been worsening and he was having dribbling and urge incontinence. Zaki Inquiry Pt receiving controlled substance: No Vital Signs: 08/22/24 05:42 08/22/24 07:13 08/22/24 07:31 Temperature 98 F Temperature Source Oral Pulse Rate 73 71 Pulse Rate [Radial] 86 Respiratory Rate 16 18 Blood Pressure 149/51 H 148/68 H Blood Pressure [Right Arm] 160/115 H Blood Pressure Mean 83 Blood Pressure Mean [Right Arm] 130 Blood Pressure Position [Right Arm] Sitting 02 Sat by Pulse Oximetry 94 L 95 95 Oxygen Delivery Method Room Air Room Air 08/22/24 08:00 Temperature Temperature Source Pulse Rate 68 Pulse Rate [Radial] Respiratory Rate 18 Blood Pressure 148/67 H Blood Pressure [Right Arm] Blood Pressure Mean 85 Blood Pressure Mean [Right Arm] Blood Pressure Position [Right Arm] 02 Sat by Pulse Oximetry 95 Oxygen Delivery Method Lab Data Lab Results 08/22/24 05:46: WBC 12.7 H, RBC 3.25 L, Hgb 10.1 L, Hct 30.6 L, MCV 94.2 H, MCH 31.1, MCHC 33.0, RDW 15.0, Plt Count 345, MPV 9.7, Neut % (Auto) 72.5, Lymph % (Auto) 12.7, Callahan % (Auto) 8.6, Eos % (Auto) 5.8, Baso % (Auto) 0.2, Neut # (Auto) 9.2 H, Lymph # (Auto) 1.6, Callahan # (Auto) 1.1 H, Eos # (Auto) 0.7 H, Baso # (Auto) 0.0, PT 10.9, INR 0.98, Sodium 140, Potassium 4.1, Chloride 107, Carbon Dioxide 26, Anion Gap 11.1, BUN 25 H, Creatinine 1.40 H, Estimated Creat Clear 34, Estimated GFR 48 L, Est GFR ( Amer) 58 L, Glucose 108 H, Calcium 9.7, Total Bilirubin 0.2, AST 51, ALT 26, Alkaline Phosphatase 104, Total Protein 6.9, Albumin 3.9, Globulin 3.0, Albumin/Globulin Ratio 1.3 08/22/24 06:07: Urine Color Yellow, Urine Appearance Clear, Urine pH 6.5, Ur Specific [place] <= 1.005, Urine Protein Negative, Urine Glucose (UA) Negative, Urine Ketones Negative, Urine Blood Trace-i, Urine Nitrate Negative, Urine Bilirubin Negative, Urine Urobilinogen 0.2, Ur Leukocyte Esterase Negative, Urine RBC Occasional, Urine WBC None, Ur Squamous Epith Cells None, Urine Bacteria None 08/22/24 05:46 08/22/24 05:46 Orders (Tests/Meds): ED MEDICATIONS Discontinued Medications Generic Name Dose Route Start Last Admin Trade Name Corwin PRN Reason Stop Dose Admin Iopamidol 75 ml 08/22/24 07:06 08/22/24 07:06 Iopamidol-370 (76%);100ml Bottle IV 08/22/24 07:07 75 ml ONCE ONE Administration Sodium Chloride 10 ml 08/22/24 07:06 08/22/24 07:06 Sodium Chloride 0.9% 10ml Syr (Rad Only) IV 08/22/24 07:07 10 ml ONCE ONE Administration ORDERS Category Date Time Status CT abdomen pelvis w con Stat Cat Scan 08/22/24 06:26 Completed CBC w/Auto Diff [Complete Blood Count Auto Diff] Stat Lab 08/22/24 05:46 Completed CMP [Comprehensive Metabolic Panel] Stat Lab 08/22/24 05:46 Completed PT INR [Prothrombin Time INR] Stat Lab 08/22/24 05:46 Completed Urinalysis and Microscopic Stat Lab 08/22/24 06:07 Completed Medical Decision Narrative: In summary, this 84-year-old male with comorbidities described in the HPI presents to the emergency department today with subjective fever though measured temperature at home was 98.4, urinary retention, low back pain. On initial evaluation patient is hemodynamically stable, afebrile, GCS 15, patient had discomfort over the bladder that was relieved after catheter placement, very mild bilateral CVA tenderness. Cardiopulmonary exam reassuring, faint murmur appreciated which has already been addressed with echo that was reportedly performed yesterday. Differential diagnosis includes but is not limited to BPH causing urinary retention, urinary tract infection, pyelonephritis, obstructive mass, nephropathy, electrolyte abnormality, viral infection. Patient and family at bedside are adamant that doxycycline is causing the patient's fever, back pain, and urinary retention. This is not a common side effect of doxycycline I explained this to the patient repeatedly. They are argumentative that the doxycycline caused all these problems and I explained that if they were worried about it the patient could stop the doxycycline but then he would be at risk for tickborne illnesses which was the reason he was placed on it. Family was so argumentative that they would not hear my explanations for the reasons for potential side effects from antibiotics including leaving you susceptible to other infections which could cause fever. I also explained it was most likely that the patient had 2 problems in parallel and that he was taking the doxycycline when his BPH which has been progressively worsening over many years finally became obstructive. Ultimately family and patient remain argumentative and disagree but are willing to have labs and imaging performed to rule out the other potential causes. Based on these concerns, I ordered serum labs, urine studies, CT imaging. Patient should also remain in the ER to monitor for postobstructive diuresis. Labs personally reviewed demonstrate nonactionable CMP, patient's kidney dysfunction is at baseline with creatinine 1.4 and BUN 25 consistent with previous. UA negative for findings of infection. Mild leukocytosis WBC 12.7, anemia 10.1 similar to previous, normal platelets. On reassessment patient is resting much more comfortably. Initially patient had approximately 450 mL urine out after Morgan catheter was placed. He has had significant relief of lower abdominal discomfort and back pain. CVA tenderness is almost absent at this time. Patient is being taken for CT scan. He was handed off to Dr. Luo in stable condition for further management and disposition. <Josefina Luo MD - Last Filed: 08/22/24 08:22> Vital Signs: 08/22/24 05:42 08/22/24 07:13 08/22/24 07:31 Temperature 98 F Temperature Source Oral Pulse Rate 73 71 Pulse Rate [Radial] 86 Respiratory Rate 16 18 Blood Pressure 149/51 H 148/68 H Blood Pressure [Right Arm] 160/115 H Blood Pressure Mean 83 Blood Pressure Mean [Right Arm] 130 Blood Pressure Position [Right Arm] Sitting 02 Sat by Pulse Oximetry 94 L 95 95 Oxygen Delivery Method Room Air Room Air 08/22/24 08:00 Temperature Temperature Source Pulse Rate 68 Pulse Rate [Radial] Respiratory Rate 18 Blood Pressure 148/67 H Blood Pressure [Right Arm] Blood Pressure Mean 85 Blood Pressure Mean [Right Arm] Blood Pressure Position [Right Arm] 02 Sat by Pulse Oximetry 95 Oxygen Delivery Method Lab Data Lab results reviewed: Yes I reviewed the patient's lab results. Lab Results 08/22/24 05:46: WBC 12.7 H, RBC 3.25 L, Hgb 10.1 L, Hct 30.6 L, MCV 94.2 H, MCH 31.1, MCHC 33.0, RDW 15.0, Plt Count 345, MPV 9.7, Neut % (Auto) 72.5, Lymph % (Auto) 12.7, Callahan % (Auto) 8.6, Eos % (Auto) 5.8, Baso % (Auto) 0.2, Neut # (Auto) 9.2 H, Lymph # (Auto) 1.6, Callahan # (Auto) 1.1 H, Eos # (Auto) 0.7 H, Baso # (Auto) 0.0, PT 10.9, INR 0.98, Sodium 140, Potassium 4.1, Chloride 107, Carbon Dioxide 26, Anion Gap 11.1, BUN 25 H, Creatinine 1.40 H, Estimated Creat Clear 34, Estimated GFR 48 L, Est GFR ( Amer) 58 L, Glucose 108 H, Calcium 9.7, Total Bilirubin 0.2, AST 51, ALT 26, Alkaline Phosphatase 104, Total Protein 6.9, Albumin 3.9, Globulin 3.0, Albumin/Globulin Ratio 1.3 08/22/24 06:07: Urine Color Yellow, Urine Appearance Clear, Urine pH 6.5, Ur Specific [place] <= 1.005, Urine Protein Negative, Urine Glucose (UA) Negative, Urine Ketones Negative, Urine Blood Trace-i, Urine Nitrate Negative, Urine Bilirubin Negative, Urine Urobilinogen 0.2, Ur Leukocyte Esterase Negative, Urine RBC Occasional, Urine WBC None, Ur Squamous Epith Cells None, Urine Bacteria None Orders (Tests/Meds): ED MEDICATIONS Discontinued Medications Generic Name Dose Route Start Last Admin Trade Name Freq PRN Reason Stop Dose Admin Iopamidol 75 ml 08/22/24 07:06 08/22/24 07:06 Iopamidol-370 (76%);100ml Bottle IV 08/22/24 07:07 75 ml ONCE ONE Administration Sodium Chloride 10 ml 08/22/24 07:06 08/22/24 07:06 Sodium Chloride 0.9% 10ml Syr (Rad Only) IV 08/22/24 07:07 10 ml ONCE ONE Administration ORDERS Category Date Time Status CT abdomen pelvis w con Stat Cat Scan 08/22/24 06:26 Completed CBC w/Auto Diff [Complete Blood Count Auto Diff] Stat Lab 08/22/24 05:46 Completed CMP [Comprehensive Metabolic Panel] Stat Lab 08/22/24 05:46 Completed PT INR [Prothrombin Time INR] Stat Lab 08/22/24 05:46 Completed Urinalysis and Microscopic Stat Lab 08/22/24 06:07 Completed Medical Decision Narrative: In summary, this 84-year-old male with comorbidities described in the HPI presents to the emergency department today with subjective fever though measured temperature at home was 98.4, urinary retention, low back pain. On initial evaluation patient is hemodynamically stable, afebrile, GCS 15, patient had discomfort over the bladder that was relieved after catheter placement, very mild bilateral CVA tenderness. Cardiopulmonary exam reassuring, faint murmur appreciated which has already been addressed with echo that was reportedly performed yesterday. Differential diagnosis includes but is not limited to BPH causing urinary retention, urinary tract infection, pyelonephritis, obstructive mass, nephropathy, electrolyte abnormality, viral infection. Patient and family at bedside are adamant that doxycycline is causing the patient's fever, back pain, and urinary retention. This is not a common side effect of doxycycline I explained this to the patient repeatedly. They are argumentative that the doxycycline caused all these problems and I explained that if they were worried about it the patient could stop the doxycycline but then he would be at risk for tickborne illnesses which was the reason he was placed on it. Family was so argumentative that they would not hear my explanations for the reasons for potential side effects from antibiotics including leaving you susceptible to other infections which could cause fever. I also explained it was most likely that the patient had 2 problems in parallel and that he was taking the doxycycline when his BPH which has been progressively worsening over many years finally became obstructive. Ultimately family and patient remain argumentative and disagree but are willing to have labs and imaging performed to rule out the other potential causes. Based on these concerns, I ordered serum labs, urine studies, CT imaging. Patient should also remain in the ER to monitor for postobstructive diuresis. Labs personally reviewed demonstrate nonactionable CMP, patient's kidney dysfunction is at baseline with creatinine 1.4 and BUN 25 consistent with previous. UA negative for findings of infection. Mild leukocytosis WBC 12.7, anemia 10.1 similar to previous, normal platelets. On reassessment patient is resting much more comfortably. Initially patient had approximately 450 mL urine out after Morgan catheter was placed. He has had significant relief of lower abdominal discomfort and back pain. CVA tenderness is almost absent at this time. Patient is being taken for CT scan. He was handed off to Dr. Luo in stable condition for further management and disposition. Reassessment 8:[address] Luo I took over from Dr. Alfaro. CT scan was performed which I personally interpreted which shows no acute intra-abdominal process. There is significant prostate hypertrophy which we have known about for several years. Seems to be unchanged from the past. This almost certainly the cause of the patient's acute urinary retention. No evidence of any urinary tract infection. Patient feels significantly better after the Morgan catheter was placed. Will remain indwelling patient will be started on Flomax daily. He has an established relationship with Dr. Stephen Baptiste and will follow-up within several days. I have told the patient that it is recommended that the patient keep the Morgan catheter indwelling 7 to 10 days but seems as if Dr. Urbano has told him a short duration which is reasonable if it is under his guidance. Nonetheless patient understands to closely follow-up. Flomax sent to his pharmacy patient discharged in stable condition. Critical Care <Tammie Alfaro MD - Last Filed: 08/22/24 07:11> Critical Care Time Critical Care Time: No
--- OUTSIDE RECORDS SUMMARY | 2024-08-22 06:22 | XMS_ITS | Clinical Summary ---
Author Organization Healthcare Address [address] [place] [address] Care Team Providers Care Bass Guitar Teacher Name Role Phone Yohannes Saravia MD Primary Care Provider [phone]- [phone] Family History Medical History Relation Name Comments [...] of Treatment Not on file Care Teams Bass Guitar Teacher Relationship Specialty Start Date End Date Yohannes Saravia MD [address] [place] [address] PCP - General 07/18/20
--- OUTSIDE RECORDS SUMMARY | 2024-08-22 06:23 | XMS_ITS | Patient Health Record ---
[facility] Address [address] [place] [id number] Care Team Providers Care Roving Or Yarn Color Checker Name Role Phone Francesca Saravia Primary Care Provider Aman Garcia Unavailable [phone] Tyrel Kaycee Unavailable [phone] Allergies Allergen (clinical drug ingredient) Drug/Non Drug [...] Active Results Component Value Reference Range Notes CT Scan : Chest, without con trast Reviewed date:09/16/2023 10:50:49 AM Interpretation:stable nodule Performing Lab: Notes/Report: stable nodule Urinalysis - Inhouse Reviewed date:12/01/2023 12:28:08 PM Interpretation: Performing Lab: Notes/Report: Color/Clarity yellow Leuk neg Nitrite neg Urobili 3.2 Protein neg pH 7.0 Blood neg Sp. Gr. 1.020 Ketone neg Bili neg Gluc neg P-Surgical Pathology Reviewed date:05/22/2024 05:28:10 PM Interpretation:SK [...] 1A, 05/05. (LLG,RR13,pc9) Grossing services provided by [facility], [facility], d/b/a [address] [place], [address] Gentry Sterling MD, Vacuum Bottle Assembler. Microscopic Description: There is epidermal hyperplasia with [...] End of Report Technical services provided by [facility], [facility], d/b/a [address] , [place] [address] Gentry Sterling MD, Vacuum Bottle Assembler. Case reviewed and diagnosis rendered at [facility], [facility], d/b/a [address] , [place] [address] Gentry Sterling MD, Vacuum Bottle Assembler. CONFIDENTIAL CBC Venipuncture (in house) Reviewed date:12/01/2023 [...] - 38 platlet 379 100 - 400 P-Comprehensive Metabolic Pa citlaly (CMP) Reviewed date:12/06/2023 10:37:17 AM Interpretation:Normal Performing Lab: Notes/Report: Test performed by [facility] [address] [place] [address] , [address], [place] [address] Bam Ramirez MD, Vacuum Bottle Assembler CLIA: [id number] Sodium 143 135-145 mmol/L Potassium 4.4 3.5-5.3 [...] Interpretation:Normal Performing Lab: Notes/Report: Test performed by [facility] [address] [place] [address] , [address], [place] [address] Bam Ramirez MD, Vacuum Bottle Assembler CLIA: [id number] Ferritin 40.6 30.0-400.0 ng/mL P-T4 Free (thyroxine) Reviewed date:12/06/2023 10:37:17 AM Interpretation:Normal Performing Lab: Notes/Report: Test performed by [facility] [address] [place] [address] , [address], [place] [address] Bam Ramirez MD, Vacuum Bottle Assembler CLIA: [id number] Thyroxine Free (free T4) 1.57 0.86-1.76 ng/dL P-Iron Reviewed date:12/06/2023 10:37:17 AM Interpretation:45 Performing Lab: Notes/Report: Test performed by [facility] [address] [place] [address] [place] [address] Bam Ramirez MD, Vacuum Bottle Assembler CLIA: [id number] Iron 45 59-158 ug/dL P-Lipid Panel Reviewed date:12/06/2023 10:37:17 AM Interpretation:hdl 36 Performing Lab: Notes/Report: Test performed by [facility] [address] [place] [address] [address], [place] [address] Bam Ramirez MD, Vacuum Bottle Assembler CLIA: [id number] Cholesterol 148 <200 mg/dL Triglycerides 99 <150 [...] Interpretation:Normal Performing Lab: Notes/Report: Test performed by [facility] [address] [place], [place] [address] [place] , [address], [place] [address] Bam Ramirez MD, Vacuum Bottle Assembler CLIA: [id number] TSH 1.80 0.43-5.25 mU/L CBC Fingerstick (in house) Reviewed date:09/02/2023 03:51:58 [...] - 38 plat 267 100 - 400 CBC Fingerstick (in house) Reviewed date:01/10/2024 11:28:59 [...] - 38 plat 264 100 - 400 P-Comprehensive Metabolic Pa citlaly (CMP) Reviewed date:05/15/2024 08:35:29 AM Interpretation:Normal Performing Lab: Notes/Report: Test performed by [facility] [address] [place] [address] , [place] [address] Bam Ramirez MD, Vacuum Bottle Assembler CLIA: [id number] Sodium 139 135-145 mmol/L Potassium 4.7 3.5-5.3 [...] Interpretation:Normal Performing Lab: Notes/Report: Test performed by [facility] [address] [place] [address] , [place] [address] Bam Ramirez MD, Vacuum Bottle Assembler CLIA: [id number] Ferritin 54.7 30.0-400.0 ng/mL P-T4 Free (thyroxine) Reviewed date:05/15/2024 08:35:29 AM Interpretation:Normal Performing Lab: Notes/Report: Test performed by [facility] [address] [place] [address] , [facility] [place] [address] Bam Ramirez MD, Vacuum Bottle Assembler CLIA: [id number] Thyroxine Free (free T4) 1.56 0.86-1.76 ng/dL P-Iron Reviewed date:05/15/2024 08:35:29 AM Interpretation:iron 53 Performing Lab: Notes/Report: Test performed by [facility] [address] [place] [address] , [place] [address] Bam Ramirez MD, Vacuum Bottle Assembler CLIA: [id number] Iron 53 59-158 ug/dL P-Lipid Panel Reviewed date:05/15/2024 08:35:29 AM Interpretation:trigs 160, hdl 39 Performing Lab: Notes/Report: Test performed by [facility] [address] [facility] , [address], [place] [address] Bam Ramirez MD, Vacuum Bottle Assembler CLIA: [id number] Cholesterol 139 <200 mg/dL Triglycerides 160 <150 [...] Interpretation:Normal Performing Lab: Notes/Report: Test performed by [facility] [address] [place] [address] , [place] [address] Bam Ramirez MD, Vacuum Bottle Assembler CLIA: [id number] TSH 3.38 0.43-5.25 mU/L P-Iron Reviewed date:04/10/2024 08:32:58 AM Interpretation:61 (low normal) Performing Lab: Notes/Report: Test performed by [facility] [address] , [place] [address] Bam Ramirez MD, Vacuum Bottle Assembler CLIA: [id number] Iron 61 59-158 ug/dL P-Basic Metabolic Panel (BMP ) Reviewed date:03/02/2024 04:16:39 PM Interpretation:gluc 107, gfr 55 Performing Lab: Notes/Report: Test performed by [facility] [address] [place] [address] , [place] [address] Bam Ramirez MD, Vacuum Bottle Assembler CLIA: [id number] Sodium 140 135-145 mmol/L Potassium 4.2 3.5-5.3 [...] - 38 platlet 411 100 - 400 CBC Venipuncture (in house) [...] - 38 platlet 396 100 - 400 Medications Medication SIG (Take, [...] a day Active Glucosamine & Fish Oil [id number] MG 3 cap(s) orally once a day Active Maunie-3 Fatty Acids 290 MG-200 INTL UNITS 2 CAP(S) ORALLY ONCE A DAY Active Immunizations Vaccine Route Administration Date Status Comme nts mOxipwww-[id number] e pts. IM Intramuscular 12/09/2009 Administered xFluzone [...] Problem Status W/U Status Risk Notes Problem 97150780 Essential hypertension (I10) Active confirmed Problem Constipation (30714183) Constipation (K59.00) Active confirmed Problem Seasonal allergy (551072016) Seasonal allergies (J30.2) Active confirmed Problem 755281199713798 Piriformis syndr ome of left side (G57.02) Active confirmed Problem Multiple pulmonary nodules (933971592) Pulmonary nodules (R91.8) Active confirmed Problem Iron deficiency anemia (06762041) Iron deficiency anemia (D50.9) Active confirmed Problem 290211914 Acute constipati on (K59.00) Active confirmed Problem Benign prostatic hyperplasia (394190636) BPH (benign prostatic hyperplasia) (N40.0) Active confirmed Problem Dysphagia (17290166) Dysphagia (R13.10) Active confirmed Problem 165117588 Gastroesophageal reflux disease without esophagitis (K21.9) Active confirmed Problem 597399657 Acquired hypothyroidism (E03.9) Active confirmed Problem 89716949 Chronic obstruct uday pulmonary disease, unspecified COPD type (J44.9) Active confirmed Problem 32356513 Presbycusis of b oth ears (H91.13) Active confirmed Problem Blood loss anemi a (D50.0) Active confirmed Problem Diverticular disease of colon (511280316) Diverticulosis (K57.90) Active confirmed Problem 696321640 Dyslipidemia (E78.5) Active confirmed Problem 90782438 Seasonal allergi c rhinitis due to pollen (J30.1) Active confirmed Problem 783647175436393 Piriformis syndrome, right (G57.01) Active confirmed Problem 828649440 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) Active confirmed Problem 695003181 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) Active confirmed Problem 891818225907144 Benign prostatic hyperplasia with lower urinary tract symptoms (N40.1) Active confirmed Problem 272279797 Elevated PSA (R97.20) Active confirmed Problem 33394484 Urge incontinenc e of urine (N39.41) Active confirmed Problem Prostate nodule (933161379564768) Prostate nodule (N40.2) Active confirmed Problem 21562172 Oropharyngeal dysphagia (R13.12) Active confirmed Problem 959840335 Statin intoleran ce (Z78.9) Active confirmed Problem 20485146 Acute non-season al allergic rhinitis (J30.89) Active confirmed Vital Signs Heart Rate 63 /min 08/15/2024 Blood pressure diastolic 70 mm Hg 08/15/2024 Height 66.50 in 08/15/2024 Blood pressure systolic 140 mm Hg 08/15/2024 Weight 138.2 lbs 08/15/2024 BMI 21.97 kg/m2 08/15/2024 Encounters Encounter Location Date Provider Diagnosis [place] [address] [facility] [address] [place] [id number] 09/02/2023 Kaycee Crowdy Bursitis of right sh oulder M75.51 ; Trapezius muscle spasm M62.838 ; Pulmonary nodules R91.8 and Gastroenteritis K52.9 [facility] [address] [place] [id number] 09/09/2023 Kaycee Crowdy Bursitis of right sh oulder M75.51 ; Trapezius muscle spasm M62.838 and Gastroenteritis K52.9 [place] [address] [facility] [address] [place] [id number] 09/28/2023 Kaycee Crowdy Biceps tendon tear S 46.219A [facility] [address] [place] [id number] 12/01/2023 Kaycee Crowdy Costochondritis M94. 0 ; Dyslipidemia E78.5 ; Acquired hypothyroidism E03.9 ; Gastroesophageal reflux disease without esophagitis K21.9 ; Anemia, unspecified type D64.9 ; Essential hypertension I10 and Sternocleidomastoid muscle tenderness M79.12 [facility] [facility] [address] [place] [id number] 12/13/2023 R Girish Manjit [facility] [facility] [address] [place] [id number] 01/10/2024 R Girish Manjit Iron deficiency anem ia D50.9 [facility] [facility] [address] [place] [id number] 02/21/2024 R Girish Manjit Atypical chest pain R07.89 and Essential hypertension I10 [facility] [facility] [address] [place] [id number] 03/01/2024 R Girish Manjit Hyponatremia E87.1 a nd Muscle spasm of back M62.830 [facility] [address] [place], [place] [id number] 03/06/2024 R Girish Manjit Hyponatremia E87.1 a nd COVID-19 U07.1 [facility] [address] [place], [place] [id number] 04/05/2024 R Girish Manjit Fall W19.XXXA ; Thor acic back pain M54.6 and Iron deficiency anemia D50.9 [facility] [address] [place], [place] [id number] 05/11/2024 Kaycee Crowdy 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 1 ; Chronic constipation K59.09 ; Iron deficiency E61.1 and BMI 21.0-21.9, adult Z68.21 [facility] [address] [place], [place] [id number] 09/16/2023 Kaycee Crowdy [facility] [address] [place], [place] [id number] 11/16/2023 Kaycee Crowdy Dermatitis L30.9 [facility] [address] [place], [place] [id number] 12/06/2023 Kaycee Crowdy [facility] [address] [place], [place] [id number] 02/03/2024 R Girish Manjit Dermatitis L30.9 [facility] [address] [place], [place] [id number] 03/02/2024 R Girish Manjit [facility] [address] [place], [place] [id number] 04/10/2024 R Girish Manjit [facility] [address] [place], [place] [id number] 04/10/2024 R Girish Manjit [facility] [address] [place], [place] [id number] 05/02/2024 R Girish Manjit [facility] [address] [place], [place] [id number] 05/15/2024 Kaycee Sarah Assessments Encounter Date Diagnosis (ICD Code) Assessment Notes Treatment Notes Treatment Clinical Notes Section Notes 05/11/2024 Deviated nasal septu m (ICD-10 - J34.2) 04/05/2024 Thoracic back pain (ICD-10 - M54.6) Recommend trial of Lidoderm patches. If no improvement over the next couple weeks, he is provided a requisition to obtain an x-ray. 03/06/2024 Hyponatremia (ICD-10 - E87.1) --resolved 03/06/2024 COVID-19 (ICD-10 - U07.1) --residual cough; symptomatic treatment 03/01/2024 Hyponatremia (ICD-10 - E87.1) 03/01/2024 Muscle spasm of back (ICD-10 - M62.830) Recommend heat and gentle stretching exercises. He has a muscle relaxer at home that he can use as needed at bedtime. 02/21/2024 Essential hypertensi on (ICD-10 - I10) 02/21/2024 Atypical chest pain (ICD-10 - R07.89) 02/03/2024 Dermatitis (ICD-10 - L30.9) 01/10/2024 Iron deficiency anem ia (ICD-10 - D50.9) Continue OTC iron supplement. He seems to be tolerating this well. 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 Saravia to remove. 04/05/2024 Fall (ICD-10 - W19.XXXA) 12/01/2023 Costochondritis (ICD-10 - M94.0) This does [...] shot as oral steroids bother his stomach. 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 04/05/2024 Iron deficiency anem ia (ICD-10 - D50.9) 05/11/2024 Dyslipidemia (ICD-10 - E78.5) 12/01/2023 Gastroesophageal reflux disease without esophagitis (ICD-10 - K21.9) 09/02/2023 Gastroenteritis (ICD-10 - K52.9) 05/11/2024 Acquired hypothyroidism (ICD-10 - E03.9) 08/15/2024 BMI 21.0-21.9, adult (ICD-10 - Z68.21) m 05/11/2024 Essential hypertensi on (ICD-10 - I10) 12/01/2023 Anemia, unspecified type (ICD-10 - D64.9) 05/11/2024 Iron deficiency anem ia (ICD-10 - [...] Date [employer] ([employer]IC[employer]) [address] [address] [place] [address] [id number] LISANDRO CARREON Self - patient is the [...] elevated PSA right thalamic CVA 11/28/18 - [facility] Surgical History Surgery Date(Month/Year) bilateral [...] 04/14/2022 Hospitalization History Reason Date(Month/Year) [facility] ER 04/14/2022 [facility] ER-transferred to -stroke 11/28-2 08/2018 [facility]-Anemia 11/17- [facility] ER-fell off ladder 07/2016 [facility] ER-severe stomach pain 10/25/2011
--- NOTE | 2024-08-22 06:26 | CT_ITS ---
FINAL REPORT TECHNIQUE: After the administration of intravenous contrast, axial images were obtained through the abdomen and pelvis by computed tomography. The study was performed with techniques to keep radiation dose as low as reasonably achievable, (ALARA). Individual dose reduction techniques using automated exposure control or adjustment of mA and/or kV according to the patient's size were employed. CLINICAL HISTORY: acute urinary retention, back pain, fever FINDINGS: Abdomen: There are chronic changes at the bases. The liver parenchyma is homogeneous. The gallbladder is present. There are calcified granulomas in the spleen. The pancreas and adrenals are unremarkable. There is a 1.8 cm cyst in the lower pole of the left kidney. The aorta is normal in caliber. There is no free fluid or adenopathy. Pelvis: The appendix is not identified. There is extensive pancolonic diverticulosis without evidence of diverticulitis. Morgan balloon catheter is noted within a decompressed urinary bladder. The prostate is enlarged measuring 5.7 cm. There is no free fluid or adenopathy. IMPRESSION: Interval placement of Morgan balloon catheter. Extensive pancolonic diverticulosis. Enlarged prostate. Reviewed, Interpreted and Dictated by Victoriano Ramsay MD Transcribed by Raisa Cao Authenticated and . [facility]
[2024-08-22 06:28] LABS: Appearance,Urine CLEAR (Clear); Bilirubin,Urine Negative (Negative); Blood, Urine TRACE-I (Negative); Color,Urine YELLOW (Yellow); Glucose,Urine (UA) Negative (Negative); Ketones,Urine Negative (Negative); Leukocyte Esterase,Urine Negative (Negative); Nitrate,Urine Negative (Negative); PH,Urine 6.5 (5.0-8.5); Protein,Urine Negative (Negative); Specific Gravity, Urine <= 1.005 (1.005-1.030); Urobilinogen,Urine 0.2 EU/dl (0.2)
[2024-08-22 06:35] LABS: Basophils % 0.2 % (0.1-2.0); Eosinophils # 0.7 Kmm3 (0.0-0.4); Eosinophils % 5.8 % (0.1-12.0); Hematocrit 30.6 % (42.0-52.0); Hemoglobin 10.1 g/dL (14.1-18.0); Immature Granulocytes # 0.03 10^3uL; Immature Granulocytes % 0.2 %; Lymphocytes # 1.6 K/mm3 (0.7-4.5); Lymphocytes % 12.7 % (10-50); Mean Corpuscular Hemoglobin 31.1 pg (27.0-31.2); Mean Corpuscular Volume 94.2 fl (80-94); Mean Platelet Volume 9.7 fl (7.4-10.4); Monocytes # 1.1 K/mm3 (0.1-1.0); Monocytes % 8.6 % (1.7-9.3); Neutrophils # 9.2 K/mm3 (1.8-7.8); Neutrophils % 72.5 % (37.0-80.0); Nucleated Red Blood Cells # 0 10^3/uL; Nucleated Red Blood Cells % 0 %; Platelet Count 345 K/mm3 (142-424); Red Blood Count 3.25 M/mm3 (4.60-6.20); White Blood Count 12.7 K/mm3 (4.8-10.8)
[2024-08-22 06:37] LABS: Albumin Level 3.9 g/dl (3.5-5.0); Chloride 107 mmol/L (98-107); Potassium 4.1 mmoL/L (3.5-5.1); Sodium 140 mmol/L (136-145)
[2024-08-22 06:40] LABS: Alanine Aminotransferase 26 U/L (12-78); Albumin/Globulin Ratio 1.3 (1.1-1.8); Alkaline Phosphatase 104 U/L (38-126); Anion Gap 11.1 mEq/L (5-15); Aspartate Amino Transferase 51 U/L (17-59); Bilirubin,Total 0.2 mg/dl (0.2-1.3); Blood Urea Nitrogen 25 mg/dl (9-20); Calcium 9.7 mg/dl (8.4-10.2); Carbon Dioxide 26 mmol/L (22.0-30.0); Creatinine Clearance Estimated 34 mL/min (50-200); Estimated Glomerular Filt Rate 48 ml/min (>60); GFR (African American) 58 ML/MIN (>60); Glucose 108 mg/dl (74-100); Total Protein,Serum 6.9 g/dl (6.3-8.2)
[2024-08-22 06:49] LABS: RBC,Urine Occasional #/hpf (0-3)
[2024-08-22] MEDS: IOPAMIDOL-370 (76%);100ML BOTTLE 75 ML IV (07:06)
[2024-08-22] MEDS: SODIUM CHLORIDE 0.9% 10ML SYR (RAD ONLY) 10 ML IV (07:06)
[2024-08-22 07:09] LABS: INR 0.98 (0.9-1.1); Prothrombin Time 10.9 seconds (10.1-12.5)
--- NOTE | 2024-08-22 07:12 | PC.NURSE ---
rounded on pt at this time. Per MD Alfaro, OK for pt to take home synthroid.
[2024-08-22 07:13] VITALS: BP 149/51; PULSE 73; RESP 18; O2SAT 95
[2024-08-22 07:31] VITALS: BP 148/68; PULSE 71; O2SAT 95
[2024-08-22 08:00] VITALS: BP 148/67; PULSE 68; RESP 18; O2SAT 95
--- NOTE | 2024-08-22 08:40 | PC.NURSE ---
Patient discharged home with , Morgan catheter education complete with patient and . Denies complaints at this time.
[2024-08-22 08:42] VITALS: BP 143/78; PULSE 78; RESP 17; TEMP 36.7; O2SAT 97
== END 2024-08-22 08:43 | disposition home or self-care (01) ==
PROVIDERS: Emergency Provider Emergency Medicine; PCP Family Medicine
DX: R33.9 Retention of urine, unspecified (principal); R10.30 Lower abdominal pain, unspecified; N40.0 Benign prostatic hyperplasia without lower urinary tract symptoms; R50.9 Fever, unspecified; M54.50 Low back pain, unspecified
CPT/HCPCS: 51702; 51798; 74177; 80053; 81001; 85025; 85610; 99284; Q9967

== ENCOUNTER 2024-08-24 16:50 | Emergency (ER) | payer MEDICARE, SELFPAY ==
--- OUTSIDE RECORDS SUMMARY | 2024-08-11 06:15 | XMS_ITS ---
Author Organization [facility] Address [address] [facility] [address] [place] [phone] Care Team Providers Care Sr. Logistics Analyst Name Role Phone Francesca Saravia Primary Care Provider Aman Garcia Unavailable [phone] Allergies Allergen (clinical drug ingredient) Drug/Non Drug [...] Unknown Drug Allergy Active REASON FOR VISIT tick bite Medications Medication SIG (Take, Route, Frequency, Duration) Notes Start Date End Date Status Synthroid 75 MCG 1 tab(s) orally once a day for 90 days Active Triamcinolone Acetonide 0.1 % APPLY TO AFFECTED AREA TWICE DAILY for 30 Active Lisinopril 10 MG 1 tablet Orally Once a day for 90 days Active Clotrimazole-Betamethasone 1-0.05 % 1 felicia applied topically 2 times a day 12/17/2021 Active Rosuvastatin Calcium 5 MG TAKE 1 TABLET BY MOUTH ONCE DAILY for 90 Active Dicyclomine HCl 10 MG 1 cap(s) orally 4 times a day prn bloating for 90 days Active Aspirin 81 MG 1 tab(s) orally once a day Active [place]-3 Fatty Acids 290 MG-200 INTL UNITS 2 CAP(S) ORALLY ONCE A DAY Active Glucosamine & Fish Oil 601-509-86-40 MG 3 cap(s) orally once a day Active Multivitamin Plus Iron Adult - 1 tab(s) orally once a day Active Vital Signs Weight 136 lbs 08/11/2024 Blood pressure systolic 122 mm Hg 08/12/19 25 Blood pressure diastolic 70 mm Hg 025 Heart Rate 80 /min 08/11/2024 Height 66.50 in 08/11/2024 BMI 21.62 kg/m2 08/11/2024 Encounters Encounter Location Date Provider Diagnosis [facility] [address] [place] [id number] 08/11/2024 Aman [place] Tick bite W57.XXXA a nd Redness of skin L53.9 Assessments Encounter Date Diagnosis (ICD Code) Assessment Notes Treatment Notes Treatment Clinical Notes Section Notes 08/11/2024 Tick bite (ICD-10 - W57.XXXA) Call with any new symptoms 08/11/2024 Redness of skin (ICD-10 - L53.9) Plan Of Treatment Treatment Notes Assessment Notes Tick bite Call with any new sy mptoms Next Appt Details Follow Up: prn, Reason: Progress Notes * LISANDRO CARREONDOB:1940 (84 yo M)Acc No.[id number]:08/11/2024 Progress Notes Patient: Jaspreet YIN LISANDRO WILBER Provider: Germaine Garcia M.D. :1940 A ge:84 Y S ex:Male Date:08/11/2024 Address:[address] [place] [address], [place], [id number] Pcp:Francesca Saravia Subjective: * Chief Complaints: * 1 . Tick bite. * HPI: D ermatology: 84 year old male presents with c/o bug bites P t complains of tick bite on lt buttock. Pt states he has redness and swelling . * ROS: D ERMATOLOGY: no R rachael. n o H lionel. G ASTROENTEROLOGY: no N ausea. n o V omiting. n o D iarrhea.? U ROLOGY: no D ifficulty urinating. n o B lood in urine. 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 * Surgical History: b ilateral ear surgery [...] stic Procedure: H ER-severe stomach pain 10/25/2011, [facility] ER-fell off ladder 07/2016, [facility]-Anemia 11/17-, [facility] ER-transferred to -stroke 11/28-, [facility] ER 04/14/2022. * Family History: F [...] active: yes. Travel ouside [place]: no. * Medications: T aking Multivitamin Plus Iron Adult - Tablet 1 tab(s) orally once a day , Taking Glucosamine & Fish Oil 348-486-93-40 MG Capsule 3 cap(s) orally once a day , Taking [place]-3 Fatty Acids 290 MG-200 INTL UNITS CAPSULE 2 CAP(S) ORALLY ONCE A DAY , Taking Aspirin 81 MG Tablet Delayed Release 1 tab(s) orally once a day , Taking Dicyclomine HCl 10 MG Capsule 1 cap(s) orally 4 times a day prn bloating , Taking Clotrimazole-Betamethasone 1-0.05 % Cream 1 felicia applied topically 2 times a day , Taking Lisinopril 10 MG Tablet 1 tablet Orally Once a day , Taking Triamcinolone Acetonide 0.1 % Cream APPLY TO AFFECTED AREA TWICE DAILY , Taking Synthroid 75 MCG Tablet 1 tab(s) orally once a day , Taking Rosuvastatin Calcium 5 MG Tablet TAKE 1 TABLET BY MOUTH ONCE DAILY , Medication List reviewed and reconciled with the patient * Allergies: S ulfa Antibiotics, Erythromycin, Naprosyn, Lipitor: muscle pain - Side Effects, Pravastatin: muscle pain - Side Effects, Omeprazole: gynecomastia/ sore breasts - Side Effects. Objective: * Vitals: W t: 136, Temp: 98.0, BP: 122/70, HR: 80, Nurse: yan, Ht: 66.50, BMI:21.62. * Examination: G eneral Examination: General Appearance: N AD. Skin: l eft lower buttocks with a 3 mm wide reddened area of skin with a small central bite jonel, no tick is present now. Assessment: * Assessment: 1. R edness of skin - L53.9 (Primary) 2 . T ick bite - W57.XXXA ? Plan: * Treatment: * Procedure Codes: G 2211 Complex e/[place], 1036F TOBACCO NON-USER, G8783 BP SCR PRFRM RCMDD DEFIND SCR INTVL, G8752 MOST RECENT SYSTOLIC BP < 140MM HG, G8754 MOST RECENT DIASTOLIC BP < 90MM HG * Follow Up: p rn * Billing Information: * Visit Code: 93535 Office Visit, Est Pt., Level 3. * Procedure Codes: G2211 Complex e/m visit add on. 1036F TOBACCO NON-USER. G8783 BP SCR PRFRM RCMDD DEFIND SCR INTVL. G8752 MOST RECENT SYSTOLIC BP < 140MM HG. G8754 MOST RECENT DIASTOLIC BP < 90MM HG. * Electronic signature of Selena Garcia MD on 08/24/2024 at 04:59 PM EDT Sign off status: Pending * Provider: Germaine Garcia M.D. Date: 08/11/2024 Generated for Kristina cunningham/Shabnam/Yvetteitting on: 08/24/2024 04:59 PM EDT History and Physical Notes * HPI (History of Present Illness) Category Sub-Category Detail Notes Category Not es Dermatology bug bites Pt complains of tick bite on lt buttock. Pt states he has redness and swelling Examination Category Sub-Category Detail Notes Category Not es General Examination General Appearance: NAD Skin: left lower buttocks with a 3 mm wide reddened area of skin with a small central bite jonel, no tick is present now
--- OUTSIDE RECORDS SUMMARY | 2024-08-15 11:00 | XMS_ITS ---
Author Organization [facility] Address [address] [facility] [address] [place] [id number] Care Team Providers Care Director Microbiology Name Role Phone Francesca Saravia Primary Care Provider Kaycee Sarah Unavailable [phone] Allergies Allergen (clinical drug ingredient) Drug/Non Drug [...] Unknown Drug Allergy Active REASON FOR VISIT lower stomach pain, HGB check Medications Medication SIG (Take, Route, Frequency, Duration) Notes Start Date End Date Status Dicyclomine HCl 10 MG 1 cap(s) orally 4 times a day prn bloating for 90 days Active Clotrimazole-Betamethasone 1-0.05 % 1 felicia applied topically 2 times a day 12/17/2021 Active Lisinopril 10 MG 1 tablet Orally Once a day for 90 days Active Triamcinolone Acetonide 0.1 % APPLY TO AFFECTED AREA TWICE DAILY for 30 Active Synthroid 75 MCG 1 tab(s) orally once a day for 90 days Active Aspirin 81 MG 1 tab(s) orally once a day Active Rosuvastatin Calcium 5 MG TAKE 1 TABLET BY MOUTH ONCE DAILY for 90 Active Multivitamin Plus Iron Adult - 1 tab(s) orally once a day Active Glucosamine & Fish Oil 682-202-68-40 MG 3 cap(s) orally once a day Active [place]-3 Fatty Acids 290 MG-200 INTL UNITS 2 CAP(S) ORALLY ONCE A DAY Active Vital Signs Weight 138.2 lbs 08/15/2024 Blood pressure systolic 140 mm Hg 08/16/19 25 Blood pressure diastolic 70 mm Hg 025 Heart Rate 63 /min 08/15/2024 Height 66.50 in 08/15/2024 BMI 21.97 kg/m2 08/15/2024 Encounters Encounter Location Date Provider Diagnosis [facility] [address] [facility] [address] [place] [id number] 08/15/2024 Kaycee Sarah Murmur, cardiac R01. 1 ; Chronic constipation K59.09 ; Iron deficiency E61.1 and BMI 21.0-21.9, adult Z68.21 Assessments Encounter Date Diagnosis (ICD Code) Assessment Notes Treatment Notes Treatment Clinical Notes Section Notes 08/15/2024 Murmur, cardiac (ICD-10 - R01.1) m 08/15/2024 Chronic constipation (ICD-10 - K59.09) Patient has seen GI. They think the iron is causing the constipation and told him to stop it. They checked labs and his iron was only slightly low. He will stop the iron and recheck in 2 months to see if it has dropped. m 08/15/2024 Iron deficiency (ICD-10 - E61.1) m 08/15/2024 BMI 21.0-21.9, adult (ICD-10 - Z68.21) m Plan Of Treatment Treatment Notes Assessment Notes Chronic constipation Patient has seen GI . They think the iron is causing the constipation and told him to stop it. They checked labs and his iron was only slightly low. He will stop the iron and recheck in 2 months to see if it has dropped. Pending Test Test Name Order Date Echocardiogram 08/15/2024 Next Appt Details Follow Up: via phone to repo rt test results, Reason: Progress Notes * LISANDRO CARREONDOB:1940 (84 yo M)Acc No.[id number]:08/15/2024 Progress Notes Patient: Jaspreet YINLISANDRO Provider: BRADLEY Hastings :1940 A ge:84 Y S ex:Male Date:08/15/2024 Address:[address], [place], [id number] Pcp:Francesca Saravia Subjective: * Chief Complaints: * 1 . lower stomach pain, HGB check. * HPI: G astroenterology: 84 year old male presents with c/o Abdominal Pain P t is here today with c/o lower stomach pain. Pt states he is having constipation with the iron pills. Pt is feeling very tired and is not taking the iron pills. * ROS: D ERMATOLOGY: no R rachael. n o H lionel. G ASTROENTEROLOGY: no N ausea. n o V omiting. n o D iarrhea.? U ROLOGY: no D ifficulty urinating. n o B lood in urine. 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 * Surgical History: b ilateral [...] stic Procedure: H ER-severe stomach pain 10/25/2011, [facility] ER-fell off ladder 07/2016, [facility]-Anemia 11/17-, [facility] ER-transferred to -stroke 11/28-, [facility] ER 04/14/2022. * Family History: F ather: [...] day , Taking Glucosamine & Fish Oil 011-202-51-40 MG Capsule 3 cap(s) orally once a day , Taking [place]-3 Fatty Acids 290 MG-200 INTL UNITS CAPSULE [...] TAKE 1 TABLET BY MOUTH ONCE DAILY * Allergies: S ulfa Antibiotics, Erythromycin, Naprosyn, Lipitor: muscle pain - Side Effects, Pravastatin: muscle pain - Side Effects, Omeprazole: gynecomastia/ sore breasts - Side Effects. Objective: * Vitals: W t: 138.2, Temp: 97.9, BP: 140/70, HR: 63, Nurse: CORINA, Ht: 66.50, BMI:21.97. * Examination: G eneral Examination: General Appearance: N AD. HEENT: u nremarkable. Oral cavity: n o lesions, mucosa moist and WNL, no erythema. Neck: s upple, no lymphadenopathy. Chest: n ormal shape and expansion. Heart: R SR, 2/6 systolic murmur. Lungs: c lear to auscultation. Abdomen: b owel sounds present, soft and nontender. Neurologic Exam: I ntact, gait normal. Skin: n ormal, no rash. Peripheral pulses: n ormal (2+) bilaterally. Extremities: n o leg edema. Assessment: * Assessment: 1. M urmur, cardiac - R01.1 (Primary) 2 . C hronic constipation - K59.09? 3. I josef deficiency - E61.1 4 . B PA 21.0-21.9, adult - Z68.21 m Plan: * Treatment: 2.?Chronic constipation? Notes: Patient has seen GI. They think the iron is causing the constipation and told him to stop it. They checked labs and his iron was only slightly low. He will stop the iron and recheck in 2 months to see if it has dropped.?? * Procedure Codes: G 2211 Complex e/m visit add on, 1036F TOBACCO NON-USER, G8420 BMI<30 AND >=22 CALC & DOCU, G8753 MOST RECENT SYSTOLIC BP >= 140MM HG, G8754 MOST RECENT DIASTOLIC BP < 90MM HG * Follow Up: v ia phone to report test results * Billing Information: * Visit Code: 20812 Office Visit, Est Pt., Level 4. * Procedure Codes: G2211 Complex e/m visit add on. 1036F TOBACCO NON-USER. G8420 BMI<30 AND >=22 CALC & DOCU. G8753 MOST RECENT SYSTOLIC BP >= 140MM HG. G8754 MOST RECENT DIASTOLIC BP < 90MM HG. * Electronic signature of BRADLEY Contreras on 08/24/2024 at 05:00 PM EDT Sign off status: Pending * Provider: BRADLEY Hastings Date: 08/15/2024 Generated for Kristina cunningham/Shabnam/eTransmitting on: 08/24/2024 05:00 PM EDT History and Physical Notes * HPI (History of Present Illness) Category Sub-Category Detail Notes Category Not es Gastroenterology Abdominal Pain Pt is here toda y with c/o lower stomach pain. Pt states he is having constipation with the iron pills. Pt is feeling very tired and is not taking the iron pills Examination Category Sub-Category Detail Notes Category Not es General Examination HEENT: unremarkable Heart: RSR, 2/6 systolic mu rmur Lungs: clear to auscultatio n Abdomen: bowel sounds present , soft and nontender Extremities: no leg edema General Appearance: NAD Skin: normal, no rash Neurologic Exam: Intact, gait normal Neck: supple, no lymphaden opathy Oral cavity: no lesions, mucosa m oist and WNL, no erythema Peripheral pulses: normal (2+) bilatera lly Chest: normal shape and exp ansion
--- OUTSIDE RECORDS SUMMARY | 2024-08-23 11:15 | XMS_ITS ---
[facility] Address [address] [place] [id number] Care Team Providers Care Clothing Pattern Preparer Name Role Phone Francesca Saravia Primary Care Provider [phone] Allergies Allergen (clinical drug ingredient) Drug/Non Drug [...] (substance) Sulfa Antibiotics Unknown Drug Allergy Active Reason For Referral Reason BPH and urinary rete ntion Diagnosis 1 Acute urinary retent ion (R33.8) Referral Organization [facility] Referring Provider First Name Francesca Stout Referring Provider Last Name Manjit Referring Provider Speciality [facility] ctice Referred Provider Marlon Roldan Referred Provider Specialty Urology General Notes Deepti Santiago 2024 10:46:46 AM > faxed to Dr. Roldan's office Referral Priority Routine REASON FOR VISIT f/u ER Medications Medication SIG (Take, Route, Frequency, Duration) Notes Start Date End Date Status Synthroid 75 MCG 1 tab(s) orally once a day for 90 days Not-Taking Dicyclomine HCl 10 MG 1 cap(s) orally 4 times a day prn bloating for 90 days Not-Taking [place]-3 Fatty Acids 290 MG-200 INTL UNITS 2 CAP(S) ORALLY ONCE A DAY Not-Taking Triamcinolone Acetonide 0.1 % APPLY TO AFFECTED AREA TWICE DAILY for 30 Not-Taking Clotrimazole-Betamethason e 1-0.05 % 1 felicia applied topically 2 times a day 12/17/2021 Not-Taking Lisinopril 10 MG 1 tablet Orally Once a day for 90 days Active Aspirin 81 MG 1 tab(s) orally once a day Active Rosuvastatin Calcium 5 MG TAKE 1 TABLET BY MOUTH ONCE DAILY for 90 Active Glucosamine & Fish Oil 691-430-60-40 MG 3 cap(s) orally once a day Active Tamsulosin HCl 0.4 MG 1 capsule Orally O nce a day Active Levothyroxine Sodium 75 MCG 1 tablet in the morning on an empty stomach Orally Once a day Active Multivitamin Plus Iron Adult - 1 tab(s) orally once a day Active Mupirocin 2 % 1 application Externally Twice a day Active Vital Signs Weight 138.6 lbs 08/23/2024 Blood pressure systolic 130 mm Hg 08/24/19 25 Blood pressure diastolic 70 mm Hg 025 Heart Rate 81 /min 08/23/2024 Height 66.50 in 08/23/2024 BMI 22.03 kg/m2 08/23/2024 Encounters Encounter Location Date Provider Diagnosis [facility] [address] [facility] [address] [place], [place] [id number] 08/23/2024 R Girish Saravia Acute urinary retention R33.8 ; Indwelling Morgan catheter present Z97.8 and BPH (benign prostatic hyperplasia) N40.0 Assessments Encounter Date Diagnosis (ICD Code) Assessment Notes Treatment Notes Treatment Clinical Notes Section Notes 08/23/2024 Acute urinary retention (ICD-10 - R33.8) 08/23/2024 Indwelling Morgan catheter present (ICD-10 - Z97.8) Advised against removing the catheter today. He should give the Flomax a few more days to work. 08/23/2024 BPH (benign prostatic hyperplasia) (ICD-10 - N40.0) Plan Of Treatment Medication Medication Name Sig Start Date Stop Date Notes Tamsulosin HCl 0.4 MG 1 capsule Orally Once a day Treatment Notes Assessment Notes Indwelling Morgan catheter present Advise d against removing the catheter today. He should give the Flomax a few more days to work. Referrals Referral Date Details 08/24/2024 08/24/2024, BPH and urinary retention, Marlon Mayer Appt Details Follow Up: after consultatio n, Reason: Progress Notes * LISANDRO CARREONDOB:1940 (84 yo M)Acc No.[id number]:08/23/2024 Patient: LISANDRO FLORES Provider: Francesca Saravia M.D. :1940 A ge:84 Y S ex:Male Date:08/23/2024 Address:[address] [place] [address], [place], [id number] Subjective: * Chief Complaints: * 1 . f/u ER. * HPI: M melecio Reproductive: Dario went to the emergency room early yesterday morning with acute urinary retention. He is known to have prostatic hypertrophy but his is convinced his symptoms are a side effect of doxycycline that had been started 2 days prior for treatment of a tick bite. Please refer to ER record for details. He was started on Flomax and an indwelling catheter was placed and he returns today for follow-up and would like to have the catheter removed because of discomfort. Unfortunately, he was not given a leg bag and comes in with a bedside drainage bag. * ROS: D ERMATOLOGY: no R rachael. n o H lionel. G ASTROENTEROLOGY: no N ausea. n o V omiting. n o D iarrhea.? U ROLOGY: no D ifficulty urinating. n o B lood in urine. * Medical History: H yperlipidemia, Acquired hypothyroidism, GERD, Diverticulosis, BPH, s/p urology evaluation with biopsies, COPD, Hiatal hernia, elevated PSA, right thalamic CVA 11/28/18 - [facility]. * Surgical History: b ilateral ear surgery , thyroid radiation for over-active thyroid , circumcision , prostate biopsy , Colonoscopy 2006, 2011, 2017, cataract(both) 03/2009, 04/2009, left tonsillectomy -Dr Vazquez [...] URRENT TOBACCO USE S moking Status: P uziel does NOT smoke quit 2 years ago. C affeine: yes, frequency:. Exercise: yes. Home smoke detector use: yes. Marital Status: . New since last visit: none. Past smoking status: yes, pipe. Occup. exposure: none. Recreational drug use: no. Alcohol: no. Sexually active: yes. Travel ouside [place]: no. * Medications: T aking Mupirocin 2 % Ointment 1 application Externally Twice a day , Taking Levothyroxine Sodium 75 MCG Tablet 1 tablet in the morning on an empty stomach Orally Once a day , Taking Tamsulosin HCl 0.4 MG Capsule 1 capsule Orally Once a day , Taking Multivitamin Plus Iron Adult - Tablet 1 tab(s) orally once a day , Taking Glucosamine & Fish Oil 827-970-56-40 MG Capsule 3 cap(s) orally once a day , Taking Aspirin 81 MG Tablet Delayed Release 1 tab(s) orally once a day , Taking Lisinopril 10 MG Tablet 1 tablet Orally Once a day , Taking Rosuvastatin Calcium 5 MG Tablet TAKE 1 TABLET BY MOUTH ONCE DAILY , Not-Taking [place]-3 Fatty Acids 290 MG-200 INTL UNITS CAPSULE 2 CAP(S) ORALLY ONCE A DAY , Not-Taking Dicyclomine HCl 10 MG Capsule 1 cap(s) orally 4 times a day prn bloating , Not-Taking Clotrimazole-Betamethasone 1-0.05 % Cream 1 felicia applied topically 2 times a day , Not-Taking Triamcinolone Acetonide 0.1 % Cream APPLY TO AFFECTED AREA TWICE DAILY , Not-Taking Synthroid 75 MCG Tablet 1 tab(s) orally once a day , Medication List reviewed and reconciled with the patient * Allergies: S ulfa Antibiotics, Erythromycin, Naprosyn, Lipitor: muscle pain - Side Effects, Pravastatin: muscle pain - Side Effects, Omeprazole: gynecomastia/ sore breasts - Side Effects. Objective: * Vitals: W t: 138.6, Temp: 97.8, BP: 130/70, HR: 81, Nurse: roque, Ht: 66.50, BMI:22.03. * Examination: G eneral Examination: General Appearance: N AD. Abdomen: s oft,nontender. Morgan catheter draining clear, pale urine.. Assessment: * Assessment: 1. A cute urinary retention - R33.8 (Primary) 2 . I ndwelling Morgan catheter present - Z97.8 3 . B PH (benign prostatic hyperplasia) - N40.0 ? Plan: * Treatment: 2. I ndwelling Morgan catheter present Notes: Advised against removing the catheter today. He should give the Flomax a few more days to work. 3. B PH (benign prostatic hyperplasia) Continue Tamsulosin HCl Capsule, 0.4 MG, 1 capsule, Orally, Once a day. * Follow Up: a fter consultation * Billing Information: * Visit Code: 34741 Office Visit, Est Pt., Level 3. * Procedure Codes: * Electronic signature of Francesca Saravia MD on 08/24/2024 at 04:59 PM EDT Sign off status: Pending * Provider: Francesca Saravia M.D. Date: 08/23/2024 Generated for Kristina cunningham/Shabnam/Yvetteitting on: 08/24/2024 04:59 PM EDT History and Physical Notes * HPI (History of Present Illness) Category Sub-Category Detail Notes Category Not es Male Reproductive Dario went to the emergency room early yesterday morning with acute urinary retention. He is known to have prostatic hypertrophy but his is convinced his symptoms are a side effect of doxycycline that had been started 2 days prior for treatment of a tick bite. Please refer to ER record for details. He was started on Flomax and an indwelling catheter was placed and he returns today for follow-up and would like to have the catheter removed because of discomfort. Unfortunately, he was not given a leg bag and comes in with a bedside drainage bag Examination Category Sub-Category Detail Notes Category Not es General Examination Abdomen: soft, nonten reinaldo. Morgan catheter draining clear, pale urine. General Appearance: NAD Consultation Request Notes Referral Date Referring Provider Referred Provider Not es 08/24/2024 Francesca Saravia Kevin BPH and ur inary retention
[2024-08-24 16:57] VITALS: BP 151/99; PULSE 74; RESP 18; O2SAT 97
--- OUTSIDE RECORDS SUMMARY | 2024-08-24 17:00 | XMS_ITS | Patient Health Record ---
Author Organization [facility] Address [address] [facility] [address] [place] [id number] Care Team Providers Care Biometric Screener Name Role Phone Francesca Saravia Primary Care Provider Aman Garcia Unavailable [phone] Mikeumu Kaycee Unavailable [phone] Allergies Allergen (clinical drug ingredient) Drug/Non Drug [...] Active Results Component Value Reference Range Notes P-TSH Reviewed date:05/15/2024 08:35:29 AM Interpretation:Normal Performing Lab: Notes/Report: Test performed by [facility] [address] [place], [place] [address] [address] , [address], [place] [address] Bam Ramirez MD, Sawmill Relief Worker CLIA: [id number] TSH 3.38 0.43-5.25 mU/L P-Lipid Panel Reviewed date:05/15/2024 08:35:29 AM Interpretation:trigs 160, hdl 39 Performing Lab: Notes/Report: Test performed by [facility] [address] [place], [place] [address] [address], [address], [place] [address] Bam Ramirez MD, Sawmill Relief Worker CLIA: [id number] Cholesterol 139 <200 mg/dL Triglycerides 160 <150 [...] Results: 68 Units: mg/dL % Change: -26% P-Iron Reviewed date:05/15/2024 08:35:29 AM Interpretation:iron 53 Performing Lab: Notes/Report: Test performed by [facility] [address] , [place] [address] Bam Ramirez MD, Sawmill Relief Worker CLIA: [id number] Iron 53 59-158 ug/dL P-T4 Free (thyroxine) Reviewed date:05/15/2024 08:35:29 AM Interpretation:Normal Performing Lab: Notes/Report: Test performed by [facility] [address] , [facility] [place] [address] Bam Ramirez MD, Sawmill Relief Worker CLIA: [id number] Thyroxine Free (free T4) 1.56 0.86-1.76 ng/dL P-Ferritin Reviewed date:05/15/2024 08:35:29 AM Interpretation:Normal Performing Lab: Notes/Report: Test performed by [facility] [address] , [address], [place] [address] Bam Ramirez MD, Sawmill Relief Worker CLIA: [id number] Ferritin 54.7 30.0-400.0 ng/mL P-Comprehensive Metabolic Pa citlaly (CMP) Reviewed date:05/15/2024 08:35:29 AM Interpretation:Normal Performing Lab: Notes/Report: Test performed by [facility] [address] , [place] [id number] Bam Ramirez MD, Sawmill Relief Worker CLIA: [id number] Sodium 139 135-145 mmol/L Potassium 4.7 3.5-5.3 [...] <0.2 <0.2-1.2 mg/dL A/G Ratio 1.4 1.1-2.5 CBC Venipuncture (in house) Reviewed date:05/11/2024 02:02:15 [...] - 38 platlet 411 100 - 400 Urinalysis - Inhouse Reviewed [...] stable nodule CBC Fingerstick (in house) Reviewed date:09/12/2023 09:17:15 [...] - 400 CBC Venipuncture (in house) Reviewed date:12/01/2023 12:28:00 [...] Interpretation:Normal Performing Lab: Notes/Report: Test performed by [facility] [address] [place] [address] , [place] [address] Bam Ramirez MD, Sawmill Relief Worker CLIA: [id number] Sodium 143 135-145 mmol/L Potassium 4.4 3.5-5.3 [...] Interpretation:Normal Performing Lab: Notes/Report: Test performed by [facility] [address] [place] [address] , [address], [place] [address] Bam Ramirez MD, Sawmill Relief Worker CLIA: [id number] Ferritin 40.6 30.0-400.0 ng/mL P-T4 Free (thyroxine) Reviewed date:12/06/2023 10:37:17 AM Interpretation:Normal Performing Lab: Notes/Report: Test performed by [facility] [address] , [place] [address] Bam Ramirez MD, Sawmill Relief Worker CLIA: [id number] Thyroxine Free (free T4) 1.57 0.86-1.76 ng/dL P-Iron Reviewed date:12/06/2023 10:37:17 AM Interpretation:45 Performing Lab: Notes/Report: Test performed by [facility] , [place] [address] Bam Ramirez MD, Sawmill Relief Worker CLIA: [id number] Iron 45 59-158 ug/dL P-Lipid Panel Reviewed date:12/06/2023 10:37:17 AM Interpretation:hdl 36 Performing Lab: Notes/Report: Test performed by [facility] , [place] [address] Bam Ramirez MD, Sawmill Relief Worker CLIA: [id number] Cholesterol 148 <200 mg/dL Triglycerides 99 <150 [...] Interpretation:Normal Performing Lab: Notes/Report: Test performed by [facility], [address] , [address], [place] [address] Bam Ramirez MD, Sawmill Relief Worker CLIA: [id number] TSH 1.80 0.43-5.25 mU/L P-Surgical Pathology Reviewed [...] 1A, 05/05. (LLG,RR13,pc9) Grossing services provided by [facility], [facility], d/b/a [address] [place], [address] Gentry Sterling MD, Sawmill Relief Worker. Microscopic Description: There is epidermal hyperplasia with [...] End of Report Technical services provided by [facility], [facility], d/b/a [address] , [place] [address] Gentry Sterling MD, Sawmill Relief Worker. Case reviewed and diagnosis rendered at [facility], [facility], d/b/a [address] , [place] [address] Gentry Sterling MD, Sawmill Relief Worker. CONFIDENTIAL P-Basic Metabolic Panel (BMP ) Reviewed date:03/02/2024 04:16:39 PM Interpretation:gluc 107, gfr 55 Performing Lab: Notes/Report: Test performed by [facility], [address] , [address], [place] [address] Bam Ramirez MD, Sawmill Relief Worker CLIA: [id number] Sodium 140 135-145 mmol/L Potassium 4.2 3.5-5.3 mmol/L Chloride 107 97-108 mmol/L CO2 25 22-32 mmol/L Glucose 107 65-99 mg/dL BUN 14 8-23 mg/dL Creatinine 1.28 0.70-1.30 mg/dL Calcium 9.2 8.6-10.4 mg/dL eGFR by Creatinine 55 >59 mL/min/1.73m2 CBC Fingerstick (in house) Reviewed date:01/10/2024 11:28:59 [...] normal) Performing Lab: Notes/Report: Test performed by [facility] [address] [place] [address] , [address], [place] [address] Bam Ramirez MD, Sawmill Relief Worker CLIA: [id number] Iron 61 59-158 ug/dL Medications Medication SIG (Take, Route, Frequency, Duration) Notes Start Date End Date Status Lisinopril 10 MG 1 tablet Orally Once a day for 90 days Active Aspirin 81 MG 1 tab(s) orally once a day Active Rosuvastatin Calcium 5 MG TAKE 1 TABLET BY MOUTH ONCE DAILY for 90 Active Levothyroxine Sodium 75 MCG 1 tablet in the morning on an empty stomach Orally Once a day Active Synthroid 75 MCG 1 tab(s) orally once a day for 90 days Not-Taking Glucosamine & Fish Oil 749-631-65-40 MG 3 cap(s) orally once a day Active Multivitamin Plus Iron Adult - 1 tab(s) orally once a day Active Dicyclomine HCl 10 MG 1 cap(s) orally 4 times a day prn bloating for 90 days Not-Taking [place]-3 Fatty Acids 290 MG-200 INTL UNITS 2 CAP(S) ORALLY ONCE A DAY Not-Taking Mupirocin 2 % 1 application Externally Twice a day Active Triamcinolone Acetonide 0.1 % APPLY TO AFFECTED AREA TWICE DAILY for 30 Not-Taking Clotrimazole-Betamethason e 1-0.05 % 1 felicia applied topically 2 times a day 12/17/2021 Not-Taking Tamsulosin HCl 0.4 MG 1 capsule Orally O nce a day Active Immunizations Vaccine Route Administration Date Status Comme nts COVID 19 Moderna Unknown 04/02/2020 Administered COVID 19 Moderna Unknown 04/30/2020 Administered Fluzone High Dose (65yr and older) [...] (65yr and older) IM Intramuscular 12/13/2023 Administered Fluzone Quad (6months&older) Unknown 12/17/2017 Administered PNEUMOVAX 23 VACCINE IM Intramuscular 03/06/2012 Administe red PNEUMOVAX 23 VACCINE IM Intramuscular 10/26/2016 Administe red Prevnar (PCV13) IM Intramuscular 06/25/2014 Administered Prevnar (PCV20) Unknown 02/08/2023 Administered Tetanus Tdap-Adacel (over 7yrs) IM Intramuscular 05/10/2009 Administered Tetanus Tdap-Adacel (over 7yrs) Unknown 07/09/2021 Administered xFluzone (6mos and older)-trivalent IM Intramuscular 12/23/2010 Administered xFluzone High Dose-private (65yr&older) IM Intramuscular 12/12/2012 Administered rRtshbrq-viklhjark-ncvddbe e pts. IM Intramuscular 12/09/2009 Administered Problems Problem Type SNOMED Code ICD Code Onset Dates Problem Status W/U Status Risk Notes Problem 56693193 Essential hypertension (I10) Active confirmed Problem Constipation (38374315) Constipation (K59.00) Active confirmed Problem Seasonal allergy (318216631) Seasonal allergies (J30.2) Active confirmed Problem 046353445262022 Piriformis syndr ome of left side (G57.02) Active confirmed Problem Multiple pulmonary nodules (539036393) Pulmonary nodules (R91.8) Active confirmed Problem Iron deficiency anemia (20201986) Iron deficiency anemia (D50.9) Active confirmed Problem 348594480 Acute constipati on (K59.00) Active confirmed Problem Benign prostatic hyperplasia (497663029) BPH (benign prostatic hyperplasia) (N40.0) Active confirmed Problem Dysphagia (43872317) Dysphagia (R13.10) Active confirmed Problem 024236343 Gastroesophageal reflux disease without esophagitis (K21.9) Active confirmed Problem 961297426 Acquired hypothyroidism (E03.9) Active confirmed Problem 17908456 Chronic obstruct uday pulmonary disease, unspecified COPD type (J44.9) Active confirmed Problem 74363709 Presbycusis of b oth ears (H91.13) Active confirmed Problem 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) Blood loss anemia (D50.0) Active confirmed Problem Diverticular disease of colon (518007544) Diverticulosis (K57.90) Active confirmed Problem 560082933 Dyslipidemia (E78.5) Active confirmed Problem 20738750 Seasonal allergi c rhinitis due to pollen (J30.1) Active confirmed Problem 327682400722339 Piriformis syndrome, right (G57.01) Active confirmed Problem 780602241 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) Active confirmed Problem 698292408 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) Active confirmed Problem 957478838848177 Benign prostatic hyperplasia with lower urinary tract symptoms (N40.1) Active confirmed Problem 283054718 Elevated PSA (R97.20) Active confirmed Problem 35522094 Urge incontinenc e of urine (N39.41) Active confirmed Problem Prostate nodule (807767694059637) Prostate nodule (N40.2) Active confirmed Problem 38690714 Oropharyngeal dysphagia (R13.12) Active confirmed Problem 790898085 Statin intoleran ce (Z78.9) Active confirmed Problem 95220710 Acute non-season al allergic rhinitis (J30.89) Active confirmed Vital Signs Heart Rate 81 /min 08/23/2024 Blood pressure diastolic 70 mm Hg 08/23/2024 Height 66.50 in 08/23/2024 Blood pressure systolic 130 mm Hg 08/23/2024 Weight 138.6 lbs 08/23/2024 BMI 22.03 kg/m2 08/23/2024 Encounters Encounter Location Date Provider Diagnosis [facility] [facility] [address] [place] [id number] 09/02/2023 Kaycee Crowdy Bursitis of right sh oulder M75.51 ; Trapezius muscle spasm M62.838 ; Pulmonary nodules R91.8 and Gastroenteritis K52.9 [facility] [address] [place] [id number] 09/09/2023 Kaycee Crowdy Bursitis of right sh oulder M75.51 ; Trapezius muscle spasm M62.838 and Gastroenteritis K52.9 [facility] [address] [place] [id number] 09/28/2023 Kaycee Crowdy Biceps tendon tear S 46.219A [facility] [address] [place] [id number] 12/01/2023 Kaycee Crowdy Costochondritis M94. 0 ; Dyslipidemia E78.5 ; Acquired hypothyroidism E03.9 ; Gastroesophageal reflux disease without esophagitis K21.9 ; Anemia, unspecified type D64.9 ; Essential hypertension I10 and Sternocleidomastoid muscle tenderness M79.12 [facility] [address] [facility] [address] [place] [id number] 12/13/2023 R Girish Saravia [facility] [address] [place] [id number] 01/10/2024 R Girish Saravia Iron deficiency anem ia D50.9 [facility] [place] [facility] [address] [place] [id number] 02/21/2024 R Girish Manjit Atypical chest pain R07.89 and Essential hypertension I10 [facility] [place] [facility] [address] [place] [id number] 03/01/2024 R Girish Manjit Hyponatremia E87.1 a nd Muscle spasm of back M62.830 [facility] [address] [place] [facility] [address] [place] [id number] 03/06/2024 R Girish Manjit Hyponatremia E87.1 a nd COVID-19 U07.1 [facility] [address] [place] [id number] 04/05/2024 R Girish Manjit Fall W19.XXXA ; Thor acic back pain M54.6 and Iron deficiency anemia D50.9 [facility] [address] [place] [id number] 05/11/2024 Kaycee Tyrel 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 ; Deviated nasal septum J34.2 ; Dyslipidemia E78.5 ; Acquired hypothyroidism E03.9 ; Essential hypertension I10 and Iron deficiency anemia D50.9 [facility] [address] [place] [id number] 05/17/2024 R Girish Manjit 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 1 ; Chronic constipation K59.09 ; Iron deficiency E61.1 and BMI 21.0-21.9, adult Z68.21 [facility] [address] [place] [facility] [address] [place] [id number] 08/23/2024 R Girish Manjit Acute urinary retent ion R33.8 ; Indwelling Morgan catheter present Z97.8 and BPH (benign prostatic hyperplasia) N40.0 [facility] [address] [place], [place] [id number] 09/16/2023 Kaycee Crowdy [facility] [address] [place], [place] [id number] 11/16/2023 Kaycee Crowdy Dermatitis L30.9 [facility] [address] [place], [place] [id number] 12/06/2023 Kaycee Crowdy [facility] [address] [place], [place] [id number] 02/03/2024 R Girish Manjit Dermatitis L30.9 [facility] [address] [place], [place] [id number] 03/02/2024 R Girish Manjit [facility] [address] [place], [place] [id number] 04/10/2024 R Girish Manjit [facility] [address] [place], [place] [id number] 04/10/2024 R Girish Manjit [facility] [address] [place], [place] [id number] 05/02/2024 R Girish Manjit [facility] [address] [place], [place] [id number] 05/15/2024 Kaycee Mikeumu Assessments Encounter Date Diagnosis (ICD Code) Assessment [...] need PT. 11/16/2023 Dermatitis (ICD-10 - L30.9) 01/10/2024 Iron deficiency [...] symptomatic treatment 04/05/2024 Fall (ICD-10 - W19.XXXA) 12/01/2023 Costochondritis (ICD-10 - M94.0) This does not appear to be kidney pain but rather costochondritis . He was recently on the roof with the leaf blower and noticed the pain after this. 12/01/2023 Dyslipidemia (ICD-10 - E78.5) 04/05/2024 Thoracic back pain (ICD-10 - M54.6) [...] to see if it has dropped. m 08/23/2024 Acute urinary retention (ICD-10 - R33.8) 08/23/2024 Indwelling Morgan catheter present (ICD-10 - Z97.8) Advised against removing the catheter today. He should give the Flomax a few more days to work. 09/02/2023 Trapezius muscle spa sm (ICD-10 - M62.838) 09/02/2023 Bursitis of right shoulder (ICD-10 - M75.51) Will rest the shoulder and give a steroid shot as oral steroids bother his stomach. 09/02/2023 Pulmonary nodules (ICD-10 - R91.8) 08/23/2024 BPH (benign prostati c hyperplasia) (ICD-10 - N40.0) 05/11/2024 Dyslipidemia (ICD-10 - E78.5) 08/15/2024 Iron deficiency (ICD-10 - E61.1) m 04/05/2024 Iron deficiency anem ia (ICD-10 - D50.9) 09/09/2023 Gastroenteritis (ICD-10 - K52.9) Resolved and CBC is much improved. 12/01/2023 Acquired hypothyroidism (ICD-10 - E03.9) 12/01/2023 Gastroesophageal reflux disease without esophagitis (ICD-10 - K21.9) 08/15/2024 BMI 21.0-21.9, adult (ICD-10 - Z68.21) m 05/11/2024 Acquired hypothyroidism (ICD-10 - E03.9) 09/02/2023 Gastroenteritis (ICD-10 - K52.9) 05/11/2024 Essential hypertensi on (ICD-10 - I10) [...] Date [employer] ([employer]) [address] [address] [place] [address] [id number] LISANDRO CARREON Self - patient is the [...] 07/2021 Colonoscopy 04/14/2022 Hospitalization History Reason Date(Month/Year) [facility]-severe stomach pain 10/25/2011 [facility] 04/14/2022 [facility]-transferred to -stroke 11/28-08/2018 [facility]-Anemia 11/17- [facility]-fell off ladder 07/2016
--- OUTSIDE RECORDS SUMMARY | 2024-08-24 17:00 | XMS_ITS | Clinical Summary ---
Author Organization Healthcare Address [address] [place] [address] Care Team Providers Care Drafter Cartographic Name Role Phone Yohannes Saravia MD Primary Care Provider [phone] Family History Medical History Relation Name Comments [...] of Treatment Not on file Care Teams Drafter Cartographic Relationship Specialty Start Date End Date Yohannes Saravia MD [address] [place] [address] PCP - General 07/18/20
--- NOTE | 2024-08-24 17:07 | ED_ITS ---
Discharge Plan Disposition Patient Disposition: Home, Self-Care Condition: Good Prescriptions Prescriptions: No Action aspirin [Adult Aspirin Regimen] 81 mg tablet,delayed release (DR/EC) 81 mg PO DAILY mupirocin 2 % ointment 1 applic topical TID Qty: 22 2RF levothyroxine 75 mcg tablet 75 mcg PO DAILY lisinopril 10 mg tablet 10 mg PO DAILY rosuvastatin 5 mg tablet 5 mg PO HS doxycycline hyclate 100 mg capsule 100 mg PO BID 10 Days Qty: 20 0RF tamsulosin [Flomax] 0.4 mg capsule 0.4 mg PO DAILY 30 Days Qty: 30 0RF Referrals Follow up/Referrals: Yohannes Saravia MD [Primary Care Provider, Medical] - See instructions Activity Restrictions/Add. Instructions Additional Instructions/Restrictions: You were evaluated in the emergency department today. Please follow-up with your urologist as well as with your primary care provider. Continue taking your tamsulosin (flomax) at home. Return to the emergency department for new or worsening symptoms such as inability to urinate. Clinical Impressions Clinical Impression: Hadley catheter in place prior to arrival, Encounter for Hadley catheter removal, Enlarged prostate Instructions Patient Instructions: Benign Prostatic Hyperplasia Print Language Print Language: Libyan Discharge ED Provider: Abril Paris General Adult HPI General Chief complaint: Urogenital-Male Stated complaint: passing blood thru cath,hose is collapsed Time Seen by Provider: 08/24/24 16:55 History of Present Illness HPI narrative: This patient is an 84-year-old male with a history of BPH with acute urinary retention 08/22/2024 prompting Hadley catheter placement presented to the emergency department for evaluation requesting to have the Hadley catheter removed. His stated that it has been very irritating to him and he cannot get comfortable with it in place, and when he lays a certain way the hose gets kinked and does not drain well, then he has leaking around the catheter. They also note concerned because he had 1 string of blood in the catheter bag. She notes that she tried to take it out at home but was unable to get anything with the syringe when she was trying to deflate the bulb. It appears she was connecting it to the wrong port. No other concerns or complaints are noted at this time such as fevers, abdominal pain, or other concerns. He saw urology yesterday who recommended leaving it in place a bit longer, but patient and family state that they are ready to have it out now. Related Data Home Medications ?Medication ?Instructions ?Recorded ?Confirmed aspirin 81 mg tablet,delayed 81 mg PO DAILY 04/30/19 0 06/13/24 release (Adult Aspirin Regimen) levothyroxine 75 mcg tablet 75 mcg PO DAILY 02/25/24 0 06/13/24 lisinopril 10 mg tablet 10 mg PO DAILY 02/25/2411/29 rosuvastatin 5 mg tablet 5 mg PO HS 02/25/24 06/13/24 Previous Rx's ?Medication ?Instructions ?Recorded mupirocin 2 % topical ointment 1 applic topical TID #2 2 grams 05/17/24 doxycycline hyclate 100 mg capsule 100 mg PO BID 10 da ys #20 caps 08/19/24 tamsulosin 0.4 mg capsule (Flomax) 0.4 mg PO DAILY 30 days #30 caps 08/22/24 Allergies Allergy/AdvReac Type Severity Reaction Status Date / Time Sulfa (Sulfonamide Allergy Unknown NAUSEA/VOMI Verified 08/19/24 07:17 Antibiotics) [facility] Disclaimer: The information contained in this section may have been updated after the patient was seen, as this information can be updated by other users. Medical History Nasal polyps Nasal vestibulitis MRSA (methicillin resistant staph aureus) culture positive Mouth breathing Hiatal hernia Elevated PSA BPH (benign prostatic hyperplasia) C. difficile colitis COPD (chronic obstructive pulmonary disease) Diverticulosis GERD (gastroesophageal reflux disease) Hyperlipidemia Hypothyroid GI bleed Vasovagal syncope Iron deficiency anemia due to chronic blood loss SNHL (sensorineural hearing loss) Right ear pain Bleeding from right ear Onychoincurvatum History of diverticulitis History of stroke Surgical History History of esophagogastroduodenoscopy (EGD) Hx of prostate biopsy History of circumcision History of tonsillectomy History of ear surgery History of colonoscopy Family History Other Family history of acute congestive heart failure Family history of acute heart failure Family history of cancer Family history of emphysema Social History Smoking Status: Never smoker alcohol intake: never substance use type: denies use current occupational status: retired and other Travel in the last 8 weeks?: None household members: spouse housing: house marital status: current occupational exposures/hazards: No caffeine: Yes special adalid needs: No agree to transfusion: No do you feel safe at home: Yes victim of physical abuse: No victim of emotional abuse: No victim of sexual abuse: No would you like helpful sources: No Have you lived/traveled outside US in past 30 days?: No Contact w/someone who lives/traveled outside US past 30 days?: No Exposure to someone with infectious disease in past 14 days?: No Do you have a fever (greater than 100.4 F or 38 C)?: No Have you tested positive for COVID-19?: No Exposed to someone with COVID-19 in past 14 days?: No Do you have a sore throat?: No Do you have a cough?: No Do you have any weakness?: No Do you have any diarrhea?: No Are you experiencing any unusual bleeding?: No Do you have any muscle aches/pain?: No Do you have any abdominal pain?: No Are you experiencing loss of taste or smell?: No Other Medical History Have you received the Flu Vaccine for this season: No Have you received the Pneumonia Vaccine: Yes ROS Obtained: Yes All systems reviewed & no additional complaints except as documented Physical Exam General General appearance: alert and in no apparent distress Head Head exam: atraumatic and normocephalic Eye Eye exam: Present normal appearance, PERRL and EOMI ENT ENT exam: Present normal exam, normal oropharynx, mucous membranes moist and normal external ear exam Neck Neck exam: Present normal inspection, full ROM and trachea midline; Absent tenderness Chest Chest inspection: Present normal inspection and symmetric chest wall rise; Absent tenderness Respiratory Respiratory exam: Present normal lung sounds bilaterally; Absent respiratory distress, wheezes, stridor or accessory muscle use Cardiovascular Cardiovascular exam: Present regular rate and normal rhythm Abdominal Exam Abdominal exam: Present soft; Absent distention, tenderness or guarding exam: Present normal inspection and other (hadley catheter in place draining clear yellow urine, small clump of blood in the catheter bag.) Extremities Exam Extremities exam: Present normal inspection, full ROM and normal capillary refill; Absent tenderness or edema Back Exam Back exam: Present normal inspection and full ROM; Absent tenderness Neurological Exam Neurological exam: Present alert, oriented X3, CN II-XII intact and normal gait; Absent motor sensory deficit Psychiatric Psychiatric exam: Present normal affect and normal mood Skin Skin exam: Present warm and dry Medical Decision Making Medical Records Medical records reviewed: Yes I reviewed the patient's medical records. Screening: Per USPSTF and CDC recommendations, given the prevalence of disease in our region, it is our hospital?s policy to screen for HIV and viral Hepatitis for all patients aged 18 and over and those with ongoing risk factors. Zaki Inquiry Pt receiving controlled substance: No Vital Signs: 08/24/24 16:57 08/24/24 17:10 08/24/24 17:30 Temperature 98.4 F Temperature Source Oral Pulse Rate 74 64 Pulse Rate [Right Radial] 74 Respiratory Rate 18 15 18 Blood Pressure 151/99 H 148/68 H Blood Pressure [Right Arm] 151/99 H Blood Pressure Mean 112 94 Blood Pressure Mean [Right Arm] 116 Blood Pressure Source Blood Pressure Source [Right Arm] Automatic Cuff Blood Pressure Position Blood Pressure Position [Right Arm] Sitting 02 Sat by Pulse Oximetry 97 98 98 Oxygen Delivery Method 08/24/24 18:01 08/24/24 18:31 08/24/24 18:59 Temperature 98.7 F Temperature Source Oral Pulse Rate 67 69 72 Pulse Rate [Right Radial] Respiratory Rate 18 18 20 Blood Pressure 165/56 H 183/62 H 148/68 H Blood Pressure [Right Arm] Blood Pressure Mean 103 93 Blood Pressure Mean [Right Arm] Blood Pressure Source Automatic Cuff Blood Pressure Source [Right Arm] Blood Pressure Position Sitting Blood Pressure Position [Right Arm] 02 Sat by Pulse Oximetry 97 98 Oxygen Delivery Method Room Air Lab Data Lab results reviewed: Yes I reviewed the patient's lab results. Medical Decision Narrative: In summary, this patient is a 84-year-old male presenting to the Emergency Department for evaluation of requesting to have his Hadley catheter removed. Differential diagnoses considered include but are not limited to Ahdley catheter obstruction, Hadley catheter complication. Ruling out the most morbid conditions drove assessment. It should be noted patient's history includes BPH which is not at goal therapy. This complicates all aspects of care by increasing patient's risk for morbidity. I reviewed patient's past medical records and noted evaluation 08/22/2024 for acute urinary retention. He had issues with this for a long time in the past. He had a CT scan at that time showing chronic BPH which he knows of and follows with urology for On exam, the patient is sitting upright no acute distress with benign abdominal exam. His Hadley catheter is in place draining clear yellow urine with a small clump of blood in the Hadley catheter bag. Family is requesting to have the catheter removed because he is having some leakage around the catheter, especially when the catheter is kinked with position changes. Right now, the catheter is not kinked and is draining well. I advised them that leakage around the catheter is common with bladder spasms related to Hadley catheter in place, especially if it was kinked at any given time. They then expressed concern over the blood that is in the bag. There is 1 tiny clump of blood cells, but the urine itself is clear and yellow. I am not concerned of this, as its likely from irritation from the catheter itself. I recommended leaving the catheter in place until follow-up with urology, as urology has already advised them that they should give it a few more days for irritation to go down and for the tamsulosin to work. patient and his maintained that they would like the catheter removed now because he just needs it out. I did discuss with them that if he has the catheter removed and has inability to void on a voiding trial, he would need a new catheter, and repeated catheterizations could lead to more prostate trauma and worsen difficulties with urination. I again recommended waiting for urology recommendations, however they state that the urologist said that they could remove it at home whenever. Given this, after risk versus benefit explanation, patient would like to proceed with removal of the Hadley catheter. Hadley catheter was removed without issue, though there was not much fluid in the balloon of the catheter. His and him messing with it at home, so it is possible that she had already aspirated it. At 1715, patient was placed in ED observation status pending voiding trial to determine whether or not the patient would be appropriate for discharge versus admission. The patient was provided serial reevaluations while awaiting ultimate disposition. Patient was able to void successfully. He had no recurrence of significant urinary retention or difficulty voiding. Given this, it is felt that he is appropriate for discharge home with plans for close follow-up with his urologist as well as with his primary care provider. Strict return precautions were given. Patient was discharged at 1900 after 1 hour and 45 minutes in ED observation status. Critical Care Critical Care Time Critical Care Time: No
[2024-08-24 17:10] VITALS: BP 151/99; PULSE 74; RESP 15; TEMP 36.9; O2SAT 98; BMI 22.2
[2024-08-24 17:30] VITALS: BP 148/68; PULSE 64; RESP 18; O2SAT 98
[2024-08-24 18:01] VITALS: BP 165/56; PULSE 67; RESP 18; O2SAT 97
[2024-08-24 18:31] VITALS: BP 183/62; PULSE 69; RESP 18; O2SAT 98
[2024-08-24 18:59] VITALS: BP 148/68; PULSE 72; RESP 20; TEMP 37.1; O2SAT 97
== END 2024-08-24 19:05 | disposition home or self-care (01) ==
PROVIDERS: Emergency Provider Emergency Medicine; PCP Family Medicine
DX: N40.0 Benign prostatic hyperplasia without lower urinary tract symptoms (principal); Z46.6 Encounter for fitting and adjustment of urinary device; Z97.8 Presence of other specified devices
CPT/HCPCS: 99283

== ENCOUNTER 2024-10-18 08:53 | Outpatient (CLI) | payer MEDICARE, SELFPAY ==
--- OUTSIDE RECORDS SUMMARY | 2024-09-03 06:06 | XMS_ITS ---
Author Organization Lucia Address [address] [facility] [address] [place] [id number] Care Team Providers Care Order Takers Supervisor Name Role Phone Francesca Saravia Primary Care Provider Kaycee Sarah [phone] Reason For Referral Reason Patient requests ref erral to Cardiology Diagnosis 1 Abnormal echocardiog ever (R93.1) Referral Organization [facility] Referring Provider First Name Kaycee Referring Provider Last Name Tyrel Referring Provider Speciality Physician Construction Executive Referred Provider Specialty Cardiovascul ar Disease General Notes Deepti Santiago 2024 10:25:59 AM > faxed to [facility] for appt with cardiology Referral Priority Routine REASON FOR VISIT Test results Encounters Encounter Location Date Provider Diagnosis Luis [address] [facility] [address] [place] [id number] 09/03/2024 Kaycee Sarah Abnormal echocardiog ever R93.1 Assessments Encounter Date Diagnosis (ICD Code) Assessment Notes Treatment Notes Treatment Clinical Notes Section Notes 09/03/2024 Abnormal echocardiogram (ICD-10 - R93.1) Plan Of Treatment Referrals Referral Date Details 09/04/2024 09/04/2024, Patient requests referral to Cardiology Progress Notes * LISANDRO CARREONDOB:1940 (84 yo M)Acc No.[id number]:09/03/2024 Patient: Jaspreet YINLISANDRO WILBER :1940 A ge:84 Y S ex:Male Address:[address] [place] [address] Subjective: * Chief Complaints: * T est results * Medical History: * Surgical History: * Hospitalization/Major Diagno stic Procedure: * Medications: Objective: * Vitals: * Physical Examination: Assessment: * Assessment: 1. A bnormal echocardiogram - R93.1 (Primary) Plan: * Treatment: * Procedure Codes: * true * Date: Generated for Printi ng/Famaryg/eTransmitting on: 0 10/18/2024 08:59 AM EDT Consultation Request Notes Referral Date Referring Provider Referred Provider Not es 09/04/2024 Kaycee Sarah , Patient reque sts referral to Cardiology
--- OUTSIDE RECORDS SUMMARY | 2024-10-01 13:00 | XMS_ITS ---
[facility] [address] [place] [id number] Care Team Providers Care Finished Cloth Checker Name Role Phone Francesca Saravia Primary Care Provider Aman Garcia Unavailable [phone] Allergies Allergen (clinical drug ingredient) Drug/Non Drug [...] Active Results Component Value Reference Range Notes CBC Fingerstick (in house) Reviewed date:10/01/2024 09:56:48 PM Interpretation: Performing Lab: Notes/Report: wbc 10.0 3.5 - 10 lym 28.2% 15 - 50 mid 6.6% 2 - 15 gran 65.2% 35 - 80 rbc 3.36 3.5 - 5.5 hgb 10.3 11.5 - 16.5 hct 31.0 35 - 55 mcv 92.4 75 - 100 mch 30.7 25 - 35 mchc 33.2 31 - 38 plat 233 100 - 400 REASON FOR VISIT sinus issues Medications Medication SIG (Take, Route, Frequency, Duration) Notes Start Date End Date Status Mupirocin 2 % 1 application Storage Garage Manager ally Twice a day Active Rosuvastatin Calcium 5 MG TAKE 1 TABLET BY MOUTH ONCE DAILY; Duration: 90 Active Aspirin 81 MG 1 tab(s) orally once a day Active Lisinopril 10 MG TAKE 1 TABLET BY THAO TH ONCE DAILY; Duration: 90 Active Tamsulosin HCl 0.4 MG 1 capsule Orally O nce a day Active Levothyroxine Sodium 75 MCG 1 tablet in the morning on an empty stomach Orally Once a day Active Cefdinir 300 MG 1 capsule Orally twi ce a day; Duration: 7 days 10/01/2024 Active Glucosamine & Fish Oil 477-780-61-40 MG 3 cap(s) orally once a day Active Multivitamin Plus Iron Adult - 1 tab(s) orally once a day Active Vital Signs Weight 138 lbs 10/01/2024 Blood pressure systolic 114 mm Hg 10/02/19 25 Blood pressure diastolic 64 mm Hg 025 Heart Rate 81 /min 10/01/2024 Height 66.50 in 10/01/2024 BMI 21.94 kg/m2 10/01/2024 Encounters Encounter Location Date Provider Diagnosis [facility] [address] [facility] [address] [place] [address], [place] [phone] 10/01/2024 Aman Garcia Acute URI J06.9 Assessments Encounter Date Diagnosis (ICD Code) Assessment Notes Treatment Notes Treatment Clinical Notes Section Notes 10/01/2024 Acute URI (ICD-10 - J06.9) Plan Of Treatment Medication Medication Name Sig Start Date Stop Date Notes Cefdinir 300 MG 1 capsule Orally twi ce a day; Duration: 7 days 10/01/2024 Next Appt Details Follow Up: prn, Reason: Progress Notes * LISANDRO CARREONDOB:1940 (84 yo M)Acc No.[id number]:10/01/2024 Progress Notes Patient: LISANDRO FLORES Provider: Germaine Garcia M.D. :1940 A ge:84 Y S ex:Male Date:10/01/2024 Address:[facility] [address], [address] [id number] Pcp:Francesca Saravia Subjective: * Chief Complaints: * 1 . Sinus issues. * HPI: E NT/respiratory: 84 year old male presents with c/o cough d ry without any sputum production. c/o nasal congestion P t complains of nasal congestion that started on Tuesday. Pt states congestion feels like it is up in his head more than nose. * ROS: D ERMATOLOGY: no R rachael. n o H lionel. G ASTROENTEROLOGY: no N ausea. n o V omiting. U ROLOGY: no D ifficulty urinating. n o B lood in urine. 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 * Surgical History: b ilateral [...] stic Procedure: H ER-severe stomach pain 10/25/2011, [facility] ER-fell off ladder 07/2016, [facility]-Anemia 11/17-, [facility] ER-transferred to -stroke 11/28-, [facility] ER 04/14/2022. * Family History: F [...] stomach Orally Once a day , Taking Multivitamin Plus Iron Adult - Tablet 1 tab(s) orally once a day , Taking Glucosamine & Fish Oil 543-326-25-40 MG Capsule 3 cap(s) orally once a day , Taking Aspirin 81 MG Tablet Delayed Release 1 tab(s) orally once a day , Taking Rosuvastatin Calcium 5 MG Tablet TAKE 1 TABLET BY MOUTH ONCE DAILY , Taking Tamsulosin HCl 0.4 MG Capsule 1 capsule Orally Once a day , Taking Lisinopril 10 MG Tablet TAKE 1 TABLET BY MOUTH ONCE DAILY , Discontinued [place]-3 Fatty Acids 290 MG-200 INTL UNITS CAPSULE 2 CAP(S) ORALLY ONCE A DAY , Discontinued Dicyclomine HCl 10 MG Capsule 1 cap(s) orally 4 times a day prn bloating , Discontinued Clotrimazole-Betamethasone 1-0.05 % Cream 1 felicia applied topically 2 times a day , Discontinued Triamcinolone Acetonide 0.1 % Cream APPLY TO AFFECTED AREA TWICE DAILY , Discontinued Synthroid 75 MCG Tablet 1 tab(s) orally once a day * Allergies: S ulfa Antibiotics, Erythromycin, Naprosyn, Lipitor: muscle pain - Side Effects, Pravastatin: muscle pain - Side Effects, Omeprazole: gynecomastia/ sore breasts - Side Effects. Objective: * Vitals: W t: 138, Temp: 97.9, BP: 114/64, HR: 81, Nurse: yan, Ht: 66.50, BMI:21.94. * Examination: E NT/Respiratory: General Appearance: N AD. E yes: P ERRLA, sclera clear. S inuses : t monty maxillary sinuses bilaterally. O ral cavity : e rythema without exudate on pharynx. N delaney : n o cervical lymphadenopathy. H eart : R RR, normal S1 S2. L ungs: c lear to auscultation bilaterally. Assessment: * Assessment: 1. Jocelyn campos URI - J06.9 (Primary) Plan: * Treatment: Value Reference Range w bc 10.0 3.5 - 10 * l ym 28.2% 15 - 50 * m id 6.6% 2 - 15 * g ran 65.2% 35 - 80 * r bc 3.36 3.5 - 5.5 * h gb 10.3 11.5 - 16.5 * h ct 31.0 35 - 55 * m cv 92.4 75 - 100 * m ch 30.7 25 - 35 * m chc 33.2 31 - 38 * p lat 233 100 - 400 * Rosie Tavarez 10/01/2024 05:06: 05 PM EDT > Provider reviewed results while patient in office.Aman Garcia 10/01/2024 09:56:43 PM EDT > * Procedure Codes: G 2211 Complex e/[place], [address] CBC WITH AUTO DIFF, 48464 CAPILLARY BLOOD DRAW * Follow Up: p rn * Images: Billing Information: * Visit Code: 18037 Office Visit, Est Pt., Level 3. * Procedure Codes: G2211 Complex e/[place] [address] CBC WITH AUTO DIFF. 33472 CAPILLARY BLOOD DRAW. * Electronic signature of Selena Garcia MD on 10/18/2024 at 08:59 AM EDT Sign off status: Pending * Provider: Germaine Garcia M.D. Date: 0 10/01/2024 Generated for Chinoi marisa/Shabnam/eTransmitting on: 0 10/18/2024 08:59 AM EDT History and Physical Notes * HPI (History of Present Illness) Category Sub-Category Detail Notes Category Not es ENT/respiratory cough dry without any sputum pr oduction nasal congestion Pt complains of nasa l congestion that started on Tuesday. Pt states congestion feels like it is up in his head more than nose Examination Category Sub-Category Detail Notes Category Not es ENT/Respiratory Oral cavity : erythema without exudate on pharynx Sinuses : tender maxillary sin uses bilaterally Neck : no cervical lymphade nopathy Heart : RRR, normal S1 S2 Lungs: clear to auscultatio n bilaterally General Appearance: NAD Eyes: PERRLA, sclera clear
--- OUTSIDE RECORDS SUMMARY | 2024-10-16 05:08 | XMS_ITS ---
Author Organization [facility] Address [address] [facility] [address] [place] [id number] Care Team Providers Care Golf Starter And Ranger Name Role Phone Francesca Saravia Primary Care Provider Kaycee Sarah [phone] REASON FOR VISIT Message Encounters Encounter Location Date Provider Diagnosis Luis [address] [facility] [address] [place] [phone] 10/16/2024 Kaycee Sarah Iron deficiency anem ia D50.9 Assessments Encounter Date Diagnosis (ICD Code) Assessment Notes Treatment Notes Treatment Clinical Notes Section Notes 10/16/2024 Iron deficiency anemia (ICD-10 - D50.9) Plan Of Treatment Pending Test Test Name Order Date H-Ferritin 10/16/2024 H-Iron 10/16/2024 Progress Notes * LISANDRO CARREONDOB:1940 (84 yo M)Acc No.[id number]:10/16/2024 Patient: Jaspreet LISANDRO ESQUEDA :1940 A ge:84 Y S ex:Male Address:[address] [place] [address] Subjective: * Chief Complaints: * M essage * Medical History: * Surgical History: * Hospitalization/Major Diagno stic Procedure: * Medications: Objective: * Vitals: * Physical Examination: Assessment: * Assessment: 1. I josef deficiency anemia - D50.9 Plan: * Treatment: * Procedure Codes: * true * Date: Generated for Printi ng/Faxing/eTransmitting on: 0 10/18/2024 08:58 AM EDT
--- OUTSIDE RECORDS SUMMARY | 2024-10-18 08:59 | XMS_ITS | Clinical Summary ---
Author Organization Healthcare Address [address] [place] [address] Care Team Providers Care Lab Director Name Role Phone Yohannes Saravia MD Primary Care Provider +1- [phone] Encounters Date Type Department Care Team Description 09/24/2024 Telephone [facility] Rakan [address] , [address] [place] [address] None, None HCN Clinical Concern/Question from Last 3 Months Family History Medical History Relation Name Comments [...] 12/13/2018 12:48 PM EDT Plan of Treatment Upcoming Encounters Date Type Department Care Team (Late st Contact Info) Description 10/24/2024 2:30 PM EDT Office Visit [facility] [address] [address] , [address] [place] [address] Imelda Davis DO [address] [place] [address] Health Maintenance Due Date Last Done Comments [facility]-Depression Screening 1940 [facility]-Medicare Annual Wellness (AWV) 1940 [facility]-/Child/Adol SDOH Screenings 1940 [facility]- SDOH Screenings 08/08/1957 [facility]-Adult SDOH Screenings 08/08/1957 [facility]-Zoster Vaccines (1 of 2) 08/08/1989 [facility]-RSV Vaccine: 60+ Years or (1 - 1-dose 75+ series) 08/08/2014 [facility]-Influenza Vaccine (#1) 11/05/202412/18, 12/29/2020, 11/27/2019, Additional history exists [id number] Vaccine ( - 2023- season) 2024 06/08/2024, 11/25/2021, 12/10/2020, Additional history exists [facility]-DTaP,Tdap,and Td Vaccines (2 - Td or Tdap) 07/10/2031 07/09/2021, 05/06/1996 [facility]-Pneumococcal Vaccine: 50+ Years Completed 02/08/2023, 10/26/2016 HPV Vaccines Aged Out No longer eligi ble based on patient's age to complete this topic [facility]-HIB Vaccines Aged Out No longer e ligible based on patient's age to complete this topic [facility]-Hepatitis A Vaccines Aged Out No longer eligible based on patient's age to complete this topic [facility]-IPV Vaccines Aged Out No longer e ligible based on patient's age to complete this topic [facility]-Rotavirus Vaccines Aged Out No lo nger eligible based on patient's age to complete this topic Insurance [facility] [employer] Care Teams Lab Director Relationship Specialty Start Date End Date Yohannes Saravia MD [address] [place] [address] PCP - General 07/18/20
--- OUTSIDE RECORDS SUMMARY | 2024-10-18 08:59 | XMS_ITS | Encounter Summary ---
Author Organization Healthcare Address [address] [place] [address] Care Team Providers Care Ordnance Equipment Worker Name Role Phone Yohannes Saravia MD Primary Care Provider +1- [phone] Reason for Visit * Reason Onset Date Comments HCN Clinical Concern/Question 09/24/2024 Encounter Details Date Type Department Care Team ([facility] st Contact Info) Description 09/24/2024 Telephone [facility] Wellington Rogers [address] [facility], [address] [place] [address] None, None [address] [place] [address] HCN Clinical Concern/Question Social History Tobacco Use Types Packs/Day Years Used Date Smoking Tobacco: Former Sex and Gender Information Value Date Recorded Sex Assigned at Not on file Legal Sex Male 8:36 PM EDT Gender Identity Not on file Sexual Orientation Not on file documented as of this encounter Miscellaneous Notes * Telephone Encounter - Mo Skaggs - 09/25/2024 1:45 PM EDT Called and lvm explaining we are currently trying to get records from referring so we can review and get pt scheduled accurately with appropriate provider * Telephone Encounter - Leona Borden - 09/24/2024 11:24 AM EDT Clinical Concern/Question Reason for Call: Patients calling to schedule from referral to cardiology. Best contact number: [phone] (home) Optimal time of day to reach caller: ANYTIME Additional comments/information from caller: None Note: Please do not reply to this message. Follow-up communication and further actions as a result of this message need to be communicated with the patient directly, if the patient is not active onMyChart. If the patient is active on MyChart, they will receive notification of the communication/outcome via MyChart. documented in this encounter Plan of Treatment Upcoming Encounters Date Type Department Care Team (Late st Contact Info) Description 10/24/2024 2:30 PM EDT Office Visit [facility] Rogers [address] [facility], [address] [place] [address] Imelda Davis, DO [address] [place] [address] documented as of this encounter Visit Diagnoses Not on filedocumented in this encounter Care Teams Ordnance Equipment Worker Relationship Specialty Start Date End Date Yohannes Saravia MD [address] [place] [address] PCP - General 07/18/20 documented as of this encounter
--- OUTSIDE RECORDS SUMMARY | 2024-10-18 09:00 | XMS_ITS | Patient Health Record ---
Author Organization [facility] Address [address] [facility] [address] [place] [id number] Care Team Providers Care Marketing Automation Specialist Name Role Phone Francesca Saravia Primary Care Provider [phone] Aman Garcia Unavailable [phone] Tyrel Kaycee Unavailable [phone] Allergies Allergen (clinical drug ingredient) Drug/Non Drug [...] 55 Performing Lab: Notes/Report: Test performed by [facility] [employer] [address] [place] [address] , [address], [place] [address] Bam Ramirez MD, Mobile Engineer CLIA: [id number] Sodium 140 135-145 mmol/L Potassium 4.2 3.5-5.3 mmol/L Chloride 107 97-108 mmol/L CO2 25 22-32 mmol/L Glucose 107 65-99 mg/dL BUN 14 8-23 mg/dL Creatinine 1.28 0.70-1.30 mg/dL Calcium 9.2 8.6-10.4 mg/dL eGFR by Creatinine 55 >59 mL/min/1.73m2 P-Surgical Pathology Reviewed date:05/22/2024 05:28:10 PM Interpretation:SK [...] PM Gross Description: Received in formalin labeled Gayle Carreon is a quinones shaved portion of tissue [...] 1A, 05/05. (LLG,RR13,pc9) Grossing services provided by [facility], [facility], d/b/a [address] [place], [address] Gentry Sterling MD, Mobile Engineer. Microscopic Description: There is epidermal hyperplasia with [...] End of Report Technical services provided by [facility], [facility], d/b/a [address] , [place] [address] Gentry Sterling MD, Mobile Engineer. Case reviewed and diagnosis rendered at [facility], [facility], d/b/a [address] , [place] [address] Gentry Sterling MD, Mobile Engineer. CONFIDENTIAL CBC Fingerstick (in house) Reviewed date:10/01/2024 09:56:48 [...] - 38 plat 233 100 - 400 CBC Venipuncture (in house) [...] Interpretation:Normal Performing Lab: Notes/Report: Test performed by [facility] [address] [place] [address] , [address], [place] [address] Bam Ramirez MD, Mobile Engineer CLIA: [id number] Sodium 139 135-145 mmol/L Potassium 4.7 3.5-5.3 [...] Interpretation:Normal Performing Lab: Notes/Report: Test performed by [facility] [address] , [place] [address] Bam Ramirez MD, Mobile Engineer CLIA: [id number] Ferritin 54.7 30.0-400.0 ng/mL P-T4 Free (thyroxine) Reviewed date:05/15/2024 08:35:29 AM Interpretation:Normal Performing Lab: Notes/Report: Test performed by [facility] [address] , [facility] [place] [address] Bam Ramirez MD, Mobile Engineer CLIA: [id number] Thyroxine Free (free T4) 1.56 0.86-1.76 ng/dL P-Iron Reviewed date:05/15/2024 08:35:29 AM Interpretation:iron 53 Performing Lab: Notes/Report: Test performed by [facility] , [place] [address] Bam Ramirez MD, Mobile Engineer CLIA: [id number] Iron 53 59-158 ug/dL P-Lipid Panel Reviewed date:05/15/2024 08:35:29 AM Interpretation:trigs 160, hdl 39 Performing Lab: Notes/Report: Test performed by [facility] [address] , [facility] [place] [place] [address] Bam Ramirez MD, Mobile Engineer CLIA: [id number] Cholesterol 139 <200 mg/dL Triglycerides 160 <150 [...] Interpretation:Normal Performing Lab: Notes/Report: Test performed by [facility] [address] [facility] , [place] [address] Bam Ramirez MD, Mobile Engineer GONSALOIA: [id number] TSH 3.38 0.43-5.25 mU/L P-Iron Reviewed date:04/10/2024 08:32:58 AM Interpretation:61 (low normal) Performing Lab: Notes/Report: Test performed by [facility] [address] [place] [address] , [address], [place] [address] Bam Ramirez MD, Mobile Engineer CLIA: [id number] Iron 61 59-158 ug/dL CBC Venipuncture (in house) Reviewed date:04/10/2024 08:32:58 [...] - 38 platlet 396 100 - 400 Urinalysis - Inhouse Reviewed date:12/01/2023 12:28:08 PM Interpretation: Performing Lab: Notes/Report: Color/Clarity yellow Leuk neg Nitrite neg Urobili 3.2 Protein neg pH 7.0 Blood neg Sp. Gr. 1.020 Ketone neg Bili neg Gluc neg CBC Venipuncture (in house) Reviewed date:12/01/2023 12:28:00 [...] Interpretation:Normal Performing Lab: Notes/Report: Test performed by [facility] [address] [place] [address] [address], [place] [address] Bam Ramirez MD, Mobile Engineer CLIA: [id number] Sodium 143 135-145 mmol/L Potassium 4.4 3.5-5.3 [...] Interpretation:Normal Performing Lab: Notes/Report: Test performed by [facility] [address] , [address], [place] [address] Bam Ramirez MD, Mobile Engineer CLIA: [id number] Ferritin 40.6 30.0-400.0 ng/mL P-T4 Free (thyroxine) Reviewed date:12/06/2023 10:37:17 AM Interpretation:Normal Performing Lab: Notes/Report: Test performed by [facility] [address] , [place] [address] Bam Ramirez MD, Mobile Engineer CLIA: [id number] Thyroxine Free (free T4) 1.57 0.86-1.76 ng/dL P-Iron Reviewed date:12/06/2023 10:37:17 AM Interpretation:45 Performing Lab: Notes/Report: Test performed by [facility] [address] , [place] [address] Bam Ramirez MD, Mobile Engineer CLIA: [id number] Iron 45 59-158 ug/dL P-Lipid Panel Reviewed date:12/06/2023 10:37:17 AM Interpretation:hdl 36 Performing Lab: Notes/Report: Test performed by [facility] [address] , [address], [place] [address] Bam Ramirez MD, Mobile Engineer [facility]: [id number] Cholesterol 148 <200 mg/dL Triglycerides 99 <150 [...] Interpretation:Normal Performing Lab: Notes/Report: Test performed by [facility] [employer] [facility] [facility] , [address], [place] [address] Bam Ramirez MD, Mobile Engineer CLIA: [id number] TSH 1.80 0.43-5.25 mU/L CBC Fingerstick (in house) Reviewed date:01/10/2024 11:28:59 [...] - 38 plat 264 100 - 400 Echocardiogram Reviewed date:09/03/2024 11:28:13 PM Interpretation: Performing Lab: Notes/Report: Medications Medication SIG (Take, Route, Frequency, Duration) Notes Start Date End Date Status Rosuvastatin Calcium 5 MG TAKE 1 TABLET BY MOUTH ONCE DAILY; Duration: 90 Active Levothyroxine Sodium 75 MCG 1 tablet in the morning on an empty stomach Orally Once a day Active Mupirocin 2 % [address] Scientist ally Twice a day Active Cefdinir 300 MG 1 capsule Orally twi ce a day; Duration: 7 days 10/01/2024 Active Glucosamine & Fish Oil 719-806-91-40 MG 3 cap(s) orally once a day Active Multivitamin Plus Iron Adult - 1 tab(s) orally once a day Active Tamsulosin HCl 0.4 MG 1 capsule Orally O nce a day; Duration: 90 days Active Aspirin 81 MG 1 tab(s) orally once a day Active Lisinopril 10 MG TAKE 1 TABLET BY THAO TH ONCE DAILY; Duration: 90 Active Immunizations Vaccine Route Administration Date Status Comme nts COVID 19 Moderna Unknown 04/02/2020 Administered Fluzone High Dose (65yr and older) [...] (65yr and older) IM Intramuscular 12/13/2023 Administered PNEUMOVAX 23 VACCINE IM Intramuscular 03/06/2012 Administe red PNEUMOVAX 23 VACCINE IM Intramuscular 10/26/2016 Administe red Prevnar (PCV20) Unknown 02/08/2023 Administered Tetanus Tdap-Adacel (over 7yrs) Unknown 07/09/2021 Administered xFluzone (6mos and older)-trivalent IM Intramuscular 12/23/2010 Administered xFluzone High Dose-private (65yr&older) IM Intramuscular 12/12/2012 Administered Tetanus Tdap-Adacel (over 7yrs) IM Intramuscular 05/10/2009 Administered Prevnar (PCV13) IM Intramuscular 06/25/2014 Administered Fluzone Quad (6months&older) Unknown 12/17/2017 Administered COVID 19 Moderna Unknown 04/30/2020 Administered rSpyzapr-oglysrumk-qpwylzh e pts. IM Intramuscular 12/09/2009 Administered Problems Problem Type SNOMED Code ICD Code Onset Dates Problem Status W/U Status Risk Notes Problem Essential hypertension (22801242) Essential hypertension (I10) Active confirmed Problem Constipation (93695506) Constipation (K59.00) Active confirmed Problem Seasonal allergy (787952840) Seasonal allergies (J30.2) Active confirmed Problem Sciatic nerve lesion (133737888) Piriformis syndrome of left side (G57.02) Active confirmed Problem Multiple pulmonary nodules (034682442) Pulmonary nodules (R91.8) Active confirmed Problem Iron deficiency anemia (25424709) Iron deficiency anemia (D50.9) Active confirmed Problem Acute constipation (436534605) Acute constipation (K59.00) Active confirmed Problem Benign prostatic hyperplasia (409496045) BPH (benign prostatic hyperplasia) (N40.0) Active confirmed Problem Dysphagia (65124161) Dysphagia (R13.10) Active confirmed Problem Gastroesophageal reflux disease without esophagitis (896236076) Gastroesophageal reflux disease without esophagitis (K21.9) Active confirmed Problem Acquired hypothyroidism (463176260) Acquired hypothyroidism (E03.9) Active confirmed Problem COPD - Chronic obstructive pulmonary disease (85898584) Chronic obstructive pulmonary disease, unspecified COPD type (J44.9) Active confirmed Problem Presbycusis (40713749) Presbycusis of both ears (H91.13) Active confirmed Problem Anemia due to chronic blood loss (675309050) Blood loss anemia (D50.0) Active confirmed Problem Diverticular disease of colon (965160428) Diverticulosis (K57.90) Active confirmed Problem Dyslipidemia (766880904) Dyslipidemia (E78.5) Active confirmed Problem Allergic rhinitis caused by pollen (64447298) Seasonal allergic rhinitis due to pollen (J30.1) Active confirmed Problem Sciatic nerve lesion (185746444) Piriformis syndrome, right (G57.01) Active confirmed Problem Cerebral infarction (639878935) 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) Active confirmed Problem 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) Active confirmed Problem Lower urinary tract symptoms due to benign prostatic hypertrophy (56170116827275) Benign prostatic hyperplasia with lower urinary tract symptoms (N40.1) Active confirmed Problem Elevated PSA (319911034) Elevated PSA (R97.20) Active confirmed Problem Urge incontinence of urine (16197499) Urge incontinence of urine (N39.41) Active confirmed Problem Prostate nodule (633574843271797) Prostate nodule (N40.2) Active confirmed Problem Oropharyngeal dysphagia (18588877) Oropharyngeal dysphagia (R13.12) Active confirmed Problem Statin not tolerated (709209079) Statin intolerance (Z78.9) Active confirmed Problem Allergic rhinitis (43314810) Acute non-seasonal allergic rhinitis (J30.89) Active confirmed Vital Signs Heart Rate 81 /min 10/01/2024 Blood pressure diastolic 64 mm Hg 10/01/2024 Height 66.50 in 10/01/2024 Blood pressure systolic 114 mm Hg 10/01/2024 Weight 138 lbs 10/01/2024 BMI 21.94 kg/m2 10/01/2024 Encounters Encounter Location Date Provider Diagnosis [facility] [address] [place] [id number] 12/01/2023 Kaycee Crowdy Costochondritis M94. 0 ; Dyslipidemia E78.5 ; Acquired hypothyroidism E03.9 ; Gastroesophageal reflux disease without esophagitis K21.9 ; Anemia, unspecified type D64.9 ; Essential hypertension I10 and Sternocleidomastoid muscle tenderness M79.12 [facility] [address] [place] [id number] 12/13/2023 R Girish Manjit [facility] [address] [place] [id number] 01/10/2024 R Girish Manjit Iron deficiency anem ia D50.9 [facility] [address] [place] [id number] 02/21/2024 R Girish Manjit Atypical chest pain R07.89 and Essential hypertension I10 [facility] [address] [place] [id number] 03/01/2024 R Girish Manjit Hyponatremia E87.1 a nd Muscle spasm of back M62.830 [facility] [address] [place] [id number] 03/06/2024 R Girish Manjit Hyponatremia E87.1 a nd COVID-[address] [facility] [address] [place] [id number] 04/05/2024 R Girish Manjit Fall W19.XXXA ; Thor acic back pain M54.6 and Iron deficiency anemia D50.9 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 1 ; Chronic constipation K59.09 ; Iron deficiency E61.1 and BMI 21.0-21.9, adult Z68.21 [facility] [address] [place], [place] [id number] 08/23/2024 R Girish Manjit Acute urinary retent ion R33.8 ; Indwelling Morgan catheter present Z97.8 ; BPH (benign prostatic hyperplasia) N40.0 and BMI 22.0-22.9, adult Z68.22 [facility] [address] [place], [place] [id number] 10/01/2024 Aman [place] Acute URI J06.9 [facility] [address] [place], [place] [id number] 11/16/2023 Kaycee Crowdy Dermatitis L30.9 [facility] [address] [place] [id number] 12/06/2023 Kaycee Crowdy [facility] [address] [place], [place] [id number] 02/03/2024 R Girish Manjit Dermatitis L30.9 [facility] [address] [place] [id number] 03/02/2024 R Girish Manjit [facility] [address] [place] [id number] 04/10/2024 R Girish Manjit [facility] [address] [place] [id number] 04/10/2024 R Girish Manjit [facility] [address] [place] [id number] 05/02/2024 Francesca Saravia [facility] [address] [facility] [address] [facility] [address] [place] [id number] 05/15/2024 Kaycee Sarah [facility] [address] [facility] [address] [facility] [address] [place] [id number] 09/03/2024 Kaycee Sarah Abnormal echocardiog ever R93.1 [facility] [address] [facility] [address] [place] [id number] 10/16/2024 Kaycee Sarah Iron deficiency anem ia D50.9 Assessments Encounter Date Diagnosis (ICD Code) Assessment Notes Treatment Notes Treatment Clinical Notes Section Notes 11/16/2023 Dermatitis (ICD-10 - L30.9) 01/10/2024 Iron [...] Deviated nasal septu m (ICD-10 - J34.2) 05/11/2024 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 Saravia to remove. 05/17/2024 Neoplasm of uncertai n behavior of [...] Flomax a few more days to work. 09/03/2024 Abnormal echocardiogram (ICD-10 - R93.1) 10/01/2024 Acute URI (ICD-10 - J06.9) 10/16/2024 Iron deficiency anem ia (ICD-10 - D50.9) 08/23/2024 BPH (benign prostati c hyperplasia) (ICD-10 - N40.0) 08/15/2024 Iron deficiency (ICD-10 - E61.1) m 05/11/2024 Dyslipidemia (ICD-10 - E78.5) 12/01/2023 Acquired hypothyroidism (ICD-10 - E03.9) 04/05/2024 Iron deficiency anem ia (ICD-10 - D50.9) 12/01/2023 Gastroesophageal reflux disease without esophagitis (ICD-10 - K21.9) 05/11/2024 Acquired hypothyroidism (ICD-10 - E03.9) 08/23/2024 BMI 22.0-22.9, adult (ICD-10 - Z68.22) 08/15/2024 BMI 21.0-21.9, adult (ICD-10 - Z68.21) m 12/01/2023 Anemia, unspecified type (ICD-10 - D64.9) 05/11/2024 Essential hypertensi on (ICD-10 - I10) 12/01/2023 Essential hypertensi on (ICD-10 - I10) 05/11/2024 Iron deficiency anem ia (ICD-10 - D50.9) 12/01/2023 Sternocleidomastoid muscle tenderness (ICD-10 - M79.12) This pain also began after leaf blowing on the roof. The muscle is still mildly tender but he has not had any further swallowing difficulty. Plan Of Treatment Pending Test Test Name Order Date H-Ferritin 10/16/2024 H-Iron 10/16/2024 Insurance Providers Payer Name Payer Address Payer Phone Subscriber Number Group Number Insured Name Patient Relationship to Insured Coverage Start Date Coverage End Date [employer] (MEDICAR E) [address] [address] [place] [address] [id number] LISANDRO CARRENO Self - patient is the insured Medications Administered Medication Instructions Date of Administration Dosage Notes B-12 07/02/2014 1 mL Depo- Medrol 40 mg/ml 07/20/2021 1 mL Depo- Medrol 40 mg/ml 10/07/2021 1 mL Depo- Medrol 40 mg/ml 09/02/2023 1 mL Dexamethasone 05/12/2012 Dexamethasone 02/25/2017 1 mL Depo- Medrol 40 mg/ml 01/15/2019 1.5 mL Medical (General) History Medical History History ICD Code hyperlipidemia Acquired hypothyroidism GERD Diverticulosis BPH, s/p urology evaluation with biopsie s COPD Hiatal hernia elevated PSA right thalamic CVA 11/28/18 - [facility] Surgical History Surgery Date(Month/Year) bilateral ear surgery thyroid radiation for over-active thyroi d circumcision prostate biopsy Colonoscopy 2006, 2011, 2016 cataract(both) 03/2009, 04/2009 left tonsillectomy -Dr Vazquez 04/2015 lip surgery 01/2016 EGD/ Iraj 2016 EGD/ Dr. Kasi/ small HH, antral inflamma tion, No stricture 11/2018 EGD/ Dr. Escobedo/ mild chronic gastritis/ no stricture 07/2021 Colonoscopy 04/14/2022 Hospitalization History Reason Date(Month/Year) [facility] ER 04/14/2022 [facility] ER-transferred to -stroke 11/28-2 08/2018 [facility]-Anemia 11/17- [facility] ER-fell off ladder 07/2016 [facility] ER-severe stomach pain 10/25/2011
[2024-10-18 10:32] LABS: Iron 57 ug/dL (49-181)
[2024-10-18 11:04] LABS: Ferritin 31.5 ng/ml (17.9-464)
== END 2024-10-18 23:59 | disposition home or self-care (01) ==
LOC: LAB 08:54
PROVIDERS: PCP Family Medicine; Visit Provider Physician Assistant
DX: D50.9 Iron deficiency anemia, unspecified (principal)
CPT/HCPCS: 36415; 82728; 83540